=== PATIENT | male | born 1975 ===

== ENCOUNTER 2018-04-25 15:01 | Inpatient (IN) | payer MEDICAID ==
[2018-04-25 15:01] VITALS: BMI 39.1
--- NOTE | 2018-04-25 15:48 | ED PDOC ---
Arrival/HPI - General Chief Complaint: Psychiatric Evaluation Time Seen by Provider: 04/25/18 15:04 Historian: Patient - History of Present Illness Narrative History of Present Illness (Text): 04/25/18 15:25 43 year old male, with past medical history of schizophrenia and bipolar disorder, referred to the Emergency department by Dr. Correa for psychiatric evaluation today. Patient informs feeling depressed in addition to auditory hallucinations and unusual thoughts for past few days. Patient expresses suicidal ideation but denies any homicidal ideation. Patient denies any medical complaints. Patient denies any fever, chills, nausea, vomiting, diarrhea, abdominal pain, chest pain, shortness of breath, neck pain, back pain, headache, dizziness, or any other complaints. Time/Duration: Prior to Arrival Symptom Onset: Gradual Symptom Course: Unchanged Activities at Onset: Light Context: Home Past Medical History - Provider Review Nursing Documentation Reviewed: Yes - Infectious Disease Hx of Infectious Diseases: None - Tetanus Immunization Tetanus Immunization: Unknown - Cardiac Hx Cardiac Disorders: No - Pulmonary Hx Respiratory Disorders: No - Neurological Hx Neurological Disorder: No - HEENT Hx HEENT Disorder: No - Renal Hx Renal Disorder: No - Endocrine/Metabolic Hx Endocrine Disorders: No - Hematological/Oncological Hx Blood Disorders: No - Integumentary Hx Dermatological Disorder: No - Musculoskeletal/Rheumatological Hx Musculoskeletal Disorders: No - Gastrointestinal Hx Gastrointestinal Disorders: No - Genitourinary/Gynecological Hx Sexually Transmitted Diseases: (Patient denied) - Psychiatric Hx Psychophysiologic Disorder: Yes Hx Anxiety: Yes Hx Bipolar Disorder: Yes Hx Depression: Yes Hx Schizophrenia: Yes Hx Substance Use: Yes (COCAINE, CANNABIS; DENIES RECENT USE) - Past Surgical History Past Surgical History: Unable to Obtain - Surgical History Hx Coronary Stent: No - Anesthesia Hx Anesthesia: No - Suicidal Assessment Feels Threatened In Home Enviroment: No Family/Social History - Physician Review Nursing Documentation Reviewed: Yes Family/Social History: No Known Family HX Smoking Status: Former Smoker Hx Alcohol Use: Yes Hx Substance Use: Yes (COCAINE, CANNABIS; DENIES RECENT USE) Hx Substance Use Treatment: Yes Allergies/Home Meds Allergies/Adverse Reactions: Allergies divalproex sodium [From Depakote] Allergy (Verified 04/25/18 15:08) RASH FISH Allergy (Verified 04/25/18 15:08) RASH haloperidol [From Haldol] Allergy (Verified 04/25/18 15:08) RASH haloperidol lactate [From Haldol] Allergy (Verified 04/25/18 15:08) RASH risperidone [From Risperdal] Allergy (Verified 04/25/18 15:08) RASH ziprasidone HCl [From Geodon] Allergy (Verified 04/25/18 15:08) RASH ziprasidone mesylate [From Geodon] Allergy (Verified 04/25/18 15:08) RASH Home Medications: Home Meds Medication Instructions Recorded Confirmed Docusate [Colace] 1 cap PO BID 04/25/18 04/25/18 Famotidine [Pepcid] 20 mg PO DAILY 04/25/18 04/25/18 [place] Carbonate [[place] 300 mg PO TID 04/25/18 04/25/18 Carbonate 300MG] QUEtiapine [SEROquel] 300 mg PO HS 04/25/18 04/25/18 Review of Systems - Physician Review All systems were reviewed & negative as marked: Yes - Review of Systems Constitutional: absent: Fevers Respiratory: absent: SOB Cardiovascular: absent: Chest Pain Gastrointestinal: absent: Abdominal Pain, Diarrhea, Nausea, Vomiting Musculoskeletal: absent: Back Pain, Neck Pain Neurological: absent: Headache, Dizziness Psychiatric: Depression, Suicidal Ideation Physical Exam Vital Signs Reviewed: Yes Vital Signs Temp Pulse Resp BP Pulse Ox 04/25/18 15:10 98.8 F 86 16 114/76 97 Temperature: Afebrile Blood Pressure: Normal Pulse: Regular Respiratory Rate: Normal Appearance: Positive for: Well-Appearing, Non-Toxic, Comfortable Pain Distress: None Mental Status: Positive for: Alert and Oriented X 3 - Systems Exam Head: Present: Atraumatic, Normocephalic Pupils: Present: PERRL Extroacular Muscles: Present: EOMI Conjunctiva: Present: Normal Mouth: Present: Moist Mucous Membranes Neck: Present: Normal Range of Motion Respiratory/Chest: Present: Clear to Auscultation, Good Air Exchange. No: Respiratory Distress, Accessory Muscle Use Cardiovascular: Present: Regular Rate and Rhythm, Normal S1, S2. No: Murmurs Abdomen: No: Tenderness, Distention, Peritoneal Signs Back: Present: Normal Inspection Upper Extremity: Present: Normal Inspection. No: Cyanosis, Edema Lower Extremity: Present: Normal Inspection. No: Edema Neurological: Present: GCS=15, CN II-XII Intact, Speech Normal Skin: Present: Warm, Dry, Normal Color. No: Rashes Psychiatric: Present: Alert, Oriented x 3, Suicidal Ideation Medical Decision Making ED Course and Treatment: 04/25/18 15:25 Impression: 43 year old male presents to the Emergency department for psychiatric evaluation of depression and suicidal ideation. Differential Diagnosis included but are not limited to: Suicidal ideation Plan: -- EKG -- Labs -- Chest X-ray -- Urinalysis -- Reassess and disposition Prior Visits: Notes and results from previous visits were reviewed. Progress Notes: 04/25/18 15:25 EKG: Ordered, reviewed, and independently interpreted the EKG. Rate : 79 BPM Rhythm : NSR Interpretation : No ST-segment elevations or depressions, no T-wave inversions, normal intervals. 04/25/18 15:25 Chest X-ray reviewed by me, shows no acute diseases. 04/25/18 16:17 Patient is medically cleared for possible psychiatric admission. PES paged for evaluation. - RAD Interpretation Radiology Orders: 04/25/18 15:25 CHEST PORTABLE [RAD] Stat - Scribe Statement The provider has reviewed the documentation as recorded by the Scribe Hiwot Obando. Provider Scribe Attestation: All medical record entries made by the Scribe were at my direction and personally dictated by me. I have reviewed the chart and agree that the record accurately reflects my personal performance of the history, physical exam, medical decision making, and the department course for this patient. I have also personally directed, reviewed, and agree with the discharge instructions and disposition. Disposition/Present on Arrival - Present on Arrival Any Indicators Present on Arrival: No History of DVT/PE: No History of Uncontrolled Diabetes: No Urinary Catheter: No History of Decub. Ulcer: No History Surgical Site Infection Following: None - Disposition Have Diagnosis and Disposition been Completed?: Yes Diagnosis: Schizophrenia Disposition: HOSPITALIZED Disposition Time: 07:00 Condition: STABLE Forms: [employer] (Cuban)
[2018-04-25 15:53] LABS: BASO # 0.03 K/mm3 (0.0-2.0); BASO % 0.5 % (0.0-3.0); EOS # 0.2 (0.0-0.7); EOS % 2.4 % (1.5-5.0); GRAN # 2.92 (1.4-6.5); GRAN % 45.9 % (50.0-68.0); HEMOGLOBIN 15.9 g/dL (14.0-18.0); LYMPH # 2.6 (1.2-3.4); LYMPH % 41.3 % (22.0-35.0); MEAN CELL VOLUME 89.6 fl (80.0-105.0); MEAN CORPUSCULAR HEMOGLOBIN 30.6 pg (25.0-35.0); MEAN CORPUSCULAR HGB CONC 34.2 g/dl (31.0-37.0); MEAN PLATELET VOLUME 8.7 fl (7.0-11.0); MONO # 0.6 (0.1-0.6); MONO % 9.9 % (1.0-6.0); RBC 5.19 10^6/uL (3.5-6.1); RED CELL DISTRIBUTION WIDTH 12.7 % (11.5-14.5); WHITE BLOOD COUNT 6.4 10^3/ul (4.5-11.0)
[2018-04-25 15:54] LABS: URINE BILIRUBIN NEGATIVE (NEGATIVE); URINE BLOOD NEGATIVE (NEGATIVE); URINE GLUCOSE (UA) NEGATIVE (NEGATIVE); URINE LEUKOCYTE ESTERASE NEGATIVE Leu/uL (NEGATIVE); URINE PROTEIN NEGATIVE mg/dL (<30 mg/dL); URINE UROBILINOGEN 0.2 E.U./dL (<1 E.U./dL)
[2018-04-25 15:55] LABS: URINE APPEARANCE CLEAR (CLEAR); URINE COLOR YELLOW (YELLOW)
[2018-04-25 16:07] LABS: ACETAMINOPHEN < 10.0 ug/ml (10.0-20.0); SALICYLATE < 1 mg/dL (2.0-20.0)
[2018-04-25 16:09] LABS: ALB/GLOB RATIO 1.1 (1.1-1.8); ALBUMIN 4.3 g/dL (3.0-4.8); ALT/SGPT 28 U/L (7-56); AST/SGOT 21 U/L (17-59); BLOOD UREA NITROGEN 9 mg/dL (7-21); CALCIUM 9.8 mg/dL (8.4-10.5); GFR NON-AFRICAN AMERICAN > 60
--- NOTE | 2018-04-25 16:16 | RAD ---
Date of service: 04/25/2018 HISTORY: pysch COMPARISON: No prior. FINDINGS: LUNGS: No active pulmonary disease. PLEURA: No significant pleural effusion identified, no pneumothorax apparent. CARDIOVASCULAR: Normal. OSSEOUS STRUCTURES: No significant abnormalities. VISUALIZED UPPER ABDOMEN: Normal. OTHER FINDINGS: None. IMPRESSION: No active disease.
[2018-04-25 16:27] LABS: BARBITURATES, UR NEGATIVE (NEGATIVE); BENZODIAZEPINES, UR NEGATIVE (NEGATIVE); OPIATES, UR NEGATIVE (NEGATIVE); PHENCYCLIDINE, UR NEGATIVE (NEGATIVE)
--- NOTE | 2018-04-26 01:30 | PCM.BM ---
<Elmer Gerardo - Last Filed: 04/26/18 01:28> Treatment Plan Problems - Problems identified on initial assessmt Auditory Hallucinations Date Initiated: 04/26/18 Time Initiated: Assessment reference: NA Status: Active Altered Thoughts Process Date Initiated: 04/26/18 Time Initiated: Assessment reference: NA Status: Active Ineffective Coping Date Initiated: 04/26/18 Time Initiated: Assessment reference: NA Status: Active Medication nonadherence Date Initiated: 04/26/18 Time Initiated: Assessment reference: NA Status: Active Treatment assets and liabiliti Patient Assests: adapts well, cooperative, self-reliant, ADL independent, physically healthy, negotiates basic needs, cognitively intact Patient Liabilities: live alone, financial problems, poor support system - Milieu Protocol Maintain good personal hygiene: daily Encourage regular showers, daily Remind patient to perform daily oral care, daily Assist patient to perform ADL's Conduct patient checks and document Observation sheet: Q15 minutes Maintain personal safety: every shift Educate patient to report safety concerns to staff, every shift Monitor environment for contraband/sharps Medication safety: Monitor for expected outcome, potential side effects: every shift, Assess barriers to learning: every shift, Assess readiness for medication education: every shift Discharge/Continuing Care - Education Needs Education Needs: Patient Medication, Patient Diagnosis/Disease Process, Patient Coping Skills, Patient Community resources, Patient Activities of Daily Living, Patient Nutrition, Patient Health Practices/Safety, Patient Personal Hygiene/G rooming, Patient Aftercare Safety Plan - Discharge Discharge Criteria: Tolerates medication w/o severe side effects, Free of Suicidal thoughts, Free of paranoid thoughts, Normal sleep pattern, Ability to care for self, Reduction of target symptoms <Madeline Hernandez - Last Filed: 04/26/18 14:33> - Diagnosis (1) Schizoaffective disorder, bipolar type Status: Acute Interventions: 04/26/18 14:34 Psychoeducation/psychotherapy Psychopharmacology/adjustment of medications as needed/ monitoring possible side effects Evaluate pt on daily basis Compliance with medications and follow up appointments Long acting medication if pt is noncompliant with pill form Suicide and homicide risk assessment and prevention, coping strategies, safety plan Relapse prevention Reduction of symptoms Improve functional status Possible assertive community treatment Cognitive behavioral therapy Family involvement Possible social skill training as outpatient <Elsa Todd - Last Filed: 04/26/18 16:34> Family Contact - Outside Agency [facility] involvment: Information-sharing Agency contact name: Dennise Payan [facility] Agency contact number: [phone]
[2018-04-26 07:26] LABS: GLUCOSE,FASTING 106 mg/dL (65-110); HDL CHOLESTEROL 45 mg/dL (29-60)
[2018-04-26 07:38] LABS: LDL CHOLESTEROL 137 mg/dL (0-129)
--- NOTE | 2018-04-26 14:24 | CARD ---
APPROVED REPORT Date of service: 04/25/2018 EKG Measurement Heart [id number] <Conclusion> Normal sinus rhythm Incomplete right bundle branch block Nonspecific T wave abnormality Abnormal ECG
--- NOTE | 2018-04-26 14:33 | PCM.PSYCH ---
Initial Psychiatric Evaluation - Initial Psychiatric Evaluation Type of Admission: Voluntary Legal Status: Capacity (patient has capacity to sign consent for treatment) Chief Complaint (in patient's own words): "I'm sick and tired of everything,I have no hopes for the future, I do want to repeat myself anymore, only want to do it's going home, I will go to my group h ome then I will sign myself out and nobody will find me ever" Patient's Reaction to Hospitalization: Patient was admitted for evaluation and stabilization of depressive symptoms, psychosis, inability to take care of himself, loss of appetite, suicidal ideation. History of Present Illness and Precipitating Events: Shortly patient is 43-year-old male with reported history of schizoaffective disorder, patient has treatment resistant symptoms, multiple previous psychiatric admissions including [place] as well as [facility], patient seems to be compliant with the medication but still has residual symptoms of psychosis, patient has command type hallucinations, patient also suffered from severe depression, patient was not able to function, patient was not bathing, had low appetite, very apathetic, patient was referred by [facility] for evaluation and stabilization of depressive symptoms, psychotic symptoms, medication management, possible ECT treatment,, patient requires further evaluation and stabilization and medication initiation and titration possible ECT. patient was seen and examined today at the treatment team meeting, patient presented to be irritable, annoyed, agitated, refused to participate in treatment meeting, patient said that "I'm sick and tired of everything, I do want to repeat myself, fully want is to go back home, then I will sign myself out, nobody will find me ever". patient requested to be discharged, signed 48 hour notice, patient was educated about treatment plan, about ECT options, about medication management, patient was not receptive. As per staff patient was agitated, but not aggressive, irritable, annoyed, verbalized that he is hearing voices as well as has suicidal ideation but denied any plan or intent to kill himself, over night complained that he hears multiple voices,required PRN ativan. patient gave permission to speak to Quynh Hurley at [facility], who visited pt today, as per Quynh pt has been laying in bed for the past month and half, confused, having hallucinations, no taking care of his hygiene, reporting suicidal thoughts. Pt has been experiencing loss of appetite, verbalized hopelessness and helplessness and loss interest in life. Staff expressed highest concerns about pt's safety. after Quynh visit pt rescinded 48hr notice, willing to get treatment, willing to stay and complete his tx course. as per report patient was on Seroquel 300 mg at the nighttime, lithium 300 mg 3 times a day, trazodone 50 mg at the nighttime. past psych h/o: >4psychiatric hospitalizations; currently treated with [place], Seroquel PMHx: Back and leg pain Alergies: Fish, Depakote; (unclear if true allergy vs dystonia)-Risperdal, Haldol FHx: Denies family h/o mental illness SHx: Denies drug/etoh/cig; resident of [facility]dc h/o abuse is unknown 04/25/18 15:39 04/25/18 15:39 Lab Results 04/26/18 06:45: TSH 3rd Generation 4.32 04/26/18 06:45: Fasting Glucose 106, Triglycerides 145, Cholesterol 219 H, LDL Cholesterol Direct 137 H, HDL Cholesterol 45 04/26/18 06:45: [place] 0.2 L 04/25/18 15:39: Alcohol, Quantitative < 10 04/25/18 15:39: Salicylates < 1 L, Acetaminophen < 10.0 L 04/25/18 15:39: Urine Opiates Screen Negative, Urine Methadone Screen Negative, Ur Barbiturates Screen Negative, Ur Phencyclidine Scrn Negative, Ur Amphetamines Screen Negative, U Benzodiazepines Scrn Negative, U Oth Cocaine Metabols Negative, U Cannabinoids Screen Negative 04/25/18 15:39: Sodium 143, Potassium 3.9, Chloride 109 H, Carbon Dioxide 25, Anion Gap 12, BUN 9, Creatinine 0.8, Est GFR ( Amer) > 60, Est GFR (Non- Af Amer) > 60, Random Glucose 98, Calcium 9.8, Magnesium 2.2, Total Bilirubin 0.4, AST 21, ALT 28, Alkaline Phosphatase 54, Total Protein 8.1, Albumin 4.3, Globulin 3.8, Albumin/Globulin Ratio 1.1 04/25/18 15:39: Urine Color Yellow, Urine Appearance Clear, Urine pH 6.0, Ur Specific [place] 1.025, Urine Protein Negative, Urine Glucose (UA) Negative, Urine Ketones Negative, Urine Blood Negative, Urine Nitrate Negative, Urine Bilirubin Negative, Urine Urobilinogen 0.2, Ur Leukocyte Esterase Negative 04/25/18 15:39: WBC 6.4, RBC 5.19, Hgb 15.9, Hct 46.5, MCV 89.6, MCH 30.6, MCHC 34.2, RDW 12.7, Plt Count 307, MPV 8.7, Gran % 45.9 L, Lymph % (Auto) 41.3 H, [place] % (Auto) 9.9 H, Eos % (Auto) 2.4, Baso % (Auto) 0.5, Gran # 2.92, Lymph # (Auto) 2.6, [place] # (Auto) 0.6, Eos # (Auto) 0.2, Baso # (Auto) 0.03 Vital Signs Temp Pulse Resp BP Pulse Ox 04/26/18 07:21 98.2 F 92 H 20 116/74 04/25/18 20:30 98.3 F 82 18 131/71 100 04/25/18 20:20 98.3 F 80 16 121/80 99 04/25/18 19:22 98.3 F 82 18 131/71 100 04/25/18 15:55 98.3 F 81 20 112/73 96 04/25/18 15:10 98.8 F 86 16 114/76 97 lithium was less than 2 most likely patient was noncompliant with the medications Current Medications: Active Medications Generic Name Dose Route Start Last Admin Trade Name Freq PRN Reason Stop Dose Admin Docusate Sodium 100 mg 04/26/18 08:00 04/26/18 09:12 Colace PO 100 mg BID PETROS Administration [place] Carbonate 300 mg 04/26/18 08:00 04/26/18 09:12 [place] Carbonate 300mg PO 300 mg TID PETROS Administration Lorazepam 2 mg 04/25/18 21:55 04/26/18 09:12 Ativan PO 2 mg Q6 PRN Administration Agitation/Psychosis Protocol Quetiapine Fumarate 300 mg 04/26/18 22:00 Seroquel PO HS PETROS Protocol Past Psychiatric History - Past Psychiatric History Previous Treatment History: Inpatient Prior Professional Help: see HPI Prior Psychiatric Treatment: see HPI At what hospital: see HPI Duration: see HPI Nature of Treatment: see HPI Explanation of prior treatment: see HPI History of Abuse: see HPI History of ETOH/Drug Use: see HPI History of Family Illness: see HPI Pertinent Medical Hx (Current Medical&Sleep Prob, Allergies): Allergies Allergy/AdvReac Type Severity Reaction Status Date / Time divalproex sodium Allergy RASH Verified 04/25/18 22:09 [From Depakote] FISH Allergy RASH Verified 04/25/18 22:09 haloperidol [From Haldol] Allergy RASH Verified 04/25/18 22:09 haloperidol lactate Allergy RASH Verified 04/25/18 22:09 [From Haldol] risperidone [From Risperdal] Allergy RASH Verified 04/25/18 22:09 ziprasidone HCl [From Geodon] Allergy RASH Verified 04/25/18 22:09 ziprasidone mesylate Allergy RASH Verified 04/25/18 22:09 [From Geodon] Docusate [Colace] 1 cap PO BID 04/25/18 Famotidine [Pepcid] 20 mg PO DAILY 04/25/18 [place] Carbonate [[place] Carbonate 300MG] 300 mg PO TID 04/25/18 QUEtiapine [SEROquel] 300 mg PO HS 04/25/18 Review of Systems - Review of Systems Systems not reviewed;Unavailable: Acuity of Condition - EENT Eyes: As Per HPI Ears: As Per HPI Nose/Mouth/Throat: As Per HPI - Cardiovascular Cardiovascular: As Per HPI - Respiratory Respiratory: As Per HPI - Gastrointestinal Gastrointestinal: As Per HPI - Genitourinary Genitourinary: As Per HPI - Reproductive: Male Reproductive:Male: As Per HPI - Musculoskeletal Musculoskeletal: As Par HPI - Integumentary Integumentary: As Per HPI - Neurological Neurological: As Per HPI - Psychiatric Psychiatric: As Per HPI - Endocrine Endocrine: As Per HPI - Hematologic/Lymphatic Hematologic: As Per HPI Mental Status Examination - Personal Presentation Personal Presentation: Looks stated age - Affect Affect: Constricted, Flat - Motor Activity Motor Activity: Psychomotor Agitation, Other (restlessness) - Reliability in Providing Information Reliability in Providing Information: Poor, due to alteration in thoughts, Poor, due to altered mood, Poor, due to cognitve impairment - Speech Speech: Disorganized - Mood Mood: Depressed, Anxious - Formal Thought Process Formal Thought Process: Hallucinations, Delusions, Paranoia - Hallucinations/Delusions Delusions: Persecution - Obsessions/Compulsions Obsessions: None Compulsions: None - Cognitive Functions Orientation: Person, Place, Situation Sensorium: Alert Attention/Concentration: Easily distracted Estimate of Intelligence: Average Judgement: Intact, as evidence by: Insight regarding need for hospitalization - Risk Risk: Suicidal, Diminished functioning - Strength & Assets Inventory Strength & Assets Inventory: Other (relatively good physical health, support from the [facility], no drug abuse) - Limitations Limitations: Other (tx resistant symptoms) DSM 5 DX - DSM 5 DSM 5 Diagnosis: schizoaffective disorder bipolar type as per history, ost recent episode mixed - Recommended/Plan of Treatment Treatment Recommendations and Plan of Treatment: Milieu/structure/supportive therapy Medical consult appreciated, see medical team note for more detailed info SW consultation for discharge plan and social issues Med management Docusate [Colace] 1 cap PO BID presumed Famotidine [Pepcid] 20 mg PO DAILY resumed [place] Carbonate [[place] Carbonate 300MG] 300 mg PO TID resumed [place] level is less than 0.2, most likely patient was not compliant with the medications, we'll continue with her previous dose QUEtiapine [SEROquel] will be increased to 200 mg at the morning time and 300 mg PO HS Ativan 1 mg 3 times a day will be added for anxiety Collaterals were obtained from the fdc possible ECT treatment, at the same time patient lacks capacity to sign consent as of now because the severity of his symptoms Follow up on labs Will monitor closely Pt was educated about risk/benefits and alternatives of medications, coping strategies (safety plan, suicide prevention), relapse prevention, importance of follow up with psychiatrist and therapist, stay away from drugs/alcohol/smoking Projected ELOS: 10 days Prognosis: guarded Discharge Plan and Discharge Criteria: Pt will be not depressed or manic, will be more hopeful, will be not psychotic or anxious, will be not having thoughts of harming self or others, will be tolerating medications well, will not have major side effects, will be able to function, will not pose threat to self or others. - Smoking Cessation Smoking Cessation Initiated: No Reason for not providing: patient denied smoking
--- NOTE | 2018-04-27 13:45 | PCM.PYCHPN ---
Psychiatric Progress Note - Psychiatric Progress Note Patient seen today, length of contact: 30 minutes Patient Chief Complaint: "I was not feeling so well yesterday, I was not feeling okay, thank you for keeping me, all I can say I hear voices, but I feel more hopeful" Problems Identified/Issues Discussed: Suicide/ homicide prevention, past psychiatric h/o, current psychiatric symptoms, medical problems, risk/benefits and alternatives of medications, medications compliance, coping strategies, substance abuse h/o, relapse prevention, importance of follow up with psychiatrist and therapist, discharge plan Medical Problems: pt c/o back pain, ibuprofen started Diagnostic Results: 04/25/18 15:39 04/25/18 15:39 Lab Results 04/26/18 06:45: RPR Nonreactive 04/26/18 06:45: TSH 3rd Generation 4.32 04/26/18 06:45: Fasting Glucose 106, Triglycerides 145, Cholesterol 219 H, LDL Cholesterol Direct 137 H, HDL Cholesterol 45 04/26/18 06:45: [place] 0.2 L 04/25/18 15:39: Alcohol, Quantitative < 10 04/25/18 15:39: Salicylates < 1 L, Acetaminophen < 10.0 L 04/25/18 15:39: Urine Opiates Screen Negative, Urine Methadone Screen Negative, Ur Barbiturates Screen Negative, Ur Phencyclidine Scrn Negative, Ur Amphetamines Screen Negative, U Benzodiazepines Scrn Negative, U Oth Cocaine Metabols Negative, U Cannabinoids Screen Negative 04/25/18 15:39: Sodium 143, Potassium 3.9, Chloride 109 H, Carbon Dioxide 25, Anion Gap 12, BUN 9, Creatinine 0.8, Est GFR ( Amer) > 60, Est GFR (Non- Af Amer) > 60, Random Glucose 98, Calcium 9.8, Magnesium 2.2, Total Bilirubin 0.4, AST 21, ALT 28, Alkaline Phosphatase 54, Total Protein 8.1, Albumin 4.3, Globulin 3.8, Albumin/Globulin Ratio 1.1 04/25/18 15:39: Urine Color Yellow, Urine Appearance Clear, Urine pH 6.0, Ur Specific [place] 1.025, Urine Protein Negative, Urine Glucose (UA) Negative, Urine Ketones Negative, Urine Blood Negative, Urine Nitrate Negative, Urine Bilirubin Negative, Urine Urobilinogen 0.2, Ur Leukocyte Esterase Negative 04/25/18 15:39: WBC 6.4, RBC 5.19, Hgb 15.9, Hct 46.5, MCV 89.6, MCH 30.6, MCHC 34.2, RDW 12.7, Plt Count 307, MPV 8.7, Gran % 45.9 L, Lymph % (Auto) 41.3 H, [place] % (Auto) 9.9 H, Eos % (Auto) 2.4, Baso % (Auto) 0.5, Gran # 2.92, Lymph # (Auto) 2.6, [place] # (Auto) 0.6, Eos # (Auto) 0.2, Baso # (Auto) 0.03 Vital Signs Temp Pulse Resp BP Pulse Ox 04/27/18 07:19 98 F 90 20 118/74 04/26/18 16:00 103 H 122/75 04/26/18 07:21 98.2 F 92 H 20 116/74 04/25/18 20:30 98.3 F 82 18 131/71 100 04/25/18 20:20 98.3 F 80 16 121/80 99 04/25/18 19:22 98.3 F 82 18 131/71 100 04/25/18 15:55 98.3 F 81 20 112/73 96 04/25/18 15:10 98.8 F 86 16 114/76 97 DSM 5 Symptoms Update: Shortly patient is 43-year-old male with reported history of schizoaffective disorder, patient has treatment resistant symptoms, multiple previous psychiatric admissions including [facility] as well as [facility], patient seems to be compliant with the medication but still has residual symptoms of psychosis, patient has command type hallucinations, patient also suffered from severe depression, patient was not able to function, patient was not bathing, had low appetite, very apathetic, patient was referred by halfway for evaluation and stabilization of depressive symptoms, psychotic symptoms, medication management, possible ECT treatment,, patient requires further evaluation and stabilization and medication initiation and titration possible ECT. patient was seen and examined today in his room, pt is apathetic, internally preoccupied, still did not want talk much. pt was apologetic for his behavior yesterday. treatment plan was discussed in details. pt was opened to ECT treatment, but pt seems to be still disorganized, needs to be stabilized more on meds in order to make decision about ECT treatment. pt's mood still depressed, pt has suicidal ideation, but contracted for safety. As per staff patient is compliant with the medications, no agitation or aggr ession,patient is depressed, self isolating. So far patient tolerates medications well, no jatin effects observed or reported, aims 0, no EPS. Impression: Schizoaffective disorder as per history Rule out schizophrenia treatment resistant Medication Change: Yes (seroquel increaed) Medical Record Reviewed: Yes Consults ordered or reviewed: pt was seen by medical team at ED will consider medical consult for dyslipidemia Mental Status Examination - Cognitive Function Orientation: Person, Place, Situation Memory: Impaired Attention: Poor Concentration: Poor Association: Loose Fund of Knowledge: Poor - Mood Mood: Depressed, Anxious - Affect Affect: Constricted, Flat - Formal Thought Process Formal Thought Process: Hallucinations, Delusions, Paranoia - Suicidal Ideation Suicidal Ideation: Yes Plan: passive wish to be , contracted for safety - Homicidal Ideation Homicidal Ideation: No Goal/Treatment Plan - Goal/Treatment Plan Need for Continued Stay: Remain at risks for inpatient hospitalization, Severe depression anxiety, Discharge may exacerbated symptoms, Severe functional impairment Progress Toward Problem(s) and Goals/Treatment Plan: Milieu/structure/supportive therapy Medical consult appreciated, see medical team note for more detailed info SW consultation for discharge plan and social issues Med management Docusate [Colace] 1 cap PO BID presumed Famotidine [Pepcid] 20 mg PO DAILY resumed [place] Carbonate [[place] Carbonate 300MG] 300 mg PO TID resumed [place] level is less than 0.2, most likely patient was not compliant with the medications, we'll continue with her previous dose QUEtiapine [SEROquel] 200 mg at the morning time and 300 mg PO HS Ativan 1 mg 3 times a day will be added for anxiety Collaterals were obtained from the halfway possible ECT treatment, at the same time patient lacks capacity to sign consent as of now because the severity of his symptoms Follow up on labs Will monitor closely Pt was educated about risk/benefits and alternatives of medications, coping strategies (safety plan, suicide prevention), relapse prevention, importance of follow up with psychiatrist and therapist, stay away from drugs/alcohol/smoking Estimated Date of D/C: 05/03/18
--- NOTE | 2018-04-28 12:41 | PCM.PYCHPN ---
Psychiatric Progress Note - Psychiatric Progress Note Patient seen today, length of contact: 30 minutes Patient Chief Complaint: "I am willing to do anything to start feeling better" Problems Identified/Issues Discussed: Suicide/ homicide prevention, past psychiatric h/o, current psychiatric symptoms, medical problems, risk/benefits and alternatives of medications, medications compliance, coping strategies, substance abuse h/o, relapse prevention, importance of follow up with psychiatrist and therapist, discharge plan Medical Problems: pt c/o back pain, ibuprofen started Diagnostic Results: 04/25/18 15:39 04/25/18 15:39 Lab Results 04/26/18 06:45: RPR Nonreactive 04/26/18 06:45: TSH 3rd Generation 4.32 04/26/18 06:45: Fasting Glucose 106, Triglycerides 145, Cholesterol 219 H, LDL Cholesterol Direct 137 H, HDL Cholesterol 45 04/26/18 06:45: [place] 0.2 L 04/25/18 15:39: Alcohol, Quantitative < 10 04/25/18 15:39: Salicylates < 1 L, Acetaminophen < 10.0 L 04/25/18 15:39: Urine Opiates Screen Negative, Urine Methadone Screen Negative, Ur Barbiturates Screen Negative, Ur Phencyclidine Scrn Negative, Ur Amphetamines Screen Negative, U Benzodiazepines Scrn Negative, U Oth Cocaine Metabols Negative, U Cannabinoids Screen Negative 04/25/18 15:39: Sodium 143, Potassium 3.9, Chloride 109 H, Carbon Dioxide 25, Anion Gap 12, BUN 9, Creatinine 0.8, Est GFR ( Amer) > 60, Est GFR (Non- Af Amer) > 60, Random Glucose 98, Calcium 9.8, Magnesium 2.2, Total Bilirubin 0.4, AST 21, ALT 28, Alkaline Phosphatase 54, Total Protein 8.1, Albumin 4.3, Globulin 3.8, Albumin/Globulin Ratio 1.1 04/25/18 15:39: Urine Color Yellow, Urine Appearance Clear, Urine pH 6.0, Ur Specific [place] 1.025, Urine Protein Negative, Urine Glucose (UA) Negative, Urine Ketones Negative, Urine Blood Negative, Urine Nitrate Negative, Urine Bilirubin Negative, Urine Urobilinogen 0.2, Ur Leukocyte Esterase Negative 04/25/18 15:39: WBC 6.4, RBC 5.19, Hgb 15.9, Hct 46.5, MCV 89.6, MCH 30.6, MCHC 34.2, RDW 12.7, Plt Count 307, MPV 8.7, Gran % 45.9 L, Lymph % (Auto) 41.3 H, [place] % (Auto) 9.9 H, Eos % (Auto) 2.4, Baso % (Auto) 0.5, Gran # 2.92, Lymph # (Auto) 2.6, [place] # (Auto) 0.6, Eos # (Auto) 0.2, Baso # (Auto) 0.03 Vital Signs Temp Pulse Resp BP Pulse Ox 04/27/18 07:19 98 F 90 20 118/74 04/26/18 16:00 103 H 122/75 04/26/18 07:21 98.2 F 92 H 20 116/74 04/25/18 20:30 98.3 F 82 18 131/71 100 04/25/18 20:20 98.3 F 80 16 121/80 99 04/25/18 19:22 98.3 F 82 18 131/71 100 04/25/18 15:55 98.3 F 81 20 112/73 96 04/25/18 15:10 98.8 F 86 16 114/76 97 DSM 5 Symptoms Update: Shortly patient is 43-year-old male with reported history of schizoaffe ctive disorder, patient has treatment resistant symptoms, multiple previous psychiatric admissions including [facility] as well as [facility], patient seems to be compliant with the medication but still has residual symptoms of psychosis, patient has command type hallucinations, patient also suffered from severe depression, patient was not able to function, patient was not bathing, had low appetite, very apathetic, patient was referred by care home for evaluation and stabilization of depressive symptoms, psychotic symptoms, medication management, possible ECT treatment,, patient requires further evaluation and stabilization and medication initiation and titration possible ECT. patient was seen and examined today in his room, pt is apathetic, internally preoccupied, still did not want talk much. as per staff patient is still psychotic, observed talking loudly to himself, guarded. treatment plan was discussed in details. pt was opened to ECT treatment, but pt seems to be still disorganized, needs to be stabilized more on meds in order to make decision about ECT treatment. pt's mood still depressed, pt has suicidal ideation, but contracted for safety. As per staff patient is compliant with the medications, no agitation or aggression,patient is depressed, self isolating. So far patient tolerates medications well, no jatin effects observed or reported, aims 0, no EPS. Impression: Schizoaffective disorder as per history Rule out schizophrenia treatment resistant Medication Change: Yes (seroquel increaed) Medical Record Reviewed: Yes Consults ordered or reviewed: pt was seen by medical team at ED will consider medical consult for dyslipidemia Mental Status Examination - Cognitive Function Orientation: Person, Place, Situation Memory: Impaired Attention: Poor Concentration: Poor Association: Loose Fund of Knowledge: Poor - Mood Mood: Depressed, Anxious - Affect Affect: Constricted, Flat - Formal Thought Process Formal Thought Process: Hallucinations, Delusions, Paranoia - Suicidal Ideation Suicidal Ideation: Yes - Homicidal Ideation Homicidal Ideation: No Goal/Treatment Plan - Goal/Treatment Plan Need for Continued Stay: Remain at risks for inpatient hospitalization, Severe depression anxiety, Discharge may exacerbated symptoms, Severe functional impairment Progress Toward Problem(s) and Goals/Treatment Plan: Milieu/structure/supportive therapy Medical consult appreciated, see medical team note for more detailed info SW consultation for discharge plan and social issues Med management Docusate [Colace] 1 cap PO BID presumed Famotidine [Pepcid] 20 mg PO DAILY resumed [place] Carbonate [[place] Carbonate 300MG] 300 mg PO TID resumed [place] level is less than 0.2, most likely patient was not compliant with the medications, we'll continue with her previous dose QUEtiapine [SEROquel] 300 mg at the morning time and 400 mg PO HS Ativan 1 mg 3 times a day will be added for anxiety Collaterals were obtained from the care home possible ECT treatment, at the same time patient lacks capacity to sign consent as of now because the severity of his symptoms Follow up on labs Will monitor closely Pt was educated about risk/benefits and alternatives of medications, coping strategies (safety plan, suicide prevention), relapse prevention, importance of follow up with psychiatrist and therapist, stay away from drugs/alcohol/smoking Estimated Date of D/C: 05/03/18
--- NOTE | 2018-04-30 02:19 | PN ---
DATE: 04/29/[address] Madeline Hernandez Chart reviewed and case discussed with Nursing. The patient is a 43-year-old male with a prior history of schizoaffective disorder. The patient has had multiple prior psychiatric admissions including in [place] and [facility]. The patient has been having command hallucinations and has also suffered from severe depression such that he was unable to function (performing ADLs). The patient is being considered for possible ECT. The patient does appear to be alert and oriented and seems to be paying better attention to personal attire. His mood and affect remains constricted and he is observed talking to himself at times and admits hearing voices. He is being maintained psychotropically on Ativan p.r.n., lithium 300 mg t.i.d., Prozac 20 mg daily, Seroquel 300 mg in the morning and 400 mg at bedtime. Shane Ramirez MD/ PhD
--- NOTE | 2018-04-30 15:57 | PCM.PYCHPN ---
Psychiatric Progress Note - Psychiatric Progress Note Patient seen today, length of contact: 30 minutes Patient Chief Complaint: "I am willing to do anything to start feeling better, voices are little better, I still want to have ECT" Problems Identified/Issues Discussed: Suicide/ homicide prevention, past psychiatric h/o, current psychiatric symptoms, medical problems, risk/benefits and alternatives of medications, medications compliance, coping strategies, substance abuse h/o, relapse prevention, importance of follow up with psychiatrist and therapist, discharge plan Medical Problems: pt c/o back pain, ibuprofen started Diagnostic Results: 04/25/18 15:39 04/25/18 15:39 Lab Results 04/26/18 06:45: RPR Nonreactive 04/26/18 06:45: TSH 3rd Generation 4.32 04/26/18 06:45: Fasting Glucose 106, Triglycerides 145, Cholesterol 219 H, LDL Cholesterol Direct 137 H, HDL Cholesterol 45 04/26/18 06:45: [place] 0.2 L 04/25/18 15:39: Alcohol, Quantitative < 10 04/25/18 15:39: Salicylates < 1 L, Acetaminophen < 10.0 L 04/25/18 15:39: Urine Opiates Screen Negative, Urine Methadone Screen Negative, Ur Barbiturates Screen Negative, Ur Phencyclidine Scrn Negative, Ur Amphetamines Screen Negative, U Benzodiazepines Scrn Negative, U Oth Cocaine Metabols Negative, U Cannabinoids Screen Negative 04/25/18 15:39: Sodium 143, Potassium 3.9, Chloride 109 H, Carbon Dioxide 25, Anion Gap 12, BUN 9, Creatinine 0.8, Est GFR ( Amer) > 60, Est GFR (Non- Af Amer) > 60, Random Glucose 98, Calcium 9.8, Magnesium 2.2, Total Bilirubin 0.4, AST 21, ALT 28, Alkaline Phosphatase 54, Total Protein 8.1, Albumin 4.3, Globulin 3.8, Albumin/Globulin Ratio 1.1 04/25/18 15:39: Urine Color Yellow, Urine Appearance Clear, Urine pH 6.0, Ur Specific [place] 1.025, Urine Protein Negative, Urine Glucose (UA) Negative, Urine Ketones Negative, Urine Blood Negative, Urine Nitrate Negative, Urine Bilirubin Negative, Urine Urobilinogen 0.2, Ur Leukocyte Esterase Negative 04/25/18 15:39: WBC 6.4, RBC 5.19, Hgb 15.9, Hct 46.5, MCV 89.6, MCH 30.6, MCHC 34.2, RDW 12.7, Plt Count 307, MPV 8.7, Gran % 45.9 L, Lymph % (Auto) 41.3 H, [place] % (Auto) 9.9 H, Eos % (Auto) 2.4, Baso % (Auto) 0.5, Gran # 2.92, Lymph # (Auto) 2.6, [place] # (Auto) 0.6, Eos # (Auto) 0.2, Baso # (Auto) 0.03 Vital Signs Temp Pulse Resp BP Pulse Ox 04/27/18 07:19 98 F 90 20 118/74 04/26/18 16:00 103 H 122/75 04/26/18 07:21 98.2 F 92 H 20 116/74 04/25/18 20:30 98.3 F 82 18 131/71 100 04/25/18 20:20 98.3 F 80 16 121/80 99 04/25/18 19:22 98.3 F 82 18 131/71 100 04/25/18 15:55 98.3 F 81 20 112/73 96 04/25/18 15:10 98.8 F 86 16 114/76 97 Temp Pulse Resp BP Pulse Ox 97.7 F 85 16 104/66 100 04/30/18 07:00 04/30/18 07:00 04/30/18 07:00 04/30/18 07:00 04/25/18 20:30 DSM 5 Symptoms Update: Shortly patient is 43-year-old male with reported history of schiz oaffective disorder, patient has treatment resistant symptoms, multiple previous psychiatric admissions including [place] as well as [facility], patient seems to be compliant with the medication but still has residual symptoms of psychosis, patient has command type hallucinations, patient also suffered from severe depression, patient was not able to function, patient was not bathing, had low appetite, very apathetic, patient was referred by detention for evaluation and stabilization of depressive symptoms, psychotic symptoms, medication management, possible ECT treatment,, patient requires further evaluation and stabilization and medication initiation and titration possible ECT. patient was seen and examined today in his room, pt is apathetic, internally preoccupied, still did not want talk much, pt said that voices are "little better", pt c/o apathy and depression. as per staff patient is still psychotic, observed talking loudly to himself, guarded. treatment plan was discussed in details, pt willing to have ECT tx. pt's mood still depressed, pt has suicidal ideation, but contracted for safety. As per staff patient is compliant with the medications, no agitation or ag gression,patient is depressed, self isolating. So far patient tolerates medications well, no jatin effects observed or reported, aims 0, no EPS. Impression: Schizoaffective disorder as per history Rule out schizophrenia treatment resistant Medication Change: Yes (lithium decrease) Medical Record Reviewed: Yes Consults ordered or reviewed: pt was seen by medical team at ED will consider medical consult for dyslipidemia Mental Status Examination - Cognitive Function Orientation: Person, Place, Situation Memory: Impaired Attention: Poor Concentration: Poor Association: Loose Fund of Knowledge: Poor - Mood Mood: Depressed, Anxious - Affect Affect: Constricted, Flat - Formal Thought Process Formal Thought Process: Hallucinations, Delusions, Paranoia - Suicidal Ideation Suicidal Ideation: No - Homicidal Ideation Homicidal Ideation: No Goal/Treatment Plan - Goal/Treatment Plan Need for Continued Stay: Remain at risks for inpatient hospitalization, Severe depression anxiety, Discharge may exacerbated symptoms, Severe functional impairment Progress Toward Problem(s) and Goals/Treatment Plan: Milieu/structure/supportive therapy Medical consult appreciated, see medical team note for more detailed info SW consultation for discharge plan and social issues Med management Docusate [Colace] 1 cap PO BID presumed Famotidine [Pepcid] 20 mg PO DAILY resumed [place] Carbonate [[place] Carbonate 300MG] 300 mg PO bid (decreased in order to avoid post ECT delirium) [place] level is less than 0.2, most likely patient was not compliant with the medications, we'll continue with her previous dose QUEtiapine [SEROquel] 400 mg at the morning time and 400 mg PO HS Ativan 1 mg 3 times a day will be added for anxiety Collaterals were obtained from the detention possible ECT treatment will call cardiology/internal medicine Follow up on labs Will monitor closely Pt was educated about risk/benefits and alternatives of medications, coping strategies (safety plan, suicide prevention), relapse prevention, importance of follow up with psychiatrist and therapist, stay away from drugs/alcohol/smoking Estimated Date of D/C: 05/03/18
--- NOTE | 2018-04-30 19:52 | CP.PCM.CON ---
<Nelson Rogers - Last Filed: 04/30/18 19:41> History of Present Illness - History of Present Illness History of Present Illness: 43M w/ PMH of Cocaine, cannabis, EtOH abuse, schizophrenia, and bipolar disorder [place] [facility] for depression, suicidal ideation, and auditory hallucination. [facility] complained of L ear and Jaw pain. Patient reports the pain comes about w/ movement and at rest. Denies any inciitng event. Denies any reports of Fevers, chills, abd pain, n/v/d/c, and chest pain. Also denies any sore throat, runny nose, or cough. PMH as above PSH none reported on admission Social Hx as above PMD: None Review of Systems - Review of Systems All systems: reviewed and no additional remarkable complaints except Review of Systems: As per HPI Past Patient History - Infectious Disease Hx of Infectious Diseases: None - Tetanus Immunizations Tetanus Immunization: Unknown - Past Medical History & Family History Past Medical History?: Yes - Past Social History Smoking Status: Former Smoker - CARDIAC Hx Cardiac Disorders: No - PULMONARY Hx Respiratory Disorders: No - NEUROLOGICAL Hx Neurological Disorder: No - HEENT Hx HEENT Problems: No - RENAL Hx Chronic Kidney Disease: No - ENDOCRINE/METABOLIC Hx Endocrine Disorders: No - HEMATOLOGICAL/ONCOLOGICAL Hx Blood Disorders: No - INTEGUMENTARY Hx Dermatological Problems: No - MUSCULOSKELETAL/RHEUMATOLOGICAL Hx Musculoskeletal Disorders: No - GASTROINTESTINAL Hx Gastrointestinal Disorders: No - GENITOURINARY/GYNECOLOGICAL Hx Sexually Transmitted Disorders: (Patient denied) - PSYCHIATRIC Hx Schizophrenia: Yes Hx Substance Use: Yes - SURGICAL HISTORY Hx Coronary Stent: No - ANESTHESIA Hx Anesthesia: No Meds Allergies/Adverse Reactions: Allergies Allergy/AdvReac Type Severity Reaction Status Date / Time divalproex sodium Allergy RASH Verified 04/25/18 22:09 [From Depakote] FISH Allergy RASH Verified 04/25/18 22:09 haloperidol [From Haldol] Allergy RASH Verified 04/25/18 22:09 haloperidol lactate Allergy RASH Verified 04/25/18 22:09 [From Haldol] risperidone [From Risperdal] Allergy RASH Verified 04/25/18 22:09 ziprasidone HCl [From Geodon] Allergy RASH Verified 04/25/18 22:09 ziprasidone mesylate Allergy RASH Verified 04/25/18 22:09 [From Geodon] - Medications Medications: Current Medications Carbamide Peroxide (Debrox Ear Drops) 0 ml BID [facility] Last Admin: 04/30/18 17:31 Dose: 5 drop Chlorpromazine (Thorazine) 50 mg PO Q6H PRN; Protocol PRN Reason: Agitation Last Admin: 04/29/18 13:42 Dose: 50 mg Chlorpromazine (Thorazine) 50 mg IM Q6H PRN; Protocol PRN Reason: Agitation Last Admin: 04/26/18 14:34 Dose: 50 mg Docusate Sodium (Colace) 100 mg PO BID [facility] Last Admin: 04/30/18 17:30 Dose: 100 mg Fluoxetine HCl (Prozac) 20 mg PO DAILY [facility] Last Admin: 04/30/18 10:01 Dose: 20 mg Ibuprofen (Motrin Tab) 600 mg PO Q6H PRN PRN Reason: pain >6/10, fever Last Admin: 04/29/18 21:25 Dose: 600 mg Elaine Carbonate (Elaine Carbonate 300mg) 300 mg PO BID [facility] Last Admin: 04/30/18 17:30 Dose: 300 mg Lorazepam (Ativan) 2 mg PO Q6 PRN; Protocol PRN Reason: Agitation/Psychosis Last Admin: 04/29/18 21:27 Dose: 2 mg Lorazepam (Ativan) 2 mg IM Q6H PRN PRN Reason: ANX Last Admin: 04/26/18 14:25 Dose: 2 mg Lorazepam (Ativan) 1 mg PO TID PETROS; Protocol Last Admin: 04/30/18 17:30 Dose: 1 mg Quetiapine Fumarate (Seroquel) 400 mg PO HS PETROS; Protocol Last Admin: 04/29/18 21:27 Dose: 400 mg Quetiapine Fumarate (Seroquel) 400 mg PO DAILY [facility]; Protocol Physical Exam - Constitutional Appears: Well, Non-toxic, No Acute Distress - Head Exam Head Exam: ATRAUMATIC, NORMOCEPHALIC - Eye Exam Eye Exam: EOMI, PERRL - ENT Exam ENT Exam: Mucous Membranes Moist Additional comments: BL cerumen impaction No erythema of pinna of L ear No palpable cervical or auricular lymphnodes No erythema or exudate within oropharynx Some clicking/popping w/ slow jaw opening - Respiratory Exam Respiratory Exam: Clear to Auscultation Bilateral, NORMAL BREATHING PATTERN. absent: Rales, Rhonchi - Cardiovascular Exam Cardiovascular Exam: RRR, +S1, +S2. absent: Systolic Murmur - GI/Abdominal Exam GI & Abdominal Exam: Normal Bowel Sounds, Soft. absent: Tenderness - Extremities Exam Extremities exam: Positive for: pedal edema, pedal pulses present (2+ DP/PT BL ) - Neurological Exam Neurological exam: Alert - Skin Skin Exam: Dry, Intact, Normal Color, Warm Results - Vital Signs Recent Vital Signs: Last Vital Signs Temp 97.7 F 04/30/18 07:00 Pulse 97 H 04/30/18 16:00 Resp 16 04/30/18 07:00 BP 119/74 04/30/18 16:00 Pulse Ox 100 04/25/18 20:30 - Labs Result Diagrams: 04/25/18 15:39 04/25/18 15:39 Assessment & Plan - Assessment and Plan (Free Text) Assessment: 43M w/ PMH polysubstance abuse, bipolar, schizoaffective disorder, adm to [facility] for suicidal ideation/ auditory hallucination. Medicine team consulted for complaints of L ear/ jaw pain. 1) L ear/ jaw pain No pain on otoscopic exam or w/ manipulation of pinna No erythema or discharge appreciated from ear BL ear impacted w/ cerumen -Debrox TID in BL ears We will reassess after Debrox to ensure there is no inflammation of the tympanic membrane -There may be some component of TMJ dysfunction; Patient should see dentist to r/o tmj dysfunction or bruxism 2) Dyslipidemia Cholesterol panel is mildly elevated Please maintain a strict exercise and diet regimen Reassess cholesterol panel within 6mo 3) Hx polysubstance abuse, bipolar, schizoaffective disorder Management as per psychiatry team Thank you for this consult, we will continue to follow at this time. Patient was seen, discussed, and examined at bedside in psych unit w/ attending physician Dr. Ken Rogers DO PGY1 - Internal Medicine Electrocardiograph Technician - Pager [phone] - Date & Time Date: 04/30/18 Time: 20:28 <Anahy Rogers R - Last Filed: 05/06/18 10:51> Meds - Medications Medications: Current Medications Atorvastatin Calcium (Lipitor) 10 mg PO DIN PETROS Last Admin: 05/05/18 17:05 Dose: 10 mg Chlorpromazine (Thorazine) 50 mg PO Q6H PRN; Protocol PRN Reason: Agitation Last Admin: 05/02/18 21:15 Dose: 50 mg Chlorpromazine (Thorazine) 50 mg IM Q6H PRN; Protocol PRN Reason: Agitation Last Admin: 04/30/18 20:35 Dose: 50 mg Ciprofloxacin/Dexamethasone (Ciprodex Otic) 4 drop BID PETROS Stop: 05/06/18 23:59 Last Admin: 05/06/18 09:53 Dose: Not Given Docusate Sodium (Colace) 100 mg PO BID PETROS Last Admin: 05/06/18 09:52 Dose: Not Given Fluoxetine HCl (Prozac) 20 mg PO DAILY PETROS Last Admin: 05/06/18 09:53 Dose: Not Given Ibuprofen (Motrin Tab) 600 mg PO Q6H PRN PRN Reason: pain >6/10, fever Last Admin: 05/05/18 22:03 Dose: 600 mg Quetiapine Fumarate (Seroquel) 400 mg PO HS PETROS; Protocol Last Admin: 05/05/18 21:50 Dose: 400 mg Quetiapine Fumarate (Seroquel) 400 mg PO DAILY PETROS; Protocol Last Admin: 05/06/18 09:53 Dose: Not Given Results - Vital Signs Recent Vital Signs: Last Vital Signs Temp 97.7 F 05/06/18 06:46 Pulse 80 05/06/18 06:46 Resp 20 05/06/18 06:46 BP 114/79 05/06/18 06:46 Pulse Ox 100 04/25/18 20:30 - Labs Result Diagrams: 04/25/18 15:39 04/25/18 15:39 Attending/Attestation - Attestation I have personally seen and examined this patient.: Yes I have fully participated in the care of the patient.: Yes I have reviewed all pertinent clinical information: Yes Notes (Text): Patient seen and examined by me with resident at 3PM on 04/30/18 with resident. Case including HPI, physical exam, and assessment and plan discussed with resident. Agree with above with following additions/corrections. Patient is a 43 year old male with past medical history significant for drug abuse (cocaine and marijuana), ETOH abuse, schizophrenia, and bipolar disorder that was admitted to the behavioral health unit for depression, suicidal ideation, and auditory hallucination. Medical team is consulted for left ear pain. Patient states that he has been having left ear pain for several days. Pain is on the outer ear lobe part and area of the left TMJ. Patient complains of soreness at TMJ area. Pain is worse with chewing and is constant. No drainage from the ear. No associated fevers or chills. No chest pain or shortness of breath. No headaches or dizziness. No nausea, vomiting, or abdominal pain. No dysuria. No diarrhea or constipation. Patient complains of chronic low back pain. 12 point review of systems reviewed by me. Please see above HPI. All other systems negative. Family history. Reviewed and noncontributory. Medications reviewed by me. Physical exam: Gen: Awake and alert lying in bed in no acute distress HEENT: Normocephalic, atraumatic. Bilateral ears with cerumen impaction. Extraocular muscles intact, pupils equal reactive. No scleral icterus. No pharyngeal erythema or exudate appreciated. Oropharynx is pink and moist. Neck is supple. Hearing grossly intact. Ears and nose externally unremarkable. Left TMJ area with tenderness with palpation. Cardiovascular: Normal rhythm. Normal S1, S2. No murmurs, rubs, or gallops appreciated Pulmonary: Normal respiratory effort. No rhonchi, rales, or wheezing appreciated. Gastrointestinal: Soft, nontender. Nondistended. Positive bowel sounds all 4 quadrants, no guarding. Musculoskeletal: Moves all extremities. No calf tenderness. No edema appreciated Central nervous system: AAO x 3. CN2-12 grossly intact Dermatologic: Skin warm and dry. Assessment and plan: Patient is a 43 year old male with past medical history significant for drug abuse (cocaine and marijuana), ETOH abuse, schizophrenia, and bipolar disorder that was admitted to the behavioral health unit for depression, suicidal ideation, and auditory hallucination. Medical team is consulted for left ear pain. 1. Left ear pain. May be secondary to TMJ dysfunction. Patient advised to follow up with a dentist upon discharge. Unable to examine tympanic membranes secondary to cerumen impaction. Patient started on debrox ear drops. 2. Dyslipidemia. LDL mildly elevated. Patient advised to diet and exercise and have repeat blood work done in 3-6 months. 3. Bipolar, schizophrenia, polysubstance abuse, Depression. Care as per primary team Case discussed in detail with the patient regarding current diagnosis and treatment plan. All questions answered. Thank you for allowing us to participate in the care of your patient. We will follow with you.
[2018-05-01] MEDS ORDERED: Ciprofloxacin/Dexamethasone OTIC SUSP AU SCH (08:00)
--- NOTE | 2018-05-01 16:27 | CP.PCM.PCO ---
Additional Comments - Additional Comments Additional Comments: EKG, Chest xray, and labs reviewed. Patient will need cardiac clearance prior to ECT. Patient otherwise medically optimized.
--- NOTE | 2018-05-01 16:43 | CARD ---
APPROVED REPORT Date of service: 05/01/2018 EXAM: Two-dimensional and M-mode echocardiogram with Doppler and color Doppler. INDICATION Abnormal EKG/Arrhythmia 2D DIMENSIONS Left Atrium (2D)3.3 (1.6-4.0cm)IVSd1.0 (0.7-1.1cm) LVDd4.2 (3.9-5.9cm)PWd1.1 (0.7-1.1cm) LVDs2.8 (2.5-4.0cm)FS (%) 34.4 % LVEF (%)63.8 (>50%) M-Mode DIMENSIONS Aortic Root3.20 (2.2-3.7cm)Aortic Cusp Exc.1.80 (1.5-2.0cm) Aortic Valve AoV Peak Qafqdvbh083.0cm/Gerardo Peak GR.15mmHgLVOT Peak Luleutdd583.0cm/s LVOT VTI27.20cm Mitral Valve MV E Fsodoicn19.2cm/sMV A Lwgpthei84.5cm/sE/A ratio0.9 TDI Lateral E' Peak V8.87cm/sMedial E' Peak V8.19cm/sE/Lateral E'7.8 E/Medial E'8.4 Pulmonary Valve PV Peak Lpllieet547.0cm/sPV Peak Grad.6mmHg Tricuspid Valve TR Peak Dtiddcxx646dg/sRAP [id number] Peak Gr.12mmHg [id number] LEFT VENTRICLE The left ventricle is normal size. There is normal left ventricular wall thickness. The left ventricular function is normal. The left ventricular ejection fraction is within the normal range. There is normal LV segmental wall motion. Transmitral Doppler flow pattern is Grade I-abnormal relaxation pattern. RIGHT VENTRICLE The right ventricle is normal size. There is normal right ventricular wall thickness. The right ventricular systolic function is normal. ATRIA The left atrium size is normal. The right atrium size is normal. AORTIC VALVE The aortic valve is not well visualized. No aortic regurgitation is present. There is no aortic valvular stenosis. MITRAL VALVE The mitral valve is normal in structure. There is no mitral valve regurgitation noted. There is no mitral valve stenosis. TRICUSPID VALVE The tricuspid valve is normal in structure. There is no tricuspid valve regurgitation noted. PULMONIC VALVE The pulmonary valve is normal in structure. There is no pulmonic valvular regurgitation. GREAT VESSELS The aortic root is normal in size. The IVC is normal in size and collapses >50% with inspiration. PERICARDIAL EFFUSION There is no pericardial effusion. <Conclusion> The left ventricle is normal size. There is normal left ventricular wall thickness. The left ventricular function is normal. The left ventricular ejection fraction is within the normal range. There is normal LV segmental wall motion. Transmitral Doppler flow pattern is Grade I-abnormal relaxation pattern.
--- NOTE | 2018-05-01 16:45 | CP.PCM.PCO ---
Physician Communication Note - Physician Communication Note Physician Communication Note: OK with ECt [facility]iac[facility]
--- NOTE | 2018-05-01 17:12 | PCM.PYCHPN ---
Psychiatric Progress Note - Psychiatric Progress Note Patient seen today, length of contact: 30 minutes Patient Chief Complaint: "I am willing to do anything to start feeling better, voices are little better, I still want to have ECT" Problems Identified/Issues Discussed: Suicide/ homicide prevention, past psychiatric h/o, current psychiatric symptoms, medical problems, risk/benefits and alternatives of medications, medications compliance, coping strategies, substance abuse h/o, relapse prevention, importance of follow up with psychiatrist and therapist, discharge plan Medical Problems: pt c/o back pain, ibuprofen started Diagnostic Results: 04/25/18 15:39 04/25/18 15:39 Lab Results 04/26/18 06:45: RPR Nonreactive 04/26/18 06:45: TSH 3rd Generation 4.32 04/26/18 06:45: Fasting Glucose 106, Triglycerides 145, Cholesterol 219 H, LDL Cholesterol Direct 137 H, HDL Cholesterol 45 04/26/18 06:45: Pennock 0.2 L 04/25/18 15:39: Alcohol, Quantitative < 10 04/25/18 15:39: Salicylates < 1 L, Acetaminophen < 10.0 L 04/25/18 15:39: Urine Opiates Screen Negative, Urine Methadone Screen Negative, Ur Barbiturates Screen Negative, Ur Phencyclidine Scrn Negative, Ur Amphetamines Screen Negative, U Benzodiazepines Scrn Negative, U Oth Cocaine Metabols Negative, U Cannabinoids Screen Negative 04/25/18 15:39: Sodium 143, Potassium 3.9, Chloride 109 H, Carbon Dioxide 25, Anion Gap 12, BUN 9, Creatinine 0.8, Est GFR ( Amer) > 60, Est GFR (Non- Af Amer) > 60, Random Glucose 98, Calcium 9.8, Magnesium 2.2, Total Bilirubin 0.4, AST 21, ALT 28, Alkaline Phosphatase 54, Total Protein 8.1, Albumin 4.3, Globulin 3.8, Albumin/Globulin Ratio 1.1 04/25/18 15:39: Urine Color Yellow, Urine Appearance Clear, Urine pH 6.0, Ur Specific [place] 1.025, Urine Protein Negative, Urine Glucose (UA) Negative, Urine Ketones Negative, Urine Blood Negative, Urine Nitrate Negative, Urine Bilirubin Negative, Urine Urobilinogen 0.2, Ur Leukocyte Esterase Negative 04/25/18 15:39: WBC 6.4, RBC 5.19, Hgb 15.9, Hct 46.5, MCV 89.6, MCH 30.6, MCHC 34.2, RDW 12.7, Plt Count 307, MPV 8.7, Gran % 45.9 L, Lymph % (Auto) 41.3 H, [place] % (Auto) 9.9 H, Eos % (Auto) 2.4, Baso % (Auto) 0.5, Gran # 2.92, Lymph # (Auto) 2.6, [place] # (Auto) 0.6, Eos # (Auto) 0.2, Baso # (Auto) 0.03 Vital Signs Temp Pulse Resp BP Pulse Ox 04/27/18 07:19 98 F 90 20 118/74 04/26/18 16:00 103 H 122/75 04/26/18 07:21 98.2 F 92 H 20 116/74 04/25/18 20:30 98.3 F 82 18 131/71 100 04/25/18 20:20 98.3 F 80 16 121/80 99 04/25/18 19:22 98.3 F 82 18 131/71 100 04/25/18 15:55 98.3 F 81 20 112/73 96 04/25/18 15:10 98.8 F 86 16 114/76 97 Temp Pulse Resp BP Pulse Ox 97.7 F 85 16 104/66 100 04/30/18 07:00 04/30/18 07:00 04/30/18 07:00 04/30/18 07:00 04/25/18 20:30 DSM 5 Symptoms Update: Shortly patient is 43-year-old male with reported history of schiz oaffective disorder, patient has treatment resistant symptoms, multiple previous psychiatric admissions including [place] as well as [facility], patient seems to be compliant with the medication but still has residual symptoms of psychosis, patient has command type hallucinations, patient also suffered from severe depression, patient was not able to function, patient was not bathing, had low appetite, very apathetic, patient was referred by [place] [facility] for evaluation and stabilization of depressive symptoms, psychotic symptoms, medication management, possible ECT treatment,, patient requires further evaluation and stabilization and medication initiation and titration possible ECT. patient was seen and examined today in his room, pt is apathetic, internally preoccupied, still did not want talk much, pt said that voices are "little better", pt c/o apathy and depression. as per staff patient is still psychotic, observed talking loudly to himself, guarded. treatment plan was discussed in details, pt willing to have ECT tx, as per advanced directives pt did not want to have ECT, but now pt "I will try anything to start feeling better", pt said he has no POA and he is the one who makes medical decisions for himself. medical team/cardiology team involved for ECT clearance. pt's mood still depressed, pt has suicidal ideation, but contracted for safety. As per staff patient is compliant with the medications, no agitation or aggression,patient is depressed, self isolating. So far patient tolerates medications well, no jatin effects observed or reported, aims 0, no EPS. Impression: Schizoaffective disorder as per history Rule out schizophrenia treatment resistant Medication Change: Yes (lithium decrease) Medical Record Reviewed: Yes Mental Status Examination - Cognitive Function Orientation: Person, Place, Situation Memory: Impaired Attention: Poor Concentration: Poor Association: Loose Fund of Knowledge: Poor - Mood Mood: Depressed, Anxious - Affect Affect: Constricted, Flat - Formal Thought Process Formal Thought Process: Hallucinations, Delusions, Paranoia - Suicidal Ideation Suicidal Ideation: No - Homicidal Ideation Homicidal Ideation: No Goal/Treatment Plan - Goal/Treatment Plan Need for Continued Stay: Remain at risks for inpatient hospitalization, Severe depression anxiety, Discharge may exacerbated symptoms, Severe functional impairment Progress Toward Problem(s) and Goals/Treatment Plan: Milieu/structure/supportive therapy Medical consult appreciated, see medical team note for more detailed info SW consultation for discharge plan and social issues Med management Docusate [Colace] 1 cap PO BID presumed Famotidine [Pepcid] 20 mg PO DAILY resumed Penn[place] Carbonate [Pennock Carbonate 300MG] 300 mg PO bid (decreased in order to avoid post ECT delirium) Pennock level is less than 0.2, most likely patient was not compliant with the medications, we'll continue with her previous dose QUEtiapine [SEROquel] 400 mg at the morning time and 400 mg PO HS Ativan 1 mg 3 times a day will be added for anxiety Collaterals were obtained from the [place] [facility] possible ECT treatment will call cardiology/internal medicine Follow up on labs Will monitor closely Pt was educated about risk/benefits and alternatives of medications, coping strategies (safety plan, suicide prevention), relapse prevention, importance of follow up with psychiatrist and therapist, stay away from drugs/alcohol/smoking Estimated Date of D/C: 05/10/18
--- NOTE | 2018-05-01 20:01 | CP.PCM.PN ---
Addendum entered and electronically signed by Nelson Rogers DO 05/01/18 20:12: We will be signing off at this time, please reconsult as necessary. Original Note: <Nelson Rogers - Last Filed: 05/01/18 19:56> Subjective - Date & Time of Evaluation Date of Evaluation: 05/01/18 Time of Evaluation: 13:00 - Subjective Subjective: Nelson Rogers DO PGY1 - Internal Medicine Visual Journalist - Hospital Progress Note Patient seen and examined at bedside this afternoon. Patient reports his L ear pain is improving and jaw pain has remained the same. Does not complain of Headache, dizziness, SOB, Cough, CP, palpitations, abd pain, n/v/d/c, urinary discomfort Objective - Vital Signs/Intake and Output Vital Signs (last 24 hours): Temp Pulse Resp BP Pulse Ox 97.8 F 90 20 116/73 100 05/01/18 07:13 05/01/18 15:00 05/01/18 07:13 05/01/18 15:00 04/25/18 20:30 - Medications Medications: Current Medications Atorvastatin Calcium (Lipitor) 10 mg PO DIN [facility] Last Admin: 05/01/18 17:57 Dose: 10 mg Carbamide Peroxide (Debrox Ear Drops) 0 ml AU TID [facility] Last Admin: 05/01/18 17:53 Dose: 1 unit Chlorpromazine (Thorazine) 50 mg PO Q6H PRN; Protocol PRN Reason: Agitation Last Admin: 04/29/18 13:42 Dose: 50 mg Chlorpromazine (Thorazine) 50 mg IM Q6H PRN; Protocol PRN Reason: Agitation Last Admin: 04/30/18 20:35 Dose: 50 mg Docusate Sodium (Colace) 100 mg PO BID [facility] Last Admin: 05/01/18 17:57 Dose: 100 mg Fluoxetine HCl (Prozac) 20 mg PO DAILY [facility] Last Admin: 05/01/18 08:53 Dose: 20 mg Ibuprofen (Motrin Tab) 600 mg PO Q6H PRN PRN Reason: pain >6/10, fever Last Admin: 04/29/18 21:25 Dose: 600 mg [place] Carbonate ([place] Carbonate 300mg) 300 mg PO DAILY [facility] Lorazepam (Ativan) 2 mg PO Q6 PRN; Protocol PRN Reason: Agitation/Psychosis Last Admin: 04/30/18 20:36 Dose: 2 mg Lorazepam (Ativan) 2 mg IM Q6H PRN PRN Reason: ANX Last Admin: 04/26/18 14:25 Dose: 2 mg Lorazepam (Ativan) 1 mg PO TID PETROS; Protocol Last Admin: 05/01/18 17:57 Dose: 1 mg Quetiapine Fumarate (Seroquel) 400 mg PO HS PETROS; Protocol Last Admin: 04/30/18 23:28 Dose: 400 mg Quetiapine Fumarate (Seroquel) 400 mg PO DAILY PETROS; Protocol Last Admin: 05/01/18 08:47 Dose: 400 mg - Labs Labs: 04/25/18 15:39 04/25/18 15:39 Physical Exam - Constitutional Appears: Well, Non-toxic, No Acute Distress - Head Exam Head Exam: ATRAUMATIC, NORMOCEPHALIC - Eye Exam Eye Exam: EOMI, PERRL - ENT Exam ENT Exam: Mucous Membranes Moist Additional comments: BL cerumen impaction improving Some erythema surrounding pinna of L ear today Tympanic membrane of L ear w/o signs of exudate, erythema, or discharge No palpable cervical or auricular lymphnodes No erythema or exudate within oropharynx Some clicking/popping w/ slow jaw opening - Respiratory Exam Respiratory Exam: Clear to Auscultation Bilateral, NORMAL BREATHING PATTERN. absent: Rales, Rhonchi - Cardiovascular Exam Cardiovascular Exam: RRR, +S1, +S2. absent: Systolic Murmur - GI/Abdominal Exam GI & Abdominal Exam: Normal Bowel Sounds, Soft. absent: Tenderness - Extremities Exam Extremities exam: Positive for: pedal edema, pedal pulses present (2+ DP/PT BL ) - Neurological Exam Neurological exam: Alert - Skin Skin Exam: Dry, Intact, Normal Color, Warm Assessment and Plan - Assessment and Plan (Free Text) Assessment: 43M w/ PMH polysubstance abuse, bipolar, schizoaffective disorder, adm to [facility] for suicidal ideation/ auditory hallucination. Medicine team consulted for complaints of L ear/ jaw pain. 1) L ear/ jaw pain No pain on otoscopic exam or w/ manipulation of pinna Some erythema or discharge appreciated from ear BL ear impacted w/ cerumen improved w/ debrox TID BL ears Will c/w debrox x3 days total Will start ciprodex x5 days total No inner ear infection appreciated There may be some component of TMJ dysfunction; Patient should see dentist to r/o tmj dysfunction or bruxism 2) Dyslipidemia Cholesterol panel is mildly elevated Please maintain a strict exercise and diet regimen Reassess cholesterol panel within 6mo 3) Hx polysubstance abuse, bipolar, schizoaffective disorder Management as per psychiatry team Plans for ECT as per psych team; please see attending physician addendum below for medical clearance. Thank you for this consult, the patient reported improvement of his ear pain w/ debrox and ciprodex. We will continue with debrox for 3 days total and ciprodex for 5 days total at this time. Patient was seen, discussed, and examined at bedside in psych unit w/ attending physician Dr. Ken Rogers DO PGY1 - Internal Medicine Visual Journalist - Pager [phone] <Anahy Rogers R - Last Filed: 05/06/18 10:55> Objective - Vital Signs/Intake and Output Vital Signs (last 24 hours): Temp Pulse Resp BP Pulse Ox 97.7 F 80 20 114/79 100 05/06/18 06:46 05/06/18 06:46 05/06/18 06:46 05/06/18 06:46 04/25/18 20:30 - Medications Medications: Current Medications Atorvastatin Calcium (Lipitor) 10 mg PO DIN [facility] Last Admin: 05/05/18 17:05 Dose: 10 mg Chlorpromazine (Thorazine) 50 mg PO Q6H PRN; Protocol PRN Reason: Agitation Last Admin: 05/02/18 21:15 Dose: 50 mg Chlorpromazine (Thorazine) 50 mg IM Q6H PRN; Protocol PRN Reason: Agitation Last Admin: 04/30/18 20:35 Dose: 50 mg Ciprofloxacin/Dexamethasone (Ciprodex Otic) 4 drop BID [facility] Stop: 05/06/18 23:59 Last Admin: 05/06/18 09:53 Dose: Not Given Docusate Sodium (Colace) 100 mg PO BID [facility] Last Admin: 05/06/18 09:52 Dose: Not Given Fluoxetine HCl (Prozac) 20 mg PO DAILY [facility] Last Admin: 05/06/18 09:53 Dose: Not Given Ibuprofen (Motrin Tab) 600 mg PO Q6H PRN PRN Reason: pain >6/10, fever Last Admin: 05/05/18 22:03 Dose: 600 mg Quetiapine Fumarate (Seroquel) 400 mg PO HS PETROS; Protocol Last Admin: 05/05/18 21:50 Dose: 400 mg Quetiapine Fumarate (Seroquel) 400 mg PO DAILY PETROS; Protocol Last Admin: 05/06/18 09:53 Dose: Not Given - Labs Labs: 04/25/18 15:39 04/25/18 15:39 Attending/Attestation - Attestation I have personally seen and examined this patient.: Yes I have fully participated in the care of the patient.: Yes I have reviewed all pertinent clinical information, including history, physical exam and plan: Yes Notes (Text): Patient seen and examined by me with resident at 2PM on 05/01/18 with resident. Case including HPI, physical exam, and assessment and plan discussed with resident. Agree with above with following additions/corrections. Patient is a 43 year old male with past medical history significant for drug abuse (cocaine and marijuana), ETOH abuse, schizophrenia, and bipolar disorder that was admitted to the behavioral health unit for depression, suicidal ideation, and auditory hallucination. Medical team is consulted for left ear pain. Patient states left ear pain is improved today. Still with some pain at TMJ site on left. No associated fevers or chills. No chest pain or shortness of breath. No headaches or dizziness. No nausea, vomiting, or abdominal pain. No dysuria. No diarrhea or constipation. Continues to complain of chronic low back pain but ibuprofen is helping. Physical exam: Gen: Awake and alert lying in bed in no acute distress HEENT: Normocephalic, atraumatic. Bilateral ears with cerumen. Left tympanic membrane with mild dullness. Extraocular muscles intact, pupils equal reactive. No scleral icterus. No pharyngeal erythema or exudate appreciated. Oropharynx is pink and moist. Neck is supple. Left TMJ area with tenderness with palpation. Cardiovascular: Normal rhythm. Normal S1, S2. No murmurs, rubs, or gallops appreciated Pulmonary: Normal respiratory effort. No rhonchi, rales, or wheezing appreciated. Gastrointestinal: Soft, nontender. Nondistended. Positive bowel sounds all 4 quadrants, no guarding. Musculoskeletal: Moves all extremities. No calf tenderness. No edema appreciated Central nervous system: AAO x 3. CN2-12 grossly intact Dermatologic: Skin warm and dry. Assessment and plan: Patient is a 43 year old male with past medical history significant for drug abuse (cocaine and marijuana), ETOH abuse, schizophrenia, and bipolar disorder that was admitted to the behavioral health unit for depression, suicidal ideation, and auditory hallucination. Medical team is consulted for left ear pain. 1. Left ear pain. May be secondary to TMJ dysfunction. Mild left ear infection. Will start on ciprodex. Patient advised to follow up with a dentist upon discharge. 2. Dyslipidemia. LDL mildly elevated. Patient advised to diet and exercise and have repeat blood work done in 3-6 months. 3. Bipolar, schizophrenia, polysubstance abuse, Depression. Care as per primary team Case discussed in detail with the patient regarding current diagnosis and treatment plan. All questions answered. Thank you for allowing us to participate in the care of your patient. Patient is doing better. We will sign off. Please re-consult if needed.
[2018-05-01] MEDS: Ciprofloxacin/Dexamethasone OTIC SUSP AS SCH (21:39)
--- NOTE | 2018-05-02 00:21 | CON ---
DATE: 05/01/2018 REASON FOR CONSULTATION: Clear the patient for ECT therapy. HISTORY OF PRESENT ILLNESS: The patient is 43-year-old male who has history of schizophrenia with significant auditory hallucinations. He has also bipolar disorder, who was initially referred by Dr. Correa to the emergency room for psychiatric evaluation and is being considered for ECT therapy. Patient denies any prior cardiac history. Denies any chest pain, shortness of breath, dizziness, or palpitation. The patient's EKG was with sinus rhythm, incomplete right bundle branch block and nonspecific Q wave changes, which from the practical point is considered a normal sinus rhythm and this is considered borderline EKG similar to an earlier one done in January of this year and not significantly different from an EKG done in January of 2014. SOCIAL HISTORY: The patient is nonsmoker, according to him. MEDICATIONS: Ativan 2 mg p.o. every 6 hours p.r.n. for agitation and psychosis, Colace 100 mg twice a day, lithium carbonate 300 mg p.o. twice a day, Motrin 600 mg p.o. every 6 hours p.r.n., Prozac 20 mg once a day, Seroquel 400 mg at bedtime, Thorazine 50 mg p.o. every 6 hours p.r.n. PHYSICAL EXAMINATION: GENERAL: Patient is a middle aged male who does not appear to be in any distress. VITAL SIGNS: Blood pressure 115/52, heart rate 89, temperature 97.8, respirations 20. HEENT: Normocephalic. NECK: No JVD. CHEST: Clear. HEART: S1 and S2, regular. ABDOMEN: Soft. EXTREMITIES: No edema. LABORATORY DATA: Toxicology screen was negative in February and April this year. SMA-7 on 04/25/2018, sodium 143, potassium 3.9, chloride 109, CO2 of 25, glucose 98, BUN 9, creatinine 0.8. Total cholesterol 219 and LDL cholesterol is 137, both are elevated. Hemoglobin and hematocrit 15.9 and 46.5, white count 6.4, platelet count 307,000. Admitting chest x-ray, no active disease. ASSESSMENT: 1. Schizophrenia with significant auditory hallucination. 2. Hyperlipidemia. 3. Borderline EKG with evidence of incomplete right bundle-branch block. RECOMMENDATIONS: Continue current Thorazine, Prozac, [place], p.r.n. Motrin, p.r.n. Ativan. Start Lipitor 10 mg orally once a day, obtain an echocardiographic study. Higinio Chaudhari MD
[2018-05-02] MEDS: Ciprofloxacin/Dexamethasone OTIC SUSP AS SCH ×2 (10:02→16:30)
--- NOTE | 2018-05-02 14:53 | PCM.PYCHPN ---
Psychiatric Progress Note - Psychiatric Progress Note Patient seen today, length of contact: 30 minutes Patient Chief Complaint: "I am willing to do anything to start feeling better, voices are little better, I still want to have ECT" Problems Identified/Issues Discussed: Suicide/ homicide prevention, past psychiatric h/o, current psychiatric symptoms, medical problems, risk/benefits and alternatives of medications, medications compliance, coping strategies, substance abuse h/o, relapse prevention, importance of follow up with psychiatrist and therapist, discharge plan Medical Problems: pt c/o back pain, ibuprofen started Diagnostic Results: 04/25/18 15:39 04/25/18 15:39 Lab Results 04/26/18 06:45: RPR Nonreactive 04/26/18 06:45: TSH 3rd Generation 4.32 04/26/18 06:45: Fasting Glucose 106, Triglycerides 145, Cholesterol 219 H, LDL Cholesterol Direct 137 H, HDL Cholesterol 45 04/26/18 06:45: Echo 0.2 L 04/25/18 15:39: Alcohol, Quantitative < 10 04/25/18 15:39: Salicylates < 1 L, Acetaminophen < 10.0 L 04/25/18 15:39: Urine Opiates Screen Negative, Urine Methadone Screen Negative, Ur Barbiturates Screen Negative, Ur Phencyclidine Scrn Negative, Ur Amphetamines Screen Negative, U Benzodiazepines Scrn Negative, U Oth Cocaine Metabols Negative, U Cannabinoids Screen Negative 04/25/18 15:39: Sodium 143, Potassium 3.9, Chloride 109 H, Carbon Dioxide 25, Anion Gap 12, BUN 9, Creatinine 0.8, Est GFR ( Amer) > 60, Est GFR (Non- Af Amer) > 60, Random Glucose 98, Calcium 9.8, Magnesium 2.2, Total Bilirubin 0.4, AST 21, ALT 28, Alkaline Phosphatase 54, Total Protein 8.1, Albumin 4.3, Globulin 3.8, Albumin/Globulin Ratio 1.1 04/25/18 15:39: Urine Color Yellow, Urine Appearance Clear, Urine pH 6.0, Ur Specific [place] 1.025, Urine Protein Negative, Urine Glucose (UA) Negative, Urine Ketones Negative, Urine Blood Negative, Urine Nitrate Negative, Urine Bilirubin Negative, Urine Urobilinogen 0.2, Ur Leukocyte Esterase Negative 04/25/18 15:39: WBC 6.4, RBC 5.19, Hgb 15.9, Hct 46.5, MCV 89.6, MCH 30.6, MCHC 34.2, RDW 12.7, Plt Count 307, MPV 8.7, Gran % 45.9 L, Lymph % (Auto) 41.3 H, [place] % (Auto) 9.9 H, Eos % (Auto) 2.4, Baso % (Auto) 0.5, Gran # 2.92, Lymph # (Auto) 2.6, [place] # (Auto) 0.6, Eos # (Auto) 0.2, Baso # (Auto) 0.03 Vital Signs Temp Pulse Resp BP Pulse Ox 04/27/18 07:19 98 F 90 20 118/74 04/26/18 16:00 103 H 122/75 04/26/18 07:21 98.2 F 92 H 20 116/74 04/25/18 20:30 98.3 F 82 18 131/71 100 04/25/18 20:20 98.3 F 80 16 121/80 99 04/25/18 19:22 98.3 F 82 18 131/71 100 04/25/18 15:55 98.3 F 81 20 112/73 96 04/25/18 15:10 98.8 F 86 16 114/76 97 Temp Pulse Resp BP Pulse Ox 97.7 F 85 16 104/66 100 04/30/18 07:00 04/30/18 07:00 04/30/18 07:00 04/30/18 07:00 04/25/18 20:30 DSM 5 Symptoms Update: Shortly patient is 43-year-old male with reported history of schizo affective disorder, patient has treatment resistant symptoms, multiple previous psychiatric admissions including [facility] as well as [facility], patient seems to be compliant with the medication but still has residual symptoms of psychosis, patient has command type hallucinations, patient also suffered from severe depression, patient was not able to function, patient was not bathing, had low appetite, very apathetic, patient was referred by residential for evaluation and stabilization of depressive symptoms, psychotic symptoms, medication management, possible ECT treatment,, patient requires further evaluation and stabilization and medication initiation and titration possible ECT. patient was seen and examined today in his room, pt is apathetic, internally preoccupied, still did not want talk much, pt said that voices are "little better", pt c/o apathy and depression. discussed about plan with pt, pt is weaned off lithium, to avoid post ECT delirium. as per staff patient is still psychotic, observed talking loudly to himself, guarded. treatment plan was discussed in details, pt willing to have ECT tx, as per advanced directives pt did not want to have ECT, but now pt "I will try anything to start feeling better", pt said he has no POA and he is the one who makes medical decisions for himself. medical team/cardiology team cleared pt for ECT treatment. pt's mood still depressed, pt has suicidal ideation, but contracted for safety. As per staff patient is compliant with the medications, no agitation or aggression,patient is depressed, self isolating. So far patient tolerates medications well, no jatin effects observed or reported, aims 0, no EPS. Impression: Schizoaffective disorder as per history Rule out schizophrenia treatment resistant Medication Change: Yes (lithium d/c) Medical Record Reviewed: Yes Mental Status Examination - Cognitive Function Orientation: Person, Place, Situation Memory: Impaired Attention: Poor Concentration: Poor Association: Loose Fund of Knowledge: Poor - Mood Mood: Depressed, Anxious - Affect Affect: Constricted, Flat - Formal Thought Process Formal Thought Process: Hallucinations, Delusions, Paranoia - Suicidal Ideation Suicidal Ideation: No - Homicidal Ideation Homicidal Ideation: No Goal/Treatment Plan - Goal/Treatment Plan Need for Continued Stay: Remain at risks for inpatient hospitalization, Severe depression anxiety, Discharge may exacerbated symptoms, Severe functional impairment Progress Toward Problem(s) and Goals/Treatment Plan: Milieu/structure/supportive therapy Medical consult appreciated, see medical team note for more detailed info SW consultation for discharge plan and social issues Med management Docusate [Colace] 1 cap PO BID presumed Famotidine [Pepcid] 20 mg PO DAILY resumed Echo d/c in order to avoid post ECT delirium QUEtiapine [SEROquel] 400 mg at the morning time and 400 mg PO HS Ativan 1 mg 3 times a day will be decreased Collaterals were obtained from the residential possible ECT treatment cardiology/internal medicine cleared pt for ECT Follow up on labs Will monitor closely Pt was educated about risk/benefits and alternatives of medications, coping strategies (safety plan, suicide prevention), relapse prevention, importance of follow up with psychiatrist and therapist, stay away from drugs/alcohol/smoking Estimated Date of D/C: 05/10/18
[2018-05-03] MEDS: Ciprofloxacin/Dexamethasone OTIC SUSP AS SCH ×2 (07:56→17:31)
--- NOTE | 2018-05-03 13:39 | PCM.BM ---
<Nika Louis Y - Last Filed: 05/03/18 13:39> Treatment Plan Problems - Problems identified on initial assessmt Auditory Hallucinations Date Initiated: 04/26/18 Time Initiated: Assessment reference: NA Status: Active Altered Thoughts Process Date Initiated: 04/26/18 Time Initiated: Assessment reference: NA Status: Active Ineffective Coping Date Initiated: 04/26/18 Time Initiated: Assessment reference: NA Status: Active Medication nonadherence Date Initiated: 04/26/18 Time Initiated: Assessment reference: NA Status: Active Treatment assets and liabiliti Patient Assests: adapts well, cooperative, self-reliant, ADL independent, physically healthy, negotiates basic needs, cognitively intact Patient Liabilities: live alone, financial problems, poor support system - Milieu Protocol Maintain good personal hygiene: daily Encourage regular showers, daily Remind patient to perform daily oral care, daily Assist patient to perform ADL's Conduct patient checks and document Observation sheet: Q15 minutes Maintain personal safety: every shift Educate patient to report safety concerns to staff, every shift Monitor environment for contraband/sharps Medication safety: Monitor for expected outcome, potential side effects: every shift, Assess barriers to learning: every shift, Assess readiness for medication education: every shift Milieu Narrative: Milieu/structure/supportive therapy Medical consult appreciated, see medical team note for more detailed info SW consultation for discharge plan and social issues Med management Docusate [Colace] 1 cap PO BID presumed Famotidine [Pepcid] 20 mg PO DAILY resumed [place] d/c in order to avoid post ECT delirium QUEtiapine [SEROquel] 400 mg at the morning time and 400 mg PO HS Ativan 1 mg 3 times a day will be decreased [facility]als [facility] the jail possible ECT treatment cardiology/internal medicine cleared pt for ECT Follow up on labs Will monitor closely Pt was educated about risk/benefits and alternatives of medications, coping strategies (safety plan, suicide prevention), relapse prevention, importance of follow up with psychiatrist and therapist, stay away from drugs/alcohol/smoking Family Contact Family involvement: Famliy/SO not involved - Outside Agency [facility] involvment: Information-sharing Agency contact name: [facility] Agency contact number: [phone] Discharge/Continuing Care - Education Needs Education Needs: Patient Medication, Patient Diagnosis/Disease Process, Patient Coping Skills, Patient Community resources, Patient Activities of Daily Living, Patient Nutrition, Patient Health Practices/Safety, Patient Personal Hygiene/Grooming, Patient Aftercare Safety Plan - Discharge Discharge Criteria: Tolerates medication w/o severe side effects, Free of Suicidal thoughts, Free of paranoid thoughts, Normal sleep pattern, Ability to care for self, Reduction of target symptoms - Treatment Team Participation Patient/Family/SO Statement: Milieu/structure/supportive therapy Medical consult appreciated, see medical team note for more detailed info SW consultation for discharge plan and social issues Med management Docusate [Colace] 1 cap PO BID presumed Famotidine [Pepcid] 20 mg PO DAILY resumed [place] d/c in order to avoid post ECT delirium QUEtiapine [SEROquel] 400 mg at the morning time and 400 mg PO HS Ativan 1 mg 3 times a day will be decreased Collaterals were obtained from the jail possible ECT treatment cardiology/internal medicine cleared pt for ECT Follow up on labs Will monitor closely Pt was educated about risk/benefits and alternatives of medications, coping strategies (safety plan, suicide prevention), relapse prevention, importance of follow up with psychiatrist and therapist, stay away from drugs/alcohol/smoking Treatment Plan Review - Problem Auditory Hallucinations Time Initiated: 01:28 Altered Thoughts Process Time Initiated: : Ineffective Coping Time Initiated: 01:29 Medication nonadherence Time Initiated: 01:29 <Madeline Hernandez - Last Filed: 05/03/18 14:57> - Diagnosis (1) Schizoaffective disorder, bipolar type Status: Acute Interventions: 05/03/18 14:58 pt is not interested to go to groups, self isolating willing to have ECT scheduling on Sunday05/06/18 <Elsa Todd - Last Filed: 05/03/18 16:25>
--- NOTE | 2018-05-03 15:02 | PCM.PYCHPN ---
Psychiatric Progress Note - Psychiatric Progress Note Patient seen today, length of contact: 30 minutes Patient Chief Complaint: "I am willing to do anything to start feeling better, voices are little better, I still want to have ECT" Problems Identified/Issues Discussed: Suicide/ homicide prevention, past psychiatric h/o, current psychiatric symptoms, medical problems, risk/benefits and alternatives of medications, medications compliance, coping strategies, substance abuse h/o, relapse prevention, importance of follow up with psychiatrist and therapist, discharge plan Medical Problems: pt c/o back pain, ibuprofen started Diagnostic Results: 04/25/18 15:39 04/25/18 15:39 Lab Results 04/26/18 06:45: RPR Nonreactive 04/26/18 06:45: TSH 3rd Generation 4.32 04/26/18 06:45: Fasting Glucose 106, Triglycerides 145, Cholesterol 219 H, LDL Cholesterol Direct 137 H, HDL Cholesterol 45 04/26/18 06:45: [place] 0.2 L 04/25/18 15:39: Alcohol, Quantitative < 10 04/25/18 15:39: Salicylates < 1 L, Acetaminophen < 10.0 L 04/25/18 15:39: Urine Opiates Screen Negative, Urine Methadone Screen Negative, Ur Barbiturates Screen Negative, Ur Phencyclidine Scrn Negative, Ur Amphetamines Screen Negative, U Benzodiazepines Scrn Negative, U Oth Cocaine Metabols Negative, U Cannabinoids Screen Negative 04/25/18 15:39: Sodium 143, Potassium 3.9, Chloride 109 H, Carbon Dioxide 25, Anion Gap 12, BUN 9, Creatinine 0.8, Est GFR ( Amer) > 60, Est GFR (Non- Af Amer) > 60, Random Glucose 98, Calcium 9.8, Magnesium 2.2, Total Bilirubin 0.4, AST 21, ALT 28, Alkaline Phosphatase 54, Total Protein 8.1, Albumin 4.3, Globulin 3.8, Albumin/Globulin Ratio 1.1 04/25/18 15:39: Urine Color Yellow, Urine Appearance Clear, Urine pH 6.0, Ur Specific [place] 1.025, Urine Protein Negative, Urine Glucose (UA) Negative, Urine Ketones Negative, Urine Blood Negative, Urine Nitrate Negative, Urine Bilirubin Negative, Urine Urobilinogen 0.2, Ur Leukocyte Esterase Negative 04/25/18 15:39: WBC 6.4, RBC 5.19, Hgb 15.9, Hct 46.5, MCV 89.6, MCH 30.6, MCHC 34.2, RDW 12.7, Plt Count 307, MPV 8.7, Gran % 45.9 L, Lymph % (Auto) 41.3 H, [place] % (Auto) 9.9 H, Eos % (Auto) 2.4, Baso % (Auto) 0.5, Gran # 2.92, Lymph # (Auto) 2.6, [place] # (Auto) 0.6, Eos # (Auto) 0.2, Baso # (Auto) 0.03 Vital Signs Temp Pulse Resp BP Pulse Ox 04/27/18 07:19 98 F 90 20 118/74 04/26/18 16:00 103 H 122/75 04/26/18 07:21 98.2 F 92 H 20 116/74 04/25/18 20:30 98.3 F 82 18 131/71 100 04/25/18 20:20 98.3 F 80 16 121/80 99 04/25/18 19:22 98.3 F 82 18 131/71 100 04/25/18 15:55 98.3 F 81 20 112/73 96 04/25/18 15:10 98.8 F 86 16 114/76 97 Temp Pulse Resp BP Pulse Ox 97.7 F 85 16 104/66 100 04/30/18 07:00 04/30/18 07:00 04/30/18 07:00 04/30/18 07:00 04/25/18 20:30 DSM 5 Symptoms Update: Shortly patient is 43-year-old male with reported history of schiz oaffective disorder, patient has treatment resistant symptoms, multiple previous psychiatric admissions including [place] as well as [facility], patient seems to be compliant with the medication but still has residual symptoms of psychosis, patient has command type hallucinations, patient also suffered from severe depression, patient was not able to function, patient was not bathing, had low appetite, very apathetic, patient was referred by care home for evaluation and stabilization of depressive symptoms, psychotic symptoms, medication management, possible ECT treatment,, patient requires further evaluation and stabilization and medication initiation and titration possible ECT. patient was seen and examined today at the treatment team meeting, pt presented to be depressed, seems did not take shower for a while, did not brush his teeth. wears stained clothing. pt still presented to be depressed, flat affect. as per staff patient is still psychotic, at times talking to himself, guarded. treatment plan was discussed in details, pt willing to have ECT tx. risk/benefits and alternatives of meds discussed with pt. medical team/cardiology team cleared pt for ECT treatment. pt's mood still depressed, pt has suicidal ideation, but contracted for safety. As per staff patient is compliant with the medications, no agitation or aggression,patient is depressed, self isolating. So far patient tolerates medications well, no jatin effects observed or reported, aims 0, no EPS. Impression: Schizoaffective disorder as per history Rule out schizophrenia treatment resistant Medication Change: Yes (lithium d/c) Medical Record Reviewed: Yes Mental Status Examination - Cognitive Function Orientation: Person, Place, Situation Memory: Impaired Attention: Poor Concentration: Poor Association: Loose Fund of Knowledge: Poor - Mood Mood: Depressed, Anxious - Affect Affect: Constricted, Flat - Formal Thought Process Formal Thought Process: Hallucinations, Delusions, Paranoia - Suicidal Ideation Suicidal Ideation: No - Homicidal Ideation Homicidal Ideation: No Goal/Treatment Plan - Goal/Treatment Plan Need for Continued Stay: Remain at risks for inpatient hospitalization, Severe depression anxiety, Discharge may exacerbated symptoms, Severe functional impairment Progress Toward Problem(s) and Goals/Treatment Plan: Milieu/structure/supportive therapy Medical consult appreciated, see medical team note for more detailed info SW consultation for discharge plan and social issues Med management Docusate [Colace] 1 cap PO BID presumed Famotidine [Pepcid] 20 mg PO DAILY resumed [place] d/c in order to avoid post ECT delirium QUEtiapine [SEROquel] 400 mg at the morning time and 400 mg PO HS Ativan 1 mg 3 times a day will be on hold on sunday Collaterals were obtained from the care home possible ECT treatment cardiology/internal medicine cleared pt for ECT Follow up on labs Will monitor closely Pt was educated about risk/benefits and alternatives of medications, coping strategies (safety plan, suicide prevention), relapse prevention, importance of follow up with psychiatrist and therapist, stay away from drugs/alcohol/smoking Estimated Date of D/C: 05/10/18
[2018-05-04] MEDS: Ciprofloxacin/Dexamethasone OTIC SUSP AS SCH ×2 (09:02→16:39)
--- NOTE | 2018-05-04 12:31 | PCM.PYCHPN ---
Psychiatric Progress Note - Psychiatric Progress Note Patient seen today, length of contact: 30 minutes Patient Chief Complaint: "I am willing to do anything to start feeling better, voices are little better, I still want to have ECT" Problems Identified/Issues Discussed: Suicide/ homicide prevention, past psychiatric h/o, current psychiatric symptoms, medical problems, risk/benefits and alternatives of medications, medications compliance, coping strategies, substance abuse h/o, relapse prevention, importance of follow up with psychiatrist and therapist, discharge plan Medical Problems: pt c/o back pain, ibuprofen started Diagnostic Results: 04/25/18 15:39 04/25/18 15:39 Lab Results 04/26/18 06:45: RPR Nonreactive 04/26/18 06:45: TSH 3rd Generation 4.32 04/26/18 06:45: Fasting Glucose 106, Triglycerides 145, Cholesterol 219 H, LDL Cholesterol Direct 137 H, HDL Cholesterol 45 04/26/18 06:45: [place] 0.2 L 04/25/18 15:39: Alcohol, Quantitative < 10 04/25/18 15:39: Salicylates < 1 L, Acetaminophen < 10.0 L 04/25/18 15:39: Urine Opiates Screen Negative, Urine Methadone Screen Negative, Ur Barbiturates Screen Negative, Ur Phencyclidine Scrn Negative, Ur Amphetamines Screen Negative, U Benzodiazepines Scrn Negative, U Oth Cocaine Metabols Negative, U Cannabinoids Screen Negative 04/25/18 15:39: Sodium 143, Potassium 3.9, Chloride 109 H, Carbon Dioxide 25, Anion Gap 12, BUN 9, Creatinine 0.8, Est GFR ( Amer) > 60, Est GFR (Non- Af Amer) > 60, Random Glucose 98, Calcium 9.8, Magnesium 2.2, Total Bilirubin 0.4, AST 21, ALT 28, Alkaline Phosphatase 54, Total Protein 8.1, Albumin 4.3, Globulin 3.8, Albumin/Globulin Ratio 1.1 04/25/18 15:39: Urine Color Yellow, Urine Appearance Clear, Urine pH 6.0, Ur Specific [place] 1.025, Urine Protein Negative, Urine Glucose (UA) Negative, Urine Ketones Negative, Urine Blood Negative, Urine Nitrate Negative, Urine Bilirubin Negative, Urine Urobilinogen 0.2, Ur Leukocyte Esterase Negative 04/25/18 15:39: WBC 6.4, RBC 5.19, Hgb 15.9, Hct 46.5, MCV 89.6, MCH 30.6, MCHC 34.2, RDW 12.7, Plt Count 307, MPV 8.7, Gran % 45.9 L, Lymph % (Auto) 41.3 H, [place] % (Auto) 9.9 H, Eos % (Auto) 2.4, Baso % (Auto) 0.5, Gran # 2.92, Lymph # (Auto) 2.6, [place] # (Auto) 0.6, Eos # (Auto) 0.2, Baso # (Auto) 0.03 Vital Signs Temp Pulse Resp BP Pulse Ox 04/27/18 07:19 98 F 90 20 118/74 04/26/18 16:00 103 H 122/75 04/26/18 07:21 98.2 F 92 H 20 116/74 04/25/18 20:30 98.3 F 82 18 131/71 100 04/25/18 20:20 98.3 F 80 16 121/80 99 04/25/18 19:22 98.3 F 82 18 131/71 100 04/25/18 15:55 98.3 F 81 20 112/73 96 04/25/18 15:10 98.8 F 86 16 114/76 97 Temp Pulse Resp BP Pulse Ox 97.7 F 85 16 104/66 100 04/30/18 07:00 04/30/18 07:00 04/30/18 07:00 04/30/18 07:00 04/25/18 20:30 DSM 5 Symptoms Update: Shortly patient is 43-year-old male with reported history of schizo affective disorder, patient has treatment resistant symptoms, multiple previous psychiatric admissions including [place] as well as [facility], patient seems to be compliant with the medication but still has residual symptoms of psychosis, patient has command type hallucinations, patient also suffered from severe depression, patient was not able to function, patient was not bathing, had low appetite, very apathetic, patient was referred by shelter for evaluation and stabilization of depressive symptoms, psychotic symptoms, medication management, possible ECT treatment,, patient requires further evaluation and stabilization and medication initiation and titration possible ECT. patient was seen and examined today next to the nursing station, pt is psychotic, said he [facility] be [facility] to [facility], no clear explanation why. pt still wants to have ECT, was asking when he will be NPO. pt still has difficulties with ADLs, seems did not take shower for a while, did not brush his teeth. wears stained clothing. pt still presented to be depressed, flat affect. pt's psychiatrist was called 05/03/2018 left a message, awaiting for a call back. As per staff patient is compliant with the medications, no agitation or aggression,patient is depressed, self isolating. So far patient tolerates medications well, no side effects observed or reported, aims 0, no EPS. Impression: Schizoaffective disorder as per history Rule out schizophrenia treatment resistant Medication Change: No Medical Record Reviewed: Yes Consults ordered or reviewed: pt was seen by medical team at ED will consider medical consult for dyslipidemia Mental Status Examination - Cognitive Function Orientation: Person, Place, Situation Memory: Impaired Attention: Poor Concentration: Poor Association: Loose Fund of Knowledge: Poor - Mood Mood: Depressed, Anxious - Affect Affect: Constricted, Flat - Formal Thought Process Formal Thought Process: Hallucinations, Delusions, Paranoia - Suicidal Ideation Suicidal Ideation: No - Homicidal Ideation Homicidal Ideation: No Goal/Treatment Plan - Goal/Treatment Plan Need for Continued Stay: Remain at risks for inpatient hospitalization, Severe depression anxiety, Discharge may exacerbated symptoms, Severe functional impairment Progress Toward Problem(s) and Goals/Treatment Plan: Milieu/structure/supportive therapy Medical consult appreciated, see medical team note for more detailed info SW consultation for discharge plan and social issues Med management ECT 05/06/18, NPO over night Docusate [Colace] 1 cap PO BID presumed Famotidine [Pepcid] 20 mg PO DAILY resumed [place] d/c in order to avoid post ECT delirium QUEtiapine [SEROquel] 400 mg at the morning time and 400 mg PO HS Ativan 1 mg 3 times a day will be on hold on Sunday Collaterals were obtained from the shelter possible ECT treatment cardiology/internal medicine cleared pt for ECT Follow up on labs Will monitor closely Pt was educated about risk/benefits and alternatives of medications, coping strategies (safety plan, suicide prevention), relapse prevention, importance of follow up with psychiatrist and therapist, stay away from drugs/alcohol/smoking Estimated Date of D/C: 05/10/18
[2018-05-05] MEDS: Ciprofloxacin/Dexamethasone OTIC SUSP AS SCH ×2 (08:24→17:08)
--- NOTE | 2018-05-05 10:01 | PCM.PYCHPN ---
Psychiatric Progress Note - Psychiatric Progress Note Patient seen today, length of contact: 30 minutes Patient Chief Complaint: "I am willing to do anything to start feeling better, thank you for your time" Problems Identified/Issues Discussed: Suicide/ homicide prevention, past psychiatric h/o, current psychiatric symptoms, medical problems, risk/benefits and alternatives of medications, medications compliance, coping strategies, substance abuse h/o, relapse prevention, importance of follow up with psychiatrist and therapist, discharge plan Medical Problems: pt c/o back pain, ibuprofen started Diagnostic Results: 04/25/18 15:39 04/25/18 15:39 Lab Results 04/26/18 06:45: RPR Nonreactive 04/26/18 06:45: TSH 3rd Generation 4.32 04/26/18 06:45: Fasting Glucose 106, Triglycerides 145, Cholesterol 219 H, LDL Cholesterol Direct 137 H, HDL Cholesterol 45 04/26/18 06:45: [place] 0.2 L 04/25/18 15:39: Alcohol, Quantitative < 10 04/25/18 15:39: Salicylates < 1 L, Acetaminophen < 10.0 L 04/25/18 15:39: Urine Opiates Screen Negative, Urine Methadone Screen Negative, Ur Barbiturates Screen Negative, Ur Phencyclidine Scrn Negative, Ur Amphetamines Screen Negative, U Benzodiazepines Scrn Negative, U Oth Cocaine Metabols Negative, U Cannabinoids Screen Negative 04/25/18 15:39: Sodium 143, Potassium 3.9, Chloride 109 H, Carbon Dioxide 25, Anion Gap 12, BUN 9, Creatinine 0.8, Est GFR ( Amer) > 60, Est GFR (Non- Af Amer) > 60, Random Glucose 98, Calcium 9.8, Magnesium 2.2, Total Bilirubin 0.4, AST 21, ALT 28, Alkaline Phosphatase 54, Total Protein 8.1, Albumin 4.3, Globulin 3.8, Albumin/Globulin Ratio 1.1 04/25/18 15:39: Urine Color Yellow, Urine Appearance Clear, Urine pH 6.0, Ur Specific [place] 1.025, Urine Protein Negative, Urine Glucose (UA) Negative, Urine Ketones Negative, Urine Blood Negative, Urine Nitrate Negative, Urine Bilirubin Negative, Urine Urobilinogen 0.2, Ur Leukocyte Esterase Negative 04/25/18 15:39: WBC 6.4, RBC 5.19, Hgb 15.9, Hct 46.5, MCV 89.6, MCH 30.6, MCHC 34.2, RDW 12.7, Plt Count 307, MPV 8.7, Gran % 45.9 L, Lymph % (Auto) 41.3 H, [place] % (Auto) 9.9 H, Eos % (Auto) 2.4, Baso % (Auto) 0.5, Gran # 2.92, Lymph # (Auto) 2.6, [place] # (Auto) 0.6, Eos # (Auto) 0.2, Baso # (Auto) 0.03 Vital Signs Temp Pulse Resp BP Pulse Ox 04/27/18 07:19 98 F 90 20 118/74 04/26/18 16:00 103 H 122/75 04/26/18 07:21 98.2 F 92 H 20 116/74 04/25/18 20:30 98.3 F 82 18 131/71 100 04/25/18 20:20 98.3 F 80 16 121/80 99 04/25/18 19:22 98.3 F 82 18 131/71 100 04/25/18 15:55 98.3 F 81 20 112/73 96 04/25/18 15:10 98.8 F 86 16 114/76 97 Temp Pulse Resp BP Pulse Ox 97.7 F 85 16 104/66 100 04/30/18 07:00 04/30/18 07:00 04/30/18 07:00 04/30/18 07:00 04/25/18 20:30 DSM 5 Symptoms Update: Shortly patient is 43-year-old male with reported history of schizoaffective disorder, patient has treatment resistant symptoms, multiple previous psychiatric admissions including [place] as well as [facility], patient seems to be compliant with the medication but still has residual sym ptoms of psychosis, patient has command type hallucinations, patient also suffered from severe depression, patient was not able to function, patient was not bathing, had low appetite, very apathetic, patient was referred by halfway for evaluation and stabilization of depressive symptoms, psychotic symptoms, medication management, possible ECT treatment,, patient requires further evaluation and stabilization and medication initiation and titration possible ECT. patient was seen and examined today next to the nursing station, pt is psychotic, but much calmer. pt was provided with the patient information booklet for ECT. pt will be NPO over night, ativan d/c. pt's psychiatrist was called 05/03/2018 left a message, awaiting for a call back. As per staff patient is compliant with the medications, no agitation or aggression,patient is depressed, self isolating. So far patient tolerates medications well, no side effects observed or reported, aims 0, no EPS. Impression: Schizoaffective disorder as per history Rule out schizophrenia treatment resistant Medication Change: Yes (ativan d/c) Medical Record Reviewed: Yes Mental Status Examination - Cognitive Function Orientation: Person, Place, Situation Memory: Impaired Attention: Poor (some improvement) Concentration: Poor (some improvements) Association: Loose Fund of Knowledge: Poor - Mood Mood: Depressed, Anxious - Affect Affect: Constricted, Flat - Formal Thought Process Formal Thought Process: Hallucinations ("better"), Delusions, Paranoia - Suicidal Ideation Suicidal Ideation: No - Homicidal Ideation Homicidal Ideation: No Goal/Treatment Plan - Goal/Treatment Plan Need for Continued Stay: Remain at risks for inpatient hospitalization, Severe depression anxiety, Discharge may exacerbated symptoms, Severe functional impairment Progress Toward Problem(s) and Goals/Treatment Plan: Milieu/structure/supportive therapy Medical consult appreciated, see medical team note for more detailed info SW consultation for discharge plan and social issues Med management ECT 05/06/18, NPO over night Docusate [Colace] 1 cap PO BID presumed Famotidine [Pepcid] 20 mg PO DAILY resumed [place] d/c in order to avoid post ECT delirium QUEtiapine [SEROquel] 400 mg at the morning time and 400 mg PO HS Ativan 1 mg 3 times a day on hold Collaterals were obtained from the halfway possible ECT treatment cardiology/internal medicine cleared pt for ECT Follow up on labs Will monitor closely Pt was educated about risk/benefits and alternatives of medications, coping strategies (safety plan, suicide prevention), relapse prevention, importance of follow up with psychiatrist and therapist, stay away from drugs/alcohol/smoking Estimated Date of D/C: 05/10/18
[2018-05-06] MEDS: Ciprofloxacin/Dexamethasone OTIC SUSP AS SCH ×2 (09:53→17:51)
[2018-05-06] MEDS ORDERED: Succinylcholine 200 mg/10 ml Inj IV ONE (13:24)
[2018-05-06] MEDS ORDERED: Propofol 10 mg/ml Inj (20 ML) ONE ×2 (13:25→13:42)
[2018-05-06] MEDS ORDERED: HYDROmorphone 1 mg/ml ISec IVP PRN (13:56)
--- NOTE | 2018-05-06 15:38 | PCM.PYCHPN ---
Psychiatric Progress Note - Psychiatric Progress Note Patient seen today, length of contact: 30 minutes Patient Chief Complaint: "I am alright, thank you for your time..." Problems Identified/Issues Discussed: Suicide/ homicide prevention, past psychiatric h/o, current psychiatric symptoms, medical problems, risk/benefits and alternatives of medications, medications compliance, coping strategies, substance abuse h/o, relapse prevention, importance of follow up with psychiatrist and therapist, discharge plan Medical Problems: pt c/o back pain, ibuprofen started Diagnostic Results: 04/25/18 15:39 04/25/18 15:39 Lab Results 04/26/18 06:45: RPR Nonreactive 04/26/18 06:45: TSH 3rd Generation 4.32 04/26/18 06:45: Fasting Glucose 106, Triglycerides 145, Cholesterol 219 H, LDL Cholesterol Direct 137 H, HDL Cholesterol 45 04/26/18 06:45: [place] 0.2 L 04/25/18 15:39: Alcohol, Quantitative < 10 04/25/18 15:39: Salicylates < 1 L, Acetaminophen < 10.0 L 04/25/18 15:39: Urine Opiates Screen Negative, Urine Methadone Screen Negative, Ur Barbiturates Screen Negative, Ur Phencyclidine Scrn Negative, Ur Amphetamines Screen Negative, U Benzodiazepines Scrn Negative, U Oth Cocaine Metabols Negative, U Cannabinoids Screen Negative 04/25/18 15:39: Sodium 143, Potassium 3.9, Chloride 109 H, Carbon Dioxide 25, Anion Gap 12, BUN 9, Creatinine 0.8, Est GFR ( Amer) > 60, Est GFR (Non-Af Amer) > 60, Random Glucose 98, Calcium 9.8, Magnesium 2.2, Total Bilirubin 0.4, AST 21, ALT 28, Alkaline Phosphatase 54, Total Protein 8.1, Albumin 4.3, Globulin 3.8, Albumin/Globulin Ratio 1.1 04/25/18 15:39: Urine Color Yellow, Urine Appearance Clear, Urine pH 6.0, Ur Spe cific [place] 1.025, Urine Protein Negative, Urine Glucose (UA) Negative, Urine Ketones Negative, Urine Blood Negative, Urine Nitrate Negative, Urine Bilirubin Negative, Urine Urobilinogen 0.2, Ur Leukocyte Esterase Negative 04/25/18 15:39: WBC 6.4, RBC 5.19, Hgb 15.9, Hct 46.5, MCV 89.6, MCH 30.6, MCHC 34.2, RDW 12.7, Plt Count 307, MPV 8.7, Gran % 45.9 L, Lymph % (Auto) 41.3 H, [place] % (Auto) 9.9 H, Eos % (Auto) 2.4, Baso % (Auto) 0.5, Gran # 2.92, Lymph # (Auto) 2.6, [place] # (Auto) 0.6, Eos # (Auto) 0.2, Baso # (Auto) 0.03 Vital Signs Temp Pulse Resp BP Pulse Ox 04/27/18 07:19 98 F 90 20 118/74 04/26/18 16:00 103 H 122/75 04/26/18 07:21 98.2 F 92 H 20 116/74 04/25/18 20:30 98.3 F 82 18 131/71 100 04/25/18 20:20 98.3 F 80 16 121/80 99 04/25/18 19:22 98.3 F 82 18 131/71 100 04/25/18 15:55 98.3 F 81 20 112/73 96 04/25/18 15:10 98.8 F 86 16 114/76 97 Temp Pulse Resp BP Pulse Ox 97.7 F 85 16 104/66 100 04/30/18 07:00 04/30/18 07:00 04/30/18 07:00 04/30/18 07:00 04/25/18 20:30 DSM 5 Symptoms Update: Shortly patient is 43-year-old male with reported history of schizoaffective disorder, patient has treatment resistant symptoms, multiple previous psychiatric admissions including [place] as well as [facility], patient seems to be compliant with the medication but still has residual symptoms of psychosis, patient has command type hallucinations, patient also suffered from severe depression, patient was not able to function, patient was not bathing, had low appetite, very apathetic, patient was referred by [facility] for evaluation and stabilization of depressive symptoms, psychotic symptoms, medication management, possible ECT treatment,, patient requires further evaluation and stabilization and medication initiation and titration possible ECT. patient was seen and examined today prior ECT treatment, pt signed consent for ECT, pt was seen by anesthesiologist and singed consent for anesthesia. pt had BL treatment setting: PW 0.3 msec, frequency 30 Hz, 0.6 sec duration, current 800mA pt had 15 sec of seizures unfortunately due to the technical problems, record was not printed out. pt then was transferred to the recovery room. pt was seen in the unit, pt presented well, not confused, pt ate, went to have a nap. pt agreed for another ECT treatment on 05/09/18. pt will be NPO over night, ativan d/c. pt's psychiatrist was called 05/03/2018 left a message, awaiting for a call back. As per staff patient is compliant with the medications, no agitation or aggression,patient is depressed, self isolating. So far patient tolerates medications well, no side effects observed or reported, aims 0, no EPS. Impression: Schizoaffective disorder as per history Rule out schizophrenia treatment resistant Medication Change: Yes (ativan d/c) Medical Record Reviewed: Yes Mental Status Examination - Cognitive Function Orientation: Person, Place, Situation Memory: Impaired Attention: Poor (some improvement) Concentration: Poor (some improvements) Association: Loose Fund of Knowledge: Poor - Mood Mood: Depressed, Anxious - Affect Affect: Constricted, Flat - Formal Thought Process Formal Thought Process: Hallucinations ("better"), Delusions, Paranoia - Suicidal Ideation Suicidal Ideation: No - Homicidal Ideation Homicidal Ideation: No Goal/Treatment Plan - Goal/Treatment Plan Need for Continued Stay: Remain at risks for inpatient hospitalization, Severe depression anxiety, Discharge may exacerbated symptoms, Severe functional impairment Progress Toward Problem(s) and Goals/Treatment Plan: Milieu/structure/supportive therapy Medical consult appreciated, see medical team note for more detailed info SW consultation for discharge plan and social issues Med management ECT 05/06/18 went well #1, most likely pt requires 4-5 treatments #2 ECT will be 05/09/18 Docusate [Colace] 1 cap PO BID Famotidine [Pepcid] 20 mg PO DAILY [place] d/c in order to avoid post ECT delirium QUEtiapine [SEROquel] 400 mg at the morning time and 400 mg PO HS Ativan 1 mg 3 times a day on hold Collaterals were obtained from the [facility] cardiology/internal medicine cleared pt for ECT Follow up on labs Will monitor closely Pt was educated about risk/benefits and alternatives of medications, coping strategies (safety plan, suicide prevention), relapse prevention, importance of follow up with psychiatrist and therapist, stay away from drugs/alcohol/smoking Estimated Date of D/C: 05/17/18
--- NOTE | 2018-05-07 11:34 | PCM.PYCHPN ---
Psychiatric Progress Note - Psychiatric Progress Note Patient seen today, length of contact: 30 minutes Problems Identified/Issues Discussed: I reviewed assessment and recent notes. I met with patient at bedside. He is calm, and cooperative with my questioning. Oriented x3. Affect is depressed and with drawn and patient admits to depression. Tolerated ECT treatment yesterday and he doesn't have any complaints or new concerns. Regarding hallucinations, he denies having any perceptual disturbance at this time though admitted to history of auditory hallucinations. Responses are relevant to questioning and delusions were not elicited. As per staff patient is compliant with the medications, no agitation or aggression. Patient continues to self isolate and stays in his room a lot. Diagnostic Results: Schizoaffective disorder as per history Rule out schizophrenia treatment resistant Medication Change: No ( ) Medical Record Reviewed: Yes Mental Status Examination - Cognitive Function Orientation: Person, Place, Situation Memory: Impaired Attention: Poor (some improvement) Concentration: Poor (some improvements) Association: Loose Fund of Knowledge: Poor - Mood Mood: Depressed, Anxious - Affect Affect: Constricted, Flat - Formal Thought Process Formal Thought Process: Hallucinations ("better"), Delusions, Paranoia - Suicidal Ideation Suicidal Ideation: No - Homicidal Ideation Homicidal Ideation: No Goal/Treatment Plan - Goal/Treatment Plan Need for Continued Stay: Remain at risks for inpatient hospitalization, Severe depression anxiety, Discharge may exacerbated symptoms, Severe functional impairment Progress Toward Problem(s) and Goals/Treatment Plan: * c/w current tx and plan * ECT #2 planned for 05/09/18. * No new lab results thus far * Vitals reviewed and noted below: Selected Entries 05/06/18 05/06/18 05/06/18 14:23 14:46 15:40 Temperature 98.1 F Pulse Rate 79 77 77 Respiratory 12 18 Rate Blood Pressure 130/82 131/86 131/86 Estimated Date of D/C: 05/17/18
--- NOTE | 2018-05-09 00:18 | PN ---
DATE: 05/08/[address] Hernandez. SUBJECTIVE: The patient is a 43-year-old male, who has a diagnosis of schizoaffective disorder, rule out treatment resistant schizophrenia. He appears to be alert, oriented to spheres, with a depressed affect and withdrawn. He had started ECT yesterday. He does appear to be somewhat blunted. I am not sure of his baseline, thus it is hard for me to this to the ECT or as a result of his primary illness. The nursing does find him to be unkempt and depressed with a flat affect. He is being maintained psychotropically on Prozac 20 mg, Seroquel 400 mg a.m. and at bedtime. He is scheduled for his next ECT. Shane Ramirez MD/ PhD
[2018-05-09] MEDS ORDERED: Propofol 10 mg/ml Inj (20 ML) ONE ×2 (09:29→10:14)
[2018-05-09] MEDS ORDERED: Succinylcholine 200 mg/10 ml Inj IV ONE (10:03)
[2018-05-09] MEDS ORDERED: Midazolam 2 MG/2 ML VIAL ONE (10:32)
[2018-05-09] MEDS ORDERED: Lactated Ringer's 1,000 ML IV SCH (11:00)
--- NOTE | 2018-05-09 16:08 | PCM.PYCHPN ---
Psychiatric Progress Note - Psychiatric Progress Note Patient seen today, length of contact: 30 minutes Patient Chief Complaint: "I feel fine" Problems Identified/Issues Discussed: Suicide/ homicide prevention, past psychiatric h/o, current psychiatric symptoms, medical problems, risk/benefits and alternatives of medications, medications compliance, coping strategies, substance abuse h/o, relapse prevention, importance of follow up with psychiatrist and therapist, discharge plan Medical Problems: pt c/o back pain, ibuprofen started Diagnostic Results: 04/25/18 15:39 04/25/18 15:39 Lab Results 04/26/18 06:45: RPR Nonreactive 04/26/18 06:45: TSH 3rd Generation 4.32 04/26/18 06:45: Fasting Glucose 106, Triglycerides 145, Cholesterol 219 H, LDL Cholesterol Direct 137 H, HDL Cholesterol 45 04/26/18 06:45: [place] 0.2 L 04/25/18 15:39: Alcohol, Quantitative < 10 04/25/18 15:39: Salicylates < 1 L, Acetaminophen < 10.0 L 04/25/18 15:39: Urine Opiates Screen Negative, Urine Methadone Screen Negative, Ur Barbiturates Screen Negative, Ur Phencyclidine Scrn Negative, Ur Amphetamines Screen Negative, U Benzodiazepines Scrn Negative, U Oth Cocaine Metabols Negative, U Cannabinoids Screen Negative 04/25/18 15:39: Sodium 143, Potassium 3.9, Chloride 109 H, Carbon Dioxide 25, Anion Gap 12, BUN 9, Creatinine 0.8, Est GFR ( Amer) > 60, Est GFR (Non- Af Amer) > 60, Random Glucose 98, Calcium 9.8, Magnesium 2.2, Total Bilirubin 0.4, AST 21, ALT 28, Alkaline Phosphatase 54, Total Protein 8.1, Albumin 4.3, Globulin 3.8, Albumin/Globulin Ratio 1.1 04/25/18 15:39: Urine Color Yellow, Urine Appearance Clear, Urine pH 6.0, Ur Specific [place] 1.025, Urine Protein Negative, Urine Glucose (UA) Negative, Urine Ketones Negative, Urine Blood Negative, Urine Nitrate Negative, Urine Bilirubin Negative, Urine Urobilinogen 0.2, Ur Leukocyte Esterase Negative 04/25/18 15:39: WBC 6.4, RBC 5.19, Hgb 15.9, Hct 46.5, MCV 89.6, MCH 30.6, MCHC 34.2, RDW 12.7, Plt Count 307, MPV 8.7, Gran % 45.9 L, Lymph % (Auto) 41.3 H, [place] % (Auto) 9.9 H, Eos % (Auto) 2.4, Baso % (Auto) 0.5, Gran # 2.92, Lymph # (Auto) 2.6, [place] # (Auto) 0.6, Eos # (Auto) 0.2, Baso # (Auto) 0.03 Vital Signs Temp Pulse Resp BP Pulse Ox 04/27/18 07:19 98 F 90 20 118/74 04/26/18 16:00 103 H 122/75 04/26/18 07:21 98.2 F 92 H 20 116/74 04/25/18 20:30 98.3 F 82 18 131/71 100 04/25/18 20:20 98.3 F 80 16 121/80 99 04/25/18 19:22 98.3 F 82 18 131/71 100 04/25/18 15:55 98.3 F 81 20 112/73 96 04/25/18 15:10 98.8 F 86 16 114/76 97 Temp Pulse Resp BP Pulse Ox 97.7 F 85 16 104/66 100 04/30/18 07:00 04/30/18 07:00 04/30/18 07:00 04/30/18 07:00 04/25/18 20:30 Temp Pulse Resp BP Pulse Ox 98.3 F 85 16 134/82 100 05/09/18 10:56 05/09/18 10:56 05/09/18 10:56 05/09/18 10:56 05/09/18 10:56 DSM 5 Symptoms Update: Shortly patient is 43-year-old male with reported history of schizoaffective disorder, patient has treatment resistant symptoms, multiple previous psychiatric admissions including [place] as well as [facility], patient seems to be compliant with the medication but still has residual symptoms of psychosis, patient has command type hallucinations, patient also suffered from severe depression, patient was not able to function, patient was not bathing, had low appetite, very apathetic, patient was referred by [place] [facility] for evaluation and stabilization of depressive symptoms, psychotic symptoms, medication management, possible ECT treatment,, patient requires further evaluation and stabilization and medication initiation and titration possible ECT. patient was seen and examined today prior #2 ECT treatment, pt signed consent for ECT, pt was seen by anesthesiologist and singed consent for anesthesia. pt had BL treatment setting: PW 0.5 msec, frequency 20 Hz, 0.5 sec duration, current 800mA pt had no seizure activities. second treatment was given PW 1 msec, frequency 20 Hz, 0.5 sec duration, current 800mA patient had approximately 25cek of seizure activities unfortunately due to the technical problems, record was not printed out or saved in the machine. [employer] was called, machine has breakage in the recording system, it will be replaced by the company. after the ECT treatment pt was transferred to the recovery room. pt was seen in the unit, pt did not remember the procedure as it is. pt ate, went to have a nap. pt agreed for another ECT treatment next week. pt will be NPO over night, ativan d/c. pt's psychiatrist was called 05/03/2018 left a message, awaiting for a call back. As per staff patient is compliant with the medications, no agitation or aggression,patient is depressed, self isolating. So far patient tolerates medications well, no side effects observed or reported, aims 0, no EPS. Impression: Schizoaffective disorder as per history Rule out schizophrenia treatment resistant Medication Change: No ( ) Medical Record Reviewed: Yes Consults ordered or reviewed: pt was seen by medical team at ED will consider medical consult for dyslipidemia Mental Status Examination - Cognitive Function Orientation: Person, Place, Situation Memory: Impaired Attention: Poor (some improvement, pt was more responsive before procedure, affect was more reactive.) Concentration: Poor (some improvements) Association: Loose Fund of Knowledge: Poor - Mood Mood: Depressed ("I am still depressed"), Anxious - Affect Affect: Constricted, Flat - Formal Thought Process Formal Thought Process: Hallucinations ("better"), Delusions, Paranoia - Suicidal Ideation Suicidal Ideation: No - Homicidal Ideation Homicidal Ideation: No Goal/Treatment Plan - Goal/Treatment Plan Need for Continued Stay: Remain at risks for inpatient hospitalization, Severe depression anxiety, Discharge may exacerbated symptoms, Severe functional impairment Progress Toward Problem(s) and Goals/Treatment Plan: Milieu/structure/supportive therapy Medical consult appreciated, see medical team note for more detailed info SW consultation for discharge plan and social issues Med management ECT 05/06/18 went well #1, most likely pt requires 4-5 treatments ECT 05/09/18 #2 went well Docusate [Colace] 1 cap PO BID Famotidine [Pepcid] 20 mg PO DAILY [place] d/c in order to avoid post ECT delirium QUEtiapine [SEROquel] 400 mg at the morning time and 400 mg PO HS Ativan 1 mg 3 times a day on hold Collaterals were obtained from the [place] [facility] cardiology/internal medicine cleared pt for ECT Follow up on labs Will monitor closely Pt was educated about risk/benefits and alternatives of medications, coping strategies (safety plan, suicide prevention), relapse prevention, importance of follow up with psychiatrist and therapist, stay away from drugs/alcohol/smoking Estimated Date of D/C: 05/17/18
--- NOTE | 2018-05-10 13:03 | PCM.BM ---
<Nika Louis Y - Last Filed: 05/10/18 13:03> Treatment Plan Problems - Problems identified on initial assessmt Auditory Hallucinations Date Initiated: 04/26/18 Time Initiated: Assessment reference: NA Status: Active Altered Thoughts Process Date Initiated: 04/26/18 Time Initiated: Assessment reference: NA Status: Active Ineffective Coping Date Initiated: 04/26/18 Time Initiated: Assessment reference: NA Status: Active Medication nonadherence Date Initiated: 04/26/18 Time Initiated: Assessment reference: NA Status: Active Treatment assets and liabiliti Patient Assests: adapts well, cooperative, self-reliant, ADL independent, physically healthy, negotiates basic needs, cognitively intact Patient Liabilities: live alone, financial problems, poor support system - Milieu Protocol Maintain good personal hygiene: daily Encourage regular showers, daily Remind patient to perform daily oral care, daily Assist patient to perform ADL's Conduct patient checks and document Observation sheet: Q15 minutes Maintain personal safety: every shift Educate patient to report safety concerns to staff, every shift Monitor environment for contraband/sharps Medication safety: Monitor for expected outcome, potential side effects: every shift, Assess barriers to learning: every shift, Assess readiness for medication education: every shift Milieu Narrative: Milieu/structure/supportive therapy Medical consult appreciated, see medical team note for more detailed info SW consultation for discharge plan and social issues Med management ECT 05/06/18 went well #1, most likely pt requires 4-5 treatments ECT 05/09/18 #2 went well Docusate [Colace] 1 cap PO BID Famotidine [Pepcid] 20 mg PO DAILY [place] d/c in order to avoid post ECT delirium QUEtiapine [SEROquel] 400 mg at the morning time and 400 mg PO HS Ativan 1 mg 3 times a day on hold Collaterals were obtained from the [facility] cardiology/internal medicine cleared pt for ECT Follow up on labs Will monitor closely Pt was educated about risk/benefits and alternatives of medications, coping strategies (safety plan, suicide prevention), relapse prevention, importance of follow up with psychiatrist and therapist, stay away from drugs/alcohol/smoking Family Contact Family involvement: Famliy/SO not involved - Outside Agency [facility] Care involvment: Information-sharing Agency contact name: Dennise Payan [facility] Agency contact number: [phone] Discharge/Continuing Care - Education Needs Education Needs: Patient Medication, Patient Diagnosis/Disease Process, Patient Coping Skills, Patient Community resources, Patient Activities of Daily Living, Patient Nutrition, Patient Health Practices/Safety, Patient Personal Hygiene/Grooming, Patient Aftercare Safety Plan - Discharge Discharge Criteria: Tolerates medication w/o severe side effects, Free of Suicidal thoughts, Free of paranoid thoughts, Normal sleep pattern, Ability to care for self, Reduction of target symptoms - Treatment Team Participation Patient/Family/SO Statement: Milieu/structure/supportive therapy Medical consult appreciated, see medical team note for more detailed info SW consultation for discharge plan and social issues Med management ECT 05/06/18 went well #1, most likely pt requires 4-5 treatments ECT 05/09/18 #2 went well Docusate [Colace] 1 cap PO BID Famotidine [Pepcid] 20 mg PO DAILY [place] d/c in order to avoid post ECT delirium QUEtiapine [SEROquel] 400 mg at the morning time and 400 mg PO HS Ativan 1 mg 3 times a day on hold Collaterals were obtained from the [facility] cardiology/internal medicine cleared pt for ECT Follow up on labs Will monitor closely Pt was educated about risk/benefits and alternatives of medications, coping strategies (safety plan, suicide prevention), relapse prevention, importance of follow up with psychiatrist and therapist, stay away from drugs/alcohol/smoking Treatment Plan Review - Problem Auditory Hallucinations Time Initiated: 01:28 Altered Thoughts Process Time Initiated: 01:29 Ineffective Coping Time Initiated: 01:29 Medication nonadherence Time Initiated: 01:29 <Madeline Hernandez - Last Filed: 05/10/18 16:09> - Diagnosis (1) Schizoaffective disorder, bipolar type Status: Acute Interventions: 05/10/18 16:09 patient reported no improvements <Elsa Todd - Last Filed: 05/10/18 16:40>
--- NOTE | 2018-05-10 16:12 | PCM.PYCHPN ---
Psychiatric Progress Note - Psychiatric Progress Note Patient seen today, length of contact: 30 minutes Patient Chief Complaint: "I do not feel any better" Problems Identified/Issues Discussed: Suicide/ homicide prevention, past psychiatric h/o, current psychiatric symptoms, medical problems, risk/benefits and alternatives of medications, medications compliance, coping strategies, substance abuse h/o, relapse prevention, importance of follow up with psychiatrist and therapist, discharge plan Medical Problems: pt c/o back pain, ibuprofen started Diagnostic Results: 04/25/18 15:39 04/25/18 15:39 Lab Results 04/26/18 06:45: RPR Nonreactive 04/26/18 06:45: TSH 3rd Generation 4.32 04/26/18 06:45: Fasting Glucose 106, Triglycerides 145, Cholesterol 219 H, LDL Cholesterol Direct 137 H, HDL Cholesterol 45 04/26/18 06:45: [place] 0.2 L 04/25/18 15:39: Alcohol, Quantitative < 10 04/25/18 15:39: Salicylates < 1 L, Acetaminophen < 10.0 L 04/25/18 15:39: Urine Opiates Screen Negative, Urine Methadone Screen Negative, Ur Barbiturates Screen Negative, Ur Phencyclidine Scrn Negative, Ur Amphetamines Screen Negative, U Benzodiazepines Scrn Negative, U Oth Cocaine Metabols Negative, U Cannabinoids Screen Negative 04/25/18 15:39: Sodium 143, Potassium 3.9, Chloride 109 H, Carbon Dioxide 25, Anion Gap 12, BUN 9, Creatinine 0.8, Est GFR ( Amer) > 60, Est GFR (Non- Af Amer) > 60, Random Glucose 98, Calcium 9.8, Magnesium 2.2, Total Bilirubin 0.4, AST 21, ALT 28, Alkaline Phosphatase 54, Total Protein 8.1, Albumin 4.3, Globulin 3.8, Albumin/Globulin Ratio 1.1 04/25/18 15:39: Urine Color Yellow, Urine Appearance Clear, Urine pH 6.0, Ur Specific [place] 1.025, Urine Protein Negative, Urine Glucose (UA) Negative, Urine Ketones Negative, Urine Blood Negative, Urine Nitrate Negative, Urine Bilirubin Negative, Urine Urobilinogen 0.2, Ur Leukocyte Esterase Negative 04/25/18 15:39: WBC 6.4, RBC 5.19, Hgb 15.9, Hct 46.5, MCV 89.6, MCH 30.6, MCHC 34.2, RDW 12.7, Plt Count 307, MPV 8.7, Gran % 45.9 L, Lymph % (Auto) 41.3 H, [place] % (Auto) 9.9 H, Eos % (Auto) 2.4, Baso % (Auto) 0.5, Gran # 2.92, Lymph # (Auto) 2.6, [place] # (Auto) 0.6, Eos # (Auto) 0.2, Baso # (Auto) 0.03 Vital Signs Temp Pulse Resp BP Pulse Ox 04/27/18 07:19 98 F 90 20 118/74 04/26/18 16:00 103 H 122/75 04/26/18 07:21 98.2 F 92 H 20 116/74 04/25/18 20:30 98.3 F 82 18 131/71 100 04/25/18 20:20 98.3 F 80 16 121/80 99 04/25/18 19:22 98.3 F 82 18 131/71 100 04/25/18 15:55 98.3 F 81 20 112/73 96 04/25/18 15:10 98.8 F 86 16 114/76 97 Temp Pulse Resp BP Pulse Ox 97.7 F 85 16 104/66 100 04/30/18 07:00 04/30/18 07:00 04/30/18 07:00 04/30/18 07:00 04/25/18 20:30 Temp Pulse Resp BP Pulse Ox 98.3 F 85 16 134/82 100 05/09/18 10:56 05/09/18 10:56 05/09/18 10:56 05/09/18 10:56 05/09/18 10:56 DSM 5 Symptoms Update: Shortly patient is 43-year-old male with reported history of schizoaffective disorder, patient has treatment resistant symptoms, multiple previous psychiatric admissions including [place] as well as [facility], patient seems to be compliant with the medication but still has residual sym ptoms of psychosis, patient has command type hallucinations, patient also suffered from severe depression, patient was not able to function, patient was not bathing, had low appetite, very apathetic, patient was referred by [facility] for evaluation and stabilization of depressive symptoms, psychotic symptoms, medication management, possible ECT treatment,, patient requires further evaluation and stabilization and medication initiation and titration possible ECT. patient had #2 ECT treatment 05/09/18, tolerated well, no complaints. patient reported no improvement with his symptoms, patient reported that he still feels depressed and more improvement with the voices, but based on observation from the nursing staff patient is not talking to himself loudly but staying in bed most of the day, ut by the evening time patient is more active. Patient reported that last time he was feeling good "was yesterday at the evening". As per staff patient is compliant with the medications, no agitation or aggression,patient is depressed, self isolating. So far patient tolerates medications well, no side effects observed or reported, aims 0, no EPS. Impression: Schizoaffective disorder as per history Rule out schizophrenia treatment resistant Medication Change: Yes (Prozac increased) Medical Record Reviewed: Yes Consults ordered or reviewed: pt was seen by medical team at ED will consider medical consult for dyslipidemia Mental Status Examination - Cognitive Function Orientation: Person, Place, Situation Memory: Impaired Attention: Poor (some improvement, pt was more responsive before procedure, affect was more reactive.) Concentration: Poor (some improvements) Association: Loose Fund of Knowledge: Poor - Mood Mood: Depressed ("I am still depressed"), Anxious - Affect Affect: Constricted, Flat - Formal Thought Process Formal Thought Process: Hallucinations ("better"), Delusions, Paranoia - Suicidal Ideation Suicidal Ideation: No - Homicidal Ideation Homicidal Ideation: No Goal/Treatment Plan - Goal/Treatment Plan Need for Continued Stay: Remain at risks for inpatient hospitalization, Severe depression anxiety, Discharge may exacerbated symptoms, Severe functional impairment Progress Toward Problem(s) and Goals/Treatment Plan: Milieu/structure/supportive therapy Medical consult appreciated, see medical team note for more detailed info SW consultation for discharge plan and social issues Med management ECT 05/06/18 went well #1, most likely pt requires 4-5 treatments ECT 05/09/18 #2 went well Prozac 30 mg was increased today 05/10/2018 Docusate [Colace] 1 cap PO BID Famotidine [Pepcid] 20 mg PO DAILY [place] d/c in order to avoid post ECT delirium QUEtiapine [SEROquel] 400 mg at the morning time and 400 mg PO HS Ativan 1 mg 3 times a day on hold Collaterals were obtained from the [facility] cardiology/internal medicine cleared pt for ECT Follow up on labs Will monitor closely Pt was educated about risk/benefits and alternatives of medications, coping strategies (safety plan, suicide prevention), relapse prevention, importance of follow up with psychiatrist and therapist, stay away from drugs/alcohol/smoking Estimated Date of D/C: 05/17/18
--- NOTE | 2018-05-11 10:03 | PCM.PYCHPN ---
Psychiatric Progress Note - Psychiatric Progress Note Patient seen today, length of contact: 30 minutes Problems Identified/Issues Discussed: I reviewed recent notes and met with patient at bedside. He is calm and cooperative with my questioning. Oriented x3. Affect remains depressed and withdrawn and patient admits to continued depression and s/p 2 EC treatments this week. He doesn't have any new complaints or new concerns and he denies having any active SI. Regarding hallucinations, he denies having any perceptual disturbance (however endorsed having hallucinations to staff yesterday). Responses are relevant to questioning and delusions were not elicited. As per staff patient is compliant with the medications, no agitation or aggression. Diagnostic Results: Schizoaffective disorder as per history Rule out schizophrenia treatment resistant Medication Change: No ( ) Medical Record Reviewed: Yes Mental Status Examination - Cognitive Function Orientation: Person, Place, Situation Memory: Impaired Attention: Poor (some improvement, pt was more responsive before procedure, affect was more reactive.) Concentration: Poor (some improvements) Association: Loose Fund of Knowledge: Poor - Mood Mood: Depressed ("I am still depressed"), Anxious - Affect Affect: Constricted, Flat - Formal Thought Process Formal Thought Process: Hallucinations (denies currently however endorsed to staff yesterday), Delusions, Paranoia - Suicidal Ideation Suicidal Ideation: No - Homicidal Ideation Homicidal Ideation: No Goal/Treatment Plan - Goal/Treatment Plan Need for Continued Stay: Remain at risks for inpatient hospitalization, Severe depression anxiety, Discharge may exacerbated symptoms, Severe functional impairment Progress Toward Problem(s) and Goals/Treatment Plan: * c/w current tx and plan (c/w ECT) * No new lab results thus far * Vitals reviewed and noted below: Selected Entries 05/10/18 05/10/18 05/10/18 07:41 07:45 16:00 Temperature 98.0 F 98.0 F Pulse Rate 77 77 84 Respiratory 20 Rate Blood Pressure 98/60 L 108/64 Estimated Date of D/C: 05/17/18
--- NOTE | 2018-05-12 09:54 | PCM.PYCHPN ---
Psychiatric Progress Note - Psychiatric Progress Note Patient seen today, length of contact: 30 minutes Problems Identified/Issues Discussed: I reviewed recent notes and met with patient at bedside. He is calm and cooperative with my questioning. Oriented x3. Affect remains depressed and withdrawn and patient admits to continued depression s/p 2 EC treatments this week. He doesn't have any new complaints or new concerns and he denies having any active SI. Regarding hallucinations, he denies having any perceptual disturbance (however endorsed having hallucinations to staff on Sunday). Responses are relevant to questioning and delusions were not elicited. Indicates that he slept well last night. 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 There were no episodes of agitation or aggression over the weekend. Diagnostic Results: Schizoaffective disorder as per history Rule out schizophrenia treatment resistant Medication Change: No ( ) Medical Record Reviewed: Yes Mental Status Examination - Cognitive Function Orientation: Person, Place, Situation Memory: Impaired Attention: Poor (some improvement, pt was more responsive before procedure, affect was more reactive.) Concentration: Poor (some improvements) Association: Loose Fund of Knowledge: Poor - Mood Mood: Depressed ("I am still depressed"), Anxious - Affect Affect: Constricted, Flat - Formal Thought Process Formal Thought Process: Hallucinations (denies currently however endorsed to staff yesterday), Delusions, Paranoia - Suicidal Ideation Suicidal Ideation: No - Homicidal Ideation Homicidal Ideation: No Goal/Treatment Plan - Goal/Treatment Plan Need for Continued Stay: Remain at risks for inpatient hospitalization, Severe depression anxiety, Discharge may exacerbated symptoms, Severe functional impairment Progress Toward Problem(s) and Goals/Treatment Plan: * c/w current tx and plan (c/w ECT) * No new lab results thus far * Vitals reviewed and noted below: Selected Entries 05/11/18 05/11/18 06:57 20:31 Temperature 97.8 F Pulse Rate 82 90 Respiratory 20 Rate Blood Pressure 105/62 115/79 Estimated Date of D/C: 05/17/18
--- NOTE | 2018-05-13 14:20 | PCM.PYCHPN ---
Psychiatric Progress Note - Psychiatric Progress Note Patient seen today, length of contact: 30 minutes Patient Chief Complaint: "I feel little better, I am okay" Problems Identified/Issues Discussed: Suicide/ homicide prevention, past psychiatric h/o, current psychiatric sy mptoms, medical problems, risk/benefits and alternatives of medications, medications compliance, coping strategies, substance abuse h/o, relapse prevention, importance of follow up with psychiatrist and therapist, discharge plan Medical Problems: pt c/o back pain, ibuprofen started Diagnostic Results: 04/25/18 15:39 04/25/18 15:39 Lab Results 04/26/18 06:45: RPR Nonreactive 04/26/18 06:45: TSH 3rd Generation 4.32 04/26/18 06:45: Fasting Glucose 106, Triglycerides 145, Cholesterol 219 H, LDL Cholesterol Direct 137 H, HDL Cholesterol 45 04/26/18 06:45: [place] 0.2 L 04/25/18 15:39: Alcohol, Quantitative < 10 04/25/18 15:39: Salicylates < 1 L, Acetaminophen < 10.0 L 04/25/18 15:39: Urine Opiates Screen Negative, Urine Methadone Screen Negative, Ur Barbiturates Screen Negative, Ur Phencyclidine Scrn Negative, Ur Amphetamines Screen Negative, U Benzodiazepines Scrn Negative, U Oth Cocaine Metabols Negative, U Cannabinoids Screen Negative 04/25/18 15:39: Sodium 143, Potassium 3.9, Chloride 109 H, Carbon Dioxide 25, Anion Gap 12, BUN 9, Creatinine 0.8, Est GFR ( Amer) > 60, Est GFR (Non- Af Amer) > 60, Random Glucose 98, Calcium 9.8, Magnesium 2.2, Total Bilirubin 0.4, AST 21, ALT 28, Alkaline Phosphatase 54, Total Protein 8.1, Albumin 4.3, Globulin 3.8, Albumin/Globulin Ratio 1.1 04/25/18 15:39: Urine Color Yellow, Urine Appearance Clear, Urine pH 6.0, Ur Specific [place] 1.025, Urine Protein Negative, Urine Glucose (UA) Negative, Urine Ketones Negative, Urine Blood Negative, Urine Nitrate Negative, Urine Bilirubin Negative, Urine Urobilinogen 0.2, Ur Leukocyte Esterase Negative 04/25/18 15:39: WBC 6.4, RBC 5.19, Hgb 15.9, Hct 46.5, MCV 89.6, MCH 30.6, MCHC 34.2, RDW 12.7, Plt Count 307, MPV 8.7, Gran % 45.9 L, Lymph % (Auto) 41.3 H, [place] % (Auto) 9.9 H, Eos % (Auto) 2.4, Baso % (Auto) 0.5, Gran # 2.92, Lymph # (Auto) 2.6, [place] # (Auto) 0.6, Eos # (Auto) 0.2, Baso # (Auto) 0.03 Vital Signs Temp Pulse Resp BP Pulse Ox 04/27/18 07:19 98 F 90 20 118/74 04/26/18 16:00 103 H 122/75 04/26/18 07:21 98.2 F 92 H 20 116/74 04/25/18 20:30 98.3 F 82 18 131/71 100 04/25/18 20:20 98.3 F 80 16 121/80 99 04/25/18 19:22 98.3 F 82 18 131/71 100 04/25/18 15:55 98.3 F 81 20 112/73 96 04/25/18 15:10 98.8 F 86 16 114/76 97 Temp Pulse Resp BP Pulse Ox 97.7 F 85 16 104/66 100 04/30/18 07:00 04/30/18 07:00 04/30/18 07:00 04/30/18 07:00 04/25/18 20:30 Temp Pulse Resp BP Pulse Ox 98.3 F 85 16 134/82 100 05/09/18 10:56 05/09/18 10:56 05/09/18 10:56 05/09/18 10:56 05/09/18 10:56 DSM 5 Symptoms Update: Shortly patient is 43-year-old male with reported history of schizoaffective disorder, patient has treatment resistant symptoms, multiple previous psychiatric admissions including [place] as well as [facility], patient seems to be compliant with the medication but still has residual symptoms of psychosis, patient has command type hallucinations, patient also suffered from severe depression, patient was not able to function, patient was not bathing, had low appetite, very apathetic, patient was referred by residential for evaluation and stabilization of depressive symptoms, psychotic symptoms, medication management, possible ECT treatment,, patient requires further evaluation and stabilization and medication initiation and titration possible ECT. patient had #2 ECT treatment, most recent 05/09/18, tolerated well, no complaints. over the weekend pt presented little better, affect was brighter, last auditory hallucinations were last Sunday. pt was seen today with medical students and SW. pt presented with some improvements with his symptoms, pt was smiling back to this administrative underwriter, thought process is better organized. 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 There were no episodes of agitation or aggression over the weekend. so far pt tolerates meds/ECT well, still requires further hospitalization and ECT treatment. AIMS 0, no EPS. Diagnostic Results: Schizoaffective disorder as per history Rule out schizophrenia treatment resistant Medication Change: No ( ) Medical Record Reviewed: Yes Consults ordered or reviewed: pt was seen by medical team at ED will consider medical consult for dyslipidemia Mental Status Examination - Cognitive Function Orientation: Person, Place, Situation Memory: Impaired Attention: Poor (some improvements) Concentration: Poor (some improvement) Association: Loose Fund of Knowledge: Poor - Mood Mood: Depressed ("I am still depressed"), Anxious - Affect Affect: Constricted, Flat - Formal Thought Process Formal Thought Process: Hallucinations (denies currently however endorsed to staff 05/10/18), Delusions, Paranoia - Suicidal Ideation Suicidal Ideation: No - Homicidal Ideation Homicidal Ideation: No Goal/Treatment Plan - Goal/Treatment Plan Need for Continued Stay: Remain at risks for inpatient hospitalization, Severe depression anxiety, Discharge may exacerbated symptoms, Severe functional impairment Progress Toward Problem(s) and Goals/Treatment Plan: Milieu/structure/supportive therapy Medical consult appreciated, see medical team note for more detailed info SW consultation for discharge plan and social issues Med management ECT 05/06/18 went well #1, most likely pt requires 4-5 treatments ECT 05/09/18 #2 went well Prozac 40 mg was increased today 05/10/2018 Docusate [Colace] 1 cap PO BID Famotidine [Pepcid] 20 mg PO DAILY [place] d/c in order to avoid post ECT delirium QUEtiapine [SEROquel] 400 mg at the morning time and 400 mg PO HS Ativan d/c Collaterals were obtained from the residential cardiology/internal medicine cleared pt for ECT Follow up on labs Will monitor closely Pt was educated about risk/benefits and alternatives of medications, coping strategies (safety plan, suicide prevention), relapse prevention, importance of follow up with psychiatrist and therapist, stay away from drugs/alcohol/smoking Estimated Date of D/C: 05/21/18
[2018-05-14] MEDS ORDERED: Propofol 10 mg/ml Inj (20 ML) ONE (09:23)
[2018-05-14] MEDS ORDERED: Succinylcholine 200 mg/10 ml Inj IV ONE (09:23)
[2018-05-14] MEDS ORDERED: Lactated Ringer's 1,000 ML IV SCH (10:00)
--- NOTE | 2018-05-14 14:30 | PCM.PYCHPN ---
Psychiatric Progress Note - Psychiatric Progress Note Patient seen today, length of contact: 30 minutes Patient Chief Complaint: "I feel little better, I am okay" Problems Identified/Issues Discussed: Suicide/ homicide prevention, past psychiatric h/o, current psychiatric sy mptoms, medical problems, risk/benefits and alternatives of medications, medications compliance, coping strategies, substance abuse h/o, relapse prevention, importance of follow up with psychiatrist and therapist, discharge plan Medical Problems: pt c/o back pain, ibuprofen started Diagnostic Results: 04/25/18 15:39 04/25/18 15:39 Lab Results 04/26/18 06:45: RPR Nonreactive 04/26/18 06:45: TSH 3rd Generation 4.32 04/26/18 06:45: Fasting Glucose 106, Triglycerides 145, Cholesterol 219 H, LDL Cholesterol Direct 137 H, HDL Cholesterol 45 04/26/18 06:45: [place] 0.2 L 04/25/18 15:39: Alcohol, Quantitative < 10 04/25/18 15:39: Salicylates < 1 L, Acetaminophen < 10.0 L 04/25/18 15:39: Urine Opiates Screen Negative, Urine Methadone Screen Negative, Ur Barbiturates Screen Negative, Ur Phencyclidine Scrn Negative, Ur Amphetamines Screen Negative, U Benzodiazepines Scrn Negative, U Oth Cocaine Metabols Negative, U Cannabinoids Screen Negative 04/25/18 15:39: Sodium 143, Potassium 3.9, Chloride 109 H, Carbon Dioxide 25, Anion Gap 12, BUN 9, Creatinine 0.8, Est GFR ( Amer) > 60, Est GFR (Non- Af Amer) > 60, Random Glucose 98, Calcium 9.8, Magnesium 2.2, Total Bilirubin 0.4, AST 21, ALT 28, Alkaline Phosphatase 54, Total Protein 8.1, Albumin 4.3, Globulin 3.8, Albumin/Globulin Ratio 1.1 04/25/18 15:39: Urine Color Yellow, Urine Appearance Clear, Urine pH 6.0, Ur Specific [place] 1.025, Urine Protein Negative, Urine Glucose (UA) Negative, Urine Ketones Negative, Urine Blood Negative, Urine Nitrate Negative, Urine Bilirubin Negative, Urine Urobilinogen 0.2, Ur Leukocyte Esterase Negative 04/25/18 15:39: WBC 6.4, RBC 5.19, Hgb 15.9, Hct 46.5, MCV 89.6, MCH 30.6, MCHC 34.2, RDW 12.7, Plt Count 307, MPV 8.7, Gran % 45.9 L, Lymph % (Auto) 41.3 H, [place] % (Auto) 9.9 H, Eos % (Auto) 2.4, Baso % (Auto) 0.5, Gran # 2.92, Lymph # (Auto) 2.6, [place] # (Auto) 0.6, Eos # (Auto) 0.2, Baso # (Auto) 0.03 Vital Signs Temp Pulse Resp BP Pulse Ox 04/27/18 07:19 98 F 90 20 118/74 04/26/18 16:00 103 H 122/75 04/26/18 07:21 98.2 F 92 H 20 116/74 04/25/18 20:30 98.3 F 82 18 131/71 100 04/25/18 20:20 98.3 F 80 16 121/80 99 04/25/18 19:22 98.3 F 82 18 131/71 100 04/25/18 15:55 98.3 F 81 20 112/73 96 04/25/18 15:10 98.8 F 86 16 114/76 97 Temp Pulse Resp BP Pulse Ox 97.7 F 85 16 104/66 100 04/30/18 07:00 04/30/18 07:00 04/30/18 07:00 04/30/18 07:00 04/25/18 20:30 Temp Pulse Resp BP Pulse Ox 98.3 F 85 16 134/82 100 05/09/18 10:56 05/09/18 10:56 05/09/18 10:56 05/09/18 10:56 05/09/18 10:56 DSM 5 Symptoms Update: Shortly patient is 43-year-old male with reported history of schizoaffective disorder, patient has treatment resistant symptoms, multiple previous psychiatric admissions including [place] as well as [facility], patient seems to be compliant with the medication but still has residual symptoms of psychosis, patient has command type hallucinations, patient also suffered from severe depression, patient was not able to function, patient was not bathing, had low appetite, very apathetic, patient was referred by [facility] for evaluation and stabilization of depressive symptoms, psychotic symptoms, medication management, possible ECT treatment,, patient requires further evaluation and stabilization and medication initiation and titration possible ECT. pt was seen at the OR holding area, pt was educated about procedure again, pt signed consent for treatment. ECT #3 05/14/18, Charge 115 MC/energy 20.3 J at 220ohms/impedance 1060, pulse width 0.3 msec/frequency 30hz, duration 8.000sec, current 800mA, pt had >44sec of seizure activity on EEG. pt tolerated procedure well, pt c/o headache, toradol was given to the pt, no other side effects, pt then was transferred to the recovery room. pt was seen at the unit, pt pt denied any headaches, pt was alert and oriented, brighter affect, psychosis is much better, pt was not observed talking to self. then pt ate, had good appetite. 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 so far pt tolerates meds/ECT well, still requires further hospitalization and ECT treatment. AIMS 0, no EPS. Diagnostic Results: Schizoaffective disorder as per history Rule out schizophrenia treatment resistant Medication Change: No ( ) Medical Record Reviewed: Yes Mental Status Examination - Cognitive Function Orientation: Person, Place, Situation Memory: Impaired Attention: Poor (some improvements) Concentration: Poor (some improvement) Association: Loose Fund of Knowledge: Poor - Mood Mood: Depressed ("I am still depressed"), Anxious - Affect Affect: Constricted (pt was able to smile ) - Formal Thought Process Formal Thought Process: Hallucinations (denies currently however endorsed to staff 05/10/18), Delusions (improving), Paranoia (improving) - Suicidal Ideation Suicidal Ideation: No - Homicidal Ideation Homicidal Ideation: No Goal/Treatment Plan - Goal/Treatment Plan Need for Continued Stay: Remain at risks for inpatient hospitalization, Severe depression anxiety, Discharge may exacerbated symptoms, Severe functional impairment Progress Toward Problem(s) and Goals/Treatment Plan: Milieu/structure/supportive therapy Medical consult appreciated, see medical team note for more detailed info SW consultation for discharge plan and social issues Med management ECT 05/06/18 went well #1, most likely pt requires 4-5 treatments ECT 05/09/18 #2 went well ECT 05/14/18 #3 tolerated well Prozac 40 mg was increased 05/10/2018 Docusate [Colace] 1 cap PO BID Famotidine [Pepcid] 20 mg PO DAILY QUEtiapine [SEROquel] 400 mg at the morning time and 400 mg PO HS Ativan d/c Collaterals were obtained from the [facility] cardiology/internal medicine cleared pt for ECT Follow up on labs Will monitor closely Pt was educated about risk/benefits and alternatives of medications, coping strategies (safety plan, suicide prevention), relapse prevention, importance of follow up with psychiatrist and therapist, stay away from drugs/alcohol/smoking Estimated Date of D/C: 05/21/18
--- NOTE | 2018-05-15 15:59 | PCM.PYCHPN ---
Psychiatric Progress Note - Psychiatric Progress Note Patient seen today, length of contact: 30 minutes Patient Chief Complaint: "I ffeels okay, voices are better,, still I hear some voices". Problems Identified/Issues Discussed: Suicide/ homicide prevention, past psychiatric h/o, current psychiatric symptoms, medical problems, risk/benefits and alternatives of medications, medications compliance, coping strategies, substance abuse h/o, relapse prevention, importance of follow up with psychiatrist and therapist, discharge plan Medical Problems: pt c/o back pain, ibuprofen started Diagnostic Results: 04/25/18 15:39 04/25/18 15:39 Lab Results 04/26/18 06:45: RPR Nonreactive 04/26/18 06:45: TSH 3rd Generation 4.32 04/26/18 06:45: Fasting Glucose 106, Triglycerides 145, Cholesterol 219 H, LDL Cholesterol Direct 137 H, HDL Cholesterol 45 04/26/18 06:45: [place] 0.2 L 04/25/18 15:39: Alcohol, Quantitative < 10 04/25/18 15:39: Salicylates < 1 L, Acetaminophen < 10.0 L 04/25/18 15:39: Urine Opiates Screen Negative, Urine Methadone Screen Negative, Ur Barbiturates Screen Negative, Ur Phencyclidine Scrn Negative, Ur Amphetamines Screen Negative, U Benzodiazepines Scrn Negative, U Oth Cocaine Metabols Negative, U Cannabinoids Screen Negative 04/25/18 15:39: Sodium 143, Potassium 3.9, Chloride 109 H, Carbon Dioxide 25, Anion Gap 12, BUN 9, Creatinine 0.8, Est GFR ( Amer) > 60, Est GFR (Non- Af Amer) > 60, Random Glucose 98, Calcium 9.8, Magnesium 2.2, Total Bilirubin 0.4, AST 21, ALT 28, Alkaline Phosphatase 54, Total Protein 8.1, Albumin 4.3, Globulin 3.8, Albumin/Globulin Ratio 1.1 04/25/18 15:39: Urine Color Yellow, Urine Appearance Clear, Urine pH 6.0, Ur Specific [place] 1.025, Urine Protein Negative, Urine Glucose (UA) Negative, Urine Ketones Negative, Urine Blood Negative, Urine Nitrate Negative, Urine Bilirubin Negative, Urine Urobilinogen 0.2, Ur Leukocyte Esterase Negative 04/25/18 15:39: WBC 6.4, RBC 5.19, Hgb 15.9, Hct 46.5, MCV 89.6, MCH 30.6, MCHC 34.2, RDW 12.7, Plt Count 307, MPV 8.7, Gran % 45.9 L, Lymph % (Auto) 41.3 H, [place] % (Auto) 9.9 H, Eos % (Auto) 2.4, Baso % (Auto) 0.5, Gran # 2.92, Lymph # (Auto) 2.6, [place] # (Auto) 0.6, Eos # (Auto) 0.2, Baso # (Auto) 0.03 Vital Signs Temp Pulse Resp BP Pulse Ox 04/27/18 07:19 98 F 90 20 118/74 04/26/18 16:00 103 H 122/75 04/26/18 07:21 98.2 F 92 H 20 116/74 04/25/18 20:30 98.3 F 82 18 131/71 100 04/25/18 20:20 98.3 F 80 16 121/80 99 04/25/18 19:22 98.3 F 82 18 131/71 100 04/25/18 15:55 98.3 F 81 20 112/73 96 04/25/18 15:10 98.8 F 86 16 114/76 97 Temp Pulse Resp BP Pulse Ox 97.7 F 85 16 104/66 100 04/30/18 07:00 04/30/18 07:00 04/30/18 07:00 04/30/18 07:00 04/25/18 20:30 Temp Pulse Resp BP Pulse Ox 98.3 F 85 16 134/82 100 05/09/18 10:56 05/09/18 10:56 05/09/18 10:56 05/09/18 10:56 05/09/18 10:56 DSM 5 Symptoms Update: Shortly patient is 43-year-old male with reported history of schizoaffective disorder, patient has treatment resistant symptoms, multiple previous psychiatric admissions including [place] as well as [facility], patient seems to be compliant with the medication but still has residual symptoms of psychosis, patient has command type hallucinations, patient also suffered from severe depression, patient was not able to function, patient was not bathing, had low appetite, very apathetic, patient was referred by care home for evaluation and stabilization of depressive symptoms, psychotic symptoms, medication management, possible ECT treatment,, patient requires further evaluation and stabilization and medication initiation and titration possible ECT. patient presented little better today was observed outside of his room, as per staff patient played cards yesterday, at the morning time patient stayed in bed, overall patient improving slowly. Patient is willing to have ECT tomorrow. ECT #3 05/14/18, Charge 115 MC/energy 20.3 J at 220ohms/impedance 1060, pulse width 0.3 msec/frequency 30hz, duration 8.000sec, current 800mA, pt had >44sec o f seizure activity on EEG. pt tolerated procedure well, pt c/o headache, toradol was given to the pt, no other side effects, pt then was transferred to the recovery room. 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 so far pt tolerates meds/ECT well, still requires further hospitalization and ECT treatment. AIMS 0, no EPS. Diagnostic Results: Schizoaffective disorder as per history Rule out schizophrenia treatment resistant Medication Change: No ( ) Medical Record Reviewed: Yes Mental Status Examination - Cognitive Function Orientation: Person, Place, Situation Memory: Impaired Attention: Poor (some improvements) Concentration: Poor (some improvement) Association: Loose Fund of Knowledge: Poor - Mood Mood: Depressed ("I am still depressed"), Anxious - Affect Affect: Constricted (pt was able to smile ) - Formal Thought Process Formal Thought Process: Hallucinations (denies currently however endorsed to staff 05/10/18), Delusions (improving), Paranoia (improving) - Suicidal Ideation Suicidal Ideation: No - Homicidal Ideation Homicidal Ideation: No Goal/Treatment Plan - Goal/Treatment Plan Need for Continued Stay: Remain at risks for inpatient hospitalization, Severe depression anxiety, Discharge may exacerbated symptoms, Severe functional impairment Progress Toward Problem(s) and Goals/Treatment Plan: Milieu/structure/supportive therapy Medical consult appreciated, see medical team note for more detailed info SW consultation for discharge plan and social issues Med management ECT 05/06/18 went well #1, most likely pt requires 4-5 treatments ECT 05/09/18 #2 went well ECT 05/14/18 #3 tolerated well ECT scheduled for tomorrow 05/16/2018 Prozac 40 mg was increased 05/10/2018 Docusate [Colace] 1 cap PO BID Famotidine [Pepcid] 20 mg PO DAILY QUEtiapine [SEROquel] 400 mg at the morning time and 400 mg PO HS Ativan d/c Collaterals were obtained from the care home cardiology/internal medicine cleared pt for ECT Follow up on labs Will monitor closely Pt was educated about risk/benefits and alternatives of medications, coping strategies (safety plan, suicide prevention), relapse prevention, importance of follow up with psychiatrist and therapist, stay away from drugs/alcohol/smoking Estimated Date of D/C: 05/21/18
[2018-05-16] MEDS ORDERED: Propofol 10 mg/ml Inj (20 ML) ONE (11:25)
[2018-05-16] MEDS ORDERED: Succinylcholine 200 mg/10 ml Inj IV ONE (11:26)
[2018-05-16] MEDS ORDERED: Sodium Chloride 0.9% 1,000 ML IV SCH (11:45)
--- NOTE | 2018-05-16 17:06 | PCM.PYCHPN ---
Psychiatric Progress Note - Psychiatric Progress Note Patient seen today, length of contact: 30 minutes Patient Chief Complaint: "I feel little better, voices are gone..." Problems Identified/Issues Discussed: Suicide/ homicide prevention, past psychiatric h/o, current psychiatric symptoms, medical problems, risk/benefits and alternatives of medications, medications compliance, coping strategies, substance abuse h/o, relapse prevention, importance of follow up with psychiatrist and therapist, discharge plan Medical Problems: pt c/o back pain, ibuprofen started Diagnostic Results: 04/25/18 15:39 04/25/18 15:39 Lab Results 04/26/18 06:45: RPR Nonreactive 04/26/18 06:45: TSH 3rd Generation 4.32 04/26/18 06:45: Fasting Glucose 106, Triglycerides 145, Cholesterol 219 H, LDL Cholesterol Direct 137 H, HDL Cholesterol 45 04/26/18 06:45: [place] 0.2 L 04/25/18 15:39: Alcohol, Quantitative < 10 04/25/18 15:39: Salicylates < 1 L, Acetaminophen < 10.0 L 04/25/18 15:39: Urine Opiates Screen Negative, Urine Methadone Screen Negative, Ur Barbiturates Screen Negative, Ur Phencyclidine Scrn Negative, Ur Amphetamines Screen Negative, U Benzodiazepines Scrn Negative, U Oth Cocaine Metabols Negative, U Cannabinoids Screen Negative 04/25/18 15:39: Sodium 143, Potassium 3.9, Chloride 109 H, Carbon Dioxide 25, Anion Gap 12, BUN 9, Creatinine 0.8, Est GFR ( Amer) > 60, Est GFR (Non- Af Amer) > 60, Random Glucose 98, Calcium 9.8, Magnesium 2.2, Total Bilirubin 0.4, AST 21, ALT 28, Alkaline Phosphatase 54, Total Protein 8.1, Albumin 4.3, Globulin 3.8, Albumin/Globulin Ratio 1.1 04/25/18 15:39: Urine Color Yellow, Urine Appearance Clear, Urine pH 6.0, Ur Specific [place] 1.025, Urine Protein Negative, Urine Glucose (UA) Negative, Urine Ketones Negative, Urine Blood Negative, Urine Nitrate Negative, Urine Bilirubin Negative, Urine Urobilinogen 0.2, Ur Leukocyte Esterase Negative 04/25/18 15:39: WBC 6.4, RBC 5.19, Hgb 15.9, Hct 46.5, MCV 89.6, MCH 30.6, MCHC 34.2, RDW 12.7, Plt Count 307, MPV 8.7, Gran % 45.9 L, Lymph % (Auto) 41.3 H, [place] % (Auto) 9.9 H, Eos % (Auto) 2.4, Baso % (Auto) 0.5, Gran # 2.92, Lymph # (Auto) 2.6, [place] # (Auto) 0.6, Eos # (Auto) 0.2, Baso # (Auto) 0.03 Vital Signs Temp Pulse Resp BP Pulse Ox 04/27/18 07:19 98 F 90 20 118/74 04/26/18 16:00 103 H 122/75 04/26/18 07:21 98.2 F 92 H 20 116/74 04/25/18 20:30 98.3 F 82 18 131/71 100 04/25/18 20:20 98.3 F 80 16 121/80 99 04/25/18 19:22 98.3 F 82 18 131/71 100 04/25/18 15:55 98.3 F 81 20 112/73 96 04/25/18 15:10 98.8 F 86 16 114/76 97 Temp Pulse Resp BP Pulse Ox 97.7 F 85 16 104/66 100 04/30/18 07:00 04/30/18 07:00 04/30/18 07:00 04/30/18 07:00 04/25/18 20:30 Temp Pulse Resp BP Pulse Ox 98.3 F 85 16 134/82 100 05/09/18 10:56 05/09/18 10:56 05/09/18 10:56 05/09/18 10:56 05/09/18 10:56 DSM 5 Symptoms Update: Shortly patient is 43-year-old male with reported history of schizoaffective disorder, patient has treatment resistant symptoms, multiple previous psychiatric admissions including [place] as well as [facility], patient seems to be compliant with the medication but still has residual symptoms of psychosis, patient has command type hallucinations, patient also suffered from severe depression, patient was not able to function, patient was not bathing, had low appetite, very apathetic, patient was referred by care home for evaluation and stabilization of depressive symptoms, psychotic symptoms, medication management, possible ECT treatment,, patient requires further evaluation and stabilization and medication initiation and titration possible ECT. pt was seen in OR, signed consent, pt said that he feels "little better, voices are gone". ECT #4 05/16/18, Charge 115 MC/energy 20.3 J at 220ohms/impedance 1060, pulse width 0.3 msec/frequency 30hz, duration 8.000sec, current 800mA, pt had adequate seizure activity. pt has headaches after the ECT, anestesiologist was advised to give toradol. ECT #3 , Charge 115 MC/energy 20.3 J at 220ohms/impedance 1060, pulse width 0.3 msec/frequency 30hz, duration 8.000sec, current 800mA, pt had >44sec of seizure activity on EEG. pt tolerated procedure well, pt c/o headache, toradol was given to the pt, no other side effects, pt then was transferred to the recovery room. As per staff patient is compliant with the medications and seems a little brighter,though, he still doesn't have much motivation with his grooming started to attend evening groups. so far pt tolerates meds/ECT well, still requires further hospitalization and ECT treatment. AIMS 0, no EPS. Diagnostic Results: Schizoaffective disorder as per history Rule out schizophrenia treatment resistant Medication Change: No ( ) Medical Record Reviewed: Yes Mental Status Examination - Cognitive Function Orientation: Person, Place, Situation Memory: Impaired Attention: Poor (some improvements) Concentration: Poor (some improvement) Association: Loose Fund of Knowledge: Poor - Mood Mood: Depressed ("I am still depressed"), Anxious - Affect Affect: Constricted (pt was able to smile ) - Formal Thought Process Formal Thought Process: Hallucinations (denied ), Delusions (mild), Paranoia (mild) - Suicidal Ideation Suicidal Ideation: No - Homicidal Ideation Homicidal Ideation: No Goal/Treatment Plan - Goal/Treatment Plan Need for Continued Stay: Remain at risks for inpatient hospitalization, Severe depression anxiety, Discharge may exacerbated symptoms, Severe functional impairment Progress Toward Problem(s) and Goals/Treatment Plan: Milieu/structure/supportive therapy Medical consult appreciated, see medical team note for more detailed info SW consultation for discharge plan and social issues Med management ECT 05/06/18 went well #1, most likely pt requires 4-5 treatments ECT 05/09/18 #2 went well ECT 05/14/18 #3 tolerated well ECT 05/16/18 #4 tolerated well Prozac 40 mg was increased 05/10/2018 Docusate [Colace] 1 cap PO BID Famotidine [Pepcid] 20 mg PO DAILY QUEtiapine [SEROquel] 400 mg at the morning time and 400 mg PO HS Ativan d/c Collaterals were obtained from the care home cardiology/internal medicine cleared pt for ECT Follow up on labs Will monitor closely Pt was educated about risk/benefits and alternatives of medications, coping strategies (safety plan, suicide prevention), relapse prevention, importance of follow up with psychiatrist and therapist, stay away from drugs/alcohol/smoking Estimated Date of D/C: 05/21/18
--- NOTE | 2018-05-17 15:43 | PCM.PYCHPN ---
Psychiatric Progress Note - Psychiatric Progress Note Patient seen today, length of contact: 30 minutes Patient Chief Complaint: "I feel little better, voices are gone..." Problems Identified/Issues Discussed: Suicide/ homicide prevention, past psychiatric h/o, current psychiatric symptoms, medical problems, risk/benefits and alternatives of medications, medications compliance, coping strategies, substance abuse h/o, relapse prevention, importance of follow up with psychiatrist and therapist, discharge plan Medical Problems: pt c/o back pain, ibuprofen started Diagnostic Results: 04/25/18 15:39 04/25/18 15:39 Lab Results 04/26/18 06:45: RPR Nonreactive 04/26/18 06:45: TSH 3rd Generation 4.32 04/26/18 06:45: Fasting Glucose 106, Triglycerides 145, Cholesterol 219 H, LDL Cholesterol Direct 137 H, HDL Cholesterol 45 04/26/18 06:45: [place] 0.2 L 04/25/18 15:39: Alcohol, Quantitative < 10 04/25/18 15:39: Salicylates < 1 L, Acetaminophen < 10.0 L 04/25/18 15:39: Urine Opiates Screen Negative, Urine Methadone Screen Negative, Ur Barbiturates Screen Negative, Ur Phencyclidine Scrn Negative, Ur Amphetamines Screen Negative, U Benzodiazepines Scrn Negative, U Oth Cocaine Metabols Negative, U Cannabinoids Screen Negative 04/25/18 15:39: Sodium 143, Potassium 3.9, Chloride 109 H, Carbon Dioxide 25, Anion Gap 12, BUN 9, Creatinine 0.8, Est GFR ( Amer) > 60, Est GFR (Non- Af Amer) > 60, Random Glucose 98, Calcium 9.8, Magnesium 2.2, Total Bilirubin 0.4, AST 21, ALT 28, Alkaline Phosphatase 54, Total Protein 8.1, Albumin 4.3, Globulin 3.8, Albumin/Globulin Ratio 1.1 04/25/18 15:39: Urine Color Yellow, Urine Appearance Clear, Urine pH 6.0, Ur Specific [place] 1.025, Urine Protein Negative, Urine Glucose (UA) Negative, Urine Ketones Negative, Urine Blood Negative, Urine Nitrate Negative, Urine Bilirubin Negative, Urine Urobilinogen 0.2, Ur Leukocyte Esterase Negative 04/25/18 15:39: WBC 6.4, RBC 5.19, Hgb 15.9, Hct 46.5, MCV 89.6, MCH 30.6, MCHC 34.2, RDW 12.7, Plt Count 307, MPV 8.7, Gran % 45.9 L, Lymph % (Auto) 41.3 H, [place] % (Auto) 9.9 H, Eos % (Auto) 2.4, Baso % (Auto) 0.5, Gran # 2.92, Lymph # (Auto) 2.6, [place] # (Auto) 0.6, Eos # (Auto) 0.2, Baso # (Auto) 0.03 Vital Signs Temp Pulse Resp BP Pulse Ox 04/27/18 07:19 98 F 90 20 118/74 04/26/18 16:00 103 H 122/75 04/26/18 07:21 98.2 F 92 H 20 116/74 04/25/18 20:30 98.3 F 82 18 131/71 100 04/25/18 20:20 98.3 F 80 16 121/80 99 04/25/18 19:22 98.3 F 82 18 131/71 100 04/25/18 15:55 98.3 F 81 20 112/73 96 04/25/18 15:10 98.8 F 86 16 114/76 97 Temp Pulse Resp BP Pulse Ox 97.7 F 85 16 104/66 100 04/30/18 07:00 04/30/18 07:00 04/30/18 07:00 04/30/18 07:00 04/25/18 20:30 Temp Pulse Resp BP Pulse Ox 98.3 F 85 16 134/82 100 05/09/18 10:56 05/09/18 10:56 05/09/18 10:56 05/09/18 10:56 05/09/18 10:56 DSM 5 Symptoms Update: Shortly patient is 43-year-old male with reported history of schizoaffective disorder, patient has treatment resistant symptoms, multiple previous psychiatric admissions including [place] as well as [facility], patient seems to be compliant with the medication but still has residual symptoms of psychosis, patient has command type hallucinations, patient also suffered from severe depression, patient was not able to function, patient was not bathing, had low appetite, very apathetic, patient was referred by [facility]-way for evaluation and stabilization of depressive symptoms, psychotic symptoms, medication management, possible ECT treatment,, patient requires further evaluation and stabilization and medication initiation and titration possible ECT. atient was seen in his room, patient was smiling back to this quality analyst/technical writer, patient reported that his symptoms are improving, patient denied hearing voices, transient feeling of depression but with much affective reactivity. ECT #4 05/16/18, Charge 115 MC/energy 20.3 J at 220ohms/impedance 1060, pulse width 0.3 msec/frequency 30hz, duration 8.000sec, current 800mA, pt had adequate seizure activity. pt has headaches after the ECT, anestesiologist was advised to give toradol. ECT #3 05/14/18, Charge 115 MC/energy 20.3 J at 220ohms/impedance 1060, pulse width 0.3 msec/frequency 30hz, duration 8.000sec, current 800mA, pt had >44sec of seizure activity on EEG. pt tolerated procedure well, pt c/o headache, toradol was given to the pt, no other side effects, pt then was transferred to the recovery room. As per staff patient is compliant with the medications and seems a little brighter,though, he still doesn't have much motivation with his grooming started to attend evening groups. so far pt tolerates meds/ECT well, still requires further hospitalization and ECT treatment. AIMS 0, no EPS. Diagnostic Results: Schizoaffective disorder as per history Rule out schizophrenia treatment resistant Medication Change: No ( ) Medical Record Reviewed: Yes Mental Status Examination - Cognitive Function Orientation: Person, Place, Situation Memory: Impaired Attention: Poor (some improvements) Concentration: Poor (some improvement) Association: Loose Fund of Knowledge: Poor - Mood Mood: Depressed ("I am still depressed"), Anxious - Affect Affect: Constricted (pt was able to smile ) - Formal Thought Process Formal Thought Process: Hallucinations (denied ), Delusions (mild), Paranoia (mild) - Suicidal Ideation Suicidal Ideation: No - Homicidal Ideation Homicidal Ideation: No Goal/Treatment Plan - Goal/Treatment Plan Need for Continued Stay: Remain at risks for inpatient hospitalization, Severe depression anxiety, Discharge may exacerbated symptoms, Severe functional impairment Progress Toward Problem(s) and Goals/Treatment Plan: Milieu/structure/supportive therapy Medical consult appreciated, see medical team note for more detailed info SW consultation for discharge plan and social issues Med management cardiology/internal medicine cleared pt for ECT ECT 05/06/18 #1, tolerated well ECT 05/09/18 #2 went well ECT 05/14/18 #3 tolerated well ECT 05/16/18 #4 tolerated well ECT #5 05/21/18 will be scheduled Prozac 40 mg was increased 05/10/2018 Docusate [Colace] 1 cap PO BID Famotidine [Pepcid] 20 mg PO DAILY QUEtiapine [SEROquel] 400 mg at the morning time and 400 mg PO HS Ativan d/c Collaterals were obtained from the half-way Follow up on labs Will monitor closely Pt was educated about risk/benefits and alternatives of medications, coping strategies (safety plan, suicide prevention), relapse prevention, importance of follow up with psychiatrist and therapist, stay away from drugs/alcohol/smoking Estimated Date of D/C: 05/22/18
--- NOTE | 2018-05-18 10:58 | PCM.PYCHPN ---
Psychiatric Progress Note - Psychiatric Progress Note Patient seen today, length of contact: 30 minutes Problems Identified/Issues Discussed: I reviewed recent notes and met with patient at bedside. He is calm and cooperative with my questioning. Oriented x3. He is known to me from prior interviews last weekend and the weekend before. Affect remains constricted but he does seem more reactive and brighter than prior visits. He also tells me that he is feeing better, more hopeful (though he told staff yesterday that he felt the same). Nonetheless he seemed genuine during our encounter. Thus far he is tolerating ECT treatments well and denies any side effects from his medications. Patient is also sleeping well. Responses are relevant to questioning and delusions were not elicited. He denies any further hallucinations and definitely appears less preoccupied. As per staff, patient seems to be improving slowly..Affect appears more animated though he still remains isolative to his room with minimal socialization. As usual, there were no episodes of agitation or aggression over the weekend. Diagnostic Results: Schizoaffective disorder as per history Rule out schizophrenia treatment resistant Medication Change: No ( ) Medical Record Reviewed: Yes Mental Status Examination - Cognitive Function Orientation: Person, Place, Situation Memory: Impaired Attention: Poor (some improvements) Concentration: Poor (some improvement) Association: Loose Fund of Knowledge: Poor - Mood Mood: Depressed ("I am still depressed"), Anxious - Affect Affect: Constricted (pt was able to smile ) - Formal Thought Process Formal Thought Process: Hallucinations (denied ), Delusions (mild), Paranoia (mild) - Suicidal Ideation Suicidal Ideation: No - Homicidal Ideation Homicidal Ideation: No Goal/Treatment Plan - Goal/Treatment Plan Need for Continued Stay: Remain at risks for inpatient hospitalization, Severe depression anxiety, Discharge may exacerbated symptoms, Severe functional impairment Progress Toward Problem(s) and Goals/Treatment Plan: * c/w current treatment and plan (c/w ECT, Treatment #5 scheduled for 05/21/18) * No new weekend lab results thus far * Vitals reviewed and noted below: 05/17/18 05/17/18 07:17 16:43 Temperature 97.9 F Pulse Rate 72 76 Respiratory 18 Rate Blood Pressure 96/64 L 107/78 Estimated Date of D/C: 05/22/18
--- NOTE | 2018-05-19 10:37 | PCM.PYCHPN ---
Psychiatric Progress Note - Psychiatric Progress Note Patient seen today, length of contact: 30 minutes Problems Identified/Issues Discussed: I reviewed recent notes and met with patient at bedside again. He is calm and cooperative with my questioning. Oriented x3. He is known to me from prior interviews last weekend and the weekend before. Affect remains constricted but he does seem more reactive and brighter than prior visits. He also tells me that he is feeing better, more hopeful (though he told staff on Sunday that he was feeling the same). Nonetheless he seemed genuine during our encounters this weekend. Thus far he is tolerating ECT treatments well. He denies any side effects from his medications except for sedation during the day. He is agreeable to reducing seroquel by a small amount to help with this side effect Patient is also sleeping well. Responses are relevant to questioning and delusions were not elicited. He denies any further hallucinations and definitely appears less preoccupied. As per staff, patient seems to be improving slowly..Affect appears more animated though he still remains isolative to his room with minimal socialization. He spends a lot of time in bed. As usual, there were no episodes of agitation or aggression over the weekend. Diagnostic Results: Schizoaffective disorder as per history Rule out schizophrenia treatment resistant Medication Change: Yes (Decreased seroquel to 350/400 on 05/19/18) Medical Record Reviewed: Yes Mental Status Examination - Cognitive Function Orientation: Person, Place, Situation Memory: Impaired Attention: Poor (some improvements) Concentration: Poor (some improvement) Association: Loose Fund of Knowledge: Poor - Mood Mood: Depressed ("I am still depressed"), Anxious - Affect Affect: Constricted (pt was able to smile ) - Formal Thought Process Formal Thought Process: Hallucinations (denied ), Delusions (mild), Paranoia (mild) - Suicidal Ideation Suicidal Ideation: No - Homicidal Ideation Homicidal Ideation: No Goal/Treatment Plan - Goal/Treatment Plan Need for Continued Stay: Remain at risks for inpatient hospitalization, Severe depression anxiety, Discharge may exacerbated symptoms, Severe functional impairment Progress Toward Problem(s) and Goals/Treatment Plan: * c/w current treatment and plan (c/w ECT, Treatment #5 scheduled for 05/21/18) * No new weekend lab results thus far * Vitals reviewed and noted below: Estimated Date of D/C: 05/22/18
--- NOTE | 2018-05-20 16:31 | PCM.PYCHPN ---
Psychiatric Progress Note - Psychiatric Progress Note Patient seen today, length of contact: 30 minutes Patient Chief Complaint: "I feel little better, voices are gone, but they feel very anxious". Problems Identified/Issues Discussed: Suicide/ homicide prevention, past psychiatric h/o, current psychiatric symptoms, medical problems, risk/benefits and alternatives of medications, medications compliance, coping strategies, substance abuse h/o, relapse prevention, importance of follow up with psychiatrist and therapist, discharge plan Medical Problems: pt c/o back pain, ibuprofen started Diagnostic Results: 04/25/18 15:39 04/25/18 15:39 Lab Results 04/26/18 06:45: RPR Nonreactive 04/26/18 06:45: TSH 3rd Generation 4.32 04/26/18 06:45: Fasting Glucose 106, Triglycerides 145, Cholesterol 219 H, LDL Cholesterol Direct 137 H, HDL Cholesterol 45 04/26/18 06:45: [place] 0.2 L 04/25/18 15:39: Alcohol, Quantitative < 10 04/25/18 15:39: Salicylates < 1 L, Acetaminophen < 10.0 L 04/25/18 15:39: Urine Opiates Screen Negative, Urine Methadone Screen Negative, Ur Barbiturates Screen Negative, Ur Phencyclidine Scrn Negative, Ur Amphetamines Screen Negative, U Benzodiazepines Scrn Negative, U Oth Cocaine Metabols Negative, U Cannabinoids Screen Negative 04/25/18 15:39: Sodium 143, Potassium 3.9, Chloride 109 H, Carbon Dioxide 25, Anion Gap 12, BUN 9, Creatinine 0.8, Est GFR ( Amer) > 60, Est GFR (Non- Af Amer) > 60, Random Glucose 98, Calcium 9.8, Magnesium 2.2, Total Bilirubin 0.4, AST 21, ALT 28, Alkaline Phosphatase 54, Total Protein 8.1, Albumin 4.3, Globulin 3.8, Albumin/Globulin Ratio 1.1 04/25/18 15:39: Urine Color Yellow, Urine Appearance Clear, Urine pH 6.0, Ur Specific [place] 1.025, Urine Protein Negative, Urine Glucose (UA) Negative, U rine Ketones Negative, Urine Blood Negative, Urine Nitrate Negative, Urine Bilirubin Negative, Urine Urobilinogen 0.2, Ur Leukocyte Esterase Negative 04/25/18 15:39: WBC 6.4, RBC 5.19, Hgb 15.9, Hct 46.5, MCV 89.6, MCH 30.6, MCHC 34.2, RDW 12.7, Plt Count 307, MPV 8.7, Gran % 45.9 L, Lymph % (Auto) 41.3 H, [place] % (Auto) 9.9 H, Eos % (Auto) 2.4, Baso % (Auto) 0.5, Gran # 2.92, Lymph # (Auto) 2.6, [place] # (Auto) 0.6, Eos # (Auto) 0.2, Baso # (Auto) 0.03 Vital Signs Temp Pulse Resp BP Pulse Ox 04/27/18 07:19 98 F 90 20 118/74 04/26/18 16:00 103 H 122/75 04/26/18 07:21 98.2 F 92 H 20 116/74 04/25/18 20:30 98.3 F 82 18 131/71 100 04/25/18 20:20 98.3 F 80 16 121/80 99 04/25/18 19:22 98.3 F 82 18 131/71 100 04/25/18 15:55 98.3 F 81 20 112/73 96 04/25/18 15:10 98.8 F 86 16 114/76 97 Temp Pulse Resp BP Pulse Ox 97.7 F 85 16 104/66 100 04/30/18 07:00 04/30/18 07:00 04/30/18 07:00 04/30/18 07:00 04/25/18 20:30 Temp Pulse Resp BP Pulse Ox 98.3 F 85 16 134/82 100 05/09/18 10:56 05/09/18 10:56 05/09/18 10:56 05/09/18 10:56 05/09/18 10:56 DSM 5 Symptoms Update: Shortly patient is 43-year-old male with reported history of schizoaffective disorder, patient has treatment resistant symptoms, multiple previous psychiatric admissions including [place] as well as [facility], patient seems to be compliant with the medication but still has residual symptoms of psychosis, patient has command type hallucinations, patient also suffered from severe depression, patient was not able to function, patient was not bathing, had low appetite, very apathetic, [facility] and [facility] of depressive symptoms, psychotic symptoms, medication management, possible ECT treatment,, patient requires further evaluation and stabilization and medication initiation and titration pos sible ECT. patient at the treatment team meeting room, patient was smiling back to this writer editor, patient reported that his symptoms are improving, patient denied hearing voices, Dr. Eric started tapering down Seroquel,, agreed with that, transient feeling of depression but with much affective reactivity. patient complain of anxiety, Neurontin will be started. ECT #4 05/16/18, Charge 115 MC/energy 20.3 J at 220ohms/impedance 1060, pulse width 0.3 msec/frequency 30hz, duration 8.000sec, current 800mA, pt had adequate seizure activity. pt has headaches after the ECT, anestesiologist was advised to give toradol. ECT #3 05/14/18, Charge 115 MC/energy 20.3 J at 220ohms/impedance 1060, pulse width 0.3 msec/frequency 30hz, duration 8.000sec, current 800mA, pt had >44sec of seizure activity on EEG. pt tolerated procedure well, pt c/o headache, toradol was given to the pt, no other side effects, pt then was transferred to the recovery room. As per staff patient is compliant with the medications and seems a little brighter,though, he still doesn't have much motivation with his grooming started to attend evening groups. so far pt tolerates meds/ECT well, still requires further hospitalization and ECT treatment. AIMS 0, no EPS. Diagnostic Results: Schizoaffective disorder as per history Rule out schizophrenia treatment resistant Medication Change: Yes (Decreased seroquel to 350/400 on 05/19/18) Medical Record Reviewed: Yes Mental Status Examination - Cognitive Function Orientation: Person, Place, Situation Memory: Impaired Attention: Poor (some improvements) Concentration: Poor (some improvement) Association: Loose Fund of Knowledge: Poor - Mood Mood: Depressed ("I am still depressed"), Anxious - Affect Affect: Constricted (pt was able to smile ) - Formal Thought Process Formal Thought Process: Hallucinations (denied ), Delusions (mild), Paranoia (mild) - Suicidal Ideation Suicidal Ideation: No - Homicidal Ideation Homicidal Ideation: No Goal/Treatment Plan - Goal/Treatment Plan Need for Continued Stay: Remain at risks for inpatient hospitalization, Severe depression anxiety, Discharge may exacerbated symptoms, Severe functional impairment Progress Toward Problem(s) and Goals/Treatment Plan: Milieu/structure/supportive therapy Medical consult appreciated, see medical team note for more detailed info SW consultation for discharge plan and social issues Med management cardiology/internal medicine cleared pt for ECT ECT 05/06/18 #1, tolerated well ECT 05/09/18 #2 went well ECT 05/14/18 #3 tolerated well ECT 05/16/18 #4 tolerated well ECT #5 05/21/18 will be scheduled Prozac 40 mg daily for depression and anxiety Docusate [Colace] 1 cap PO BID Famotidine [Pepcid] 20 mg PO DAILY QUEtiapine [SEROquel] 200 mg at the morning time and 400 mg PO HS need and 100 mg 3 times a day off label for anxiety Ativan d/c [facility] Follow up on labs Will monitor closely Pt was educated about risk/benefits and alternatives of medications, coping str ategies (safety plan, suicide prevention), relapse prevention, importance of follow up with psychiatrist and therapist, stay away from drugs/alcohol/smoking Estimated Date of D/C: 05/22/18
[2018-05-21] MEDS ORDERED: Midazolam 2 MG/2 ML VIAL ONE (14:36)
[2018-05-21] MEDS ORDERED: Propofol 10 mg/ml Inj (20 ML) ONE (15:04)
[2018-05-21] MEDS ORDERED: Succinylcholine 200 mg/10 ml Inj IV ONE (15:06)
[2018-05-21] MEDS ORDERED: Lactated Ringer's 1,000 ML IV SCH (15:45)
--- NOTE | 2018-05-21 16:23 | PCM.PYCHPN ---
Psychiatric Progress Note - Psychiatric Progress Note Patient seen today, length of contact: 30 minutes Patient Chief Complaint: "I feel better, i talked to my mother yesterday, it was a good conversation" Problems Identified/Issues Discussed: Suicide/ homicide prevention, past psychiatric h/o, current psychiatric symptoms, medical problems, risk/benefits and alternatives of medications, medications compliance, coping strategies, substance abuse h/o, relapse prevention, importance of follow up with psychiatrist and therapist, discharge plan Medical Problems: pt c/o back pain, ibuprofen started Diagnostic Results: 04/25/18 15:39 04/25/18 15:39 Lab Results 04/26/18 06:45: RPR Nonreactive 04/26/18 06:45: TSH 3rd Generation 4.32 04/26/18 06:45: Fasting Glucose 106, Triglycerides 145, Cholesterol 219 H, LDL Cholesterol Direct 137 H, HDL Cholesterol 45 04/26/18 06:45: [place] 0.2 L 04/25/18 15:39: Alcohol, Quantitative < 10 04/25/18 15:39: Salicylates < 1 L, Acetaminophen < 10.0 L 04/25/18 15:39: Urine Opiates Screen Negative, Urine Methadone Screen Negative, Ur Barbiturates Screen Negative, Ur Phencyclidine Scrn Negative, Ur Amphetamines Screen Negative, U Benzodiazepines Scrn Negative, U Oth Cocaine Metabols Negative, U Cannabinoids Screen Negative 04/25/18 15:39: Sodium 143, Potassium 3.9, Chloride 109 H, Carbon Dioxide 25, Anion Gap 12, BUN 9, Creatinine 0.8, Est GFR ( Amer) > 60, Est GFR (Non- Af Amer) > 60, Random Glucose 98, Calcium 9.8, Magnesium 2.2, Total Bilirubin 0.4, AST 21, ALT 28, Alkaline Phosphatase 54, Total Protein 8.1, Albumin 4.3, Globulin 3.8, Albumin/Globulin Ratio 1.1 04/25/18 15:39: Urine Color Yellow, Urine Appearance Clear, Urine pH 6.0, Ur Specific [place] 1.025, Urine Protein Negative, Urine Glucose (UA) Negative, Urine Ketones Negative, Urine Blood Negative, Urine Nitrate Negative, Urine Bilirubin Negative, Urine Urobilinogen 0.2, Ur Leukocyte Esterase Negative 04/25/18 15:39: WBC 6.4, RBC 5.19, Hgb 15.9, Hct 46.5, MCV 89.6, MCH 30.6, MCHC 34.2, RDW 12.7, Plt Count 307, MPV 8.7, Gran % 45.9 L, Lymph % (Auto) 41.3 H, [place] % (Auto) 9.9 H, Eos % (Auto) 2.4, Baso % (Auto) 0.5, Gran # 2.92, Lymph # (Auto) 2.6, [place] # (Auto) 0.6, Eos # (Auto) 0.2, Baso # (Auto) 0.03 Vital Signs Temp Pulse Resp BP Pulse Ox 04/27/18 07:19 98 F 90 20 118/74 04/26/18 16:00 103 H 122/75 04/26/18 07:21 98.2 F 92 H 20 116/74 04/25/18 20:30 98.3 F 82 18 131/71 100 04/25/18 20:20 98.3 F 80 16 121/80 99 04/25/18 19:22 98.3 F 82 18 131/71 100 04/25/18 15:55 98.3 F 81 20 112/73 96 04/25/18 15:10 98.8 F 86 16 114/76 97 Temp Pulse Resp BP Pulse Ox 97.7 F 85 16 104/66 100 04/30/18 07:00 04/30/18 07:00 04/30/18 07:00 04/30/18 07:00 04/25/18 20:30 Temp Pulse Resp BP Pulse Ox 98.3 F 85 16 134/82 100 05/09/18 10:56 05/09/18 10:56 05/09/18 10:56 05/09/18 10:56 05/09/18 10:56 DSM 5 Symptoms Update: Shortly patient is 43-year-old male with reported history of schizoaffective disorder, patient has treatment resistant symptoms, multiple previous psychiatric admissions including [place] as well as [facility], patient seems to be compliant with the medication but still has residual symptoms of psychosis, patient has command type hallucinations, patient also suffered from severe depression, patient was not able to function, patient was not bathing, had low appetite, very apathetic, [facility] for [facility] and stabilization of depressive symptoms, psychotic symptoms, medication management, possible ECT treatment,, patient requires further evaluation and stabilization and medication initiation and titration possible ECT. patient was seen prior to ECT, pt signed consent for ECT treatment, willing to c omplete his course of ECT. pt reported that he feels better, reported his depression is "getting better", "voices are gone". pt reported that he spoke to his mother yesterday and "it was a good conv ersation". prior to ECT pt staid that he feels depressed, it seems pt does not know how to express himself well, most likely pt was anxious prior the procedure. ECT #4 05/21/18, Charge 115 MC/energy 20.3 J at 220ohms/impedance 1060, pulse width 0.3 msec/frequency 30hz, duration 8.000sec, current 800mA, pt had adequate seizure activity, had motor seizures for about 25ceck, tolerated well, no hea dache today. ECT #4 05/16/18, Charge 115 MC/energy 20.3 J at 220ohms/impedance 1060, pulse width 0.3 msec/frequency 30hz, duration 8.000sec, current 800mA, pt had adequate seizure activity. pt has headaches after the ECT, anestesiologist was advised to give toradol. ECT #3 05/14/18, Charge 115 MC/energy 20.3 J at 220ohms/impedance 1060, pulse width 0.3 msec/frequency 30hz, duration 8.000sec, current 800mA, pt had >44sec of seizure activity on EEG. pt tolerated procedure well, pt c/o headache, toradol was given to the pt, no other side effects, pt then was transferred to the recovery room. As per staff patient is compliant with the medications and seems a little brighter, visible in the unit. so far pt tolerates meds/ECT well, still requires further hospitalization and ECT treatment. AIMS 0, no EPS. [facility] pt. Diagnostic Results: Schizoaffective disorder as per history Rule out schizophrenia treatment resistant Medication Change: Yes (Decreased seroquel to 200/400 on 05/20/18) Medical Record Reviewed: Yes Mental Status Examination - Cognitive Function Orientation: Person, Place, Situation Memory: Impaired Attention: Poor (some improvements) Concentration: Poor (some improvement) Association: Loose Fund of Knowledge: Poor - Mood Mood: Depressed ("I am little better"), Anxious - Affect Affect: Constricted (pt was able to smile ) - Formal Thought Process Formal Thought Process: Hallucinations (denied ), Delusions (mild), Paranoia (mild) - Suicidal Ideation Suicidal Ideation: No - Homicidal Ideation Homicidal Ideation: No Goal/Treatment Plan - Goal/Treatment Plan Need for Continued Stay: Remain at risks for inpatient hospitalization, Severe depression anxiety, Discharge may exacerbated symptoms, Severe functional impairment Progress Toward Problem(s) and Goals/Treatment Plan: Milieu/structure/supportive therapy Medical consult appreciated, see medical team note for more detailed info SW consultation for discharge plan and social issues Med management cardiology/internal medicine cleared pt for ECT ECT 05/06/18 #1, tolerated well ECT 05/09/18 #2 went well ECT 05/14/18 #3 tolerated well ECT 05/16/18 #4 tolerated well ECT #5 05/21/18 tolerated well Prozac 40 mg daily for depression and anxiety Docusate [Colace] 1 cap PO BID Famotidine [Pepcid] 20 mg PO DAILY QUEtiapine [SEROquel] 200 mg at the morning time and 400 mg PO HS need and 100 mg 3 times a day off label for anxiety Ativan d/c [facility] Follow up on labs Will monitor closely Pt was educated about risk/benefits and alternatives of medications, coping strategies (safety plan, suicide prevention), relapse prevention, importance of follow up with psychiatrist and therapist, stay away from drugs/alcohol/smoking Estimated Date of D/C: 05/24/18
--- NOTE | 2018-05-22 14:00 | PCM.PYCHPN ---
Psychiatric Progress Note - Psychiatric Progress Note Patient seen today, length of contact: 30 minutes Patient Chief Complaint: "I started to hear voices again, but my depression is better" Problems Identified/Issues Discussed: Suicide/ homicide prevention, past psychiatric h/o, current psychiatric symptoms, medical problems, risk/benefits and alternatives of medications, medications compliance, coping strategies, substance abuse h/o, relapse prevention, importance of follow up with psychiatrist and therapist, discharge plan Medical Problems: pt c/o back pain, ibuprofen started Diagnostic Results: 04/25/18 15:39 04/25/18 15:39 Lab Results 04/26/18 06:45: RPR Nonreactive 04/26/18 06:45: TSH 3rd Generation 4.32 04/26/18 06:45: Fasting Glucose 106, Triglycerides 145, Cholesterol 219 H, LDL Cholesterol Direct 137 H, HDL Cholesterol 45 04/26/18 06:45: [place] 0.2 L 04/25/18 15:39: Alcohol, Quantitative < 10 04/25/18 15:39: Salicylates < 1 L, Acetaminophen < 10.0 L 04/25/18 15:39: Urine Opiates Screen Negative, Urine Methadone Screen Negative, Ur Barbiturates Screen Negative, Ur Phencyclidine Scrn Negative, Ur Amphetamines Screen Negative, U Benzodiazepines Scrn Negative, U Oth Cocaine Metabols Negative, U Cannabinoids Screen Negative 04/25/18 15:39: Sodium 143, Potassium 3.9, Chloride 109 H, Carbon Dioxide 25, Anion Gap 12, BUN 9, Creatinine 0.8, Est GFR ( Amer) > 60, Est GFR (Non- Af Amer) > 60, Random Glucose 98, Calcium 9.8, Magnesium 2.2, Total Bilirubin 0.4, AST 21, ALT 28, Alkaline Phosphatase 54, Total Protein 8.1, Albumin 4.3, Globulin 3.8, Albumin/Globulin Ratio 1.1 04/25/18 15:39: Urine Color Yellow, Urine Appearance Clear, Urine pH 6.0, Ur Specific [place] 1.025, Urine Protein Negative, Urine Glucose (UA) Negative, Urine Ketones Negative, Urine Blood Negative, Urine Nitrate Negative, Urine Bilirubin Negative, Urine Urobilinogen 0.2, Ur Leukocyte Esterase Negative 04/25/18 15:39: WBC 6.4, RBC 5.19, Hgb 15.9, Hct 46.5, MCV 89.6, MCH 30.6, MCHC 34.2, RDW 12.7, Plt Count 307, MPV 8.7, Gran % 45.9 L, Lymph % (Auto) 41.3 H, [place] % (Auto) 9.9 H, Eos % (Auto) 2.4, Baso % (Auto) 0.5, Gran # 2.92, Lymph # (Auto) 2.6, [place] # (Auto) 0.6, Eos # (Auto) 0.2, Baso # (Auto) 0.03 Vital Signs Temp Pulse Resp BP Pulse Ox 04/27/18 07:19 98 F 90 20 118/74 04/26/18 16:00 103 H 122/75 04/26/18 07:21 98.2 F 92 H 20 116/74 04/25/18 20:30 98.3 F 82 18 131/71 100 04/25/18 20:20 98.3 F 80 16 121/80 99 04/25/18 19:22 98.3 F 82 18 131/71 100 04/25/18 15:55 98.3 F 81 20 112/73 96 04/25/18 15:10 98.8 F 86 16 114/76 97 Temp Pulse Resp BP Pulse Ox 97.7 F 85 16 104/66 100 04/30/18 07:00 04/30/18 07:00 04/30/18 07:00 04/30/18 07:00 04/25/18 20:30 Temp Pulse Resp BP Pulse Ox 98.3 F 85 16 134/82 100 05/09/18 10:56 05/09/18 10:56 05/09/18 10:56 05/09/18 10:56 05/09/18 10:56 DSM 5 Symptoms Update: Shortly patient is 43-year-old male with reported history of schizoaffective disorder, patient has treatment resistant symptoms, multiple previous psychiatric admissions including [place] as well as [facility], patient seems to be compliant with the medication but still has residual symptoms of psychosis, patient has command type hallucinations, patient also suffered from severe depression, patient was not able to function, patient was not bathing, had low appetite, very apathetic, patient was [facility] for evaluation and stabilization of depressive symptoms, psychotic symptoms, medication management, possible ECT treatment,, patient requires further evaluation and stabilization and medication initiation and titration possible ECT. patient was seen today in his room pt said he started to hear voices again, this narrative writer started to taper down the seroquel, it seems pt needs to continue seroquel 400mg po bid, stat dose of 200mg given. ECT #4 05/21/18, Charge 115 MC/energy 20.3 J at 220ohms/impedance 1060, pulse width 0.3 msec/frequency 30hz, duration 8.000sec, current 800mA, pt had adequate seizure activity, had motor seizures for about 25ceck, tolerated well, no headache today. ECT #4 05/16/18, Charge 115 MC/energy 20.3 J at 220ohms/impedance 1060, pulse width 0.3 msec/frequency 30hz, duration 8.000sec, current 800mA, pt had adequate seizure activity. pt has headaches after the ECT, anestesiologist was advised to give toradol. ECT #3 05/14/18, Charge 115 MC/energy 20.3 J at 220ohms/impedance 1060, pulse width 0.3 msec/frequency 30hz, duration 8.000sec, current 800mA, pt had >44sec of seizure activity on EEG. pt tolerated procedure well, pt c/o headache, toradol was given to the pt, no other side effects, pt then was transferred to the recovery room. As per staff patient is compliant with the medications and seems a little brighter, visible in the unit. so far pt tolerates meds/ECT well, still requires further hospitalization and ECT treatment. AIMS 0, no EPS. 05/22/18 from the [place] [facility] will visit pt. Diagnostic Results: Schizoaffective disorder as per history Rule out schizophrenia treatment resistant Medication Change: Yes (Decreased seroquel to 200/400 on 05/20/18) Medical Record Reviewed: Yes Mental Status Examination - Cognitive Function Orientation: Person, Place, Situation Memory: Impaired Attention: Poor (some improvements) Concentration: Poor (some improvement) Association: Loose Fund of Knowledge: Poor - Mood Mood: Depressed ("I am little better"), Anxious - Affect Affect: Constricted (pt was able to smile ) - Formal Thought Process Formal Thought Process: Hallucinations ("I started to hear voices again...") - Suicidal Ideation Suicidal Ideation: No - Homicidal Ideation Homicidal Ideation: No Goal/Treatment Plan - Goal/Treatment Plan Need for Continued Stay: Remain at risks for inpatient hospitalization, Severe depression anxiety, Discharge may exacerbated symptoms, Severe functional impairment Progress Toward Problem(s) and Goals/Treatment Plan: Milieu/structure/supportive therapy Medical consult appreciated, see medical team note for more detailed info SW consultation for discharge plan and social issues Med management cardiology/internal medicine cleared pt for ECT ECT 05/06/18 #1, tolerated well ECT 05/09/18 #2 went well ECT 05/14/18 #3 tolerated well ECT 05/16/18 #4 tolerated well ECT #5 05/21/18 tolerated well ECT #6 05/23/18 Prozac 40 mg daily for depression and anxiety Docusate [Colace] 1 cap PO BID Famotidine [Pepcid] 20 mg PO DAILY QUEtiapine [SEROquel] 400 mg at the morning time and 400 mg PO HS need and 100 mg 3 times a day off label for anxiety Ativan d/c Collaterals were obtained from the [place] [facility] Follow up on labs Will monitor closely Pt was educated about risk/benefits and alternatives of medications, coping strategies (safety plan, suicide prevention), relapse prevention, importance of follow up with psychiatrist and therapist, stay away from drugs/alcohol/smoking Estimated Date of D/C: 05/24/18
[2018-05-23] MEDS ORDERED: Propofol 10 mg/ml Inj (20 ML) ONE (10:24)
[2018-05-23] MEDS ORDERED: Succinylcholine 200 mg/10 ml Inj IV ONE (10:24)
[2018-05-23] MEDS ORDERED: Sodium Chloride 0.9% 1,000 ML IV SCH (11:00)
--- NOTE | 2018-05-23 14:21 | PCM.PYCHPN ---
Psychiatric Progress Note - Psychiatric Progress Note Patient seen today, length of contact: 30 minutes Patient Chief Complaint: "I am okay, I feel little better" Problems Identified/Issues Discussed: Suicide/ homicide prevention, past psychiatric h/o, current psychiatric sy mptoms, medical problems, risk/benefits and alternatives of medications, medications compliance, coping strategies, substance abuse h/o, relapse prevention, importance of follow up with psychiatrist and therapist, discharge plan Medical Problems: pt c/o back pain, ibuprofen started Diagnostic Results: 04/25/18 15:39 04/25/18 15:39 Lab Results 04/26/18 06:45: RPR Nonreactive 04/26/18 06:45: TSH 3rd Generation 4.32 04/26/18 06:45: Fasting Glucose 106, Triglycerides 145, Cholesterol 219 H, LDL Cholesterol Direct 137 H, HDL Cholesterol 45 04/26/18 06:45: [place] 0.2 L 04/25/18 15:39: Alcohol, Quantitative < 10 04/25/18 15:39: Salicylates < 1 L, Acetaminophen < 10.0 L 04/25/18 15:39: Urine Opiates Screen Negative, Urine Methadone Screen Negative, Ur Barbiturates Screen Negative, Ur Phencyclidine Scrn Negative, Ur Amphetamines Screen Negative, U Benzodiazepines Scrn Negative, U Oth Cocaine Metabols Negative, U Cannabinoids Screen Negative 04/25/18 15:39: Sodium 143, Potassium 3.9, Chloride 109 H, Carbon Dioxide 25, Anion Gap 12, BUN 9, Creatinine 0.8, Est GFR ( Amer) > 60, Est GFR (Non- Af Amer) > 60, Random Glucose 98, Calcium 9.8, Magnesium 2.2, Total Bilirubin 0.4, AST 21, ALT 28, Alkaline Phosphatase 54, Total Protein 8.1, Albumin 4.3, Globulin 3.8, Albumin/Globulin Ratio 1.1 04/25/18 15:39: Urine Color Yellow, Urine Appearance Clear, Urine pH 6.0, Ur Specific [place] 1.025, Urine Protein Negative, Urine Glucose (UA) Negative, Urine Ketones Negative, Urine Blood Negative, Urine Nitrate Negative, Urine Bilirubin Negative, Urine Urobilinogen 0.2, Ur Leukocyte Esterase Negative 04/25/18 15:39: WBC 6.4, RBC 5.19, Hgb 15.9, Hct 46.5, MCV 89.6, MCH 30.6, MCHC 34.2, RDW 12.7, Plt Count 307, MPV 8.7, Gran % 45.9 L, Lymph % (Auto) 41.3 H, [place] % (Auto) 9.9 H, Eos % (Auto) 2.4, Baso % (Auto) 0.5, Gran # 2.92, Lymph # (Auto) 2.6, [place] # (Auto) 0.6, Eos # (Auto) 0.2, Baso # (Auto) 0.03 Vital Signs Temp Pulse Resp BP Pulse Ox 04/27/18 07:19 98 F 90 20 118/74 04/26/18 16:00 103 H 122/75 04/26/18 07:21 98.2 F 92 H 20 116/74 04/25/18 20:30 98.3 F 82 18 131/71 100 04/25/18 20:20 98.3 F 80 16 121/80 99 04/25/18 19:22 98.3 F 82 18 131/71 100 04/25/18 15:55 98.3 F 81 20 112/73 96 04/25/18 15:10 98.8 F 86 16 114/76 97 Temp Pulse Resp BP Pulse Ox 97.7 F 85 16 104/66 100 04/30/18 07:00 04/30/18 07:00 04/30/18 07:00 04/30/18 07:00 04/25/18 20:30 Temp Pulse Resp BP Pulse Ox 98.3 F 85 16 134/82 100 05/09/18 10:56 05/09/18 10:56 05/09/18 10:56 05/09/18 10:56 05/09/18 10:56 Temp Pulse Resp BP Pulse Ox 98.2 F 80 18 129/78 96 05/23/18 11:40 05/23/18 11:40 05/23/18 11:40 05/23/18 11:40 05/23/18 11:40 DSM 5 Symptoms Update: Shortly patient is 43-year-old male with reported history of schizoaffective disorder, patient has treatment resistant symptoms, multiple previous psychiatric admissions including [place] as well as [facility], patient seems to be compliant with the medication but still has residual symptoms of psychosis, patient has command type hallucinations, patient also suffered from severe depression, patient was not able to function, patient was not bathing, had low appetite, very apathetic, patient was referred by detention for evaluation and stabilization of depressive symptoms, psychotic symptoms, medication management, possible ECT treatment,, patient requires further evaluation and stabilization and medication initiation and titration possible ECT. patient was seen today in his room pt said he feels better, yesterday this global technical writer increased dose of seroquel to 400mg po bid, pt reported voices are much better "I don't hear them today", pt's affect is brighter. pt was visited by case workers, Quynh Hurley and Dioni from [facility] 05/22/18, meeting took place 05/22/18, as per pt reported that he feels hopeless and depressed and "he reported that he feels safe in the hospital". as per pt does not look ready for discharge. pt was seen then in OR, pt signed consent for treatment, willing to get ECT treatment today. ECT #6 05/21/18, Charge 115 MC/energy 20.3 J at 220ohms/impedance 1060, pulse width 0.3 msec/frequency 30hz, duration 8.000sec, current 800mA, pt had adequate seizure activity for about 40 ceck, tolerated well, pt c/o headache, toradol was given. ECT #5 05/21/18, Charge 115 MC/energy 20.3 J at 220ohms/impedance 1060, pulse width 0.3 msec/frequency 30hz, duration 8.000sec, current 800mA, pt had adequate seizure activity, had motor seizures for about 25ceck, tolerated well, no headache today. ECT #4 05/16/18, Charge 115 MC/energy 20.3 J at 220ohms/impedance 1060, pulse width 0.3 msec/frequency 30hz, duration 8.000sec, current 800mA, pt had adequate seizure activity. pt has headaches after the ECT, anestesiologist was advised to give toradol. ECT #3 05/14/18, Charge 115 MC/energy 20.3 J at 220ohms/impedance 1060, pulse width 0.3 msec/frequency 30hz, duration 8.000sec, current 800mA, pt had >44sec of seizure activity on EEG. pt tolerated procedure well, pt c/o headache, toradol was given to the pt, no other side effects, pt then was transferred to the recovery room. as per staff report pt was visible in the unit after ECT treatment, pt ate, did not expressed any concerns. so far pt tolerates meds/ECT well, still requires further hospitalization and ECT treatment. AIMS 0, no EPS. Diagnostic Results: Schizoaffective disorder as per history Rule out schizophrenia treatment resistant Medication Change: Yes (seroquel increased, prozac increased) Medical Record Reviewed: Yes Consults ordered or reviewed: pt was seen by medical team at ED will consider medical consult for dyslipidemia Mental Status Examination - Cognitive Function Orientation: Person, Place, Situation Memory: Impaired Attention: Poor (some improvements) Concentration: Poor (some improvement) Association: Loose Fund of Knowledge: Poor - Mood Mood: Depressed ("I am little better"), Anxious - Affect Affect: Constricted (pt was able to smile ) - Formal Thought Process Formal Thought Process: Hallucinations ("I don't hear voices today") - Suicidal Ideation Suicidal Ideation: No - Homicidal Ideation Homicidal Ideation: No Goal/Treatment Plan - Goal/Treatment Plan Need for Continued Stay: Remain at risks for inpatient hospitalization, Severe depression anxiety, Discharge may exacerbated symptoms, Severe functional impairment Progress Toward Problem(s) and Goals/Treatment Plan: Milieu/structure/supportive therapy Medical consult appreciated, see medical team note for more detailed info SW consultation for discharge plan and social issues Med management cardiology/internal medicine cleared pt for ECT ECT 05/06/18 #1, tolerated well ECT 05/09/18 #2 went well ECT 05/14/18 #3 tolerated well ECT 05/16/18 #4 tolerated well ECT #5 05/21/18 tolerated well ECT #6 05/23/18, tolerated well Prozac 50 mg daily for depression and anxiety Docusate [Colace] 1 cap PO BID Famotidine [Pepcid] 20 mg PO DAILY QUEtiapine [SEROquel] 400 mg at the morning time and 400 mg PO HS need and 100 mg 3 times a day off label for anxiety Ativan d/c Collaterals were obtained from the detention Follow up on labs Will monitor closely Pt was educated about risk/benefits and alternatives of medications, coping strategies (safety plan, suicide prevention), relapse prevention, importance of follow up with psychiatrist and therapist, stay away from drugs/alcohol/smoking Estimated Date of D/C: 05/27/18
--- NOTE | 2018-05-24 13:52 | PCM.PYCHPN ---
Psychiatric Progress Note - Psychiatric Progress Note Patient seen today, length of contact: 30 minutes Patient Chief Complaint: "I am feeling fine today" Problems Identified/Issues Discussed: Suicide/ homicide prevention, past psychiatric h/o, current psychiatric symptoms, medical problems, risk/benefits and alternatives of medications, medications compliance, coping strategies, substance abuse h/o, relapse prevention, importance of follow up with psychiatrist and therapist, discharge plan Medical Problems: pt c/o back pain, ibuprofen started Diagnostic Results: 04/25/18 15:39 04/25/18 15:39 Lab Results 04/26/18 06:45: RPR Nonreactive 04/26/18 06:45: TSH 3rd Generation 4.32 04/26/18 06:45: Fasting Glucose 106, Triglycerides 145, Cholesterol 219 H, LDL Cholesterol Direct 137 H, HDL Cholesterol 45 04/26/18 06:45: [place] 0.2 L 04/25/18 15:39: Alcohol, Quantitative < 10 04/25/18 15:39: Salicylates < 1 L, Acetaminophen < 10.0 L 04/25/18 15:39: Urine Opiates Screen Negative, Urine Methadone Screen Negative, Ur Barbiturates Screen Negative, Ur Phencyclidine Scrn Negative, Ur Amphetamines Screen Negative, U Benzodiazepines Scrn Negative, U Oth Cocaine Metabols Negative, U Cannabinoids Screen Negative 04/25/18 15:39: Sodium 143, Potassium 3.9, Chloride 109 H, Carbon Dioxide 25, Anion Gap 12, BUN 9, Creatinine 0.8, Est GFR ( Amer) > 60, Est GFR (Non- Af Amer) > 60, Random Glucose 98, Calcium 9.8, Magnesium 2.2, Total Bilirubin 0.4, AST 21, ALT 28, Alkaline Phosphatase 54, Total Protein 8.1, Albumin 4.3, Globulin 3.8, Albumin/Globulin Ratio 1.1 04/25/18 15:39: Urine Color Yellow, Urine Appearance Clear, Urine pH 6.0, Ur Specific [place] 1.025, Urine Protein Negative, Urine Glucose (UA) Negative, Urine Ketones Negative, Urine Blood Negative, Urine Nitrate Negative, Urine Bilirubin Negative, Urine Urobilinogen 0.2, Ur Leukocyte Esterase Negative 04/25/18 15:39: WBC 6.4, RBC 5.19, Hgb 15.9, Hct 46.5, MCV 89.6, MCH 30.6, MCHC 34.2, RDW 12.7, Plt Count 307, MPV 8.7, Gran % 45.9 L, Lymph % (Auto) 41.3 H, [place] % (Auto) 9.9 H, Eos % (Auto) 2.4, Baso % (Auto) 0.5, Gran # 2.92, Lymph # (Auto) 2.6, [place] # (Auto) 0.6, Eos # (Auto) 0.2, Baso # (Auto) 0.03 Vital Signs Temp Pulse Resp BP Pulse Ox 04/27/18 07:19 98 F 90 20 118/74 04/26/18 16:00 103 H 122/75 04/26/18 07:21 98.2 F 92 H 20 116/74 04/25/18 20:30 98.3 F 82 18 131/71 100 04/25/18 20:20 98.3 F 80 16 121/80 99 04/25/18 19:22 98.3 F 82 18 131/71 100 04/25/18 15:55 98.3 F 81 20 112/73 96 04/25/18 15:10 98.8 F 86 16 114/76 97 Temp Pulse Resp BP Pulse Ox 97.7 F 85 16 104/66 100 04/30/18 07:00 04/30/18 07:00 04/30/18 07:00 04/30/18 07:00 04/25/18 20:30 Temp Pulse Resp BP Pulse Ox 98.3 F 85 16 134/82 100 05/09/18 10:56 05/09/18 10:56 05/09/18 10:56 05/09/18 10:56 05/09/18 10:56 Temp Pulse Resp BP Pulse Ox 98.2 F 80 18 129/78 96 05/23/18 11:40 05/23/18 11:40 05/23/18 11:40 05/23/18 11:40 05/23/18 11:40 Temp Pulse Resp BP Pulse Ox 98.2 F 76 20 99/59 L 96 05/24/18 07:13 05/24/18 07:13 05/24/18 07:13 05/24/18 07:13 05/23/18 11:40 DSM 5 Symptoms Update: Shortly patient is 43-year-old male with reported history of schizoaffective disorder, patient has treatment resistant symptoms, multiple previous psychiatric admissions including [place] as well as [facility] patient seems to be compliant with the medication but still has residual s ymptoms of psychosis, patient has command type hallucinations, patient also suffered from severe depression, patient was not able to function, patient was not bathing, had low appetite, very apathetic, patient was referred by [facility] for evaluation and stabilization of depressive symptoms, psychotic symptoms, medication management, possible ECT treatment,, patient requires further evaluation and stabilization and medication initiation and titration possible ECT. patient was seen today today next to the nursing station, patient presented with poor personal hygiene, staff was advised to encourage patient to take shower, later on patient took shower with strong core judgment from the staff. Patient reported that he feels little better, patient reported that he does not hear voices but still hasdepressive symptoms. 05/22/18 pt was visited by case workers, Quynh Hurley and Dioni from [facility], meeting took place 05/22/18, as per pt reported that he feels hopeless and depressed and "he reported that he feels safe in the hospital". as per pt does not look ready for discharge. pt was seen then in OR, pt signed consent for treatment, willing to get ECT treatment today. ECT #6 05/21/18, Charge 115 MC/energy 20.3 J at 220ohms/impedance 1060, pulse wi dth 0.3 msec/frequency 30hz, duration 8.000sec, current 800mA, pt had adequate seizure activity for about 40 ceck, tolerated well, pt c/o headache, toradol was given. ECT #5 05/21/18, Charge 115 MC/energy 20.3 J at 220ohms/impedance 1060, pulse width 0.3 msec/frequency 30hz, duration 8.000sec, current 800mA, pt had adequate seizure activity, had motor seizures for about 25ceck, tolerated well, no headache today. ECT #4 05/16/18, Charge 115 MC/energy 20.3 J at 220ohms/impedance 1060, pulse width 0.3 msec/frequency 30hz, duration 8.000sec, current 800mA, pt had adequate seizure activity. pt has headaches after the ECT, anestesiologist was advised to give toradol. ECT #3 05/14/18, Charge 115 MC/energy 20.3 J at 220ohms/impedance 1060, pulse width 0.3 msec/frequency 30hz, duration 8.000sec, current 800mA, pt had >44sec of seizure activity on EEG. pt tolerated procedure well, pt c/o headache, toradol was given to the pt, no other side effects, pt then was transferred to the recovery room. as per staff later on patient ate pizza, was socializing with people, which TV. so far pt tolerates meds/ECT well, still requires further hospitalization and ECT treatment. AIMS 0, no EPS. Diagnostic Results: Schizoaffective disorder as per history Rule out schizophrenia treatment resistant Medication Change: Yes (prozac increased) Medical Record Reviewed: Yes Consults ordered or reviewed: pt was seen by medical team at ED will consider medical consult for dyslipidemia Mental Status Examination - Cognitive Function Orientation: Person, Place, Situation Memory: Impaired Attention: Poor (some improvements) Concentration: Poor (some improvement) Association: Loose Fund of Knowledge: Poor - Mood Mood: Depressed ("I am little better"), Anxious - Affect Affect: Constricted (pt was able to smile ) - Formal Thought Process Formal Thought Process: Hallucinations ("I don't hear voices today") - Suicidal Ideation Suicidal Ideation: No - Homicidal Ideation Homicidal Ideation: No Goal/Treatment Plan - Goal/Treatment Plan Need for Continued Stay: Remain at risks for inpatient hospitalization, Severe depression anxiety, Discharge may exacerbated symptoms, Severe functional impairment Progress Toward Problem(s) and Goals/Treatment Plan: Milieu/structure/supportive therapy Medical consult appreciated, see medical team note for more detailed info SW consultation for discharge plan and social issues Med management cardiology/internal medicine cleared pt for ECT ECT 05/06/18 #1, tolerated well ECT 05/09/18 #2 went well ECT 05/14/18 #3 tolerated well ECT 05/16/18 #4 tolerated well ECT #5 05/21/18 tolerated well ECT #6 05/23/18, tolerated well Prozac 60 mg daily for depression and anxiety Docusate [Colace] 1 cap PO BID Famotidine [Pepcid] 20 mg PO DAILY QUEtiapine [SEROquel] 400 mg at the morning time and 400 mg PO HS neurontin 100 mg 3 times a day off label for anxiety Ativan d/c Collaterals were obtained from the [facility] meeting took place 05/22/18 Follow up on labs Will monitor closely Pt was educated about risk/benefits and alternatives of medications, coping strategies (safety plan, suicide prevention), relapse prevention, importance of follow up with psychiatrist and therapist, stay away from drugs/alcohol/smoking Estimated Date of D/C: 05/27/18
--- NOTE | 2018-05-25 10:00 | PCM.PYCHPN ---
Psychiatric Progress Note - Psychiatric Progress Note Patient seen today, length of contact: 30 minutes Problems Identified/Issues Discussed: I reviewed recent notes and met with patient at bedside again. He is calm and cooperative with my questioning. Oriented x3. He is known to me from prior interviews during the last 3 weekends. His affect remains constricted and there appears to be minimal improvement over the week since our last visit (though affect, reactivity and focus do seem improved since he first presented to the unit). His motivation appears low. Thus far he is tolerating ECT treatments well. He also denies any side effects from his medications today. Patient is also sleeping well. Responses are relevant to questioning and delusions were not elicited. He denies any further hallucinations and definitely appears less preoccupied though still quiet and reserved. He still keeps to himself most of the time. As usual, there were no episodes of agitation or aggression over the weekend. Diagnostic Results: Schizoaffective disorder as per history Rule out schizophrenia treatment resistant Medication Change: Yes (prozac increased) Medical Record Reviewed: Yes Mental Status Examination - Cognitive Function Orientation: Person, Place, Situation Memory: Impaired Attention: Poor (some improvements) Concentration: Poor (some improvement) Association: Loose Fund of Knowledge: Poor - Mood Mood: Depressed ("I am little better"), Anxious - Affect Affect: Constricted (pt was able to smile ) - Formal Thought Process Formal Thought Process: Hallucinations (denies today) - Suicidal Ideation Suicidal Ideation: No - Homicidal Ideation Homicidal Ideation: No Goal/Treatment Plan - Goal/Treatment Plan Need for Continued Stay: Remain at risks for inpatient hospitalization, Severe depression anxiety, Discharge may exacerbated symptoms, Severe functional impairment Progress Toward Problem(s) and Goals/Treatment Plan: * c/w current tx and plan (patient is s/p 6 ECT treatments) * No new weekend lab results noted thus far * Vitals reviewed and noted below: Selected Entries 05/18/18 05/24/18 05/24/18 07:19 07:13 16:25 Temperature 98.1 F 98.2 F Pulse Rate 73 76 106 H Respiratory 16 20 Rate Blood Pressure 94/61 L 99/59 L 117/81 Estimated Date of D/C: 05/27/18
--- NOTE | 2018-05-26 10:06 | PCM.PYCHPN ---
Psychiatric Progress Note - Psychiatric Progress Note Patient seen today, length of contact: 30 minutes Problems Identified/Issues Discussed: I reviewed recent notes and met with patient at bedside again. He is calm and cooperative with my questioning. Oriented x3. He is known to me from prior interviews during the last 3 weekends. His affect remains constricted and there appears to be minimal improvement over the week since our last visit (though affect, reactivity and focus do seem improved since he first presented to our unit). His motivation appears low. Thus far he is tolerating ECT treatments well. He also denies any side effects from his medications today. Patient is also sleeping well. Responses are relevant to questioning and delusions were not elicited. He denies any further hallucinations and definitely appears less preoccupied though still quiet and reserved. He still keeps to himself most of the time. As usual, there were no episodes of agitation or aggression over the weekend. Diagnostic Results: Schizoaffective disorder as per history Rule out schizophrenia treatment resistant Medication Change: No ( ) Medical Record Reviewed: Yes Mental Status Examination - Cognitive Function Orientation: Person, Place, Situation Memory: Impaired Attention: Poor (some improvements) Concentration: Poor (some improvement) Association: Loose Fund of Knowledge: Poor - Mood Mood: Depressed ("I am little better"), Anxious - Affect Affect: Constricted (pt was able to smile ) - Formal Thought Process Formal Thought Process: Hallucinations (denies today) - Suicidal Ideation Suicidal Ideation: No - Homicidal Ideation Homicidal Ideation: No Goal/Treatment Plan - Goal/Treatment Plan Need for Continued Stay: Remain at risks for inpatient hospitalization, Severe depression anxiety, Discharge may exacerbated symptoms, Severe functional impairment Progress Toward Problem(s) and Goals/Treatment Plan: * c/w current tx and plan (patient is s/p 6 ECT treatments) * No new weekend lab results noted thus far * Vitals reviewed and noted below: Selected Entries 05/25/18 05/25/18 07:33 15:51 Temperature 97.5 F L Pulse Rate 76 90 Respiratory 20 Rate Blood Pressure 113/71 119/79 Estimated Date of D/C: 05/27/18
[2018-05-27] MEDS ORDERED: Propofol 10 mg/ml Inj (20 ML) ONE (13:28)
[2018-05-27] MEDS ORDERED: Succinylcholine 200 mg/10 ml Inj IV ONE (13:28)
[2018-05-27] MEDS ORDERED: Lactated Ringer's 1,000 ML IV SCH (14:15)
--- NOTE | 2018-05-27 17:37 | PCM.PYCHPN ---
Psychiatric Progress Note - Psychiatric Progress Note Patient seen today, length of contact: 30 minutes Patient Chief Complaint: "I am feeling better" Problems Identified/Issues Discussed: Suicide/ homicide prevention, past psychiatric h/o, current psychiatric symptoms, medical problems, risk/benefits and alternatives of medications, medications compliance, coping strategies, substance abuse h/o, relapse prevention, importance of follow up with psychiatrist and therapist, discharge plan Medical Problems: pt c/o back pain, ibuprofen started Diagnostic Results: 04/25/18 15:39 04/25/18 15:39 Lab Results 04/26/18 06:45: RPR Nonreactive 04/26/18 06:45: TSH 3rd Generation 4.32 04/26/18 06:45: Fasting Glucose 106, Triglycerides 145, Cholesterol 219 H, LDL Cholesterol Direct 137 H, HDL Cholesterol 45 04/26/18 06:45: [place] 0.2 L 04/25/18 15:39: Alcohol, Quantitative < 10 04/25/18 15:39: Salicylates < 1 L, Acetaminophen < 10.0 L 04/25/18 15:39: Urine Opiates Screen Negative, Urine Methadone Screen Negative, Ur Barbiturates Screen Negative, Ur Phencyclidine Scrn Negative, Ur Amphetamines Screen Negative, U Benzodiazepines Scrn Negative, U Oth Cocaine Metabols Negative, U Cannabinoids Screen Negative 04/25/18 15:39: Sodium 143, Potassium 3.9, Chloride 109 H, Carbon Dioxide 25, Anion Gap 12, BUN 9, Creatinine 0.8, Est GFR ( Amer) > 60, Est GFR (Non- Af Amer) > 60, Random Glucose 98, Calcium 9.8, Magnesium 2.2, Total Bilirubin 0.4, AST 21, ALT 28, Alkaline Phosphatase 54, Total Protein 8.1, Albumin 4.3, Globulin 3.8, Albumin/Globulin Ratio 1.1 04/25/18 15:39: Urine Color Yellow, Urine Appearance Clear, Urine pH 6.0, Ur Specific [place] 1.025, Urine Protein Negative, Urine Glucose (UA) Negative, Urine Ketones Negative, Urine Blood Negative, Urine Nitrate Negative, Urine Bilirubin Negative, Urine Urobilinogen 0.2, Ur Leukocyte Esterase Negative 04/25/18 15:39: WBC 6.4, RBC 5.19, Hgb 15.9, Hct 46.5, MCV 89.6, MCH 30.6, MCHC 34.2, RDW 12.7, Plt Count 307, MPV 8.7, Gran % 45.9 L, Lymph % (Auto) 41.3 H, [place] % (Auto) 9.9 H, Eos % (Auto) 2.4, Baso % (Auto) 0.5, Gran # 2.92, Lymph # (Auto) 2.6, [place] # (Auto) 0.6, Eos # (Auto) 0.2, Baso # (Auto) 0.03 Vital Signs Temp Pulse Resp BP Pulse Ox 04/27/18 07:19 98 F 90 20 118/74 04/26/18 16:00 103 H 122/75 04/26/18 07:21 98.2 F 92 H 20 116/74 04/25/18 20:30 98.3 F 82 18 131/71 100 04/25/18 20:20 98.3 F 80 16 121/80 99 04/25/18 19:22 98.3 F 82 18 131/71 100 04/25/18 15:55 98.3 F 81 20 112/73 96 04/25/18 15:10 98.8 F 86 16 114/76 97 Temp Pulse Resp BP Pulse Ox 97.7 F 85 16 104/66 100 04/30/18 07:00 04/30/18 07:00 04/30/18 07:00 04/30/18 07:00 04/25/18 20:30 Temp Pulse Resp BP Pulse Ox 98.3 F 85 16 134/82 100 05/09/18 10:56 05/09/18 10:56 05/09/18 10:56 05/09/18 10:56 05/09/18 10:56 Temp Pulse Resp BP Pulse Ox 98.2 F 80 18 129/78 96 05/23/18 11:40 05/23/18 11:40 05/23/18 11:40 05/23/18 11:40 05/23/18 11:40 Temp Pulse Resp BP Pulse Ox 98.2 F 76 20 99/59 L 96 05/24/18 07:13 05/24/18 07:13 05/24/18 07:13 05/24/18 07:13 05/23/18 11:40 DSM 5 Symptoms Update: Shortly patient is 43-year-old male with reported history of schizoaffective disorder, patient has treatment resistant symptoms, multiple previous psychiatric admissions including [place] as well as [facility], patient seems to be compliant with the medication but still has residual sympt oms of psychosis, patient has command type hallucinations, patient also suffered from severe depression, patient was not able to function, patient was not bathing, had low appetite, very apathetic, patient was referred by fdc for evaluation and stabilization of depressive symptoms, psychotic symptoms, medication management, possible ECT treatment,, patient requires further evaluation and stabilization and medication initiation and titration possible ECT. patient was seen today at the treatment team meeting, presented much better, affect was brighter, over the weekend pt was more visible in the unit, mother visited pt over the weekend. Patient reported that he feels "better", patient reported that he does not hear voices "my mood is better". 05/27/18 pt was visited by case workers, Quynh Hurley from [facility], meeting took place 05/22/18, as well as today. as per pt presented "very well". pt was seen then in OR, pt signed consent for treatment, willing to get ECT treatment today. ECT #7 05/27/18, Charge 115 MC/energy 20.3 J at 220ohms/impedance 1060, pulse width 0.3 msec/frequency 30hz, duration 8.000sec, current 800mA, pt had adequate seizure activity for about 30 naomi, tolerated well, pt c/o headache, toradol was given. ECT #6 05/21/18, Charge 115 MC/energy 20.3 J at 220ohms/impedance 1060, pulse width 0.3 msec/frequency 30hz, duration 8.000sec, current 800mA, pt had adequate seizure activity for about 40 ceck, tolerated well, pt c/o headache, toradol was given. ECT #5 05/21/18, Charge 115 MC/energy 20.3 J at 220ohms/impedance 1060, pulse width 0.3 msec/frequency 30hz, duration 8.000sec, current 800mA, pt had adequate seizure activity, had motor seizures for about 25ceck, tolerated well, no headache today. ECT #4 05/16/18, Charge 115 MC/energy 20.3 J at 220ohms/impedance 1060, pulse width 0.3 msec/frequency 30hz, duration 8.000sec, current 800mA, pt had adequate seizure activity. pt has headaches after the ECT, anestesiologist was advised to give toradol. ECT #3 05/14/18, Charge 115 MC/energy 20.3 J at 220ohms/impedance 1060, pulse width 0.3 msec/frequency 30hz, duration 8.000sec, current 800mA, pt had >44sec of seizure activity on EEG. pt tolerated procedure well, pt c/o headache, toradol was given to the pt, no other side effects, pt then was transferred to the recovery room. as per staff over the weekend patient ate pizza, was socializing with people, which TV. so far pt tolerates meds/ECT well, still requires further hospitalization and ECT treatment. AIMS 0, no EPS. Diagnostic Results: Schizoaffective disorder as per history Rule out schizophrenia treatment resistant Medication Change: No ( ) Medical Record Reviewed: Yes Mental Status Examination - Cognitive Function Orientation: Person, Place, Situation Memory: Impaired Attention: Poor (some improvements) Concentration: Poor (some improvement) Association: Loose Fund of Knowledge: Poor - Mood Mood: Depressed ("I am little better"), Anxious - Affect Affect: Constricted (pt was able to smile ) - Formal Thought Process Formal Thought Process: Hallucinations (denies today) - Suicidal Ideation Suicidal Ideation: No - Homicidal Ideation Homicidal Ideation: No Goal/Treatment Plan - Goal/Treatment Plan Need for Continued Stay: Remain at risks for inpatient hospitalization, Severe depression anxiety, Discharge may exacerbated symptoms, Severe functional impairment Progress Toward Problem(s) and Goals/Treatment Plan: Milieu/structure/supportive therapy Medical consult appreciated, see medical team note for more detailed info SW consultation for discharge plan and social issues Med management cardiology/internal medicine cleared pt for ECT ECT 05/06/18 #1, tolerated well ECT 05/09/18 #2 went well ECT 05/14/18 #3 tolerated well ECT 05/16/18 #4 tolerated well ECT #5 05/21/18 tolerated well ECT #6 05/23/18, tolerated well ECT #7 05/27/18 tolerated well Prozac 60 mg daily for depression and anxiety Docusate [Colace] 1 cap PO BID Famotidine [Pepcid] 20 mg PO DAILY QUEtiapine [SEROquel] 400 mg at the morning time and 400 mg PO HS neurontin 100 mg 3 times a day off label for anxiety Ativan d/c Collaterals were obtained from the fdc fdc meeting took place 05/22/18 Follow up on labs Will monitor closely Pt was educated about risk/benefits and alternatives of medications, coping strategies (safety plan, suicide prevention), relapse prevention, importance of follow up with psychiatrist and therapist, stay away from drugs/alcohol/smoking Estimated Date of D/C: 05/30/18
--- NOTE | 2018-05-28 08:35 | PCM.BM ---
<Nika Louis Y - Last Filed: 05/28/18 08:35> Treatment Plan Problems - Problems identified on initial assessmt Auditory Hallucinations Date Initiated: 04/26/18 Time Initiated: Assessment reference: NA Status: Active Medication nonadherence Date Initiated: 04/26/18 Time Initiated: Assessment reference: NA Status: Active Altered Thoughts Process Date Initiated: 04/26/18 Time Initiated: Assessment reference: NA Status: Active Ineffective Coping Date Initiated: 04/26/18 Time Initiated: Assessment reference: NA Status: Active Treatment assets and liabiliti Patient Assests: adapts well, cooperative, self-reliant, ADL independent, physically healthy, negotiates basic needs, cognitively intact Patient Liabilities: live alone, financial problems, poor support system - Milieu Protocol Maintain good personal hygiene: daily Encourage regular showers, daily Remind patient to perform daily oral care, daily Assist patient to perform ADL's Conduct patient checks and document Observation sheet: Q15 minutes Maintain personal safety: every shift Educate patient to report safety concerns to staff, every shift Monitor environment for contraband/sharps Medication safety: Monitor for expected outcome, potential side effects: every shift, Assess barriers to learning: every shift, Assess readiness for medication education: every shift Milieu Narrative: Milieu/structure/supportive therapy Medical consult appreciated, see medical team note for more detailed info SW consultation for discharge plan and social issues Med management cardiology/internal medicine cleared pt for ECT ECT 05/06/18 #1, tolerated well ECT 05/09/18 #2 went well ECT 05/14/18 #3 tolerated well ECT 05/16/18 #4 tolerated well ECT #5 05/21/18 tolerated well ECT #6 05/23/18, tolerated well ECT #7 05/27/18 tolerated well Prozac 60 mg daily for depression and anxiety Docusate [Colace] 1 cap PO BID Famotidine [Pepcid] 20 mg PO DAILY QUEtiapine [SEROquel] 400 mg at the morning time and 400 mg PO HS neurontin 100 mg 3 times a day off label for anxiety Ativan d/c Collaterals were obtained from the nursing home nursing home meeting took place 05/22/18 Follow up on labs Will monitor closely Pt was educated about risk/benefits and alternatives of medications, coping strategies (safety plan, suicide prevention), relapse prevention, importance of follow up with psychiatrist and therapist, stay away from drugs/alcohol/smoking Family Contact Family involvement: Famliy/SO not involved - Outside Agency [facility] Care involvment: Information-sharing Agency contact name: [facility] nursing home Agency contact number: [phone] Discharge/Continuing Care - Education Needs Education Needs: Patient Medication, Patient Diagnosis/Disease Process, Patient Coping Skills, Patient Community resources, Patient Activities of Daily Living, Patient Nutrition, Patient Health Practices/Safety, Patient Personal Hygiene/Grooming, Patient Aftercare Safety Plan - Discharge Discharge Criteria: Tolerates medication w/o severe side effects, Free of Suicidal thoughts, Free of paranoid thoughts, Normal sleep pattern, Ability to care for self, Reduction of target symptoms - Treatment Team Participation Patient/Family/SO Statement: Milieu/structure/supportive therapy Medical consult appreciated, see medical team note for more detailed info SW consultation for discharge plan and social issues Med management cardiology/internal medicine cleared pt for ECT ECT 05/06/18 #1, tolerated well ECT 05/09/18 #2 went well ECT 05/14/18 #3 tolerated well ECT 05/16/18 #4 tolerated well ECT #5 05/21/18 tolerated well ECT #6 05/23/18, tolerated well ECT #7 05/27/18 tolerated well Prozac 60 mg daily for depression and anxiety Docusate [Colace] 1 cap PO BID Famotidine [Pepcid] 20 mg PO DAILY QUEtiapine [SEROquel] 400 mg at the morning time and 400 mg PO HS neurontin 100 mg 3 times a day off label for anxiety Ativan d/c Collaterals were obtained from the nursing home nursing home meeting took place 05/22/18 Follow up on labs Will monitor closely Pt was educated about risk/benefits and alternatives of medications, coping strategies (safety plan, suicide prevention), relapse prevention, importance of follow up with psychiatrist and therapist, stay away from drugs/alcohol/smoking Treatment Plan Review - Problem Auditory Hallucinations Time Initiated: 01:28 Medication nonadherence Time Initiated: :29 Altered Thoughts Process Time Initiated: :29 Ineffective Coping Time Initiated: :29 <Riana Davis - Last Filed: 05/28/18 15:27> Treatment Plan Problems - Problems identified on initial assessmt Auditory Hallucinations Date resolved: 05/27/18 Medication nonadherence Date resolved: 05/27/18 <Madeline Hernandez - Last Filed: 05/28/18 15:32> - Diagnosis (1) Schizoaffective disorder, bipolar type Status: Acute Interventions: 05/28/18 15:31 much improved ECT tolerated well denied psychotic symptoms Denied being depressed denied thoughts of harming self or others Possible discharge tomorrow 05/28/18 15:32
--- NOTE | 2018-05-28 15:36 | PCM.PYCHPN ---
Psychiatric Progress Note - Psychiatric Progress Note Patient seen today, length of contact: 30 minutes Patient Chief Complaint: "I am feeling better" Problems Identified/Issues Discussed: Suicide/ homicide prevention, past psychiatric h/o, current psychiatric symptoms, medical problems, risk/benefits and alternatives of medications, medications compliance, coping strategies, substance abuse h/o, relapse prevention, importance of follow up with psychiatrist and therapist, discharge plan Medical Problems: pt c/o back pain, ibuprofen started Diagnostic Results: 04/25/18 15:39 04/25/18 15:39 Lab Results 04/26/18 06:45: RPR Nonreactive 04/26/18 06:45: TSH 3rd Generation 4.32 04/26/18 06:45: Fasting Glucose 106, Triglycerides 145, Cholesterol 219 H, LDL Cholesterol Direct 137 H, HDL Cholesterol 45 04/26/18 06:45: [place] 0.2 L 04/25/18 15:39: Alcohol, Quantitative < 10 04/25/18 15:39: Salicylates < 1 L, Acetaminophen < 10.0 L 04/25/18 15:39: Urine Opiates Screen Negative, Urine Methadone Screen Negative, Ur Barbiturates Screen Negative, Ur Phencyclidine Scrn Negative, Ur Amphetamines Screen Negative, U Benzodiazepines Scrn Negative, U Oth Cocaine Metabols Negative, U Cannabinoids Screen Negative 04/25/18 15:39: Sodium 143, Potassium 3.9, Chloride 109 H, Carbon Dioxide 25, Anion Gap 12, BUN 9, Creatinine 0.8, Est GFR ( Amer) > 60, Est GFR (Non- Af Amer) > 60, Random Glucose 98, Calcium 9.8, Magnesium 2.2, Total Bilirubin 0.4, AST 21, ALT 28, Alkaline Phosphatase 54, Total Protein 8.1, Albumin 4.3, Globulin 3.8, Albumin/Globulin Ratio 1.1 04/25/18 15:39: Urine Color Yellow, Urine Appearance Clear, Urine pH 6.0, Ur Specific [place] 1.025, Urine Protein Negative, Urine Glucose (UA) Negative, Urine Ketones Negative, Urine Blood Negative, Urine Nitrate Negative, Urine Bilirubin Negative, Urine Urobilinogen 0.2, Ur Leukocyte Esterase Negative 04/25/18 15:39: WBC 6.4, RBC 5.19, Hgb 15.9, Hct 46.5, MCV 89.6, MCH 30.6, MCHC 34.2, RDW 12.7, Plt Count 307, MPV 8.7, Gran % 45.9 L, Lymph % (Auto) 41.3 H, [place] % (Auto) 9.9 H, Eos % (Auto) 2.4, Baso % (Auto) 0.5, Gran # 2.92, Lymph # (Auto) 2.6, [place] # (Auto) 0.6, Eos # (Auto) 0.2, Baso # (Auto) 0.03 Vital Signs Temp Pulse Resp BP Pulse Ox 04/27/18 07:19 98 F 90 20 118/74 04/26/18 16:00 103 H 122/75 04/26/18 07:21 98.2 F 92 H 20 116/74 04/25/18 20:30 98.3 F 82 18 131/71 100 04/25/18 20:20 98.3 F 80 16 121/80 99 04/25/18 19:22 98.3 F 82 18 131/71 100 04/25/18 15:55 98.3 F 81 20 112/73 96 04/25/18 15:10 98.8 F 86 16 114/76 97 Temp Pulse Resp BP Pulse Ox 97.7 F 85 16 104/66 100 04/30/18 07:00 04/30/18 07:00 04/30/18 07:00 04/30/18 07:00 04/25/18 20:30 Temp Pulse Resp BP Pulse Ox 98.3 F 85 16 134/82 100 05/09/18 10:56 05/09/18 10:56 05/09/18 10:56 05/09/18 10:56 05/09/18 10:56 Temp Pulse Resp BP Pulse Ox 98.2 F 80 18 129/78 96 05/23/18 11:40 05/23/18 11:40 05/23/18 11:40 05/23/18 11:40 05/23/18 11:40 Temp Pulse Resp BP Pulse Ox 98.2 F 76 20 99/59 L 96 05/24/18 07:13 05/24/18 07:13 05/24/18 07:13 05/24/18 07:13 05/23/18 11:40 DSM 5 Symptoms Update: Shortly patient is 43-year-old male with reported history of schizoaffective disorder, patient has treatment resistant symptoms, multiple previous psychiatric admissions including [place] as well as [facility], patient seems to be compliant with the medication but still has residual sympt oms of psychosis, patient has command type hallucinations, patient also suffered from severe depression, patient was not able to function, patient was not bathing, had low appetite, very apathetic, patient was referred by longterm for evaluation and stabilization of depressive symptoms, psychotic symptoms, medication management, possible ECT treatment,, patient requires further evaluation and stabilization and medication initiation and titration possible ECT. patient was seen today at the treatment team meeting room, presented much better, affect was brighter, pt is more visible in the unit, mother visited pt over the weekend, pt said that he feels "much better", pt denied any psychotic symptoms, pt reported that he is looking forward for ECT for tomorrow. pt preliminary d/c 05/29/18. 05/27/18 pt was visited by case workers, Quynh Hurley from [facility], meeting took place 05/22/18, as well as today. as per pt presented "very well". pt was seen then in OR, pt signed consent for treatment, willing to get ECT treatment today. ECT #7 05/27/18, Charge 115 MC/energy 20.3 J at 220ohms/impedance 1060, pulse width 0.3 msec/frequency 30hz, duration 8.000sec, current 800mA, pt had adequate seizure activity for about 30 naomi, tolerated well, pt c/o headache, toradol was given. ECT #6 05/21/18, Charge 115 MC/energy 20.3 J at 220ohms/impedance 1060, pulse width 0.3 msec/frequency 30hz, duration 8.000sec, current 800mA, pt had adequate seizure activity for about 40 ceck, tolerated well, pt c/o headache, toradol was given. ECT #5 05/21/18, Charge 115 MC/energy 20.3 J at 220ohms/impedance 1060, pulse width 0.3 msec/frequency 30hz, duration 8.000sec, current 800mA, pt had adequate seizure activity, had motor seizures for about 25ceck, tolerated well, no head ache today. ECT #4 05/16/18, Charge 115 MC/energy 20.3 J at 220ohms/impedance 1060, pulse width 0.3 msec/frequency 30hz, duration 8.000sec, current 800mA, pt had adequate seizure activity. pt has headaches after the ECT, anestesiologist was advised to give toradol. ECT #3 05/14/18, Charge 115 MC/energy 20.3 J at 220ohms/impedance 1060, pulse width 0.3 msec/frequency 30hz, duration 8.000sec, current 800mA, pt had >44sec of seizure activity on EEG. pt tolerated procedure well, pt c/o headache, toradol was given to the pt, no other side effects, pt then was transferred to the recovery room. as per staff over the weekend patient ate pizza, was socializing with people, which TV. so far pt tolerates meds/ECT well, still requires further hospitalization and ECT treatment. AIMS 0, no EPS. Diagnostic Results: Schizoaffective disorder as per history Rule out schizophrenia treatment resistant Medication Change: No ( ) Medical Record Reviewed: Yes Mental Status Examination - Cognitive Function Orientation: Person, Place, Situation Memory: Impaired Attention: Poor (some improvements) Concentration: Poor (some improvement) Association: Loose Fund of Knowledge: Poor - Mood Mood: Depressed ("I am better"), Anxious - Affect Affect: Constricted (hhe is more reactive and mood congruent) - Speech Speech: Appropriate - Formal Thought Process Formal Thought Process: No Impairment - Suicidal Ideation Suicidal Ideation: No - Homicidal Ideation Homicidal Ideation: No Goal/Treatment Plan - Goal/Treatment Plan Need for Continued Stay: Remain at risks for inpatient hospitalization, Severe depression anxiety, Discharge may exacerbated symptoms, Severe functional impairment Progress Toward Problem(s) and Goals/Treatment Plan: Milieu/structure/supportive therapy Medical consult appreciated, see medical team note for more detailed info SW consultation for discharge plan and social issues Med management cardiology/internal medicine cleared pt for ECT ECT 05/06/18 #1, tolerated well ECT 05/09/18 #2 went well ECT 05/14/18 #3 tolerated well ECT 05/16/18 #4 tolerated well ECT #5 05/21/18 tolerated well ECT #6 05/23/18, tolerated well ECT #7 05/27/18 tolerated well ECT #8 scheduled 05/29/2018 Prozac 60 mg daily for depression and anxiety Docusate [Colace] 1 cap PO BID Famotidine [Pepcid] 20 mg PO DAILY QUEtiapine [SEROquel] 400 mg at the morning time and 400 mg PO HS neurontin 100 mg 3 times a day off label for anxiety Ativan d/c Collaterals were obtained from the longterm longterm meeting took place 05/22/18 Follow up on labs Will monitor closely Pt was educated about risk/benefits and alternatives of medications, coping strategies (safety plan, suicide prevention), relapse prevention, importance of follow up with psychiatrist and therapist, stay away from drugs/alcohol/smoking Estimated Date of D/C: 05/30/18
[2018-05-29 10:57] VITALS: RESP 20
[2018-05-29] MEDS ORDERED: Propofol 10 mg/ml Inj (20 ML) ONE (10:59)
[2018-05-29] MEDS ORDERED: Succinylcholine 200 mg/10 ml Inj IV ONE (11:00)
[2018-05-29] MEDS ORDERED: Sodium Chloride 0.9% 1,000 ML IV SCH (11:30)
[2018-05-29 11:59] VITALS: O2SAT 96
[2018-05-29 12:31] VITALS: BP 106/74; PULSE 84; TEMP 97.6
--- NOTE | 2018-05-29 17:27 | PCM.PYCHDC ---
Mental Status Examination - Mental Status Examination Orientation: Person, Place, Situation, Time Memory: Intact Mood: Neutral Affect: Broad (and mood congruent) Speech: Appropriate (there is some poverty of thoughts and speech) Attention: WNL (improved) Concentration: WNL (iimproved) Association: WNL Fund of Knowledge: Poor (baseline) Formal Thought Process: No Impairment Description of patient's judgement and insight: Pt has improved insight into mental and medical illness, pt was compliant with medications and unit rules and regulations, pt was going to groups, was calm, cooperative, socially appropriate, no behavioral incidents, no agitation, no aggression. Psychotic Thoughts and Behaviors: Pt denied v/a/t hallucinations, denied paranoid ideations, pt does not appear to be psychotic, and thought process is goal directed. Suicidal Ideation: No Current Homicidal Ideation?: No Plan: pt adamantly denied thoughts of harming self or others denied intent or plan. Discharge Summary - Discharge Note Reason for Hospitalization: Patient was admitted for evaluation and stabilization of depressive symptoms, psychosis, inability to take care of himself, loss of appetite, suicidal ideation. Psychiatric History (includes Medical, Family, Personal Hx): see HPI Laboratory Data: 04/25/18 15:39 04/25/18 15:39 Lab Results 04/26/18 06:45: RPR Nonreactive 04/26/18 06:45: TSH 3rd Generation 4.32 04/26/18 06:45: Fasting Glucose 106, Triglycerides 145, Cholesterol 219 H, LDL Cholesterol Direct 137 H, HDL Cholesterol 45 04/26/18 06:45: [place] 0.2 L 04/25/18 15:39: Alcohol, Quantitative < 10 04/25/18 15:39: Salicylates < 1 L, Acetaminophen < 10.0 L 04/25/18 15:39: Urine Opiates Screen Negative, Urine Methadone Screen Negative, Ur Barbiturates Screen Negative, Ur Phencyclidine Scrn Negative, Ur Amphetamines Screen Negative, U Benzodiazepines Scrn Negative, U Oth Cocaine Metabols Negative, U Cannabinoids Screen Negative 04/25/18 15:39: Sodium 143, Potassium 3.9, Chloride 109 H, Carbon Dioxide 25, Anion Gap 12, BUN 9, Creatinine 0.8, Est GFR ( Amer) > 60, Est GFR (Non- Af Amer) > 60, Random Glucose 98, Calcium 9.8, Magnesium 2.2, Total Bilirubin 0.4, AST 21, ALT 28, Alkaline Phosphatase 54, Total Protein 8.1, Albumin 4.3, Globulin 3.8, Albumin/Globulin Ratio 1.1 04/25/18 15:39: Urine Color Yellow, Urine Appearance Clear, Urine pH 6.0, Ur Specific Noble 1.025, Urine Protein Negative, Urine Glucose (UA) Negative, Urine Ketones Negative, Urine Blood Negative, Urine Nitrate Negative, Urine Bilirubin Negative, Urine Urobilinogen 0.2, Ur Leukocyte Esterase Negative 04/25/18 15:39: WBC 6.4, RBC 5.19, Hgb 15.9, Hct 46.5, MCV 89.6, MCH 30.6, MCHC 34.2, RDW 12.7, Plt Count 307, MPV 8.7, Gran % 45.9 L, Lymph % (Auto) 41.3 H, Dougherty % (Auto) 9.9 H, Eos % (Auto) 2.4, Baso % (Auto) 0.5, Gran # 2.92, Lymph # (Auto) 2.6, Dougherty # (Auto) 0.6, Eos # (Auto) 0.2, Baso # (Auto) 0.03 Vital Signs Temp Pulse Resp BP Pulse Ox 05/29/18 12:30 97.6 F 84 20 106/74 05/29/18 11:55 98.1 F 91 H 20 142/93 H 96 05/29/18 11:40 98.1 F 96 H 20 136/85 98 05/29/18 11:25 98.1 F 97 H 20 150/86 98 05/29/18 10:52 98.1 F 90 20 120/78 96 05/29/18 09:45 97.6 F 73 18 94/59 L 05/29/18 07:13 97.6 F 73 18 94/59 L 05/28/18 16:00 87 112/73 05/28/18 07:00 97.9 F 79 20 96/62 L 05/27/18 16:12 77 113/76 05/27/18 14:39 97 F L 78 14 110/68 98 05/27/18 14:24 97 F L 76 14 107/66 98 05/27/18 14:09 97 F L 88 14 114/79 97 05/27/18 13:10 98.6 F 77 18 106/59 L 95 05/27/18 07:21 98.5 F 69 18 97/56 L 05/27/18 07:00 98.5 F 69 18 97/56 L 05/26/18 16:22 80 102/69 05/26/18 07:22 98.0 F 79 20 93/65 L 05/25/18 15:51 90 119/79 05/25/18 07:33 97.5 F L 76 20 113/71 05/24/18 16:25 106 H 117/81 05/24/18 07:13 98.2 F 76 20 99/59 L 05/23/18 16:00 86 118/73 05/23/18 11:40 98.2 F 80 18 129/78 96 05/23/18 11:25 98.2 F 79 18 129/83 96 05/23/18 11:10 98.2 F 79 16 121/88 96 05/23/18 10:55 98.2 F 85 18 122/75 96 05/23/18 10:09 98.8 F 80 20 121/73 95 05/23/18 07:33 97.5 F L 73 20 93/58 L 05/23/18 07:32 95.5 F L 73 20 93/58 L 05/22/18 07:29 99.1 F 86 20 109/71 05/21/18 16:00 98.4 F 76 18 109/66 98 05/21/18 15:45 98.4 F 82 18 126/78 98 05/21/18 15:30 98.4 F 82 18 129/73 99 05/21/18 11:19 98.4 F 84 18 111/71 95 05/21/18 07:59 98.4 F 84 20 121/76 05/21/18 07:28 98.4 F 84 20 121/76 05/20/18 15:19 91 H 111/74 05/20/18 07:02 97.6 F 72 20 126/82 05/19/18 07:22 97.9 F 69 20 114/73 05/18/18 07:19 98.1 F 73 16 94/61 L 05/17/18 16:43 76 107/78 05/17/18 07:17 97.9 F 72 18 96/64 L 05/16/18 16:00 85 113/73 05/16/18 13:26 97.2 F L 66 16 106/68 05/16/18 12:56 97.2 F L 68 16 106/64 05/16/18 12:26 97.8 F 76 18 112/66 05/16/18 12:09 98 F 78 12 126/83 98 05/16/18 11:54 98 F 80 12 123/79 97 05/16/18 11:39 98 F 92 H 12 133/86 96 05/16/18 10:40 98.5 F 85 18 107/69 97 05/16/18 08:00 98.0 F 78 20 101/60 05/16/18 07:37 98.0 F 78 20 101/60 05/15/18 16:00 84 100/56 L 05/15/18 07:04 98.1 F 75 20 111/66 05/14/18 16:00 102 H 125/88 05/14/18 11:04 98.1 F 69 17 127/77 05/14/18 10:56 98.1 F 69 17 127/77 05/14/18 10:35 98 F 73 12 120/77 98 05/14/18 10:20 98 F 73 12 120/78 98 05/14/18 10:05 98 F 71 12 119/78 98 05/14/18 09:50 98 F 70 12 98/60 L 98 05/14/18 08:40 98.5 F 75 18 107/58 L 97 05/14/18 08:00 98.5 F 75 18 107/58 L 05/14/18 07:01 97.7 F 71 20 110/67 05/13/18 16:40 96 H 111/75 05/13/18 07:20 97.5 F L 75 14 85/55 L 05/12/18 14:00 84 18 118/76 05/12/18 07:34 97.6 F 71 19 90/55 L 05/11/18 20:31 90 115/79 05/11/18 06:57 97.8 F 82 20 105/62 05/10/18 16:00 84 108/64 05/10/18 07:45 98.0 F 77 05/10/18 07:41 98.0 F 77 20 98/60 L 05/09/18 16:46 76 125/82 05/09/18 10:56 98.3 F 85 16 134/82 100 05/09/18 10:41 98.3 F 87 16 119/68 98 05/09/18 08:47 98.3 F 76 18 119/72 05/09/18 08:25 98.3 F 76 18 119/72 98 05/09/18 07:30 97.5 F L 72 18 96/54 L 05/08/18 07:02 97.0 F L 75 20 111/77 05/07/18 16:00 77 108/69 05/07/18 07:39 97.7 F 70 18 92/60 L 05/06/18 15:40 77 131/86 05/06/18 14:46 77 18 131/86 05/06/18 14:23 98.1 F 79 12 130/82 96 05/06/18 14:08 98.1 F 79 12 131/79 99 05/06/18 13:53 98.1 F 85 12 123/75 99 05/06/18 12:56 98.6 F 84 18 127/85 95 05/06/18 11:01 97.7 F 80 20 114/79 05/06/18 06:46 97.7 F 80 20 114/79 05/05/18 16:00 86 118/74 05/05/18 07:07 97.8 F 86 20 119/78 05/04/18 16:00 92 H 121/76 05/04/18 07:30 97.7 F 84 20 114/82 05/03/18 16:02 90 120/78 05/03/18 07:21 98.0 F 81 20 109/73 05/02/18 16:00 99 H 113/70 05/02/18 07:00 98.1 F 85 20 113/71 05/01/18 15:00 90 116/73 05/01/18 07:13 97.8 F 89 20 115/72 04/30/18 16:00 97 H 119/74 04/30/18 07:00 97.7 F 85 16 104/66 04/29/18 16:00 104 H 123/77 04/29/18 07:19 98.7 F 98 H 16 131/89 04/28/18 07:18 97.8 F 105 H 20 133/91 H 04/27/18 15:00 104 H 125/75 04/27/18 07:19 98 F 90 20 118/74 04/26/18 16:00 103 H 122/75 04/26/18 07:21 98.2 F 92 H 20 116/74 04/25/18 20:30 98.3 F 82 18 131/71 100 04/25/18 20:20 98.3 F 80 16 121/80 99 04/25/18 19:22 98.3 F 82 18 131/71 100 04/25/18 15:55 98.3 F 81 20 112/73 96 04/25/18 15:10 98.8 F 86 16 114/76 97 Consultations:: List each consultation separately and include: 1. Reason for request. 2. Findings. 3. Follow-up Consultations: patient was seen by medical team, was cleared for ECT treatment Summary of Hospital Course include:: 1. Description of specific treatment plan utilized for patients during their course of treatmen. 2. Summarize the time- course for resolution of acute symptoms and/or regressed behaviors. 3. Describe issues identified and worked on during hospitalization. 4. Describe medication utilized. 5. Describe medical problems identified and treated. 6. Reassessment of suicide risk Summary of Hospital Course: Shortly patient is 43-year-old male with reported history of schizoaffective disorder, patient has treatment resistant symptoms, multiple previous psychiatric admissions including [place] as well as [facility], patient seems to be compliant with the medication but still has residual sympt oms of psychosis, patient has command type hallucinations, patient also suffered from severe depression, patient was not able to function, patient was not bathing, had low appetite, very apathetic, patient was referred by long term for evaluation and stabilization of depressive symptoms, psychotic symptoms, medication management, possible ECT treatment,, patient required further evaluation and stabilization and medication initiation and titration possible ECT. at the time of admission patient presented to be irritable, annoyed, agitated, refused to participate in treatment meeting, patient said that "I'm sick and tired of everything, I do want to repeat myself, fully want is to go back home, then I will sign myself out, nobody will find me ever". patient requested to be discharged, signed 48 hour notice, patient was educated about treatment plan, about ECT options, about medication management, patient was not receptive. As per staff patient was agitated, but not aggressive, irritable, annoyed, verbalized that he is hearing voices as well as has suicidal ideation but denied any plan or intent to kill himself, over night complained that he hears multiple voices,required PRN ativan. patient gave permission to speak to Quynh Hurley at [facility], who visited pt today, as per Quynh pt has been laying in bed for the past month and half, confused, having hallucinations, no taking care of his hygiene, reporting suicidal thoughts. Pt has been experiencing loss of appetite, verbalized hopelessness and helplessness and loss interest in life. Staff expressed highest concerns about pt's safety. after Quynh visit pt rescinded 48hr notice, willing to get treatment, willing to stay and complete his tx course. as per report patient was on Seroquel 300 mg at the nighttime, lithium 300 mg 3 times a day, trazodone 50 mg at the nighttime. past psych h/o: >4psychiatric hospitalizations; currently treated with [place], Seroquel PMHx: Back and leg pain Alergies: Fish, Depakote; (unclear if true allergy vs dystonia)-Risperdal, Haldol FHx: Denies family h/o mental illness SHx: Denies drug/etoh/cig; resident of long term h/o abuse is unknown 04/25/18 15:39 04/25/18 15:39 Lab Results 04/26/18 06:45: TSH 3rd Generation 4.32 04/26/18 06:45: Fasting Glucose 106, Triglycerides 145, Cholesterol 219 H, LDL Cholesterol Direct 137 H, HDL Cholesterol 45 04/26/18 06:45: [place] 0.2 L 04/25/18 15:39: Alcohol, Quantitative < 10 04/25/18 15:39: Salicylates < 1 L, Acetaminophen < 10.0 L 04/25/18 15:39: Urine Opiates Screen Negative, Urine Methadone Screen Negative, Ur Barbiturates Screen Negative, Ur Phencyclidine Scrn Negative, Ur Amphetamines Screen Negative, U Benzodiazepines Scrn Negative, U Oth Cocaine Metabols Negative, U Cannabinoids Screen Negative 04/25/18 15:39: Sodium 143, Potassium 3.9, Chloride 109 H, Carbon Dioxide 25, Anion Gap 12, BUN 9, Creatinine 0.8, Est GFR ( Amer) > 60, Est GFR (Non- Af Amer) > 60, Random Glucose 98, Calcium 9.8, Magnesium 2.2, Total Bilirubin 0.4, AST 21, ALT 28, Alkaline Phosphatase 54, Total Protein 8.1, Albumin 4.3, Globulin 3.8, Albumin/Globulin Ratio 1.1 04/25/18 15:39: Urine Color Yellow, Urine Appearance Clear, Urine pH 6.0, Ur Specific Noble 1.025, Urine Protein Negative, Urine Glucose (UA) Negative, Urine Ketones Negative, Urine Blood Negative, Urine Nitrate Negative, Urine Bilirubin Negative, Urine Urobilinogen 0.2, Ur Leukocyte Esterase Negative 04/25/18 15:39: WBC 6.4, RBC 5.19, Hgb 15.9, Hct 46.5, MCV 89.6, MCH 30.6, MCHC 34.2, RDW 12.7, Plt Count 307, MPV 8.7, Gran % 45.9 L, Lymph % (Auto) 41.3 H, Dougherty % (Auto) 9.9 H, Eos % (Auto) 2.4, Baso % (Auto) 0.5, Gran # 2.92, Lymph # (Auto) 2.6, Dougherty # (Auto) 0.6, Eos # (Auto) 0.2, Baso # (Auto) 0.03 Vital Signs Temp Pulse Resp BP Pulse Ox 04/26/18 07:21 98.2 F 92 H 20 116/74 04/25/18 20:30 98.3 F 82 18 131/71 100 04/25/18 20:20 98.3 F 80 16 121/80 99 04/25/18 19:22 98.3 F 82 18 131/71 100 04/25/18 15:55 98.3 F 81 20 112/73 96 04/25/18 15:10 98.8 F 86 16 114/76 97 over the course of this hospitalization patient agreed to have ECT treatment and had 8 sessions: ECT #8 , Charge 115 MC/energy 20.3 J at 220ohms/impedance 1060, pulse width 0.3 msec/frequency 30hz, duration 8.000sec, current 800mA, pt had adequate seizure activity for about 30 naomi, tolerated well, pt c/o headache, toradol was given. ECT #7 05/27/18/, Charge 115 MC/energy 20.3 J at 220ohms/impedance 1060, pulse width 0.3 msec/frequency 30hz, duration 8.000sec, current 800mA, pt had adequate seizure activity for about 30 naomi, tolerated well, pt c/o headache, toradol was given. ECT #6 05/21/18, Charge 115 MC/energy 20.3 J at 220ohms/impedance 1060, pulse width 0.3 msec/frequency 30hz, duration 8.000sec, current 800mA, pt had adequate seizure activity for about 40 ceck, tolerated well, pt c/o headache, toradol was given. ECT #5 05/21/18, Charge 115 MC/energy 20.3 J at 220ohms/impedance 1060, pulse w idth 0.3 msec/frequency 30hz, duration 8.000sec, current 800mA, pt had adequate seizure activity, had motor seizures for about 25ceck, tolerated well, no headache today. ECT #4 05/16/18, Charge 115 MC/energy 20.3 J at 220ohms/impedance 1060, pulse width 0.3 msec/frequency 30hz, duration 8.000sec, current 800mA, pt had adequate seizure activity. pt has headaches after the ECT, anestesiologist was advised to give toradol. ECT #3 05/14/18, Charge 115 MC/energy 20.3 J at 220ohms/impedance 1060, pulse width 0.3 msec/frequency 30hz, duration 8.000sec, current 800mA, pt had >44sec of seizure activity on EEG. pt tolerated procedure well, pt c/o headache, toradol was given to the pt, no other side effects, pt then was transferred to the recovery room. patient was stabilized on the following medications: QUEtiapine [SEROquel] 400 mg at the morning time and 400 mg PO HS neurontin 100 mg 3 times a day off label for anxiety lithium was discontinued Ativan d/c Collaterals were obtained from the long term 05/27/18 pt was visited by case workers, Quynh Hurley from [facility], meeting took place 05/22/18, as well as today. as per Xavi pt presented "very well". please see notes for more detailed information. Overall pt improved significantly, pt's affect became brighter, pt was less depressed, has realistic future oriented plans"I want to go back to my program", psychosis much improved, patient was less anxious, pt was socially appropriate, no behavioral issues, pts insight improved as well and soon pt deemed to be ready for discharge. At the time of the discharge pt denied been depressed, denied thoughts of harming self or others, denied psychotic symptoms, and pt does not appeared to be psychotic, denied been anxious, pt is not in imminent danger to self or others, pt was referred to [facility], information about follow up appointment, time and address provided to the pt, patient required maintenance ECT every 2-3 weeks, long term and was advised to schedule appointment at [facility], PMD as well as specialists (see SW note for more detailed information). In case pt will need to obtain results of studies pending at discharge pt was provided with contact information of Psychiatric Inpatient unit [phone] as well as Medical Record Department [phone]. patient does not using drugs, does not drink alcohol, does not smoke cigarettes pt was provided with prescriptions for all of medications (please see medication reconciliation form) Pt was educated about safety plan in case of worsening of symptoms or in case of suicidal or homicidal ideation call 911 or go to the nearest ER, also was educated to take meds as prescribed and stay away from drugs, pt verbalized understanding. - Diagnosis (1) Schizoaffective disorder, bipolar type Status: Acute - Final Diagnosis (DSM 5) Condition upon Discharge: IMPROVED Disposition: HOME/ ROUTINE Follow-up Treatment Plan: At the time of the discharge pt denied been depressed, denied thoughts of harming self or others, denied psychotic symptoms, and pt does not appeared to be psychotic, denied been anxious, pt is not in imminent danger to self or others, pt was referred to [facility], information about follow up appointment, time and address provided to the pt, patient required maintenance ECT every 2-3 weeks, long term and was advised to schedule appointment at [facility], PMD as well as specialists (see SW note for more detailed information). In case pt will need to obtain results of studies pending at discharge pt was provided with contact information of Psychiatric Inpatient unit [phone] as well as Medical Record Department [phone]. patient does not using drugs, does not drink alcohol, does not smoke cigarettes pt was provided with prescriptions for all of medications (please see medication reconciliation form) Pt was educated about safety plan in case of worsening of symptoms or in case of suicidal or homicidal ideation call 911 or go to the nearest ER, also was educated to take meds as prescribed and stay away from drugs, pt verbalized understanding. Prescriptions/Medication Reconciliation: Docusate [Colace] 100 mg PO BID #14 cap FLUoxetine [Prozac] 60 mg PO DAILY #45 cap Gabapentin [Neurontin] 100 mg PO TID #45 cap Quetiapine Fumarate [Seroquel] 400 mg PO AMHS #30 tablet - Smoking Cessation Smoking Cessation Medication prescribed: No Reason for not providing: denied smoking - Antipsychotic Medications Pt discharged on 2 or more routine antipsychotic medications: No
== END 2018-05-29 17:01 | disposition home or self-care (01) | DRG 750 ==
LOC: ED 15:01 → ERH 19:26 → PSYC 20:29
PROVIDERS: ADMIT Psychiatry & Neurology Psychiatry; ATTEND Psychiatry & Neurology Psychiatry
PROC: GZB4ZZZ Other Electroconvulsive Therapy (ICD-10-PCS; principal; 2018-05-06 12:00)
PROC: GZB4ZZZ Other Electroconvulsive Therapy (ICD-10-PCS; 2018-05-09)
PROC: GZB4ZZZ Other Electroconvulsive Therapy (ICD-10-PCS; 2018-05-14)
PROC: GZB4ZZZ Other Electroconvulsive Therapy (ICD-10-PCS; 2018-05-16)
PROC: GZB4ZZZ Other Electroconvulsive Therapy (ICD-10-PCS; 2018-05-21)
PROC: GZB4ZZZ Other Electroconvulsive Therapy (ICD-10-PCS; 2018-05-23)
PROC: GZB4ZZZ Other Electroconvulsive Therapy (ICD-10-PCS; 2018-05-27)
PROC: GZB4ZZZ Other Electroconvulsive Therapy (ICD-10-PCS; 2018-05-29)
DX: F25.0 Schizoaffective disorder, bipolar type (principal); F32.3 Major depressive disorder, single episode, severe with psychotic features; R56.9 Unspecified convulsions; R45.851 Suicidal ideations; E78.5 Hyperlipidemia, unspecified; F41.9 Anxiety disorder, unspecified; G89.29 Other chronic pain; M54.5 Low back pain; H61.20 Impacted cerumen, unspecified ear; H66.92 Otitis media, unspecified, left ear; I45.10 Unspecified right bundle-branch block; Z79.899 Other long term (current) drug therapy; Z87.891 Personal history of nicotine dependence; Z88.8 Allergy status to other drugs, medicaments and biological substances; Z91.013 Allergy to seafood; F14.11 Cocaine abuse, in remission; F12.11 Cannabis abuse, in remission

== ENCOUNTER 2018-06-11 09:44 | Day surgery (SDC) | payer MEDICAID ==
[2018-06-10 09:00] VITALS: BMI 48.4
[2018-06-11] MEDS ORDERED: Propofol 10 mg/ml Inj (20 ML) ONE (11:44)
[2018-06-11] MEDS ORDERED: Succinylcholine 200 mg/10 ml Inj IV ONE (11:44)
[2018-06-11] MEDS ORDERED: Sodium Chloride 0.9% 1,000 ML IV SCH (12:15)
[2018-06-11 13:17] VITALS: RESP 18; TEMP 98.5; O2SAT 96
[2018-06-11 13:45] VITALS: BP 133/85; PULSE 73
--- NOTE | 2018-06-11 16:54 | CP.PCM.HP ---
History of Present Illness - History of Present Illness History of Present Illness: pt has long history of schizoaffective disorder here pt is for ECT maintenance pt is relatively healthy pt was cleared by medical team pt was seen prior procedure, signed consent risk/benefits and alternatives discussed please see H&P from the last admission to psych unit, reviewed, no changes 04/25/2018 Present on Admission - Present on Admission Any Indicators Present on Admission: No Review of Systems - Review of Systems Systems not reviewed;Unavailable: Acuity of Condition - Constitutional Constitutional: As Per HPI - EENT Eyes: As Per HPI Ears: As Per HPI Nose/Mouth/Throat: As Per HPI - Cardiovascular Cardiovascular: As Per HPI - Respiratory Respiratory: As Per HPI - Gastrointestinal Gastrointestinal: As Per HPI - Genitourinary Genitourinary: As Per HPI - Reproductive: Male Reproductive:Male: As Per HPI - Musculoskeletal Musculoskeletal: As Per HPI - Integumentary Integumentary: As Per HPI - Neurological Neurological: As Per HPI - Psychiatric Psychiatric: As Per HPI - Endocrine Endocrine: As Per HPI - Hematologic/Lymphatic Hematologic: As Per HPI Past Patient History - Infectious Disease Hx of Infectious Diseases: None - Tetanus Immunizations Tetanus Immunization: Unknown - Past Medical History & Family History Past Medical History?: Yes - Past Social History Smoking Status: Former Smoker - CARDIAC Hx Cardiac Disorders: No Hx Pacemaker: No - PULMONARY Hx Respiratory Disorders: No - NEUROLOGICAL Hx Neurological Disorder: No - HEENT Hx HEENT Problems: No - RENAL Hx Chronic Kidney Disease: No - ENDOCRINE/METABOLIC Hx Endocrine Disorders: No - HEMATOLOGICAL/ONCOLOGICAL Hx Blood Transfusions: No Hx Blood Transfusion Reaction: No - INTEGUMENTARY Hx Dermatological Problems: No - MUSCULOSKELETAL/RHEUMATOLOGICAL Hx Musculoskeletal Disorders: No - GASTROINTESTINAL Hx Gastrointestinal Disorders: No - GENITOURINARY/GYNECOLOGICAL Hx Sexually Transmitted Disorders: (Patient denied) - PSYCHIATRIC Hx Emotional Abuse: No Hx Physical Abuse: No Hx Substance Use: Yes - SURGICAL HISTORY Hx Surgeries: Yes - ANESTHESIA Hx Anesthesia Reactions: No Hx Malignant Hyperthermia: No Meds Allergies/Adverse Reactions: Allergies Allergy/AdvReac Type Severity Reaction Status Date / Time divalproex sodium Allergy RASH Verified 04/25/18 22:09 [From Depakote] FISH Allergy RASH Verified 04/25/18 22:09 haloperidol [From Haldol] Allergy RASH Verified 04/25/18 22:09 haloperidol lactate Allergy RASH Verified 04/25/18 22:09 [From Haldol] risperidone [From Risperdal] Allergy RASH Verified 04/25/18 22:09 ziprasidone HCl [From Geodon] Allergy RASH Verified 04/25/18 22:09 ziprasidone mesylate Allergy RASH Verified 04/25/18 22:09 [From Geodon] Physical Exam - Constitutional Appears: Well Results - Vital Signs Recent Vital Signs: Last Vital Signs Temp 99.2 F 06/11/18 10:00 Pulse 89 06/11/18 10:00 Resp 18 06/11/18 10:00 BP 135/84 06/11/18 10:00 Pulse Ox 95 06/11/18 10:00 - EKG Data EKG Interpreted by: Myself Rate: Normal - EKG Data When Compared to Previous EKG: No Significant Change Assessment & Plan - Assessment and Plan (Free Text) Assessment: h/o treatment resistant 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
--- NOTE | 2018-06-11 17:03 | PCM.ECT ---
Electroconvulsive Therapy Note - Procedure: ECT Court Ordered: No Current treatment number: 9 (bilateral) - Assessment/Plan Assessment: succinylcholine and propofol, anesthesiologist was advised to give toradol after procedure for Headaches. ECT risk/benefits and alternatives discussed with pt discussed with pt's caser up Brooke Costa, as per caser up pt was doing well, but for the past two days pt was more irritable, refused to take meds for a few times. no agitation, no aggression. pt reported that he feels fine denied any side effects from meds denied SI/HI denied psychosis appetite and sleep are fine pt tolerated procedure well went back home accompanied by caser up Medication Plan: succinylcholine - Treatment Parameters Setting: Bilateral Charge amp (in %): 115 Pulse width (in msec): 3 (0.3) Frequency (in Hz): 30 Peripheral seizure duration (in sec): 20
== END 2018-06-11 14:10 | disposition home or self-care (01) ==
LOC: SDS 09:44
PROVIDERS: ATTEND Psychiatry & Neurology Psychiatry
DX: F25.9 Schizoaffective disorder, unspecified (principal); Z87.891 Personal history of nicotine dependence; Z88.8 Allergy status to other drugs, medicaments and biological substances; Z91.013 Allergy to seafood

== ENCOUNTER 2018-06-19 16:41 | Inpatient (IN) | payer MEDICAID ==
[2018-06-19 16:46] VITALS: BMI 29.7
--- NOTE | 2018-06-19 18:08 | RAD ---
Date of service: 06/19/2018 HISTORY: PES eval COMPARISON: 04/25/2018 FINDINGS: LUNGS: No active pulmonary disease. PLEURA: No significant pleural effusion identified, no pneumothorax apparent. CARDIOVASCULAR: No atherosclerotic calcification present Cardiomegaly. No evidence of acute, significant cardiovascular disease. OSSEOUS STRUCTURES: No significant abnormalities. VISUALIZED UPPER ABDOMEN: Normal. OTHER FINDINGS: None. IMPRESSION: No active disease. No significant interval change compared to the prior examination(s).
[2018-06-19 18:15] LABS: BASO # 0.02 K/mm3 (0.0-2.0); BASO % 0.3 % (0.0-3.0); EOS # 0.1 (0.0-0.7); EOS % 1.7 % (1.5-5.0); GRAN # 2.87 (1.4-6.5); GRAN % 48.4 % (50.0-68.0); HEMOGLOBIN 14.9 g/dL (14.0-18.0); LYMPH # 2.6 (1.2-3.4); LYMPH % 43.4 % (22.0-35.0); MEAN CELL VOLUME 90.1 fl (80.0-105.0); MEAN CORPUSCULAR HEMOGLOBIN 30.2 pg (25.0-35.0); MEAN CORPUSCULAR HGB CONC 33.5 g/dl (31.0-37.0); MEAN PLATELET VOLUME 8.6 fl (7.0-11.0); MONO # 0.4 (0.1-0.6); MONO % 6.2 % (1.0-6.0); RBC 4.94 10^6/uL (3.5-6.1); RED CELL DISTRIBUTION WIDTH 13.4 % (11.5-14.5); WHITE BLOOD COUNT 5.9 10^3/uL (4.5-11.0)
[2018-06-19 18:16] LABS: PH,URINE 6.5 (4.7-8.0); URINE BILIRUBIN NEGATIVE (NEGATIVE); URINE BLOOD NEGATIVE (NEGATIVE); URINE GLUCOSE (UA) NEGATIVE (NEGATIVE); URINE LEUKOCYTE ESTERASE NEGATIVE Leu/uL (NEGATIVE); URINE PROTEIN NEGATIVE mg/dL (<30 mg/dL); URINE UROBILINOGEN 0.2 E.U./dL (<1 E.U./dL)
[2018-06-19 18:17] LABS: URINE APPEARANCE CLEAR (CLEAR); URINE COLOR YELLOW (YELLOW)
[2018-06-19 18:27] LABS: ALB/GLOB RATIO 1.1 (1.1-1.8); ALBUMIN 4.3 g/dL (3.0-4.8); ALT/SGPT 28 U/L (7-56); AST/SGOT 35 U/L (17-59); BLOOD UREA NITROGEN 12 mg/dL (7-21); CALCIUM 9.4 mg/dL (8.4-10.5); GFR NON-AFRICAN AMERICAN > 60
[2018-06-19 18:29] LABS: ACETAMINOPHEN < 10.0 ug/ml (10.0-20.0); SALICYLATE < 1 mg/dL (2.0-20.0)
--- NOTE | 2018-06-19 18:33 | CARD ---
APPROVED REPORT Date of service: 06/19/2018 EKG Measurement Heart [id number] <Conclusion> Normal sinus rhythm Incomplete right bundle branch block Borderline ECG
[2018-06-19 18:37] LABS: BARBITURATES, UR NEGATIVE (NEGATIVE); BENZODIAZEPINES, UR NEGATIVE (NEGATIVE); OPIATES, UR NEGATIVE (NEGATIVE); PHENCYCLIDINE, UR NEGATIVE (NEGATIVE)
--- NOTE | 2018-06-19 18:53 | ED PDOC ---
Arrival/HPI - General Historian: Patient, Other (jail) - History of Present Illness Narrative History of Present Illness (Text): 06/19/18 18:50 43yr old male with hx of schizophrenia presents today sent in from jail for aggressive behavior. pt does not want to give any information in the ER. pt states that " some invisible lady called the police". pt denies any complaints. When asked questions he states " dont you have something better to do" and ignores the question. <Berkley Walker - Last Filed: 06/19/18 19:05> <Samir Rico - Last Filed: 06/19/18 19:41> - General Chief Complaint: Psychiatric Evaluation Time Seen by Provider: 06/19/18 16:42 Past Medical History - Provider Review Nursing Documentation Reviewed: Yes - Travel History Have you recently traveled outside [place] w/in the past 3 mons?: No - Infectious Disease Hx of Infectious Diseases: None - Tetanus Immunization Tetanus Immunization: Unknown - Cardiac Hx Cardiac Disorders: No Hx Pacemaker: No - Pulmonary Hx Respiratory Disorders: No - Neurological Hx Neurological Disorder: No - HEENT Hx HEENT Disorder: No - Renal Hx Renal Disorder: No - Endocrine/Metabolic Hx Endocrine Disorders: No - Hematological/Oncological Hx Blood Transfusions: No Hx Blood Transfusion Reaction: No - Integumentary Hx Dermatological Disorder: No - Musculoskeletal/Rheumatological Hx Musculoskeletal Disorders: No - Gastrointestinal Hx Gastrointestinal Disorders: No - Genitourinary/Gynecological Hx Sexually Transmitted Diseases: (Patient denied) - Psychiatric Hx Emotional Abuse: No Hx Physical Abuse: No Hx Substance Use: Yes - Past Surgical History Past Surgical History: Unable to Obtain - Surgical History Hx Coronary Stent: No - Anesthesia Hx Anesthesia Reactions: No Hx Malignant Hyperthermia: No - Suicidal Assessment Feels Threatened In Home Enviroment: No <Berkley Walker - Last Filed: 06/19/18 19:05> Family/Social History - Physician Review Nursing Documentation Reviewed: Yes Family/Social History: Unknown Family HX Smoking Status: Former Smoker Hx Alcohol Use: Yes Hx Substance Use: Yes Hx Substance Use Treatment: Yes <Berkley Walker - Last Filed: 06/19/18 19:05> Allergies/Home Meds <Berkley Walker - Last Filed: 06/19/18 19:05> <Samir Rico - Last Filed: 06/19/18 19:41> Allergies/Adverse Reactions: Allergies divalproex sodium [From Depakote] Allergy (Verified 06/19/18 17:22) RASH FISH Allergy (Verified 06/19/18 17:22) RASH haloperidol [From Haldol] Allergy (Verified 06/19/18 17:22) RASH haloperidol lactate [From Haldol] Allergy (Verified 06/19/18 17:22) RASH risperidone [From Risperdal] Allergy (Verified 06/19/18 17:22) RASH ziprasidone HCl [From Geodon] Allergy (Verified 06/19/18 17:22) RASH ziprasidone mesylate [From Geodon] Allergy (Verified 06/19/18 17:22) RASH Home Medications: Home Meds Medication Instructions Recorded Confirmed Omeprazole 20 mg PO DAILY 06/11/18 06/19/18 Cyclobenzaprine [Flexeril] 10 mg PO Q8 06/19/18 06/19/18 Review of Systems - Review of Systems Systems not reviewed;Unavailable: Uncooperative Respiratory: absent: SOB Cardiovascular: absent: Chest Pain Gastrointestinal: absent: Abdominal Pain Genitourinary Male: absent: Dysuria Musculoskeletal: absent: Arthralgias Skin: absent: Rash Psychiatric: Depression, Suicidal Ideation. absent: Anxiety <Berkley Walker - Last Filed: 06/19/18 19:05> Physical Exam Vital Signs Reviewed: Yes Vital Signs Temp Pulse Resp BP Pulse Ox 06/19/18 16:56 98.2 F 95 H 16 131/77 96 Temperature: Afebrile Blood Pressure: Normal Pulse: Regular Respiratory Rate: Normal Appearance: Positive for: Well-Appearing, Non-Toxic, Comfortable Pain Distress: None Mental Status: Positive for: Alert and Oriented X 3 - Systems Exam Head: Present: Atraumatic Mouth: Present: Moist Mucous Membranes Respiratory/Chest: Present: Clear to Auscultation, Good Air Exchange. No: Respiratory Distress, Accessory Muscle Use Cardiovascular: Present: Regular Rate and Rhythm, Normal S1, S2. No: Murmurs Abdomen: No: Tenderness, Distention, Peritoneal Signs, Rebound, Guarding Back: Present: Normal Inspection Upper Extremity: Present: Normal ROM Lower Extremity: Present: Normal ROM Neurological: Present: Speech Normal Skin: Present: Warm, Dry, Normal Color. No: Rashes Psychiatric: Present: Alert, Agitated, Depressed Mood, Suicidal Ideation <Berkley Walker Dann - Last Filed: 06/19/18 19:05> Vital Signs Temp Pulse Resp BP Pulse Ox 06/19/18 16:56 98.2 F 95 H 16 131/77 96 <Samir Rico - Last Filed: 06/19/18 19:41> Medical Decision Making ED Course and Treatment: 06/19/18 18:55 Patient is nontoxic well-appearing in no distress vital signs are stable. CBC WNL CMP WNL Tylenol WNL Salicylate WNL Alcohol level WNL Urine drug screen wnl UA; wnl cxr: wnl ekg NSR at 96b/m no st elevations, incomplete RBBB. pt is medically cleared for PES evaluation 06/19/18 19:05 case signed out to dr. rico pending PES evaluation and disposition. - Lab Interpretations Lab Results: 06/19/18 17:50 06/19/18 17:50 Lab Results 06/19/18 18:00: Urine Opiates Screen Negative, Urine Methadone Screen Negative, Ur Barbiturates Screen Negative, Ur Phencyclidine Scrn Negative, Ur Amphetamines Screen Negative, U Benzodiazepines Scrn Negative, U Oth Cocaine Metabols Neg ative, U Cannabinoids Screen Negative 06/19/18 18:00: Urine Color Yellow, Urine Appearance Clear, Urine pH 6.5, Ur Specific [place] 1.025, Urine Protein Negative, Urine Glucose (UA) Negative, Urine Ketones Negative, Urine Blood Negative, Urine Nitrate Negative, Urine Bilirubin Negative, Urine Urobilinogen 0.2, Ur Leukocyte Esterase Negative 06/19/18 17:50: Alcohol, Quantitative < 10 06/19/18 17:50: Salicylates < 1 L, Acetaminophen < 10.0 L 06/19/18 17:50: Sodium 141, Potassium 4.1, Chloride 106, Carbon Dioxide 26, Anion Gap 13, BUN 12, Creatinine 0.7 L, Est GFR ( Amer) > 60, Est GFR (Non-Af Amer) > 60, Random Glucose 110, Calcium 9.4, Total Bilirubin 0.4, AST 35, ALT 28, Alkaline Phosphatase 73, Total Protein 8.0, Albumin 4.3, Globulin 3.8, Albumin/Globulin Ratio 1.1 06/19/18 17:50: WBC 5.9, RBC 4.94, Hgb 14.9, Hct 44.5, MCV 90.1, MCH 30.2, MCHC 33.5, RDW 13.4, Plt Count 352, MPV 8.6, Gran % 48.4 L, Lymph % (Auto) 43.4 H, [place] % (Auto) 6.2 H, Eos % (Auto) 1.7, Baso % (Auto) 0.3, Gran # 2.87, Lymph # (Auto) 2.6, [place] # (Auto) 0.4, Eos # (Auto) 0.1, Baso # (Auto) 0.02 - RAD Interpretation Radiology Orders: 06/19/18 17:12 CHEST PORTABLE [RAD] Stat <Berkley Walker - Last Filed: 06/19/18 19:05> ED Course and Treatment: 06/19/18 19:40 Patient has been seen by PES. Patient to be admitted to psychiatry under Dr. Hernandez. - Lab Interpretations Lab Results: 06/19/18 17:50 06/19/18 17:50 Lab Results 06/19/18 18:00: Urine Opiates Screen Negative, Urine Methadone Screen Negative, Ur Barbiturates Screen Negative, Ur Phencyclidine Scrn Negative, Ur Amphetamines Screen Negative, U Benzodiazepines Scrn Negative, U Oth Cocaine Metabols Negative, U Cannabinoids Screen Negative 06/19/18 18:00: Urine Color Yellow, Urine Appearance Clear, Urine pH 6.5, Ur Specific [place] 1.025, Urine Protein Negative, Urine Glucose (UA) Negative, Urine Ketones Negative, Urine Blood Negative, Urine Nitrate Negative, Urine Bilirubin Negative, Urine Urobilinogen 0.2, Ur Leukocyte Esterase Negative 06/19/18 17:50: [place] < 0.2 L 06/19/18 17:50: Alcohol, Quantitative < 10 06/19/18 17:50: Salicylates < 1 L, Acetaminophen < 10.0 L 06/19/18 17:50: Sodium 141, Potassium 4.1, Chloride 106, Carbon Dioxide 26, Anion Gap 13, BUN 12, Creatinine 0.7 L, Est GFR ( Amer) > 60, Est GFR (Non-Af Amer) > 60, Random Glucose 110, Calcium 9.4, Total Bilirubin 0.4, AST 35, ALT 28, Alkaline Phosphatase 73, Total Protein 8.0, Albumin 4.3, Globulin 3.8, Albumin/Globulin Ratio 1.1 06/19/18 17:50: WBC 5.9, RBC 4.94, Hgb 14.9, Hct 44.5, MCV 90.1, MCH 30.2, MCHC 33.5, RDW 13.4, Plt Count 352, MPV 8.6, Gran % 48.4 L, Lymph % (Auto) 43.4 H, M [place] % (Auto) 6.2 H, Eos % (Auto) 1.7, Baso % (Auto) 0.3, Gran # 2.87, Lymph # (Auto) 2.6, [place] # (Auto) 0.4, Eos # (Auto) 0.1, Baso # (Auto) 0.02 - RAD Interpretation Radiology Orders: 06/19/18 17:12 CHEST PORTABLE [RAD] Stat <Samir Rico - Last Filed: 06/19/18 19:41> - PA / NOISE TESTER / Resident Statement DENTON has reviewed & agrees with the documentation as recorded. DENTON has examined the patient and agrees with the treatment plan. <Samir Rico - Last Filed: 06/19/18 19:41> Disposition/Present on Arrival - Present on Arrival Any Indicators Present on Arrival: No History of DVT/PE: No History of Uncontrolled Diabetes: No Urinary Catheter: No History of Decub. Ulcer: No History Surgical Site Infection Following: None - Disposition Have Diagnosis and Disposition been Completed?: Yes Disposition Time: 18:57 <Berkley Walker - Last Filed: 06/19/18 19:05> - Present on Arrival Any Indicators Present on Arrival: No History of DVT/PE: No History of Uncontrolled Diabetes: No Urinary Catheter: No History of Decub. Ulcer: No History Surgical Site Infection Following: None - Disposition Have Diagnosis and Disposition been Completed?: Yes Disposition Time: 19:39 Patient Plan: Admission <Samir Rico - Last Filed: 06/19/18 19:41> - Disposition Diagnosis: Schizoaffective disorder, bipolar type Disposition: HOSPITALIZED Patient Problems: Current Active Problems Problem Status Onset Schizoaffective disorder, bipolar type Acute Schizophrenia Chronic Condition: STABLE Forms: [employer] (Faroese)
[2018-06-19] MEDS ORDERED: Magnesium Hydroxide Susp 30 ml UD PO PRN (22:04)
[2018-06-19] MEDS ORDERED: Alum-Mag Hydrox-Simethicone Susp (30 mL) PO PRN (22:04)
--- NOTE | 2018-06-20 06:52 | PCM.BM ---
<Ritchie Concepcion O - Last Filed: 06/20/18 06:49> Treatment Plan Problems - Problems identified on initial assessmt Agitated/aggressive behavior Date Initiated: 06/19/18 Time Initiated: 22:45 Assessment reference: NA Status: Active Priority: 1 Violence Date Initiated: 06/19/18 Time Initiated: 22:45 Assessment reference: NA Status: Active Impulse control Date Initiated: 06/19/18 Time Initiated: 22:45 Assessment reference: NA Status: Active Medication nonadherence Date Initiated: 06/19/18 Time Initiated: 22:50 Assessment reference: NA Status: Active Treatment assets and liabiliti Patient Assests: adapts well, self-reliant, ADL independent, physically healthy, negotiates basic needs, cognitively intact Patient Liabilities: poor support system - Milieu Protocol Maintain good personal hygiene: daily Encourage regular showers, daily Remind patient to perform daily oral care Conduct patient checks and document Observation sheet: Q15 minutes Maintain personal safety: daily Educate patient to report safety concerns to staff, every shift Monitor environment for contraband/sharps Medication safety: Monitor for expected outcome, potential side effects: daily, Assess barriers to learning: daily, Assess readiness for medication education: daily Family Contact Family involvement: Patient does not wish Family/SO involvement - Goals for Treatment Patient goals for treatment: I dont want to talk at this moment Discharge/Continuing Care - Education Needs Education Needs: Patient Medication, Patient Anger Management skills, Patient Activities of Daily Living - Discharge Discharge Criteria: Normal sleep pattern <Madeline Hernandez A - Last Filed: 06/20/18 13:42> - Diagnosis (1) Schizoaffective disorder, bipolar type Status: Acute Interventions: 06/20/18 13:42 Psychoeducation/psychotherapy Psychopharmacology/adjustment of medications as needed/ monitoring possible side effects Evaluate pt on daily basis Compliance with medications and follow up appointments Long acting medication if pt is noncompliant with pill form Suicide and homicide risk assessment and prevention, coping strategies, safety plan Relapse prevention Reduction of symptoms Improve functional status Possible assertive community treatment Cognitive behavioral therapy Family involvement Possible social skill training as outpatient ECT <Nika Louis Y - Last Filed: 06/21/18 16:09> Family Contact - Outside Agency [facility] involvment: Following patient during stay, Information-sharing Agency contact name: [facility]
--- NOTE | 2018-06-20 07:11 | CP.PCM.CON ---
<Maryjo Vidal - Last Filed: 06/20/18 16:33> History of Present Illness - History of Present Illness History of Present Illness: Resident Consult Note for Hospitalist Service Patient is a 43 year old male with past medical history of hypertension, hyperlipidemia, asthma, polysubstance abuse admitted to the behavioral health unit for management of schizoaffective disorder. Hospitalist service was consulted for medical evaluation. Patient states he feels fine and denies any symptoms. He denies fevers, chills, headache, dizziness, chest pain, shortness of breath, abdominal pain, diarrhea, constipation, dysuria. Patient states he has been previously diagnosed with hypertension and asthma in the past but has not taken medications for them for over 5 years. PMH: hypertension, hyperlipidemia, COPD, asthma PSH: ECT SHx: denies alcohol and tobacco product use. Admits to history of cocaine, marijuana use. FHx: none Allergies: fish, depakote, risperdal, haldol 12 point ROS was negative except as stated in HPI Review of Systems - Review of Systems All systems: reviewed and no additional remarkable complaints except (as stated in HPI) Past Patient History - Infectious Disease Hx of Infectious Diseases: None - Tetanus Immunizations Tetanus Immunization: Unknown - Past Medical History & Family History Past Medical History?: Yes - Past Social History Smoking Status: Former Smoker - CARDIAC Hx Cardiac Disorders: No Hx Hypertension: No - PULMONARY Hx Tuberculosis: No - NEUROLOGICAL HX Cerebrovascular Accident: No Hx Seizures: No - HEENT Hx HEENT Problems: No - RENAL Hx Chronic Kidney Disease: No - ENDOCRINE/METABOLIC Hx Endocrine Disorders: No - HEMATOLOGICAL/ONCOLOGICAL Hx Cancer: No Hx Human Immunodeficiency Virus (HIV): No - INTEGUMENTARY Hx Dermatological Problems: No - MUSCULOSKELETAL/RHEUMATOLOGICAL Hx Musculoskeletal Disorders: No - GASTROINTESTINAL Hx Gastrointestinal Disorders: No - GENITOURINARY/GYNECOLOGICAL Hx Sexually Transmitted Disorders: No (Patient denied) - PSYCHIATRIC Hx Depression: Yes Hx Substance Use: No - SURGICAL HISTORY Hx Coronary Stent: No - ANESTHESIA Hx Anesthesia Reactions: No Hx Malignant Hyperthermia: No Meds Allergies/Adverse Reactions: Allergies Allergy/AdvReac Type Severity Reaction Status Date / Time divalproex sodium Allergy RASH Verified 06/21/18 04:44 [From Depakote] FISH Allergy RASH Verified 06/21/18 04:44 haloperidol [From Haldol] Allergy RASH Verified 06/21/18 04:44 haloperidol lactate Allergy RASH Verified 06/21/18 04:44 [From Haldol] risperidone [From Risperdal] Allergy RASH Verified 06/21/18 04:44 ziprasidone HCl [From Geodon] Allergy RASH Verified 06/21/18 04:44 ziprasidone mesylate Allergy RASH Verified 06/21/18 04:44 [From Geodon] - Medications Medications: Current Medications Acetaminophen (Tylenol 325mg Tab) 325 mg PO Q6H PRN PRN Reason: Pain, Mild (1-3) Al Hydrox/Mg Hydrox/Simethicone (Maalox Plus 30 Ml) 30 ml PO DAILY PRN PRN Reason: Dyspepsia Docusate Sodium (Colace) 100 mg PO BID PETROS Fluoxetine HCl (Prozac) 60 mg PO DAILY PETROS Gabapentin (Neurontin) 100 mg PO TID PETROS; Protocol Magnesium Hydroxide (Milk Of Magnesia) 30 ml PO DAILY PRN PRN Reason: Constipation Quetiapine Fumarate (Seroquel) 400 mg PO AMHS PETROS; Protocol Physical Exam - Constitutional Appears: Non-toxic, No Acute Distress - Head Exam Head Exam: ATRAUMATIC, NORMOCEPHALIC - Eye Exam Eye Exam: EOMI, Normal appearance, PERRL - ENT Exam ENT Exam: Mucous Membranes Moist, Normal Exam - Neck Exam Neck exam: Positive for: Normal Inspection. Negative for: Lymphadenopathy, Tenderness, Thyromegaly - Respiratory Exam Respiratory Exam: Clear to Auscultation Bilateral, NORMAL BREATHING PATTERN. absent: Accessory Muscle Use, Chest Wall Tenderness, Decreased Breath Sounds, Rales, Rhonchi, Wheezes, Respiratory Distress, Stridor - Cardiovascular Exam Cardiovascular Exam: RRR, +S1, +S2. absent: Systolic Murmur - GI/Abdominal Exam GI & Abdominal Exam: Normal Bowel Sounds, Soft. absent: Distended, Firm, Guar ding, Rebound, Rigid, Tenderness - Extremities Exam Extremities exam: Positive for: normal capillary refill, normal inspection, pedal pulses present. Negative for: calf tenderness, pedal edema - Back Exam Back exam: NORMAL INSPECTION - Neurological Exam Neurological exam: Alert, CN II-XII Intact, Oriented x3 - Psychiatric Exam Psychiatric exam: Flat Affect - Skin Skin Exam: Dry, Intact, Normal Color Results - Vital Signs Recent Vital Signs: Last Vital Signs Temp 98.2 F 06/19/18 16:56 Pulse 90 06/19/18 21:00 Resp 18 06/19/18 21:00 BP 124/68 06/19/18 21:00 Pulse Ox 100 06/19/18 21:00 - Labs Result Diagrams: 06/19/18 17:50 06/19/18 17:50 Labs: Laboratory Results - last 24 hr 06/19/18 06/19/18 06/19/18 17:50 17:50 17:50 WBC 5.9 RBC 4.94 Hgb 14.9 Hct 44.5 MCV 90.1 MCH 30.2 MCHC 33.5 RDW 13.4 Plt Count 352 MPV 8.6 Gran % 48.4 L Lymph % (Auto) 43.4 H [place] % (Auto) 6.2 H Eos % (Auto) 1.7 Baso % (Auto) 0.3 Gran # 2.87 Lymph # (Auto) 2.6 [place] # (Auto) 0.4 Eos # (Auto) 0.1 Baso # (Auto) 0.02 Sodium 141 Potassium 4.1 Chloride 106 Carbon Dioxide 26 Anion Gap 13 BUN 12 Creatinine 0.7 L Est GFR ( Amer) > 60 Est GFR (Non-Af Amer) > 60 Random Glucose 110 Calcium 9.4 Total Bilirubin 0.4 AST 35 ALT 28 Alkaline Phosphatase 73 Total Protein 8.0 Albumin 4.3 Globulin 3.8 Albumin/Globulin Ratio 1.1 Urine Color Urine Appearance Urine pH Ur Specific [place] Urine Protein Urine Glucose (UA) Urine Ketones Urine Blood Urine Nitrate Urine Bilirubin Urine Urobilinogen Ur Leukocyte Esterase Salicylates < 1 L Urine Opiates Screen Urine Methadone Screen Acetaminophen < 10.0 L Ur Barbiturates Screen Ur Phencyclidine Scrn Ur Amphetamines Screen U Benzodiazepines Scrn [place] U Oth Cocaine Metabols U Cannabinoids Screen Alcohol, Quantitative 06/19/18 06/19/18 06/19/18 17:50 17:50 18:00 WBC RBC Hgb Hct MCV MCH MCHC RDW Plt Count MPV Gran % Lymph % (Auto) [place] % (Auto) Eos % (Auto) Baso % (Auto) Gran # Lymph # (Auto) [place] # (Auto) Eos # (Auto) Baso # (Auto) Sodium Potassium Chloride Carbon Dioxide Anion Gap BUN Creatinine Est GFR ( Amer) Est GFR (Non-Af Amer) Random Glucose Calcium Total Bilirubin AST ALT Alkaline Phosphatase Total Protein Albumin Globulin Albumin/Globulin Ratio Urine Color Yellow Urine Appearance Clear Urine pH 6.5 Ur Specific [place] 1.025 Urine Protein Negative Urine Glucose (UA) Negative Urine Ketones Negative Urine Blood Negative Urine Nitrate Negative Urine Bilirubin Negative Urine Urobilinogen 0.2 Ur Leukocyte Esterase Negative Salicylates Urine Opiates Screen Urine Methadone Screen Acetaminophen Ur Barbiturates Screen Ur Phencyclidine Scrn Ur Amphetamines Screen U Benzodiazepines Scrn [place] < 0.2 L U Oth Cocaine Metabols U Cannabinoids Screen Alcohol, Quantitative < 10 06/19/18 18:00 WBC RBC Hgb Hct MCV MCH MCHC RDW Plt Count MPV Gran % Lymph % (Auto) [place] % (Auto) Eos % (Auto) Baso % (Auto) Gran # Lymph # (Auto) [place] # (Auto) Eos # (Auto) Baso # (Auto) Sodium Potassium Chloride Carbon Dioxide Anion Gap BUN Creatinine Est GFR ( Amer) Est GFR (Non-Af Amer) Random Glucose Calcium Total Bilirubin AST ALT Alkaline Phosphatase Total Protein Albumin Globulin Albumin/Globulin Ratio Urine Color Urine Appearance Urine pH Ur Specific [place] Urine Protein Urine Glucose (UA) Urine Ketones Urine Blood Urine Nitrate Urine Bilirubin Urine Urobilinogen Ur Leukocyte Esterase Salicylates Urine Opiates Screen Negative Urine Methadone Screen Negative Acetaminophen Ur Barbiturates Screen Negative Ur Phencyclidine Scrn Negative Ur Amphetamines Screen Negative U Benzodiazepines Scrn Negative [place] U Oth Cocaine Metabols Negative U Cannabinoids Screen Negative Alcohol, Quantitative Assessment & Plan - Assessment and Plan (Free Text) Assessment: Patient is a 43 year old male with past medical history of hypertension, hyperlipidemia, asthma, polysubstance abuse admitted to the behavioral health unit for management of schizoaffective disorder. Hospitalist service was consulted for medical evaluation. Plan: Hypertension - patient has been normotensive without home medications - continue to monitor Hyperlipidemia - triglycerides, cholesterol, LDL elevated - HDL within normal limits - no statin recommended at this time as per ASCVD recs - encourage heart healthy lifestyle modifications Asthma - mild intermittent - patient denies shortness of breath or nighttime awakenings - albuterol PRN Schizoaffective disorder - continue management per psychiatry team Medicine will sign off at this time. Thank you for this opportunity. Please reconsult as necessary. Case discussed with attending Dr. Vijay Vidal PGY-1 - Date & Time Date: 06/20/18 Time: 07:30 <VijayJhonatanarash - Last Filed: 06/22/18 13:10> Meds - Medications Medications: Current Medications Acetaminophen (Tylenol 325mg Tab) 325 mg PO Q6H PRN PRN Reason: Pain, Mild (1-3) Al Hydrox/Mg Hydrox/Simethicone (Maalox Plus 30 Ml) 30 ml PO DAILY PRN PRN Reason: Dyspepsia Chlorpromazine (Thorazine) 50 mg IM Q6H PRN; Protocol PRN Reason: Agitation Last Admin: 06/21/18 08:46 Dose: 50 mg Chlorpromazine (Thorazine) 50 mg PO Q6H PRN; Protocol PRN Reason: Agitation Chlorpromazine (Thorazine) 50 mg PO BID [facility]; Protocol Last Admin: 06/22/18 09:39 Dose: 50 mg Chlorpromazine (Thorazine) 50 mg PO HS [facility]; Protocol Last Admin: 06/21/18 22:47 Dose: 50 mg Diphenhydramine HCl (Benadryl) 50 mg PO HS [facility] Last Admin: 06/21/18 22:44 Dose: 50 mg Docusate Sodium (Colace) 100 mg PO BID [facility] Last Admin: 06/22/18 09:37 Dose: 100 mg Fentanyl (Fentanyl) 25 mcg IV Q5M PRN PRN Reason: Pain, moderate (4-7) Fluoxetine HCl (Prozac) 40 mg PO DAILY [facility] Last Admin: 06/22/18 09:38 Dose: 40 mg Gabapentin (Neurontin) 300 mg PO TID [facility]; Protocol Last Admin: 06/22/18 12:54 Dose: 300 mg Magnesium Hydroxide (Milk Of Magnesia) 30 ml PO DAILY PRN PRN Reason: Constipation Metoclopramide HCl (Reglan) 10 mg IV ONCE PRN PRN Reason: Nausea/Vomiting Ondansetron HCl (Zofran Inj) 4 mg IVP ONCE PRN PRN Reason: Nausea/Vomiting Quetiapine Fumarate (Seroquel) 400 mg PO AMHS [facility]; Protocol Last Admin: 06/22/18 09:38 Dose: 400 mg Trazodone HCl (Desyrel) 50 mg PO HS [facility] Last Admin: 06/21/18 22:44 Dose: 50 mg Results - Vital Signs Recent Vital Signs: Last Vital Signs Temp 98 F 06/21/18 13:57 Pulse 97 H 06/21/18 16:45 Resp 13 06/21/18 13:57 BP 109/68 06/21/18 16:45 Pulse Ox 98 06/21/18 13:57 - Labs Result Diagrams: 06/19/18 17:50 06/19/18 17:50 Attending/Attestation - Attestation I have personally seen and examined this patient.: Yes I have fully participated in the care of the patient.: Yes I have reviewed all pertinent clinical information: Yes Notes (Text): 06/22/18 13:10 Medical record note made by the resident after discussion with my direction and input after the patient was personally seen and examined by me. I have reviewed the chart and agree that the record accurately reflects by personal performance of the history, physical exam, data review, and medical decision-making, in the course for the patient. I have also personally directed the plan of care. There is no active medical issue at this time.We will sign off. Please call us back if any question.
[2018-06-20] MEDS ORDERED: FLUoxetine Elix 20 MG/5 ML PO SCH (08:00)
[2018-06-20 08:21] LABS: HDL CHOLESTEROL 39 mg/dL (29-60)
[2018-06-20 08:33] LABS: LDL CHOLESTEROL 153 mg/dL (0-129)
--- NOTE | 2018-06-20 13:42 | PCM.PSYCH ---
Initial Psychiatric Evaluation - Initial Psychiatric Evaluation Type of Admission: Voluntary Legal Status: Capacity (ppatient has capacity to sign consent for treatment) Chief Complaint (in patient's own words): "I don't know" Patient's Reaction to Hospitalization: pt was admitted for evaluation of agitation/aggression/disorganized thoughts and behavior History of Present Illness and Precipitating Events: Shortly patient is 43-year-old male with reported history of schizoaffective disorder with treatment resistant symptoms, multiple previous psychiatric admissions including [facility] as well as [facility], pt was discharged from this facility 05/29/18, pt was compliant with the medication, pt got course of ECT treatment last admission, had one ECT as outpatient on 06/11/18, pt was scheduled for ECT on 06/25/18, but pt became agitated yesterday at the [facility], presented to be psychotic, required emergent admission for meds adjustment ECT treatment. pt was seen in his room with medical student, acceptable personal hygiene, but poor ADLs. pt presented to be irritable, annoyed, answered only "I don't know". pt said that he is hearing voices, when was asked what they are saying pt said "I don't know, leave me alone", this hand sign writer offered to continue ECT treatment, pt agreed. refused to cooperate with questions, but gave verbal consent for collaterals from the [facility]dc. Quynh Hurley at [facility] was contacted, as per collaterals, pt was doing well after discharge, was attending his day treatment program, pt also was compliant with medications, no signs of agitation or aggression. After outpatient ECT pt was doing fine for about two days, then started to refuse to do his chores, was not interested to to participate in his regular activities. On 06/19/18 RN asked pt how he is doing and all of a sudden pt started to curse at her asked to leave him alone, used profanity, threatened, then when staff tried to help pt, pt threw a cup to the glass door, pt presented to be psychotic, was responding to internal stimuli. As per staff pt was not agitated or aggressive, but annoyed and irritable. pt took his meds, but refused to eat, this hand sign writer discussed with staff to monitor patient closely. pt was seen by medical team already, input appreciated. past psych h/o: >5psychiatric hospitalizations; no h/o suicidal attempts PMHx: Back and leg pain Alergies: Fish, Depakote; (unclear if true allergy vs dystonia)-Risperdal, Haldol FHx: Denies family h/o mental illness SHx: Denies drug/etoh/cig; resident of fdc h/o abuse is unknown 06/19/18 17:50 06/19/18 17:50 Lab Results 06/20/18 08:00: Hemoglobin A1c 5.8 06/20/18 08:00: Triglycerides 164 H, Cholesterol 237 H, LDL Cholesterol Direct 153 H, HDL Cholesterol 39 06/19/18 18:00: Urine Opiates Screen Negative, Urine Methadone Screen Negative, Ur Barbiturates Screen Negative, Ur Phencyclidine Scrn Negative, Ur Amphetamines Screen Negative, U Benzodiazepines Scrn Negative, U Oth Cocaine Metabols Negative, U Cannabinoids Screen Negative 06/19/18 18:00: Urine Color Yellow, Urine Appearance Clear, Urine pH 6.5, Ur Specific [place] 1.025, Urine Protein Negative, Urine Glucose (UA) Negative, Urine Ketones Negative, Urine Blood Negative, Urine Nitrate Negative, Urine Bilirubin Negative, Urine Urobilinogen 0.2, Ur Leukocyte Esterase Negative 06/19/18 17:50: [place] < 0.2 L 06/19/18 17:50: Alcohol, Quantitative < 10 06/19/18 17:50: Salicylates < 1 L, Acetaminophen < 10.0 L 06/19/18 17:50: Sodium 141, Potassium 4.1, Chloride 106, Carbon Dioxide 26, Anion Gap 13, BUN 12, Creatinine 0.7 L, Est GFR ( Amer) > 60, Est GFR (Non-Af Amer) > 60, Random Glucose 110, Calcium 9.4, Total Bilirubin 0.4, AST 35, ALT 28, Alkaline Phosphatase 73, Total Protein 8.0, Albumin 4.3, Globulin 3.8, Albumin/Globulin Ratio 1.1 06/19/18 17:50: WBC 5.9, RBC 4.94, Hgb 14.9, Hct 44.5, MCV 90.1, MCH 30.2, MCHC 33.5, RDW 13.4, Plt Count 352, MPV 8.6, Gran % 48.4 L, Lymph % (Auto) 43.4 H, [place] % (Auto) 6.2 H, Eos % (Auto) 1.7, Baso % (Auto) 0.3, Gran # 2.87, Lymph # (Auto) 2.6, [place] # (Auto) 0.4, Eos # (Auto) 0.1, Baso # (Auto) 0.02 Vital Signs Temp Pulse Resp BP Pulse Ox 06/20/18 07:22 98.4 F 89 20 115/74 06/19/18 21:00 90 18 124/68 100 06/19/18 16:56 98.2 F 95 H 16 131/77 96 pt was d/c on the following meds: Docusate [Colace] 100 mg PO BID FLUoxetine [Prozac] 60 mg PO DAILY Gabapentin [Neurontin] 100 mg PO TID Quetiapine Fumarate [Seroquel] 400 mg PO AMHS plan: will continue seroquel will decrease prozac, with plan to wean it off gabapentin will increase thorazine 50mg po amhs for psychosis PRN meds thorazine trazodone hs for insomnia and depression The patient failed the outpatient lower level of care: Yes Current Medications: Active Medications Generic Name Dose Route Start Last Admin Trade Name Freq PRN Reason Stop Dose Admin Acetaminophen 325 mg 06/19/18 22:04 Tylenol 325mg Tab PO Q6H PRN Pain, Mild (1-3) Al Hydrox/Mg Hydrox/Simethicone 30 ml 06/19/18 22:04 Maalox Plus 30 Ml PO DAILY PRN Dyspepsia Chlorpromazine 50 mg 06/20/18 08:28 Thorazine IM Q6H PRN Agitation Protocol Chlorpromazine 50 mg 06/20/18 08:28 Thorazine PO Q6H PRN Agitation Protocol Chlorpromazine 50 mg 06/20/18 16:00 Thorazine PO BID PETROS Protocol Chlorpromazine 50 mg 06/20/18 22:00 Thorazine PO HS PETROS Protocol Diphenhydramine HCl 50 mg 06/20/18 22:00 Benadryl PO HS PETROS Docusate Sodium 100 mg 06/20/18 08:00 06/20/18 08:59 Colace PO 100 mg BID PETROS Administration Fluoxetine HCl 40 mg 06/20/18 12:17 Prozac PO DAILY PETROS Gabapentin 300 mg 06/20/18 12:16 Neurontin PO TID PETROS Protocol Magnesium Hydroxide 30 ml 06/19/18 22:04 Milk Of Magnesia PO DAILY PRN Constipation Quetiapine Fumarate 400 mg 06/20/18 10:00 06/20/18 09:52 Seroquel PO 400 mg AMHS PETROS Administration Protocol Present on Admission - Present on Admission Any Indicators Present on Admission: No Review of Systems - Review of Systems Systems not reviewed;Unavailable: Acuity of Condition - Constitutional Constitutional: As Per HPI - EENT Eyes: As Per HPI Ears: As Per HPI Nose/Mouth/Throat: As Per HPI - Cardiovascular Cardiovascular: As Per HPI - Respiratory Respiratory: As Per HPI - Gastrointestinal Gastrointestinal: As Per HPI - Genitourinary Genitourinary: As Per HPI - Reproductive: Male Reproductive:Male: As Per HPI - Musculoskeletal Musculoskeletal: As Per HPI - Integumentary Integumentary: As Per HPI - Neurological Neurological: As Per HPI - Psychiatric Psychiatric: As Per HPI - Endocrine Endocrine: As Per HPI - Hematologic/Lymphatic Hematologic: As Per HPI Past Patient History - Past Psychiatric History Previous Treatment History: Inpatient Prior Professional Help: see HPI Prior Psychiatric Treatment: see HPI At what hospital: see HPI Duration: see HPI Nature of Treatment: see HPI Explanation of prior treatment: see HPI - PSYCHIATRIC Hx Depression: Yes Hx Substance Use: No - Infectious Disease Hx of Infectious Diseases: None - Tetanus Immunizations Tetanus Immunization: Unknown - Past Medical History & Family History Past Medical History?: Yes - CARDIAC Hx Cardiac Disorders: No Hx Hypertension: No - PULMONARY Hx Tuberculosis: No - NEUROLOGICAL HX Cerebrovascular Accident: No Hx Seizures: No - HEENT Hx HEENT Problems: No - RENAL Hx Chronic Kidney Disease: No - ENDOCRINE/METABOLIC Hx Endocrine Disorders: No - HEMATOLOGICAL/ONCOLOGICAL Hx Cancer: No Hx Human Immunodeficiency Virus (HIV): No - INTEGUMENTARY Hx Dermatological Problems: No - MUSCULOSKELETAL/RHEUMATOLOGICAL Hx Musculoskeletal Disorders: No - GASTROINTESTINAL Hx Gastrointestinal Disorders: No - GENITOURINARY/GYNECOLOGICAL Hx Sexually Transmitted Disorders: No (Patient denied) - SURGICAL HISTORY Hx Coronary Stent: No - ANESTHESIA Hx Anesthesia Reactions: No Hx Malignant Hyperthermia: No - Medical/Surgical History Reviewed & confirmed: by ri Meds Allergies/Adverse Reactions: Allergies Allergy/AdvReac Type Severity Reaction Status Date / Time divalproex sodium Allergy RASH Verified 06/19/18 17:22 [From Depakote] FISH Allergy RASH Verified 06/19/18 17:22 haloperidol [From Haldol] Allergy RASH Verified 06/19/18 17:22 haloperidol lactate Allergy RASH Verified 06/19/18 17:22 [From Haldol] risperidone [From Risperdal] Allergy RASH Verified 06/19/18 17:22 ziprasidone HCl [From Geodon] Allergy RASH Verified 06/19/18 17:22 ziprasidone mesylate Allergy RASH Verified 06/19/18 17:22 [From Geodon] Mental Status Examination - Personal Presentation Personal Presentation: Looks stated age - Affect Affect: Constricted (irritable and annoyed), Flat - Motor Activity Motor Activity: Calm - Reliability in Providing Information Reliability in Providing Information: Poor, due to alteration in thoughts, Poor, due to altered mood, Poor, due to cognitve impairment - Speech Speech: Disorganized - Mood Mood: Depressed - Formal Thought Process Formal Thought Process: Hallucinations, Delusions, Paranoia, Loosening of associations - Hallucinations/Delusions Delusions: Persecution - Obsessions/Compulsions Obsessions: None Compulsions: None - Cognitive Functions Orientation: Person, Place, Situation Sensorium: Alert Abstract Thinking: [place] Estimate of Intelligence: Below average Judgement: Intact, as evidence by: Insight regarding need for hospitalization - Risk Risk: Self-mutilation, Diminished functioning, Other (aggressive behavior) - Strength & Assets Inventory Strength & Assets Inventory: Cooperative, Other (pt has good support in the community) - Limitations Limitations: Other (treatment resistant symptoms) Psychiatric Physical Exam - Physical Exam Reviewed and confirmed: Emergency Department Physical Exam Results - Vital Signs Recent Vital Signs: Last Vital Signs Temp 98.4 F 06/20/18 07:22 Pulse 89 06/20/18 07:22 Resp 20 06/20/18 07:22 BP 115/74 06/20/18 07:22 Pulse Ox 100 06/19/18 21:00 - Labs Result Diagrams: 06/19/18 17:50 06/19/18 17:50 Labs: Laboratory Results - last 24 hr 06/19/18 06/19/18 06/19/18 17:50 17:50 17:50 WBC 5.9 RBC 4.94 Hgb 14.9 Hct 44.5 MCV 90.1 MCH 30.2 MCHC 33.5 RDW 13.4 Plt Count 352 MPV 8.6 Gran % 48.4 L Lymph % (Auto) 43.4 H [place] % (Auto) 6.2 H Eos % (Auto) 1.7 Baso % (Auto) 0.3 Gran # 2.87 Lymph # (Auto) 2.6 [place] # (Auto) 0.4 Eos # (Auto) 0.1 Baso # (Auto) 0.02 Sodium 141 Potassium 4.1 Chloride 106 Carbon Dioxide 26 Anion Gap 13 BUN 12 Creatinine 0.7 L Est GFR ( Amer) > 60 Est GFR (Non-Af Amer) > 60 Random Glucose 110 Calcium 9.4 Total Bilirubin 0.4 AST 35 ALT 28 Alkaline Phosphatase 73 Total Protein 8.0 Albumin 4.3 Globulin 3.8 Albumin/Globulin Ratio 1.1 Triglycerides Cholesterol LDL Cholesterol Direct HDL Cholesterol Urine Color Urine Appearance Urine pH Ur Specific [place] Urine Protein Urine Glucose (UA) Urine Ketones Urine Blood Urine Nitrate Urine Bilirubin Urine Urobilinogen Ur Leukocyte Esterase Salicylates < 1 L Urine Opiates Screen Urine Methadone Screen Acetaminophen < 10.0 L Ur Barbiturates Screen Ur Phencyclidine Scrn Ur Amphetamines Screen U Benzodiazepines Scrn [place] U Oth Cocaine Metabols U Cannabinoids Screen Alcohol, Quantitative 06/19/18 06/19/18 06/19/18 17:50 17:50 18:00 WBC RBC Hgb Hct MCV MCH MCHC RDW Plt Count MPV Gran % Lymph % (Auto) [place] % (Auto) Eos % (Auto) Baso % (Auto) Gran # Lymph # (Auto) [place] # (Auto) Eos # (Auto) Baso # (Auto) Sodium Potassium Chloride Carbon Dioxide Anion Gap BUN Creatinine Est GFR ( Amer) Est GFR (Non-Af Amer) Random Glucose Calcium Total Bilirubin AST ALT Alkaline Phosphatase Total Protein Albumin Globulin Albumin/Globulin Ratio Triglycerides Cholesterol LDL Cholesterol Direct HDL Cholesterol Urine Color Yellow Urine Appearance Clear Urine pH 6.5 Ur Specific [place] 1.025 Urine Protein Negative Urine Glucose (UA) Negative Urine Ketones Negative Urine Blood Negative Urine Nitrate Negative Urine Bilirubin Negative Urine Urobilinogen 0.2 Ur Leukocyte Esterase Negative Salicylates Urine Opiates Screen Urine Methadone Screen Acetaminophen Ur Barbiturates Screen Ur Phencyclidine Scrn Ur Amphetamines Screen U Benzodiazepines Scrn [place] < 0.2 L U Oth Cocaine Metabols U Cannabinoids Screen Alcohol, Quantitative < 10 06/19/18 06/20/18 18:00 08:00 WBC RBC Hgb Hct MCV MCH MCHC RDW Plt Count MPV Gran % Lymph % (Auto) [place] % (Auto) Eos % (Auto) Baso % (Auto) Gran # Lymph # (Auto) [place] # (Auto) Eos # (Auto) Baso # (Auto) Sodium Potassium Chloride Carbon Dioxide Anion Gap BUN Creatinine Est GFR ( Amer) Est GFR (Non-Af Amer) Random Glucose Calcium Total Bilirubin AST ALT Alkaline Phosphatase Total Protein Albumin Globulin Albumin/Globulin Ratio Triglycerides 164 H Cholesterol 237 H LDL Cholesterol Direct 153 H HDL Cholesterol 39 Urine Color Urine Appearance Urine pH Ur Specific [place] Urine Protein Urine Glucose (UA) Urine Ketones Urine Blood Urine Nitrate Urine Bilirubin Urine Urobilinogen Ur Leukocyte Esterase Salicylates Urine Opiates Screen Negative Urine Methadone Screen Negative Acetaminophen Ur Barbiturates Screen Negative Ur Phencyclidine Scrn Negative Ur Amphetamines Screen Negative U Benzodiazepines Scrn Negative [place] U Oth Cocaine Metabols Negative U Cannabinoids Screen Negative Alcohol, Quantitative - EKG Data EKG Interpreted by: ER Physician DSM Plan - DSM 5 DSM 5 Diagnosis: schizoaffective disorder, bipolar type - Recommended/Plan of Treatment Treatment Recommendations and Plan of Treatment: Milieu/structure/supportive therapy Medical consult appreciated SW consultation for discharge plan and social issues pt was d/c from [facility] psych unit on 05/29/18on the following meds: Docusate [Colace] 100 mg PO BID FLUoxetine [Prozac] 60 mg PO DAILY Gabapentin [Neurontin] 100 mg PO TID Quetiapine Fumarate [Seroquel] 400 mg PO AMHS plan: will continue seroquel will decrease prozac, with plan to wean it off gabapentin will increase to 300mg po tid thorazine 50mg po amhs for psychosis PRN meds thorazine trazodone hs for insomnia and depression ECT tomorrow 06/20/18 if cleared by medical team Family involvement Follow up on labs Will monitor closely Pt was educated about risk/benefits and alternatives of medications, coping strategies (safety plan, suicide prevention), relapse prevention, importance of follow up with psychiatrist and therapist, stay away from drugs/alcohol/smoking Projected ELOS: 7days Prognosis: guarded Discharge Plan and Discharge Criteria: Pt will be not depressed or manic, will be more hopeful, will be not psychotic or anxious, will be not having thoughts of harming self or others, will be tolerating medications well, will not have major side effects, will be able to function, will not pose threat to self or others. - Tobacco Cessation Tobacco Use Status for the last 30 days: Non User Tobacco Use Treatment Practical Counseling Provided: No Reason for not providing: pt does not smoke Tobacco Use Treatment FDA-Approved Cessation Medication Provided: No - Alcohol or Substance Abuse Does the patient have an Alcohol or Substance Abuse Disorder: No Initial Psych Certification - Initial Certification I certify that the inpatient psychiatric facility admission was medically necessary for either: Treatment which could reasonbly be expected to improve pt's condition, Diagnostic study I estimate of hospitalization is necessary for proper treatment of the patient: 7 Unit of Time: Days My plans for post-hospital care for this patient are: day treatment program ECT maintenance
[2018-06-21] MEDS ORDERED: Propofol 10 mg/ml Inj (20 ML) ONE (13:05)
--- NOTE | 2018-06-21 15:31 | PCM.PYCHPN ---
Psychiatric Progress Note - Psychiatric Progress Note Patient seen today, length of contact: 25 min Patient Chief Complaint: "I heard voices" Problems Identified/Issues Discussed: Suicide/ homicide prevention, past psychiatric h/o, current psychiatric symptoms, medical problems, risk/benefits and alternatives of medications, medications compliance, coping strategies, substance abuse h/o, relapse prevention, importance of follow up with psychiatrist and therapist, discharge plan. Medical Problems: 06/19/18 17:50 06/19/18 17:50 Lab Results 06/20/18 08:00: Hemoglobin A1c 5.8 06/20/18 08:00: Triglycerides 164 H, Cholesterol 237 H, LDL Cholesterol Direct 153 H, HDL Cholesterol 39 06/19/18 18:00: Urine Opiates Screen Negative, Urine Methadone Screen Negative, Ur Barbiturates Screen Negative, Ur Phencyclidine Scrn Negative, Ur Amphetamines Screen Negative, U Benzodiazepines Scrn Negative, U Oth Cocaine Metabols Negative, U Cannabinoids Screen Negative 06/19/18 18:00: Urine Color Yellow, Urine Appearance Clear, Urine pH 6.5, Ur Specific [place] 1.025, Urine Protein Negative, Urine Glucose (UA) Negative, [place] Ketones Negative, Urine Blood Negative, Urine Nitrate Negative, Urine Bilirubin Negative, Urine Urobilinogen 0.2, Ur Leukocyte Esterase Negative 06/19/18 17:50: [place] < 0.2 L 06/19/18 17:50: Alcohol, Quantitative < 10 06/19/18 17:50: Salicylates < 1 L, Acetaminophen < 10.0 L 06/19/18 17:50: Sodium 141, Potassium 4.1, Chloride 106, Carbon Dioxide 26, Anion Gap 13, BUN 12, Creatinine 0.7 L, Est GFR ( Amer) > 60, Est GFR (Non-Af Amer) > 60, Random Glucose 110, Calcium 9.4, Total Bilirubin 0.4, AST 35, ALT 28, Alkaline Phosphatase 73, Total Protein 8.0, Albumin 4.3, Globulin 3.8, Albumin/Globulin Ratio 1.1 06/19/18 17:50: WBC 5.9, RBC 4.94, Hgb 14.9, Hct 44.5, MCV 90.1, MCH 30.2, MCHC 33.5, RDW 13.4, Plt Count 352, MPV 8.6, Gran % 48.4 L, Lymph % (Auto) 43.4 H, [place] % (Auto) 6.2 H, Eos % (Auto) 1.7, Baso % (Auto) 0.3, Gran # 2.87, Lymph # (Auto) 2.6, [place] # (Auto) 0.4, Eos # (Auto) 0.1, Baso # (Auto) 0.02 Vital Signs Temp Pulse Resp BP Pulse Ox 06/21/18 13:57 98 F 85 13 116/75 98 06/21/18 13:42 98 F 91 H 19 124/77 94 L 06/21/18 12:14 99.3 F 95 H 18 109/75 95 06/21/18 12:08 98.5 F 94 H 20 118/78 06/21/18 07:26 98.5 F 94 H 20 118/78 06/20/18 15:00 90 120/88 06/20/18 07:22 98.4 F 89 20 115/74 06/19/18 21:00 90 18 124/68 100 06/19/18 16:56 98.2 F 95 H 16 131/77 96 Diagnostic Results: 06/19/18 17:50 06/19/18 17:50 Lab Results 06/20/18 08:00: Hemoglobin A1c 5.8 06/20/18 08:00: Triglycerides 164 H, Cholesterol 237 H, LDL Cholesterol Direct 153 H, HDL Cholesterol 39 06/19/18 18:00: Urine Opiates Screen Negative, Urine Methadone Screen Negative, Ur Barbiturates Screen Negative, Ur Phencyclidine Scrn Negative, Ur Amphetamines Screen Negative, U Benzodiazepines Scrn Negative, U Oth Cocaine Metabols Negative, U Cannabinoids Screen Negative 06/19/18 18:00: Urine Color Yellow, Urine Appearance Clear, Urine pH 6.5, Ur Specific [place] 1.025, Urine Protein Negative, Urine Glucose (UA) Negative, Urine Ketones Negative, Urine Blood Negative, Urine Nitrate Negative, Urine Bilirubin Negative, Urine Urobilinogen 0.2, Ur Leukocyte Esterase Negative 06/19/18 17:50: [place] < 0.2 L 06/19/18 17:50: Alcohol, Quantitative < 10 06/19/18 17:50: Salicylates < 1 L, Acetaminophen < 10.0 L 06/19/18 17:50: Sodium 141, Potassium 4.1, Chloride 106, Carbon Dioxide 26, Anion Gap 13, BUN 12, Creatinine 0.7 L, Est GFR ( Amer) > 60, Est GFR (Non-Af Amer) > 60, Random Glucose 110, Calcium 9.4, Total Bilirubin 0.4, AST 35, ALT 28, Alkaline Phosphatase 73, Total Protein 8.0, Albumin 4.3, Globulin 3.8, Albumin/Globulin Ratio 1.1 06/19/18 17:50: WBC 5.9, RBC 4.94, Hgb 14.9, Hct 44.5, MCV 90.1, MCH 30.2, MCHC 33.5, RDW 13.4, Plt Count 352, MPV 8.6, Gran % 48.4 L, Lymph % (Auto) 43.4 H, [place] % (Auto) 6.2 H, Eos % (Auto) 1.7, Baso % (Auto) 0.3, Gran # 2.87, Lymph # (Auto) 2.6, [place] # (Auto) 0.4, Eos # (Auto) 0.1, Baso # (Auto) 0.02 Vital Signs Temp Pulse Resp BP Pulse Ox 06/21/18 13:57 98 F 85 13 116/75 98 06/21/18 13:42 98 F 91 H 19 124/77 94 L 06/21/18 12:14 99.3 F 95 H 18 109/75 95 06/21/18 12:08 98.5 F 94 H 20 118/78 06/21/18 07:26 98.5 F 94 H 20 118/78 06/20/18 15:00 90 120/88 06/20/18 07:22 98.4 F 89 20 115/74 06/19/18 21:00 90 18 124/68 100 06/19/18 16:56 98.2 F 95 H 16 131/77 96 DSM 5 Symptoms Update: Shortly patient is 43-year-old male with reported history of schizoaffective disorder with treatment resistant symptoms, multiple previous psychiatric admissions including [facility] as well as , pt was discharged from this facility 05/29/18, pt was compliant with the medication, pt got course of ECT treatment last admission, had one ECT as outpatient on 05/24 , pt was scheduled for ECT on 06/25/18, but pt became agitated yesterday at the detention, presented to be psychotic, required emergent admission for meds adjustment ECT treatment. pt was seen in his room with medical student, acceptable personal hygiene, but poor ADLs. pt was seen at the morning at the treatment team meeting, pt presented to be irritable, but did not act out, pt said "I feel very agitated", pt is scheduled for ECT today, NPO, pt agreed to have shot of Thorazine 50mg IM, tolerated well. pt reported to hear voices, said that that when he threw cup in the detention he was hearing voices. pt was educated in case of any distress, ask for help, pt agreed, contracted for safety. later on pt was seen in ECT, pt got ECT treatment pt signed consent for treatment course #3, treatment 10 charge 320mC, Energy 56.3 J at 220 ohms, impedance 530 ohms, pulse width 1,00 ms ec, frequency 25H, Duration 8.000sec, current 800mA pt got 15-18seck of seizure, tolerated well, got toradol for headaches. As per staff pt was not agitated or aggressive, yesterday was refusing to eat, today ate after procedure. so far pt tolerates medications well, no side effects observed or reported, AIMS 0, no EPS. Impression: schizoaffective disorder, bipolar type, treatment resistant Medication Change: Yes (thorazine 50bid and hs) Medical Record Reviewed: Yes Consults ordered or reviewed: medical consult appreciated Mental Status Examination - Cognitive Function Orientation: Person, Place, Situation Memory: Intact Attention: Poor Concentration: Poor Association: Loose Fund of Knowledge: Poor - Mood Mood: Depressed - Affect Affect: Constricted (irritable and annoyed), Flat - Formal Thought Process Formal Thought Process: Hallucinations, Delusions, Paranoia, Loosening of associations - Suicidal Ideation Suicidal Ideation: No - Homicidal Ideation Homicidal Ideation: No Goal/Treatment Plan - Goal/Treatment Plan Need for Continued Stay: Remain at risks for inpatient hospitalization, Severe depression anxiety, Discharge may exacerbated symptoms, Severe functional impairment Progress Toward Problem(s) and Goals/Treatment Plan: Milieu/structure/supportive therapy Medical consult appreciated SW consultation for discharge plan and social issues pt was d/c from [facility] psych unit on 05/29/18on the following meds: Docusate [Colace] 100 mg PO BID FLUoxetine [Prozac] 60 mg PO DAILY Gabapentin [Neurontin] 100 mg PO TID Quetiapine Fumarate [Seroquel] 400 mg PO AMHS plan: will continue seroquel 400 mg PO AMHS decrease prozac 40mg daily, with plan to wean it off gabapentin will increase to 300mg po tid thorazine 50mg po bid and hs for psychosis PRN meds thorazine trazodone hs for insomnia and depression ECT 06/20/18, pt was cleared by medical team Family involvement Follow up on labs Will monitor closely Pt was educated about risk/benefits and alternatives of medications, coping strategies (safety plan, suicide prevention), relapse prevention, importance of follow up with psychiatrist and therapist, stay away from drugs/alcohol/smoking Estimated Date of D/C: 07/01/18
[2018-06-21] MEDS: FLUoxetine Elix 20 MG/5 ML PO SCH (17:46)
[2018-06-22] MEDS: FLUoxetine Elix 20 MG/5 ML PO SCH (09:38)
--- NOTE | 2018-06-22 10:14 | PCM.PYCHPN ---
Psychiatric Progress Note - Psychiatric Progress Note Patient seen today, length of contact: 25 min Problems Identified/Issues Discussed: I reviewed recent notes and met with patient at bedside. He is calm and cooperative with my questioning. Oriented x3. He is known to me from interviews during his prior admission to his unit. Affect remains constricted but he does seem more reactive, related and animated than his prior admission. Staff noted that he was attentive in group but not actively participating. He still doesn't socialize. Patient was also irritable and agitated yesterday, requiring thorazine IM prn. Patient's responses are brief and relevant to questioning and delusions were not elicited. He denies any hallucinations this morning but has endorsed them during this admission. Thus far he is tolerating ECT treatments well. He denies any side effects from his medications. Patient is sleeping well and there were no behavioral issues overnight. Diagnostic Results: schizoaffective disorder, bipolar type Medication Change: No ( ) Medical Record Reviewed: Yes Mental Status Examination - Cognitive Function Orientation: Person, Place, Situation Memory: Intact Attention: Poor Concentration: Poor Association: Loose Fund of Knowledge: Poor - Mood Mood: Depressed - Affect Affect: Constricted (irritable and annoyed), Flat - Formal Thought Process Formal Thought Process: Hallucinations, Delusions, Paranoia, Loosening of associations - Suicidal Ideation Suicidal Ideation: No - Homicidal Ideation Homicidal Ideation: No Goal/Treatment Plan - Goal/Treatment Plan Need for Continued Stay: Remain at risks for inpatient hospitalization, Severe depression anxiety, Discharge may exacerbated symptoms, Severe functional impairment Progress Toward Problem(s) and Goals/Treatment Plan: * c/w current tx and plan (ECT treatment) * c/w tapering Prozac * No new weekend lab results thus far * Vitals reviewed and noted below: Selected Entries 06/21/18 06/21/18 13:57 16:45 Temperature 98 F Pulse Rate 85 97 H Respiratory 13 Rate Blood Pressure 116/75 109/68 O2 Sat by Pulse 98 Oximetry Estimated Date of D/C: 07/01/18
[2018-06-23] MEDS: FLUoxetine Elix 20 MG/5 ML PO SCH (08:55)
--- NOTE | 2018-06-23 10:20 | PCM.PYCHPN ---
Psychiatric Progress Note - Psychiatric Progress Note Patient seen today, length of contact: 25 min Problems Identified/Issues Discussed: I reviewed recent notes and met with patient at bedside. He is calm and cooperative with my questioning. Oriented x3. Affect remains constricted but he does seem more spontaneous and animated than his prior admission. Focus, awareness and overall relatedness are definitely getting better (though still impaired). Patient's responses are brief and relevant to questioning and delusions were not elicited. He denies any hallucinations this morning but indicates that he experienced some last night. He finds them distressing. Thus far he is tolerating ECT treatments well. He denies any side effects from his medications. Staff note that patient is spending less time in his room and attending more groups. He is still quiet without much socialization. Patient was irritable and agitated on Sunday, requiring thorazine IM prn. There have been no recurrence of such behavioral issues over the weekend thus far. Diagnostic Results: schizoaffective disorder, bipolar type Medication Change: Yes (prozac decreased to 10 mg po daily) Medical Record Reviewed: Yes Mental Status Examination - Cognitive Function Orientation: Person, Place, Situation Memory: Intact Attention: Poor Concentration: Poor Association: Loose Fund of Knowledge: Poor - Mood Mood: Depressed - Affect Affect: Constricted ( ), Flat - Speech Speech: Appropriate - Formal Thought Process Formal Thought Process: Hallucinations (+AH Sunday), Delusions, Paranoia, Loosening of associations - Suicidal Ideation Suicidal Ideation: No - Homicidal Ideation Homicidal Ideation: No Goal/Treatment Plan - Goal/Treatment Plan Need for Continued Stay: Remain at risks for inpatient hospitalization, Severe depression anxiety, Discharge may exacerbated symptoms, Severe functional impairment Progress Toward Problem(s) and Goals/Treatment Plan: * c/w current tx and plan (ECT treatment) * c/w tapering Prozac, dose changed to 10 mg po daily on 06/23/18 * No new weekend lab results thus far * Vitals reviewed and noted below: Selected Entries 06/21/18 06/21/18 06/22/18 13:57 16:45 16:04 Temperature 98 F Pulse Rate 85 97 H 101 H Respiratory 13 Rate Blood Pressure 116/75 109/68 124/76 O2 Sat by Pulse 98 Oximetry Estimated Date of D/C: 07/01/18
[2018-06-24] MEDS ORDERED: Lactated Ringer's 1,000 ML IV SCH (12:45)
[2018-06-24] MEDS ORDERED: Propofol 10 mg/ml Inj (20 ML) ONE (12:55)
[2018-06-24] MEDS ORDERED: Labetalol 5mg/ml (4ml) ONE (12:55)
--- NOTE | 2018-06-24 16:07 | PCM.PYCHPN ---
Psychiatric Progress Note - Psychiatric Progress Note Patient seen today, length of contact: 30min Patient Chief Complaint: "I am alright" Problems Identified/Issues Discussed: Suicide/ homicide prevention, past psychiatric h/o, current psychiatric symptoms, medical problems, risk/benefits and alternatives of medications, medications compliance, coping strategies, substance abuse h/o, relapse prevention, importance of follow up with psychiatrist and therapist, discharge plan. Medical Problems: 06/19/18 17:50 06/19/18 17:50 Lab Results 06/20/18 08:00: Hemoglobin A1c 5.8 06/20/18 08:00: Triglycerides 164 H, Cholesterol 237 H, LDL Cholesterol Direct 153 H, HDL Cholesterol 39 06/19/18 18:00: Urine Opiates Screen Negative, Urine Methadone Screen Negative, Ur Barbiturates Screen Negative, Ur Phencyclidine Scrn Negative, Ur Amphetamines Screen Negative, U Benzodiazepines Scrn Negative, U Oth Cocaine Metabols Negative, U Cannabinoids Screen Negative 06/19/18 18:00: Urine Color Yellow, Urine Appearance Clear, Urine pH 6.5, Ur Specific [place] 1.025, Urine Protein Negative, Urine Glucose (UA) Negative, Urine Ketones Negative, Urine Blood Negative, Urine Nitrate Negative, Urine Bilirubin Negative, Urine Urobilinogen 0.2, Ur Leukocyte Esterase Negative 06/19/18 17:50: [place] < 0.2 L 06/19/18 17:50: Alcohol, Quantitative < 10 06/19/18 17:50: Salicylates < 1 L, Acetaminophen < 10.0 L 06/19/18 17:50: Sodium 141, Potassium 4.1, Chloride 106, Carbon Dioxide 26, Anion Gap 13, BUN 12, Creatinine 0.7 L, Est GFR ( Amer) > 60, Est GFR (Non-Af Amer) > 60, Random Glucose 110, Calcium 9.4, Total Bilirubin 0.4, AST 35, ALT 28, Alkaline Phosphatase 73, Total Protein 8.0, Albumin 4.3, Globulin 3.8, Albumin/Globulin Ratio 1.1 06/19/18 17:50: WBC 5.9, RBC 4.94, Hgb 14.9, Hct 44.5, MCV 90.1, MCH 30.2, MCHC 33.5, RDW 13.4, Plt Count 352, MPV 8.6, Gran % 48.4 L, Lymph % (Auto) 43.4 H, [place] % (Auto) 6.2 H, Eos % (Auto) 1.7, Baso % (Auto) 0.3, Gran # 2.87, Lymph # (Auto) 2.6, [place] # (Auto) 0.4, Eos # (Auto) 0.1, Baso # (Auto) 0.02 Vital Signs Temp Pulse Resp BP Pulse Ox 06/21/18 13:57 98 F 85 13 116/75 98 06/21/18 13:42 98 F 91 H 19 124/77 94 L 06/21/18 12:14 99.3 F 95 H 18 109/75 95 06/21/18 12:08 98.5 F 94 H 20 118/78 06/21/18 07:26 98.5 F 94 H 20 118/78 06/20/18 15:00 90 120/88 06/20/18 07:22 98.4 F 89 20 115/74 06/19/18 21:00 90 18 124/68 100 06/19/18 16:56 98.2 F 95 H 16 131/77 96 Diagnostic Results: 06/19/18 17:50 06/19/18 17:50 Lab Results 06/20/18 08:00: Hemoglobin A1c 5.8 06/20/18 08:00: Triglycerides 164 H, Cholesterol 237 H, LDL Cholesterol Direct 153 H, HDL Cholesterol 39 06/19/18 18:00: Urine Opiates Screen Negative, Urine Methadone Screen Negative, Ur Barbiturates Screen Negative, Ur Phencyclidine Scrn Negative, Ur Amphetamines Screen Negative, U Benzodiazepines Scrn Negative, U Oth Cocaine Metabols Negative, U Cannabinoids Screen Negative 06/19/18 18:00: Urine Color Yellow, Urine Appearance Clear, Urine pH 6.5, Ur Specific [place] 1.025, Urine Protein Negative, Urine Glucose (UA) Negative, Urine Ketones Negative, Urine Blood Negative, Urine Nitrate Negative, Urine Bilirubin Negative, Urine Urobilinogen 0.2, Ur Leukocyte Esterase Negative 06/19/18 17:50: [place] < 0.2 L 06/19/18 17:50: Alcohol, Quantitative < 10 06/19/18 17:50: Salicylates < 1 L, Acetaminophen < 10.0 L 06/19/18 17:50: Sodium 141, Potassium 4.1, Chloride 106, Carbon Dioxide 26, Anion Gap 13, BUN 12, Creatinine 0.7 L, Est GFR ( Amer) > 60, Est GFR (Non-Af Amer) > 60, Random Glucose 110, Calcium 9.4, Total Bilirubin 0.4, AST 35, ALT 28, Alkaline Phosphatase 73, Total Protein 8.0, Albumin 4.3, Globulin 3.8, Albumin/Globulin Ratio 1.1 06/19/18 17:50: WBC 5.9, RBC 4.94, Hgb 14.9, Hct 44.5, MCV 90.1, MCH 30.2, MCHC 33.5, RDW 13.4, Plt Count 352, MPV 8.6, Gran % 48.4 L, Lymph % (Auto) 43.4 H, [place] % (Auto) 6.2 H, Eos % (Auto) 1.7, Baso % (Auto) 0.3, Gran # 2.87, Lymph # (Auto) 2.6, [place] # (Auto) 0.4, Eos # (Auto) 0.1, Baso # (Auto) 0.02 Vital Signs Temp Pulse Resp BP Pulse Ox 06/21/18 13:57 98 F 85 13 116/75 98 06/21/18 13:42 98 F 91 H 19 124/77 94 L 06/21/18 12:14 99.3 F 95 H 18 109/75 95 06/21/18 12:08 98.5 F 94 H 20 118/78 06/21/18 07:26 98.5 F 94 H 20 118/78 06/20/18 15:00 90 120/88 06/20/18 07:22 98.4 F 89 20 115/74 06/19/18 21:00 90 18 124/68 100 06/19/18 16:56 98.2 F 95 H 16 131/77 96 DSM 5 Symptoms Update: Shortly patient is 43-year-old male with reported history of schizoaffective disorder with treatment resistant symptoms, multiple previous psychiatric admissions including [facility] as well as [facility], pt was discharged from this facility 05/29/18, pt was compliant with the medication, pt got course of ECT treatment last admission, had one ECT as outpatient on 8, pt was scheduled for ECT on 06/25/18, but pt became agitated yesterday at the [facility], presented to be psychotic, required emergent admission for meds adjustment ECT treatment. pt was seen at OR waiting area today, pt is scheduled for ECT. pt signed consent for treatment course #3, treatment 11 still on titration schedule charge 172mC, energy 27.9J at 470 ohms, imped 210, pulse width 0.3msec, frequency 45hz, duration 8.000sec, current 800mA pt got 15-18seck of seizure, tolerated well, got toradol for headaches. as per weekend report, patient does seem more spontaneous and animated than his prior admission, focus, awareness and overall relatedness are definitely getting better, but still impaired. last time pt c/o voices was more than 24 hrs ago. Staff note that patient is spending less time in his room and attending more groups. He is still quiet without much socialization. No behavioral issues over the weekend. so far pt tolerates medications well, no side effects observed or reported, AIMS 0, no EPS. Impression: schizoaffective disorder, bipolar type, treatment resistant Medication Change: No ( ) Medical Record Reviewed: Yes Consults ordered or reviewed: medical consult appreciated Mental Status Examination - Cognitive Function Orientation: Person, Place, Situation Memory: Intact Attention: Poor (some improvement) Concentration: Poor (some improvement) Association: Loose (some improvement) Fund of Knowledge: Poor - Mood Mood: Depressed - Affect Affect: Constricted (irritable and annoyed), Flat - Speech Speech: Appropriate - Formal Thought Process Formal Thought Process: Hallucinations, Delusions, Paranoia, Loosening of associations - Suicidal Ideation Suicidal Ideation: No - Homicidal Ideation Homicidal Ideation: No Goal/Treatment Plan - Goal/Treatment Plan Need for Continued Stay: Remain at risks for inpatient hospitalization, Severe depression anxiety, Discharge may exacerbated symptoms, Severe functional impairment Progress Toward Problem(s) and Goals/Treatment Plan: Milieu/structure/supportive therapy Medical consult appreciated consultation for discharge plan and social issues seroquel 400 mg PO AMHS prozac d/c gabapentin 300mg po tid thorazine 50mg po bid and hs for psychosis PRN meds thorazine trazodone hs for insomnia and depression ECT 06/20/18, 06/24/18, pt was cleared by medical team Family involvement Follow up on labs Will monitor closely Pt was educated about risk/benefits and alternatives of medications, coping strategies (safety plan, suicide prevention), relapse prevention, importance of follow up with psychiatrist and therapist, stay away from drugs/alcohol/smoking Estimated Date of D/C: 07/01/18
[2018-06-25] MEDS ORDERED: Midazolam 2 MG/2 ML VIAL ONE (11:28)
[2018-06-25] MEDS ORDERED: Rocuronium 10 mg/ml (5 ml) ONE (11:31)
[2018-06-25] MEDS ORDERED: Phenylephrine 10 mg/ml Inj ONE (11:55)
[2018-06-25] MEDS ORDERED: Glycopyrrolate 0.2 mg/ml (2ml vial) ONE (12:53)
--- NOTE | 2018-06-25 15:35 | PCM.PYCHPN ---
Psychiatric Progress Note - Psychiatric Progress Note Patient seen today, length of contact: 30min Patient Chief Complaint: "I am hearing voices" Problems Identified/Issues Discussed: Suicide/ homicide prevention, past psychiatric h/o, current psychiatric symptoms, medical problems, risk/benefits and alternatives of medications, medications compliance, coping strategies, substance abuse h/o, relapse prevention, importance of follow up with psychiatrist and therapist, discharge plan. Medical Problems: 06/19/18 17:50 06/19/18 17:50 Lab Results 06/20/18 08:00: Hemoglobin A1c 5.8 06/20/18 08:00: Triglycerides 164 H, Cholesterol 237 H, LDL Cholesterol Direct 153 H, HDL Cholesterol 39 06/19/18 18:00: Urine Opiates Screen Negative, Urine Methadone Screen Negative, Ur Barbiturates Screen Negative, Ur Phencyclidine Scrn Negative, Ur Amphetamines Screen Negative, U Benzodiazepines Scrn Negative, U Oth Cocaine Metabols Negative, U Cannabinoids Screen Negative 06/19/18 18:00: Urine Color Yellow, Urine Appearance Clear, Urine pH 6.5, Ur Specific [place] 1.025, Urine Protein Negative, Urine Glucose (UA) Negative, Urine Ketones Negative, Urine Blood Negative, Urine Nitrate Negative, Urine Bilirubin Negative, Urine Urobilinogen 0.2, Ur Leukocyte Esterase Negative 06/19/18 17:50: [place] < 0.2 L 06/19/18 17:50: Alcohol, Quantitative < 10 06/19/18 17:50: Salicylates < 1 L, Acetaminophen < 10.0 L 06/19/18 17:50: Sodium 141, Potassium 4.1, Chloride 106, Carbon Dioxide 26, Anion Gap 13, BUN 12, Creatinine 0.7 L, Est GFR ( Amer) > 60, Est GFR (Non-Af Amer) > 60, Random Glucose 110, Calcium 9.4, Total Bilirubin 0.4, AST 35, ALT 28, Alkaline Phosphatase 73, Total Protein 8.0, Albumin 4.3, Globulin 3.8, Albumin/Globulin Ratio 1.1 06/19/18 17:50: WBC 5.9, RBC 4.94, Hgb 14.9, Hct 44.5, MCV 90.1, MCH 30.2, MCHC 33.5, RDW 13.4, Plt Count 352, MPV 8.6, Gran % 48.4 L, Lymph % (Auto) 43.4 H, [place] % (Auto) 6.2 H, Eos % (Auto) 1.7, Baso % (Auto) 0.3, Gran # 2.87, Lymph # (Auto) 2.6, [place] # (Auto) 0.4, Eos # (Auto) 0.1, Baso # (Auto) 0.02 Vital Signs Temp Pulse Resp BP Pulse Ox 06/21/18 13:57 98 F 85 13 116/75 98 06/21/18 13:42 98 F 91 H 19 124/77 94 L 06/21/18 12:14 99.3 F 95 H 18 109/75 95 06/21/18 12:08 98.5 F 94 H 20 118/78 06/21/18 07:26 98.5 F 94 H 20 118/78 06/20/18 15:00 90 120/88 06/20/18 07:22 98.4 F 89 20 115/74 06/19/18 21:00 90 18 124/68 100 06/19/18 16:56 98.2 F 95 H 16 131/77 96 Diagnostic Results: 06/19/18 17:50 06/19/18 17:50 Lab Results 06/20/18 08:00: Hemoglobin A1c 5.8 06/20/18 08:00: Triglycerides 164 H, Cholesterol 237 H, LDL Cholesterol Direct 153 H, HDL Cholesterol 39 06/19/18 18:00: Urine Opiates Screen Negative, Urine Methadone Screen Negative, Ur Barbiturates Screen Negative, Ur Phencyclidine Scrn Negative, Ur Amphetamines Screen Negative, U Benzodiazepines Scrn Negative, U Oth Cocaine Metabols Negative, U Cannabinoids Screen Negative 06/19/18 18:00: Urine Color Yellow, Urine Appearance Clear, Urine pH 6.5, Ur Sp ecific [place] 1.025, Urine Protein Negative, Urine Glucose (UA) Negative, Urine Ketones Negative, Urine Blood Negative, Urine Nitrate Negative, Urine Bilirubin Negative, Urine Urobilinogen 0.2, Ur Leukocyte Esterase Negative 06/19/18 17:50: [place] < 0.2 L 06/19/18 17:50: Alcohol, Quantitative < 10 06/19/18 17:50: Salicylates < 1 L, Acetaminophen < 10.0 L 06/19/18 17:50: Sodium 141, Potassium 4.1, Chloride 106, Carbon Dioxide 26, Anion Gap 13, BUN 12, Creatinine 0.7 L, Est GFR ( Amer) > 60, Est GFR (Non-Af Amer) > 60, Random Glucose 110, Calcium 9.4, Total Bilirubin 0.4, AST 35, ALT 28, Alkaline Phosphatase 73, Total Protein 8.0, Albumin 4.3, Globulin 3.8, Albumin/Globulin Ratio 1.1 06/19/18 17:50: WBC 5.9, RBC 4.94, Hgb 14.9, Hct 44.5, MCV 90.1, MCH 30.2, MCHC 33.5, RDW 13.4, Plt Count 352, MPV 8.6, Gran % 48.4 L, Lymph % (Auto) 43.4 H, [place] % (Auto) 6.2 H, Eos % (Auto) 1.7, Baso % (Auto) 0.3, Gran # 2.87, Lymph # (Auto) 2.6, [place] # (Auto) 0.4, Eos # (Auto) 0.1, Baso # (Auto) 0.02 Vital Signs Temp Pulse Resp BP Pulse Ox 06/21/18 13:57 98 F 85 13 116/75 98 06/21/18 13:42 98 F 91 H 19 124/77 94 L 06/21/18 12:14 99.3 F 95 H 18 109/75 95 06/21/18 12:08 98.5 F 94 H 20 118/78 06/21/18 07:26 98.5 F 94 H 20 118/78 06/20/18 15:00 90 120/88 06/20/18 07:22 98.4 F 89 20 115/74 06/19/18 21:00 90 18 124/68 100 06/19/18 16:56 98.2 F 95 H 16 131/77 96 DSM 5 Symptoms Update: Shortly patient is 43-year-old male with reported history of schizo affective disorder with treatment resistant symptoms, multiple previous psychiatric admissions including [place] as well as [facility], pt was discharged from this facility 05/29/18, pt was compliant with the medication, pt got course of ECT treatment last admission, had one ECT as outpatient on 06/11/18, pt was scheduled for ECT on 06/25/18, but pt became agitated yesterday at the [facility], presented to be psychotic, required emergent admission for meds adjustment ECT treatment. 06/24/18 pt got ECT. treatment 11 still on titration schedule charge 172mC, energy 27.9J at 470 ohms, imped 210, pulse width 0.3msec, frequency 45hz, duration 8.000sec, current 800mA pt got 15-18seck of seizure, tolerated well, got toradol for headaches. pt was seen in his room, pt c/o visual hallucinations "two days ago", pt reported that he was "fighting in my mind with my bank officer", as per h/o pt does not have legal h/o. pt reported "voices are bothering me", pt reported that voices are not command type, pt said "I am avoiding to listen to them", earlier pt reported to students that voices are telling him to "masturbate and walk naked in the room", pt denied any urge or tendency of doing it. pt is not taking showers, not brushing his teeth. Staff note that patient is spending less time in his room and attending more groups. He is still quiet without much socialization, but still sick. so far pt tolerates medications well, no side effects observed or reported, AIMS 0, no EPS. Impression: schizoaffective disorder, bipolar type, treatment resistant Medication Change: Yes (thorazine increased) Medical Record Reviewed: Yes Consults ordered or reviewed: medical consult appreciated Mental Status Examination - Cognitive Function Orientation: Person, Place, Situation Memory: Intact Attention: Poor (some improvement) Concentration: Poor (some improvement) Association: Loose (some improvement) Fund of Knowledge: Poor - Mood Mood: Depressed - Affect Affect: Constricted (irritable and annoyed), Flat - Speech Speech: Appropriate - Formal Thought Process Formal Thought Process: Hallucinations, Delusions, Paranoia, Loosening of associations - Suicidal Ideation Suicidal Ideation: No - Homicidal Ideation Homicidal Ideation: No Goal/Treatment Plan - Goal/Treatment Plan Need for Continued Stay: Remain at risks for inpatient hospitalization, Severe depression anxiety, Discharge may exacerbated symptoms, Severe functional impairment Progress Toward Problem(s) and Goals/Treatment Plan: Milieu/structure/supportive therapy Medical consult appreciated consultation for discharge plan and social issues seroquel 400 mg PO AMHS prozac d/c gabapentin 300mg po tid thorazine 50mg po bid and 100mg hs for psychosis PRN meds thorazine trazodone hs for insomnia and depression ECT 06/20/18, 06/24/18, pt was cleared by medical team ECT 06/27/18 Family involvement Follow up on labs Will monitor closely Pt was educated about risk/benefits and alternatives of medications, coping strategies (safety plan, suicide prevention), relapse prevention, importance of follow up with psychiatrist and therapist, stay away from drugs/alcohol/smoking Estimated Date of D/C: 07/01/18
[2018-06-25] MEDS: Benzocaine 20% Cream(7 gm) MT PRN (16:49)
[2018-06-26] MEDS: Benzocaine 20% Cream(7 gm) MT PRN ×2 (09:38→14:00)
--- NOTE | 2018-06-26 15:44 | PCM.PYCHPN ---
Psychiatric Progress Note - Psychiatric Progress Note Patient seen today, length of contact: 30min Patient Chief Complaint: "i have voices in my head" Problems Identified/Issues Discussed: Suicide/ homicide prevention, past psychiatric h/o, current psychiatric symptoms, medical problems, risk/benefits and alternatives of medications, medications compliance, coping strategies, substance abuse h/o, relapse prevention, importance of follow up with psychiatrist and therapist, discharge plan. Medical Problems: 06/19/18 17:50 06/19/18 17:50 Lab Results 06/20/18 08:00: Hemoglobin A1c 5.8 06/20/18 08:00: Triglycerides 164 H, Cholesterol 237 H, LDL Cholesterol Direct 153 H, HDL Cholesterol 39 06/19/18 18:00: Urine Opiates Screen Negative, Urine Methadone Screen Negative, Ur Barbiturates Screen Negative, Ur Phencyclidine Scrn Negative, Ur Amphetamines Screen Negative, U Benzodiazepines Scrn Negative, U Oth Cocaine Metabols Negative, U Cannabinoids Screen Negative 06/19/18 18:00: Urine Color Yellow, Urine Appearance Clear, Urine pH 6.5, Ur Specific [place] 1.025, Urine Protein Negative, Urine Glucose (UA) Negative, Urine Ketones Negative, Urine Blood Negative, Urine Nitrate Negative, Urine Bilirubin Negative, Urine Urobilinogen 0.2, Ur Leukocyte Esterase Negative 06/19/18 17:50: [place] < 0.2 L 06/19/18 17:50: Alcohol, Quantitative < 10 06/19/18 17:50: Salicylates < 1 L, Acetaminophen < 10.0 L 06/19/18 17:50: Sodium 141, Potassium 4.1, Chloride 106, Carbon Dioxide 26, Anion Gap 13, BUN 12, Creatinine 0.7 L, Est GFR ( Amer) > 60, Est GFR (Non-Af Amer) > 60, Random Glucose 110, Calcium 9.4, Total Bilirubin 0.4, AST 35, ALT 28, Alkaline Phosphatase 73, Total Protein 8.0, Albumin 4.3, Globulin 3 .8, Albumin/Globulin Ratio 1.1 06/19/18 17:50: WBC 5.9, RBC 4.94, Hgb 14.9, Hct 44.5, MCV 90.1, MCH 30.2, MCHC 33.5, RDW 13.4, Plt Count 352, MPV 8.6, Gran % 48.4 L, Lymph % (Auto) 43.4 H, [place] % (Auto) 6.2 H, Eos % (Auto) 1.7, Baso % (Auto) 0.3, Gran # 2.87, Lymph # (Auto) 2.6, [place] # (Auto) 0.4, Eos # (Auto) 0.1, Baso # (Auto) 0.02 Vital Signs Temp Pulse Resp BP Pulse Ox 06/21/18 13:57 98 F 85 13 116/75 98 06/21/18 13:42 98 F 91 H 19 124/77 94 L 06/21/18 12:14 99.3 F 95 H 18 109/75 95 06/21/18 12:08 98.5 F 94 H 20 118/78 06/21/18 07:26 98.5 F 94 H 20 118/78 06/20/18 15:00 90 120/88 06/20/18 07:22 98.4 F 89 20 115/74 06/19/18 21:00 90 18 124/68 100 06/19/18 16:56 98.2 F 95 H 16 131/77 96 Diagnostic Results: 06/19/18 17:50 06/19/18 17:50 Lab Results 06/20/18 08:00: Hemoglobin A1c 5.8 06/20/18 08:00: Triglycerides 164 H, Cholesterol 237 H, LDL Cholesterol Direct 153 H, HDL Cholesterol 39 06/19/18 18:00: Urine Opiates Screen Negative, Urine Methadone Screen Negative, Ur Barbiturates Screen Negative, Ur Phencyclidine Scrn Negative, Ur Amphetamines Screen Negative, U Benzodiazepines Scrn Negative, U Oth Cocaine Metabols Negative, U Cannabinoids Screen Negative 06/19/18 18:00: Urine Color Yellow, Urine Appearance Clear, Urine pH 6.5, Ur Specific [place] 1.025, Urine Protein Negative, Urine Glucose (UA) Negative, Urine Ketones Negative, Urine Blood Negative, Urine Nitrate Negative, Urine Bilirubin Negative, Urine Urobilinogen 0.2, Ur Leukocyte Esterase Negative 06/19/18 17:50: [place] < 0.2 L 06/19/18 17:50: Alcohol, Quantitative < 10 06/19/18 17:50: Salicylates < 1 L, Acetaminophen < 10.0 L 06/19/18 17:50: Sodium 141, Potassium 4.1, Chloride 106, Carbon Dioxide 26, Anion Gap 13, BUN 12, Creatinine 0.7 L, Est GFR ( Amer) > 60, Est GFR (Non-Af Amer) > 60, Random Glucose 110, Calcium 9.4, Total Bilirubin 0.4, AST 35, ALT 28, Alkaline Phosphatase 73, Total Protein 8.0, Albumin 4.3, Globulin 3.8, Albumin/Globulin Ratio 1.1 06/19/18 17:50: WBC 5.9, RBC 4.94, Hgb 14.9, Hct 44.5, MCV 90.1, MCH 30.2, MCHC 33.5, RDW 13.4, Plt Count 352, MPV 8.6, Gran % 48.4 L, Lymph % (Auto) 43.4 H, [place] % (Auto) 6.2 H, Eos % (Auto) 1.7, Baso % (Auto) 0.3, Gran # 2.87, Lymph # (Auto) 2.6, Early # (Auto) 0.4, Eos # (Auto) 0.1, Baso # (Auto) 0.02 Vital Signs Temp Pulse Resp BP Pulse Ox 06/21/18 13:57 98 F 85 13 116/75 98 06/21/18 13:42 98 F 91 H 19 124/77 94 L 06/21/18 12:14 99.3 F 95 H 18 109/75 95 06/21/18 12:08 98.5 F 94 H 20 118/78 06/21/18 07:26 98.5 F 94 H 20 118/78 06/20/18 15:00 90 120/88 06/20/18 07:22 98.4 F 89 20 115/74 06/19/18 21:00 90 18 124/68 100 06/19/18 16:56 98.2 F 95 H 16 131/77 96 DSM 5 Symptoms Update: Shortly patient is 43-year-old male with reported history of s chizoaffective disorder with treatment resistant symptoms, multiple previous psychiatric admissions including [place] as well as [facility], pt was discharged from this facility 05/29/18, pt was compliant with the medication, pt got course of ECT treatment last admission, had one ECT as outpatient on 06/11/18, pt was scheduled for ECT on 06/25/18, but pt became agitated yesterday at the detention, presented to be psychotic, required emergent admission for meds adjustment ECT treatment. pt was seen in his room, c/o tooth pain, medical team was called, oragel was ordered pt said that psychosis is better, pt said "voices in my head", pt reported no thoughts of harming self or others. next ECT tomorrow 06/27/18 06/24/18 pt got ECT. treatment 11 still on titration schedule charge 172mC, energy 27.9J at 470 ohms, imped 210, pulse width 0.3msec, frequency 45hz, duration 8.000sec, current 800mA pt got 15-18seck of seizure, tolerated well, got toradol for headaches. pt is not taking showers, not brushing his teeth. Staff note that patient is spending less time in his room and attending more groups. He is still quiet without much socialization, but still sick. so far pt tolerates medications well, no side effects observed or reported, AIMS 0, no EPS. Impression: schizoaffective disorder, bipolar type, treatment resistant Medication Change: Yes (thorazine increased) Medical Record Reviewed: Yes Mental Status Examination - Cognitive Function Orientation: Person, Place, Situation Memory: Intact Attention: Poor (some improvement) Concentration: Poor (some improvement) Association: Loose (some improvement) Fund of Knowledge: Poor - Mood Mood: Depressed - Affect Affect: Constricted (irritable and annoyed), Flat - Speech Speech: Appropriate - Formal Thought Process Formal Thought Process: Hallucinations, Delusions, Paranoia, Loosening of associations - Suicidal Ideation Suicidal Ideation: No - Homicidal Ideation Homicidal Ideation: No Goal/Treatment Plan - Goal/Treatment Plan Need for Continued Stay: Remain at risks for inpatient hospitalization, Severe depression anxiety, Discharge may exacerbated symptoms, Severe functional impairment Progress Toward Problem(s) and Goals/Treatment Plan: Milieu/structure/supportive therapy Medical consult appreciated consultation for discharge plan and social issues seroquel 400 mg PO AMHS prozac d/c gabapentin 300mg po tid thorazine 50mg po bid and 100mg hs for psychosis PRN meds thorazine trazodone hs for insomnia and depression ECT 06/20/18, 06/24/18, pt was cleared by medical team ECT 06/27/18 Family involvement Follow up on labs Will monitor closely Pt was educated about risk/benefits and alternatives of medications, coping str ategies (safety plan, suicide prevention), relapse prevention, importance of follow up with psychiatrist and therapist, stay away from drugs/alcohol/smoking Estimated Date of D/C: 07/01/18
[2018-06-27] MEDS ORDERED: Propofol 10 mg/ml Inj (20 ML) ONE (10:29)
--- NOTE | 2018-06-27 14:23 | PCM.PYCHPN ---
Psychiatric Progress Note - Psychiatric Progress Note Patient seen today, length of contact: 30min Patient Chief Complaint: "i feel suicidal", patient denied any intent or plan to kill himself, contracted for safety Problems Identified/Issues Discussed: Suicide/ homicide prevention, past psychiatric h/o, current psychiatric symptoms, medical problems, risk/benefits and alternatives of medications, medications compliance, coping strategies, substance abuse h/o, relapse p revention, importance of follow up with psychiatrist and therapist, discharge plan. Medical Problems: 06/19/18 17:50 06/19/18 17:50 Lab Results 06/20/18 08:00: Hemoglobin A1c 5.8 06/20/18 08:00: Triglycerides 164 H, Cholesterol 237 H, LDL Cholesterol Direct 153 H, HDL Cholesterol 39 06/19/18 18:00: Urine Opiates Screen Negative, Urine Methadone Screen Negative, Ur Barbiturates Screen Negative, Ur Phencyclidine Scrn Negative, Ur Amphetamines Screen Negative, U Benzodiazepines Scrn Negative, U Oth Cocaine Metabols Negative, U Cannabinoids Screen Negative 06/19/18 18:00: Urine Color Yellow, Urine Appearance Clear, Urine pH 6.5, Ur Specific [place] 1.025, Urine Protein Negative, Urine Glucose (UA) Negative, Urine Ketones Negative, Urine Blood Negative, Urine Nitrate Negative, Urine Bilirubin Negative, Urine Urobilinogen 0.2, Ur Leukocyte Esterase Negative 06/19/18 17:50: [place] < 0.2 L 06/19/18 17:50: Alcohol, Quantitative < 10 06/19/18 17:50: Salicylates < 1 L, Acetaminophen < 10.0 L 06/19/18 17:50: Sodium 141, Potassium 4.1, Chloride 106, Carbon Dioxide 26, Anion Gap 13, BUN 12, Creatinine 0.7 L, Est GFR ( Amer) > 60, Est GFR (Non-Af Amer) > 60, Random Glucose 110, Calcium 9.4, Total Bilirubin 0.4, AST 35, ALT 28, Alkaline Phosphatase 73, Total Protein 8.0, Albumin 4.3, Globulin 3.8, Albumin/Globulin Ratio 1.1 06/19/18 17:50: WBC 5.9, RBC 4.94, Hgb 14.9, Hct 44.5, MCV 90.1, MCH 30.2, MCHC 33.5, RDW 13.4, Plt Count 352, MPV 8.6, Gran % 48.4 L, Lymph % (Auto) 43.4 H, [place] % (Auto) 6.2 H, Eos % (Auto) 1.7, Baso % (Auto) 0.3, Gran # 2.87, Lymph # (Auto) 2.6, [place] # (Auto) 0.4, Eos # (Auto) 0.1, Baso # (Auto) 0.02 Vital Signs Temp Pulse Resp BP Pulse Ox 06/21/18 13:57 98 F 85 13 116/75 98 06/21/18 13:42 98 F 91 H 19 124/77 94 L 06/21/18 12:14 99.3 F 95 H 18 109/75 95 06/21/18 12:08 98.5 F 94 H 20 118/78 06/21/18 07:26 98.5 F 94 H 20 118/78 06/20/18 15:00 90 120/88 06/20/18 07:22 98.4 F 89 20 115/74 06/19/18 21:00 90 18 124/68 100 06/19/18 16:56 98.2 F 95 H 16 131/77 96 Diagnostic Results: 06/19/18 17:50 06/19/18 17:50 Lab Results 06/20/18 08:00: Hemoglobin A1c 5.8 06/20/18 08:00: Triglycerides 164 H, Cholesterol 237 H, LDL Cholesterol Direct 153 H, HDL Cholesterol 39 06/19/18 18:00: Urine Opiates Screen Negative, Urine Methadone Screen Negative, Ur Barbiturates Screen Negative, Ur Phencyclidine Scrn Negative, Ur Amphetamines Screen Negative, U Benzodiazepines Scrn Negative, U Oth Cocaine Metabols Negative, U Cannabinoids Screen Negative 06/19/18 18:00: Urine Color Yellow, Urine Appearance Clear, Urine pH 6.5, Ur Specific [place] 1.025, Urine Protein Negative, Urine Glucose (UA) Negative, Urine Ketones Negative, Urine Blood Negative, Urine Nitrate Negative, Urine Bilirubin Negative, Urine Urobilinogen 0.2, Ur Leukocyte Esterase Negative 06/19/18 17:50: [place] < 0.2 L 06/19/18 17:50: Alcohol, Quantitative < 10 06/19/18 17:50: Salicylates < 1 L, Acetaminophen < 10.0 L 06/19/18 17:50: Sodium 141, Potassium 4.1, Chloride 106, Carbon Dioxide 26, Anion Gap 13, BUN 12, Creatinine 0.7 L, Est GFR ( Amer) > 60, Est GFR (Non-Af Amer) > 60, Random Glucose 110, Calcium 9.4, Total Bilirubin 0.4, AST 35, ALT 28, Alkaline Phosphatase 73, Total Protein 8.0, Albumin 4.3, Globulin 3.8, Albumin/Globulin Ratio 1.1 06/19/18 17:50: WBC 5.9, RBC 4.94, Hgb 14.9, Hct 44.5, MCV 90.1, MCH 30.2, MCHC 33.5, RDW 13.4, Plt Count 352, MPV 8.6, Gran % 48.4 L, Lymph % (Auto) 43.4 H, [place] % (Auto) 6.2 H, Eos % (Auto) 1.7, Baso % (Auto) 0.3, Gran # 2.87, Lymph # (Auto) 2.6, [place] # (Auto) 0.4, Eos # (Auto) 0.1, Baso # (Auto) 0.02 Vital Signs Temp Pulse Resp BP Pulse Ox 06/21/18 13:57 98 F 85 13 116/75 98 06/21/18 13:42 98 F 91 H 19 124/77 94 L 06/21/18 12:14 99.3 F 95 H 18 109/75 95 06/21/18 12:08 98.5 F 94 H 20 118/78 06/21/18 07:26 98.5 F 94 H 20 118/78 06/20/18 15:00 90 120/88 06/20/18 07:22 98.4 F 89 20 115/74 06/19/18 21:00 90 18 124/68 100 06/19/18 16:56 98.2 F 95 H 16 131/77 96 DSM 5 Symptoms Update: Shortly patient is 43-year-old male with reported history of schizoaffective disorder with treatment resistant symptoms, multiple previous psychiatric admissions including [place] as well as [facility], pt was discharged from this facility 05/29/18, pt was compliant with the medication, pt got course of ECT treatment last admission, had one ECT as outpatient on 06/11/18, pt was scheduled for ECT on 06/25/18, but pt became agitated yesterday at the senior care, presented to be psychotic, required emergent admission for meds adjustment ECT treatment. pt was seen in [place] initially pt presented to be confused and this proposal manager writer came back within one hour, pt presented as usual, pt knew where he was, knows the procedure he is getting today, then pt signed consent for ECT treatment, pt had a capacity to do so pt was willing to get ECT and "get better" pt reported to have suicidal ideation, but denied any intent to kill self 06/24/18 pt got ECT. still on titration schedule charge 172mC, energy 27.9J at 470 ohms, imped 210, pulse width 0.3msec, frequency 45hz, duration 8.000sec, current 800mA pt got 15-18seck of seizure, tolerated well, got toradol for headaches. 06/26/18 pt got ECT charge 173mC, energy 30.4J at 2200 ohms, imped 540, pulse width 0.3msec, frequency 45hz, duration 8.000sec, current 800mA pt got 20seck of seizure, tolerated well, got toradol for headaches. pt is not taking showers, not brushing his teeth. Staff note that patient is spending less time in his room and attending more groups. He is still quiet without much socialization, but still sick. so far pt tolerates medications well, no side effects observed or reported, AIMS 0, no EPS. Impression: schizoaffective disorder, bipolar type, treatment resistant Medication Change: Yes (thorazine increased) Medical Record Reviewed: Yes Mental Status Examination - Cognitive Function Orientation: Person, Place, Situation Memory: Intact Attention: Poor (some improvement) Concentration: Poor (some improvement) Association: Loose (some improvement) Fund of Knowledge: Poor - Mood Mood: Depressed - Affect Affect: Constricted (irritable and annoyed), Flat - Speech Speech: Appropriate - Formal Thought Process Formal Thought Process: Hallucinations, Delusions, Paranoia, Loosening of associations - Suicidal Ideation Suicidal Ideation: No - Homicidal Ideation Homicidal Ideation: No Goal/Treatment Plan - Goal/Treatment Plan Need for Continued Stay: Remain at risks for inpatient hospitalization, Severe depression anxiety, Discharge may exacerbated symptoms, Severe functional impairment Progress Toward Problem(s) and Goals/Treatment Plan: Milieu/structure/supportive therapy Medical consult appreciated consultation for discharge plan and social issues seroquel 400 mg PO AMHS for psychosis prozac d/c gabapentin 300mg po tid thorazine 100 mg po bid and 100mg hs for psychosis PRN meds thorazine trazodone hs for insomnia and depression ECT 06/20/18, 06/24/18, pt was cleared by medical team ECT 06/27/18, tolerated well Family involvement Follow up on labs Will monitor closely Pt was educated about risk/benefits and alternatives of medications, coping strategies (safety plan, suicide prevention), relapse prevention, importance of follow up with psychiatrist and therapist, stay away from drugs/alcohol/smoking Estimated Date of D/C: 07/01/18
[2018-06-27] MEDS: Benzocaine 20% Cream(7 gm) MT PRN (18:43)
--- NOTE | 2018-06-28 11:43 | PCM.BM ---
<MikiJeremy - Last Filed: 06/28/18 11:40> Treatment Plan Problems - Problems identified on initial assessmt Agitated/aggressive behavior Date Initiated: 06/19/18 Time Initiated: 22:45 Assessment reference: NA Status: Active Priority: 1 Violence Date Initiated: 06/19/18 Time Initiated: 22:45 Assessment reference: NA Status: Active Impulse control Date Initiated: 06/19/18 Time Initiated: 22:45 Assessment reference: NA Status: Active Medication nonadherence Date Initiated: 06/19/18 Time Initiated: 22:50 Assessment reference: NA Status: Active Treatment assets and liabiliti Patient Assests: adapts well, self-reliant, ADL independent, physically healthy, negotiates basic needs, cognitively intact Patient Liabilities: poor support system - Milieu Protocol Maintain good personal hygiene: daily Encourage regular showers, daily Remind patient to perform daily oral care Conduct patient checks and document Observation sheet: Q15 minutes Maintain personal safety: daily Educate patient to report safety concerns to staff, every shift Monitor environment for contraband/sharps Medication safety: Monitor for expected outcome, potential side effects: daily, Assess barriers to learning: daily, Assess readiness for medication education: daily Milieu Narrative: Milieu/structure/supportive therapy Medical consult appreciated SW consultation for discharge plan and social issues seroquel 400 mg PO AMHS for psychosis prozac d/c gabapentin 300mg po tid thorazine 100 mg po bid and 100mg hs for psychosis PRN meds thorazine trazodone hs for insomnia and depression ECT 06/20/18, 06/24/18, pt was cleared by medical team ECT 06/27/18, tolerated well Family involvement Follow up on labs Will monitor closely Pt was educated about risk/benefits and alternatives of medications, coping strategies (safety plan, suicide prevention), relapse prevention, importance of follow up with psychiatrist and therapist, stay away from drugs/alcohol/smoking Family Contact Family involvement: Famliy/SO not involved - Outside Agency [facility] Care involvment: Following patient during stay, Information-sharing Agency contact name: [facility] - Goals for Treatment Patient goals for treatment: I dont want to talk at this moment Discharge/Continuing Care - Education Needs Education Needs: Patient Medication, Patient Anger Management skills, Patient Activities of Daily Living - Discharge Discharge Criteria: Normal sleep pattern - Treatment Team Participation Patient/Family/SO Statement: Milieu/structure/supportive therapy Medical consult appreciated consultation for discharge plan and social issues seroquel 400 mg PO AMHS for psychosis prozac d/c gabapentin 300mg po tid thorazine 100 mg po bid and 100mg hs for psychosis PRN meds thorazine trazodone hs for insomnia and depression ECT 06/20/18, 06/24/18, pt was cleared by medical team ECT 06/27/18, tolerated well Family involvement Follow up on labs Will monitor closely Pt was educated about risk/benefits and alternatives of medications, coping strategies (safety plan, suicide prevention), relapse prevention, importance of follow up with psychiatrist and therapist, stay away from drugs/alcohol/smoking Treatment Plan Review - Problem Agitated/aggressive behavior Time Initiated: 22:45 Progress toward outcomes: improved Violence Time Initiated: 22:45 Progress toward outcomes: improved Impulse control Time Initiated: 22:45 Medication nonadherence Time Initiated: 22:50 Progress toward outcomes: unchanged <Madeline Hernandez - Last Filed: 06/28/18 17:08> - Diagnosis (1) Schizoaffective disorder, bipolar type Status: Acute Interventions: 06/28/18 17:09 Patient is not consistent with his symptoms, overall improving, much calmer, psychosis is improving, patient still has suicidal ideations which seems to be transient, patient tolerated ECT as well as all medications well, no side effects observed or reported, patient required further ECT treatments as well as maintenance <Nika Louis - Last Filed: 06/28/18 17:15> Family Contact Family involvement: Family/SO is involved Discharge/Continuing Care - Discharge Discharge Criteria: Tolerates medication w/o severe side effects, Free of paranoid thoughts, Free of agitation
--- NOTE | 2018-06-28 17:17 | PCM.PYCHPN ---
Psychiatric Progress Note - Psychiatric Progress Note Patient seen today, length of contact: 30min Patient Chief Complaint: "Thank you all for your help, God bless you" Problems Identified/Issues Discussed: Suicide/ homicide prevention, past psychiatric h/o, current psychiatric symptoms, medical problems, risk/benefits and alternatives of medications, medications compliance, coping strategies, substance abuse h/o, relapse prevention, importance of follow up with psychiatrist and therapist, discharge plan. Medical Problems: 06/19/18 17:50 06/19/18 17:50 Lab Results 06/20/18 08:00: Hemoglobin A1c 5.8 06/20/18 08:00: Triglycerides 164 H, Cholesterol 237 H, LDL Cholesterol Direct 153 H, HDL Cholesterol 39 06/19/18 18:00: Urine Opiates Screen Negative, Urine Methadone Screen Negative, Ur Barbiturates Screen Negative, Ur Phencyclidine Scrn Negative, Ur Amphetamines Screen Negative, U Benzodiazepines Scrn Negative, U Oth Cocaine Metabols Negative, U Cannabinoids Screen Negative 06/19/18 18:00: Urine Color Yellow, Urine Appearance Clear, Urine pH 6.5, Ur Specific [place] 1.025, Urine Protein Negative, Urine Glucose (UA) Negative, Urine Ketones Negative, Urine Blood Negative, Urine Nitrate Negative, Urine Bilirubin Negative, Urine Urobilinogen 0.2, Ur Leukocyte Esterase Negative 06/19/18 17:50: [place] < 0.2 L 06/19/18 17:50: Alcohol, Quantitative < 10 06/19/18 17:50: Salicylates < 1 L, Acetaminophen < 10.0 L 06/19/18 17:50: Sodium 141, Potassium 4.1, Chloride 106, Carbon Dioxide 26, Anion Gap 13, BUN 12, Creatinine 0.7 L, Est GFR ( Amer) > 60, Est GFR (Non-Af Amer) > 60, Random Glucose 110, Calcium 9.4, Total Bilirubin 0.4, AST 35, ALT 28, Alkaline Phosphatase 73, Total Protein 8.0, Albumin 4.3, Globulin 3.8, Albumin/Globulin Ratio 1.1 06/19/18 17:50: WBC 5.9, RBC 4.94, Hgb 14.9, Hct 44.5, MCV 90.1, MCH 30.2, MCHC 33.5, RDW 13.4, Plt Count 352, MPV 8.6, Gran % 48.4 L, Lymph % (Auto) 43.4 H, [place] % (Auto) 6.2 H, Eos % (Auto) 1.7, Baso % (Auto) 0.3, Gran # 2.87, Lymph # (Auto) 2.6, [place] # (Auto) 0.4, Eos # (Auto) 0.1, Baso # (Auto) 0.02 Vital Signs Temp Pulse Resp BP Pulse Ox 06/21/18 13:57 98 F 85 13 116/75 98 06/21/18 13:42 98 F 91 H 19 124/77 94 L 06/21/18 12:14 99.3 F 95 H 18 109/75 95 06/21/18 12:08 98.5 F 94 H 20 118/78 06/21/18 07:26 98.5 F 94 H 20 118/78 06/20/18 15:00 90 120/88 06/20/18 07:22 98.4 F 89 20 115/74 06/19/18 21:00 90 18 124/68 100 06/19/18 16:56 98.2 F 95 H 16 131/77 96 Diagnostic Results: 06/19/18 17:50 06/19/18 17:50 Lab Results 06/20/18 08:00: Hemoglobin A1c 5.8 06/20/18 08:00: Triglycerides 164 H, Cholesterol 237 H, LDL Cholesterol Direct 153 H, HDL Cholesterol 39 06/19/18 18:00: Urine Opiates Screen Negative, Urine Methadone Screen Negative, Ur Barbiturates Screen Negative, Ur Phencyclidine Scrn Negative, Ur Amphetamines Screen Negative, U Benzodiazepines Scrn Negative, U Oth Cocaine Metabols Negative, U Cannabinoids Screen Negative 06/19/18 18:00: Urine Color Yellow, Urine Appearance Clear, Urine pH 6.5, Ur Specific [place] 1.025, Urine Protein Negative, Urine Glucose (UA) Negative, Ur ine Ketones Negative, Urine Blood Negative, Urine Nitrate Negative, Urine Bilirubin Negative, Urine Urobilinogen 0.2, Ur Leukocyte Esterase Negative 06/19/18 17:50: [place] < 0.2 L 06/19/18 17:50: Alcohol, Quantitative < 10 06/19/18 17:50: Salicylates < 1 L, Acetaminophen < 10.0 L 06/19/18 17:50: Sodium 141, Potassium 4.1, Chloride 106, Carbon Dioxide 26, Anion Gap 13, BUN 12, Creatinine 0.7 L, Est GFR ( Amer) > 60, Est GFR (Non-Af Amer) > 60, Random Glucose 110, Calcium 9.4, Total Bilirubin 0.4, AST 35, ALT 28, Alkaline Phosphatase 73, Total Protein 8.0, Albumin 4.3, Globulin 3.8, Albumin/Globulin Ratio 1.1 06/19/18 17:50: WBC 5.9, RBC 4.94, Hgb 14.9, Hct 44.5, MCV 90.1, MCH 30.2, MCHC 33.5, RDW 13.4, Plt Count 352, MPV 8.6, Gran % 48.4 L, Lymph % (Auto) 43.4 H, [place] % (Auto) 6.2 H, Eos % (Auto) 1.7, Baso % (Auto) 0.3, Gran # 2.87, Lymph # (Auto) 2.6, [place] # (Auto) 0.4, Eos # (Auto) 0.1, Baso # (Auto) 0.02 Vital Signs Temp Pulse Resp BP Pulse Ox 06/21/18 13:57 98 F 85 13 116/75 98 06/21/18 13:42 98 F 91 H 19 124/77 94 L 06/21/18 12:14 99.3 F 95 H 18 109/75 95 06/21/18 12:08 98.5 F 94 H 20 118/78 06/21/18 07:26 98.5 F 94 H 20 118/78 06/20/18 15:00 90 120/88 06/20/18 07:22 98.4 F 89 20 115/74 06/19/18 21:00 90 18 124/68 100 06/19/18 16:56 98.2 F 95 H 16 131/77 96 DSM 5 Symptoms Update: Shortly patient is 43-year-old male with reported history of schizoaffective disorder with treatment resistant symptoms, multiple previous psychiatric admissions including [facility] as well as [facility], pt was discharged from this facility 05/29/18, pt was compliant with the medication, pt got course of ECT treatment last admission, had one ECT as outpatient on 06/11/18, pt was scheduled for ECT on 06/25/18, but pt became agitated yesterday at the assisted, presented to be psychotic, required emergent admission for meds adjustment ECT treatment. pt was seen at the treatment team meeting. 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 But affect is more reactive, patient was able to smile, patient denied any aggressive feelings, no agitation, patient is less paranoid, patient is appreciated for staff who is helping him. 06/24/18 pt got ECT. still on titration schedule charge 172mC, energy 27.9J at 470 ohms, imped 210, pulse width 0.3msec, frequency 45hz, duration 8.000sec, current 800mA pt got 15-18seck of seizure, tolerated well, got toradol for headaches. 06/26/18 pt got ECT charge 173mC, energy 30.4J at 2200 ohms, imped 540, pulse width 0.3msec, frequency 45hz, duration 8.000sec, current 800mA pt got 20seck of seizure, tolerated well, got toradol for headaches. Staff note that patient is spending less time in his room and attending more groups. Patient was observed in group today, when asked what this is group about patient had difficulties to remember. so far pt tolerates medications well, no side effects observed or reported, AIMS 0, no EPS. Impression: schizoaffective disorder, bipolar type, treatment resistant Medication Change: Yes ( thorazine was increased on 06/26/18) Medical Record Reviewed: Yes Consults ordered or reviewed: medical consult appreciated Mental Status Examination - Cognitive Function Orientation: Person, Place, Situation Memory: Intact Attention: Poor (some improvement) Concentration: Poor (some improvement) Association: Loose (some improvement) Fund of Knowledge: Poor - Mood Mood: Depressed - Affect Affect: Constricted (irritable and annoyed), Flat - Speech Speech: Appropriate - Formal Thought Process Formal Thought Process: Hallucinations, Delusions, Paranoia, Loosening of associations - Suicidal Ideation Suicidal Ideation: No - Homicidal Ideation Homicidal Ideation: No Goal/Treatment Plan - Goal/Treatment Plan Need for Continued Stay: Remain at risks for inpatient hospitalization, Severe depression anxiety, Discharge may exacerbated symptoms, Severe functional impairment Progress Toward Problem(s) and Goals/Treatment Plan: Milieu/structure/supportive therapy Medical consult appreciated consultation for discharge plan and social issues seroquel 400 mg PO AMHS for psychosis prozac d/c gabapentin 300mg po tid thorazine 100 mg po bid and 100mg hs for psychosis PRN meds thorazine trazodone hs for insomnia and depression ECT 06/20/18 patient tolerated it well ECT 06/24/18, tolerated well ECT 06/27/18, tolerated well ECT scheduled for 07/02/2018 Family involvement Follow up on labs Will monitor closely Pt was educated about risk/benefits and alternatives of medications, coping strategies (safety plan, suicide prevention), relapse prevention, importance of follow up with psychiatrist and therapist, stay away from drugs/alcohol/smoking Estimated Date of D/C: 07/05/18
[2018-06-28] MEDS: Benzocaine/Menthol (Cepacol) Lozenge MT PRN ×2 (17:19→21:37)
--- NOTE | 2018-06-29 12:01 | PCM.PYCHPN ---
Psychiatric Progress Note - Psychiatric Progress Note Patient seen today, length of contact: 30min Problems Identified/Issues Discussed: I reviewed recent notes and met with patient in the hallway. He is calmed, groomed and cooperative. Oriented x3. Affect remains constricted but he does seem more spontaneous and animated than his prior admission. Focus, awareness and overall relatedness are definitely getting better (though still impaired). Patient's responses are brief and relevant to questioning and delusions were not elicited. He denies any hallucinations this morning but indicates that he continues to intermittently experience hearing derogatory voices, mostly at night. He finds them less distressing since admission. Thus far he is tolerating ECT treatments well. He denies any side effects from his medications. Staff note that patient is spending less time in his room and attending more groups. He is still quiet without much socialization. At times very simplistic and inconsistent with his responses though not overtly bizarre. Diagnostic Results: schizoaffective disorder, bipolar type, treatment resistant Medication Change: No ( ) Medical Record Reviewed: Yes Mental Status Examination - Cognitive Function Orientation: Person, Place, Situation Memory: Intact Attention: Poor (some improvement) Concentration: Poor (some improvement) Association: Loose (some improvement) Fund of Knowledge: Poor - Mood Mood: Depressed - Affect Affect: Constricted (irritable and annoyed), Flat - Speech Speech: Appropriate - Formal Thought Process Formal Thought Process: Hallucinations, Delusions, Paranoia, Loosening of associations - Suicidal Ideation Suicidal Ideation: No - Homicidal Ideation Homicidal Ideation: No Goal/Treatment Plan - Goal/Treatment Plan Need for Continued Stay: Remain at risks for inpatient hospitalization, Severe depression anxiety, Discharge may exacerbated symptoms, Severe functional impairment Progress Toward Problem(s) and Goals/Treatment Plan: * c/w current tx and plan, ECT scheduled for 07/02/18 * Vitals reviewed and noted below: Selected Entries 06/27/18 06/27/18 06/27/18 11:35 16:07 18:37 Temperature 98.1 F 97.6 F Pulse Rate 88 101 H Respiratory Rate Blood Pressure 116/72 116/73 06/28/18 07:45 Temperature 98.6 F Pulse Rate 86 Respiratory 20 Rate Blood Pressure 111/73 Estimated Date of D/C: 07/05/18
--- NOTE | 2018-06-30 09:52 | PCM.PYCHPN ---
Psychiatric Progress Note - Psychiatric Progress Note Patient seen today, length of contact: 30min Problems Identified/Issues Discussed: I reviewed recent notes and met with patient at bedside. He is calmed, groomed and cooperative. Oriented x3. Affect remains constricted but he does seem more spontaneous and animated than his prior admission. Focus, awareness and overall relatedness are definitely getting better (though still impaired). Patient's responses are brief and relevant to questioning and delusions were not elicited. He denies any hallucinations this morning but indicates that he continues to intermittently experience hearing derogatory voices, mostly at night. He finds them less distressing since admission. Thus far he is tolerating ECT treatments well. He denies any side effects from his medications. Staff note that patient is spending less time in his room and attending more groups. Still seems passive, at times avoidant. Patient explains that at baseline he is introverted and anxious. He is still quiet without much socialization. At times very simplistic and inconsistent with his responses though not overtly bizarre. Diagnostic Results: schizoaffective disorder, bipolar type, treatment resistant Medication Change: No ( ) Medical Record Reviewed: Yes Mental Status Examination - Cognitive Function Orientation: Person, Place, Situation Memory: Intact Attention: Poor (some improvement) Concentration: Poor (some improvement) Association: Loose (some improvement) Fund of Knowledge: Poor - Mood Mood: Depressed - Affect Affect: Constricted (irritable and annoyed), Flat - Speech Speech: Appropriate - Formal Thought Process Formal Thought Process: Hallucinations, Delusions, Paranoia, Loosening of associations - Suicidal Ideation Suicidal Ideation: No - Homicidal Ideation Homicidal Ideation: No Goal/Treatment Plan - Goal/Treatment Plan Need for Continued Stay: Remain at risks for inpatient hospitalization, Severe depression anxiety, Discharge may exacerbated symptoms, Severe functional impairment Progress Toward Problem(s) and Goals/Treatment Plan: * c/w current tx and plan, ECT scheduled for 07/02/18 * Vitals reviewed and noted below: Selected Entries 06/28/18 06/29/18 07:45 07:32 Temperature 98.6 F 97.8 F Pulse Rate 86 81 Respiratory 20 20 Rate Blood Pressure 111/73 116/80 * No new lab results over the weekend Estimated Date of D/C: 07/05/18
[2018-07-01] MEDS: Benzocaine 20% Cream(7 gm) MT PRN (09:28)
--- NOTE | 2018-07-01 10:56 | PCM.PYCHPN ---
Psychiatric Progress Note - Psychiatric Progress Note Patient seen today, length of contact: 30min Problems Identified/Issues Discussed: I reviewed recent notes and met with patient in the dayroom. He is calmed, groomed and cooperative. Oriented x3. Affect remains constricted but he does seem more spontaneous and animated than his prior admission. Focus, awareness and overall relatedness are definitely getting better (though still impaired). Patient's responses are brief and relevant to questioning and delusions were not elicited. He denies any hallucinations this morning but indicates that he continues to intermittently experience hearing derogatory voices, mostly at night. He finds them less distressing since admission. I agree with nursing, he has not been observed to be responding to internal stimuli on the unit. Thus far he is tolerating ECT treatments well. He denies any side effects from his medications. Staff note that patient is spending less time in his room and attending more groups. Still seems passive but he is more passive than avoidant now. Patient explains that at baseline he is introverted and anxious. He is still quiet without much socialization. At times very simplistic and inconsistent with his responses though not overtly bizarre. There have been no behavioral issues on the unit over the weekend or today thus far. Diagnostic Results: schizoaffective disorder, bipolar type, treatment resistant Medication Change: No ( ) Medical Record Reviewed: Yes Mental Status Examination - Cognitive Function Orientation: Person, Place, Situation Memory: Intact Attention: Poor (some improvement) Concentration: Poor (some improvement) Association: Loose (some improvement) Fund of Knowledge: Poor - Mood Mood: Depressed - Affect Affect: Constricted (irritable and annoyed), Flat - Speech Speech: Appropriate - Formal Thought Process Formal Thought Process: Hallucinations, Delusions, Paranoia, Loosening of associations - Suicidal Ideation Suicidal Ideation: No - Homicidal Ideation Homicidal Ideation: No Goal/Treatment Plan - Goal/Treatment Plan Need for Continued Stay: Remain at risks for inpatient hospitalization, Severe depression anxiety, Discharge may exacerbated symptoms, Severe functional impairment Progress Toward Problem(s) and Goals/Treatment Plan: * c/w current tx and plan, ECT scheduled for 07/02/18 * Vitals reviewed and noted below: Selected Entries 06/29/18 06/30/18 06/30/18 07:32 07:00 17:28 Temperature 97.8 F 97.8 F Pulse Rate 81 84 95 H Respiratory 20 20 Rate Blood Pressure 116/80 136/80 125/83 * No new lab results over the weekend or today thus far. Estimated Date of D/C: 07/05/18
[2018-07-02] MEDS ORDERED: Propofol 10 mg/ml Inj (20 ML) ONE (11:42)
[2018-07-02] MEDS ORDERED: Succinylcholine 200 mg/10 ml Inj IV ONE (11:43)
[2018-07-02] MEDS ORDERED: Lactated Ringer's 1,000 ML IV SCH (12:30)
--- NOTE | 2018-07-02 17:15 | PCM.PYCHPN ---
Psychiatric Progress Note - Psychiatric Progress Note Patient seen today, length of contact: 30min Patient Chief Complaint: "Thank you, you have a nice outfit" Problems Identified/Issues Discussed: Suicide/ homicide prevention, past psychiatric h/o, current psychiatric symp toms, medical problems, risk/benefits and alternatives of medications, medications compliance, coping strategies, substance abuse h/o, relapse prevention, importance of follow up with psychiatrist and therapist, discharge plan. Medical Problems: 06/19/18 17:50 06/19/18 17:50 Lab Results 06/20/18 08:00: Hemoglobin A1c 5.8 06/20/18 08:00: Triglycerides 164 H, Cholesterol 237 H, LDL Cholesterol Direct 153 H, HDL Cholesterol 39 06/19/18 18:00: Urine Opiates Screen Negative, Urine Methadone Screen Negative, Ur Barbiturates Screen Negative, Ur Phencyclidine Scrn Negative, Ur Amphetamines Screen Negative, U Benzodiazepines Scrn Negative, U Oth Cocaine Metabols Negat bernice, U Cannabinoids Screen Negative 06/19/18 18:00: Urine Color Yellow, Urine Appearance Clear, Urine pH 6.5, Ur Specific [place] 1.025, Urine Protein Negative, Urine Glucose (UA) Negative, Urine Ketones Negative, Urine Blood Negative, Urine Nitrate Negative, Urine Bilirubin Negative, Urine Urobilinogen 0.2, Ur Leukocyte Esterase Negative 06/19/18 17:50: [place] < 0.2 L 06/19/18 17:50: Alcohol, Quantitative < 10 06/19/18 17:50: Salicylates < 1 L, Acetaminophen < 10.0 L 06/19/18 17:50: Sodium 141, Potassium 4.1, Chloride 106, Carbon Dioxide 26, Anion Gap 13, BUN 12, Creatinine 0.7 L, Est GFR ( Amer) > 60, Est GFR (Non-Af Amer) > 60, Random Glucose 110, Calcium 9.4, Total Bilirubin 0.4, AST 35, ALT 28, Alkaline Phosphatase 73, Total Protein 8.0, Albumin 4.3, Globulin 3.8, Albumin/Globulin Ratio 1.1 06/19/18 17:50: WBC 5.9, RBC 4.94, Hgb 14.9, Hct 44.5, MCV 90.1, MCH 30.2, MCHC 33.5, RDW 13.4, Plt Count 352, MPV 8.6, Gran % 48.4 L, Lymph % (Auto) 43.4 H, [place] % (Auto) 6.2 H, Eos % (Auto) 1.7, Baso % (Auto) 0.3, Gran # 2.87, Lymph # (Auto) 2.6, [place] # (Auto) 0.4, Eos # (Auto) 0.1, Baso # (Auto) 0.02 Vital Signs Temp Pulse Resp BP Pulse Ox 06/21/18 13:57 98 F 85 13 116/75 98 06/21/18 13:42 98 F 91 H 19 124/77 94 L 06/21/18 12:14 99.3 F 95 H 18 109/75 95 06/21/18 12:08 98.5 F 94 H 20 118/78 06/21/18 07:26 98.5 F 94 H 20 118/78 06/20/18 15:00 90 120/88 06/20/18 07:22 98.4 F 89 20 115/74 06/19/18 21:00 90 18 124/68 100 06/19/18 16:56 98.2 F 95 H 16 131/77 96 Temp Pulse Resp BP Pulse Ox 98.1 F 99 H 18 125/75 98 07/02/18 12:40 07/02/18 12:40 07/02/18 12:40 07/02/18 12:40 07/02/18 12:40 Diagnostic Results: 06/19/18 17:50 06/19/18 17:50 Lab Results 06/20/18 08:00: Hemoglobin A1c 5.8 06/20/18 08:00: Triglycerides 164 H, Cholesterol 237 H, LDL Cholesterol Direct 153 H, HDL Cholesterol 39 06/19/18 18:00: Urine Opiates Screen Negative, Urine Methadone Screen Negative, Ur Barbiturates Screen Negative, Ur Phencyclidine Scrn Negative, Ur Amphetamines Screen Negative, U Benzodiazepines Scrn Negative, U Oth Cocaine Metabols Negative, U Cannabinoids Screen Negative 06/19/18 18:00: Urine Color Yellow, Urine Appearance Clear, Urine pH 6.5, Ur Specific [place] 1.025, Urine Protein Negative, Urine Glucose (UA) Negative, Urine Ketones Negative, Urine Blood Negative, Urine Nitrate Negative, Urine Bilirubin Negative, Urine Urobilinogen 0.2, Ur Leukocyte Esterase Negative 06/19/18 17:50: [place] < 0.2 L 06/19/18 17:50: Alcohol, Quantitative < 10 06/19/18 17:50: Salicylates < 1 L, Acetaminophen < 10.0 L 06/19/18 17:50: Sodium 141, Potassium 4.1, Chloride 106, Carbon Dioxide 26, Anion Gap 13, BUN 12, Creatinine 0.7 L, Est GFR ( Amer) > 60, Est GFR (Non-Af Amer) > 60, Random Glucose 110, Calcium 9.4, Total Bilirubin 0.4, AST 35, ALT 28, Alkaline Phosphatase 73, Total Protein 8.0, Albumin 4.3, Globulin 3.8, Albumin/Globulin Ratio 1.1 06/19/18 17:50: WBC 5.9, RBC 4.94, Hgb 14.9, Hct 44.5, MCV 90.1, MCH 30.2, MCHC 33.5, RDW 13.4, Plt Count 352, MPV 8.6, Gran % 48.4 L, Lymph % (Auto) 43.4 H, [place] % (Auto) 6.2 H, Eos % (Auto) 1.7, Baso % (Auto) 0.3, Gran # 2.87, Lymph # (Auto) 2.6, [place] # (Auto) 0.4, Eos # (Auto) 0.1, Baso # (Auto) 0.02 Vital Signs Temp Pulse Resp BP Pulse Ox 06/21/18 13:57 98 F 85 13 116/75 98 06/21/18 13:42 98 F 91 H 19 124/77 94 L 06/21/18 12:14 99.3 F 95 H 18 109/75 95 06/21/18 12:08 98.5 F 94 H 20 118/78 06/21/18 07:26 98.5 F 94 H 20 118/78 06/20/18 15:00 90 120/88 06/20/18 07:22 98.4 F 89 20 115/74 06/19/18 21:00 90 18 124/68 100 06/19/18 16:56 98.2 F 95 H 16 131/77 96 DSM 5 Symptoms Update: Shortly patient is 43-year-old male with reported history of schizoaffective disorder with treatment resistant symptoms, multiple previous psychiatric admissions including [facility] as well as [facility], pt was discharged from this facility 05/29/18, pt was compliant with the medication, pt got course of ECT treatment last admission, had one ECT as outpatient on 06/11/18, pt was scheduled for ECT on 06/25/18, but pt became agitated yesterday at the [facility], presented to be psychotic, required emergent admission for meds adjustment ECT treatment. pt was seen at the dining area, patient presented to be anxious, she reported to be worried about the ECT procedure but willing to have it, Hygiene is somewhat better, affect is more reactive, mood congruent, patient was trying to present well, was giving this designer/writer complements. As per staff there is no agitation or aggression patient is more visible in the unit at times patient presented to be disorganized but overall much better to co mpare with the previous admission. Later on patient was seen at the OR for a ECT procedure, consent was signed, patient was willing to get procedure, risk/benefits/alternatives discussed with the patient. 06/24/18 pt got ECT. still on titration schedule charge 172mC, energy 27.9J at 470 ohms, imped 210, pulse width 0.3msec, frequency 45hz, duration 8.000sec, current 800mA pt got 15-18seck of seizure, tolerated well, got toradol for headaches. 06/26/18 pt got ECT charge 173mC, energy 30.4J at 2200 ohms, imped 540, pulse width 0.3msec, frequency 45hz, duration 8.000sec, current 800mA pt got 20seck of seizure, tolerated well, got toradol for headaches. 07/02/18 pt was schedule for procedure as per anestesiologist pt was desaturating, required intubation, pt had successfully intubated, pt got ECT procedure, was extubated charge 153mC, energy 23.2 J, stat imped 460, dynamic imped 196, pulse width 0.3msec, frequency 40hz, duration 8.000sec, current 800mA pt got 52seck of seizure, tolerated well. pt was seen after the procedure, pt was in good spirit, was not confused, this designer/writer educated pt about intubation and ECT result. pt was appreciative. Patient was seen later on at the unit, patient ate, complaining of the headache, got Tylenol. so far pt tolerates medications well, no side effects observed or reported, AIMS 0, no EPS. Impression: schizoaffective disorder, bipolar type, treatment resistant Medication Change: No ( ) Medical Record Reviewed: Yes Consults ordered or reviewed: medical consult appreciated Mental Status Examination - Cognitive Function Orientation: Person, Place, Situation Memory: Intact Attention: Poor (some improvement) Concentration: Poor (some improvement) Association: Loose (some improvement) Fund of Knowledge: Poor - Mood Mood: Depressed - Affect Affect: Constricted (irritable and annoyed), Flat - Speech Speech: Appropriate - Formal Thought Process Formal Thought Process: Hallucinations, Delusions, Paranoia, Loosening of associations - Suicidal Ideation Suicidal Ideation: No - Homicidal Ideation Homicidal Ideation: No Goal/Treatment Plan - Goal/Treatment Plan Need for Continued Stay: Remain at risks for inpatient hospitalization, Severe depression anxiety, Discharge may exacerbated symptoms, Severe functional impairment Progress Toward Problem(s) and Goals/Treatment Plan: Milieu/structure/supportive therapy Medical consult appreciated consultation for discharge plan and social issues seroquel 400 mg PO AMHS for psychosis prozac d/c gabapentin 300mg po tid thorazine 100 mg po bid and 100mg hs for psychosis PRN meds thorazine trazodone hs for insomnia and depression ECT 06/20/18 patient tolerated it well ECT 06/24/18, tolerated well ECT 06/27/18, tolerated well ECT 07/02/2018 tolerated well Family involvement Follow up on labs Will monitor closely Pt was educated about risk/benefits and alternatives of medications, coping strategies (safety plan, suicide prevention), relapse prevention, importance of follow up with psychiatrist and therapist, stay away from drugs/alcohol/smoking Estimated Date of D/C: 07/05/18
[2018-07-03] MEDS: Benzocaine 20% Cream(7 gm) MT PRN ×2 (09:15→17:53)
--- NOTE | 2018-07-03 16:20 | PCM.PYCHPN ---
Psychiatric Progress Note - Psychiatric Progress Note Patient seen today, length of contact: 30min Patient Chief Complaint: "Thank you, I am doing fine, my mood is great, depressed, and fine"at times patient presented to be disorganized but seems to be chronic. Problems Identified/Issues Discussed: Suicide/ homicide prevention, past psychiatric h/o, current psychiatric sy mptoms, medical problems, risk/benefits and alternatives of medications, medications compliance, coping strategies, substance abuse h/o, relapse prevention, importance of follow up with psychiatrist and therapist, discharge plan. Medical Problems: 06/19/18 17:50 06/19/18 17:50 Lab Results 06/20/18 08:00: Hemoglobin A1c 5.8 06/20/18 08:00: Triglycerides 164 H, Cholesterol 237 H, LDL Cholesterol Direct 153 H, HDL Cholesterol 39 06/19/18 18:00: Urine Opiates Screen Negative, Urine Methadone Screen Negative, Ur Barbiturates Screen Negative, Ur Phencyclidine Scrn Negative, Ur Amphetamines Screen Negative, U Benzodiazepines Scrn Negative, U Oth Cocaine Metabols Neg ative, U Cannabinoids Screen Negative 06/19/18 18:00: Urine Color Yellow, Urine Appearance Clear, Urine pH 6.5, Ur Specific [place] 1.025, Urine Protein Negative, Urine Glucose (UA) Negative, Urine Ketones Negative, Urine Blood Negative, Urine Nitrate Negative, Urine Bilirubin Negative, Urine Urobilinogen 0.2, Ur Leukocyte Esterase Negative 06/19/18 17:50: [place] < 0.2 L 06/19/18 17:50: Alcohol, Quantitative < 10 06/19/18 17:50: Salicylates < 1 L, Acetaminophen < 10.0 L 06/19/18 17:50: Sodium 141, Potassium 4.1, Chloride 106, Carbon Dioxide 26, Anion Gap 13, BUN 12, Creatinine 0.7 L, Est GFR ( Amer) > 60, Est GFR (Non-Af Amer) > 60, Random Glucose 110, Calcium 9.4, Total Bilirubin 0.4, AST 35, ALT 28, Alkaline Phosphatase 73, Total Protein 8.0, Albumin 4.3, Globulin 3.8, Albumin/Globulin Ratio 1.1 06/19/18 17:50: WBC 5.9, RBC 4.94, Hgb 14.9, Hct 44.5, MCV 90.1, MCH 30.2, MCHC 33.5, RDW 13.4, Plt Count 352, MPV 8.6, Gran % 48.4 L, Lymph % (Auto) 43.4 H, [place] % (Auto) 6.2 H, Eos % (Auto) 1.7, Baso % (Auto) 0.3, Gran # 2.87, Lymph # (Auto) 2.6, [place] # (Auto) 0.4, Eos # (Auto) 0.1, Baso # (Auto) 0.02 Vital Signs Temp Pulse Resp BP Pulse Ox 06/21/18 13:57 98 F 85 13 116/75 98 06/21/18 13:42 98 F 91 H 19 124/77 94 L 06/21/18 12:14 99.3 F 95 H 18 109/75 95 06/21/18 12:08 98.5 F 94 H 20 118/78 06/21/18 07:26 98.5 F 94 H 20 118/78 06/20/18 15:00 90 120/88 06/20/18 07:22 98.4 F 89 20 115/74 06/19/18 21:00 90 18 124/68 100 06/19/18 16:56 98.2 F 95 H 16 131/77 96 Temp Pulse Resp BP Pulse Ox 98.1 F 99 H 18 125/75 98 07/02/18 12:40 07/02/18 12:40 07/02/18 12:40 07/02/18 12:40 07/02/18 12:40 Diagnostic Results: 06/19/18 17:50 06/19/18 17:50 Lab Results 06/20/18 08:00: Hemoglobin A1c 5.8 06/20/18 08:00: Triglycerides 164 H, Cholesterol 237 H, LDL Cholesterol Direct 153 H, HDL Cholesterol 39 06/19/18 18:00: Urine Opiates Screen Negative, Urine Methadone Screen Negative, Ur Barbiturates Screen Negative, Ur Phencyclidine Scrn Negative, Ur Amphetamines Screen Negative, U Benzodiazepines Scrn Negative, U Oth Cocaine Metabols Negative, U Cannabinoids Screen Negative 06/19/18 18:00: Urine Color Yellow, Urine Appearance Clear, Urine pH 6.5, Ur Specific [place] 1.025, Urine Protein Negative, Urine Glucose (UA) Negative, Urine Ketones Negative, Urine Blood Negative, Urine Nitrate Negative, Urine Bilirubin Negative, Urine Urobilinogen 0.2, Ur Leukocyte Esterase Negative 06/19/18 17:50: [place] < 0.2 L 06/19/18 17:50: Alcohol, Quantitative < 10 06/19/18 17:50: Salicylates < 1 L, Acetaminophen < 10.0 L 06/19/18 17:50: Sodium 141, Potassium 4.1, Chloride 106, Carbon Dioxide 26, Anion Gap 13, BUN 12, Creatinine 0.7 L, Est GFR ( Amer) > 60, Est GFR (Non-Af Amer) > 60, Random Glucose 110, Calcium 9.4, Total Bilirubin 0.4, AST 35, ALT 28, Alkaline Phosphatase 73, Total Protein 8.0, Albumin 4.3, Globulin 3.8, Albumin/Globulin Ratio 1.1 06/19/18 17:50: WBC 5.9, RBC 4.94, Hgb 14.9, Hct 44.5, MCV 90.1, MCH 30.2, MCHC 33.5, RDW 13.4, Plt Count 352, MPV 8.6, Gran % 48.4 L, Lymph % (Auto) 43.4 H, [place] % (Auto) 6.2 H, Eos % (Auto) 1.7, Baso % (Auto) 0.3, Gran # 2.87, Lymph # (Auto) 2.6, [place] # (Auto) 0.4, Eos # (Auto) 0.1, Baso # (Auto) 0.02 Vital Signs Temp Pulse Resp BP Pulse Ox 06/21/18 13:57 98 F 85 13 116/75 98 06/21/18 13:42 98 F 91 H 19 124/77 94 L 06/21/18 12:14 99.3 F 95 H 18 109/75 95 06/21/18 12:08 98.5 F 94 H 20 118/78 06/21/18 07:26 98.5 F 94 H 20 118/78 06/20/18 15:00 90 120/88 06/20/18 07:22 98.4 F 89 20 115/74 06/19/18 21:00 90 18 124/68 100 06/19/18 16:56 98.2 F 95 H 16 131/77 96 DSM 5 Symptoms Update: Shortly patient is 43-year-old male with reported history of schizoaffective disorder with treatment resistant symptoms, multiple previous psychiatric admissions including [facility] as well as [facility], pt was discharged from this facility 05/29/18, pt was compliant with the medication, pt got course of ECT treatment last admission, had one ECT as outpatient on 06/11/18, pt was scheduled for ECT on 06/25/18, but pt became agitated yesterday at the detention, presented to be psychotic, required emergent admission for meds adjustment ECT treatment. pt was seen in his room, patient presented with bright affect, denied any discomfort or pain, patient reported that yesterday he had some headaches but not today, patient is looking forward for a ECT treatment tomorrow patient denied hearing voices denied seeing things, denies thoughts of harming himself or others, discharge plan was discussed in details patient will be discharged on Sunday. At times patient's answers are not related to the questions being asked but overall patient presented much better. Discussed with the nursing staff in details, patient is more visible in the unit, bright affect, much better to compare with the last admission. 06/24/18 pt got ECT. still on titration schedule charge 172mC, energy 27.9J at 470 ohms, imped 210, pulse width 0.3msec, frequency 45hz, duration 8.000sec, current 800mA pt got 15-18seck of seizure, tolerated well, got toradol for headaches. 06/26/18 pt got ECT charge 173mC, energy 30.4J at 2200 ohms, imped 540, pulse width 0.3msec, frequency 45hz, duration 8.000sec, current 800mA pt got 20seck of seizure, tolerated well, got toradol for headaches. 07/02/18 pt required to be intubated because pt was desaturating, pt had successfully intubated, pt got ECT procedure, was extubated. charge 153mC, energy 23.2 J, stat imped 460, dynamic imped 196, pulse width 0.3msec, frequency 40hz, duration 8.000sec, current 800mA pt got 52seck of seizure, tolerated well. Patient scheduled for ECT 07/04/2018 Patient was seen later on at the unit, patient ate, complaining of the headache, got Tylenol. so far pt tolerates medications well, no side effects observed or reported, AIMS 0, no EPS. Impression: schizoaffective disorder, bipolar type, treatment resistant Medication Change: No ( ) Medical Record Reviewed: Yes Mental Status Examination - Cognitive Function Orientation: Person, Place, Situation Memory: Intact Attention: Poor (some improvement) Concentration: Poor (some improvement) Association: Loose (some improvement) Fund of Knowledge: Poor - Mood Mood: Depressed - Affect Affect: Constricted (irritable and annoyed), Flat - Speech Speech: Appropriate - Formal Thought Process Formal Thought Process: Hallucinations (Denied date), Delusions (Denied), Paranoia (Does not appear to be paranoid), Loosening of associations (Chronic) - Suicidal Ideation Suicidal Ideation: No - Homicidal Ideation Homicidal Ideation: No Goal/Treatment Plan - Goal/Treatment Plan Need for Continued Stay: Remain at risks for inpatient hospitalization, Severe depression anxiety, Discharge may exacerbated symptoms, Severe functional impairment Progress Toward Problem(s) and Goals/Treatment Plan: Milieu/structure/supportive therapy Medical consult appreciated consultation for discharge plan and social issues seroquel 400 mg PO AMHS for psychosis prozac d/c gabapentin 300mg po tid thorazine 100 mg po bid and 100mg hs for psychosis PRN meds thorazine trazodone hs for insomnia and depression ECT 06/20/18 patient tolerated it well ECT 06/24/18, tolerated well ECT 06/27/18, tolerated well ECT 07/02/2018 tolerated well ECT 07/04/2018 scheduled Family involvement Follow up on labs Will monitor closely Pt was educated about risk/benefits and alternatives of medications, coping strategies (safety plan, suicide prevention), relapse prevention, importance of follow up with psychiatrist and therapist, stay away from drugs/alcohol/smoking Estimated Date of D/C: 07/05/18
[2018-07-04] MEDS ORDERED: Propofol 10 mg/ml Inj (20 ML) ONE (10:21)
[2018-07-04] MEDS ORDERED: Succinylcholine 200 mg/10 ml Inj IV ONE (10:21)
[2018-07-04] MEDS ORDERED: Lactated Ringer's 1,000 ML IV SCH (10:45)
[2018-07-04 11:27] VITALS: O2SAT 99
[2018-07-05] MEDS: Benzocaine/Menthol (Cepacol) Lozenge MT PRN (03:22)
[2018-07-05 07:09] VITALS: BP 112/76; PULSE 75; RESP 20; TEMP 98.8
--- NOTE | 2018-07-05 18:20 | PCM.PYCHDC ---
Mental Status Examination - Mental Status Examination Orientation: Person, Place, Situation Memory: Intact, Confabulations (at times wich seems to be chronic) Mood: Neutral Affect: Broad (mood congruent) Speech: Appropriate Attention: Poor (But much better compared with the time of admission) Concentration: Poor (Much better) Association: Loose (Baseline) Fund of Knowledge: Poor (Baseline) Formal Thought Process: Other (Chronic thought process disorganization) Description of patient's judgement and insight: Pt has improved insight into mental and medical illness, pt was compliant with medications and unit rules and regulations, pt was going to groups, was calm, cooperative, socially appropriate, no behavioral incidents, no agitation, no aggression. Psychotic Thoughts and Behaviors: Pt denied v/a/t hallucinations, denied paranoid ideations, pt does not appear to be psychotic, and thought process is goal directed. Suicidal Ideation: No Current Homicidal Ideation?: No Plan: pt adamantly denied thoughts of harming self or others denied intent or plan. Discharge Summary - Discharge Note Reason for Hospitalization: pt was admitted for evaluation of agitation/aggression/disorganized thoughts and behavior Psychiatric History (includes Medical, Family, Personal Hx): see HPI Laboratory Data: 06/19/18 17:50 06/19/18 17:50 Lab Results 06/20/18 08:00: Hemoglobin A1c 5.8 06/20/18 08:00: Triglycerides 164 H, Cholesterol 237 H, LDL Cholesterol Direct 153 H, HDL Cholesterol 39 06/19/18 18:00: Urine Opiates Screen Negative, Urine Methadone Screen Negative, Ur Barbiturates Screen Negative, Ur Phencyclidine Scrn Negative, Ur Amphetamines Screen Negative, U Benzodiazepines Scrn Negative, U Oth Cocaine Metabols Negative, U Cannabinoids Screen Negative 06/19/18 18:00: Urine Color Yellow, Urine Appearance Clear, Urine pH 6.5, Ur Specific [place] 1.025, Urine Protein Negative, Urine Glucose (UA) Negative, Urine Ketones Negative, Urine Blood Negative, Urine Nitrate Negative, Urine Bilirubin Negative, Urine Urobilinogen 0.2, Ur Leukocyte Esterase Negative 06/19/18 17:50: [place] < 0.2 L 06/19/18 17:50: Alcohol, Quantitative < 10 06/19/18 17:50: Salicylates < 1 L, Acetaminophen < 10.0 L 06/19/18 17:50: Sodium 141, Potassium 4.1, Chloride 106, Carbon Dioxide 26, Anion Gap 13, BUN 12, Creatinine 0.7 L, Est GFR ( Amer) > 60, Est GFR (Non-Af Amer) > 60, Random Glucose 110, Calcium 9.4, Total Bilirubin 0.4, AST 35, ALT 28, Alkaline Phosphatase 73, Total Protein 8.0, Albumin 4.3, Globulin 3.8, Albumin/Globulin Ratio 1.1 06/19/18 17:50: WBC 5.9, RBC 4.94, Hgb 14.9, Hct 44.5, MCV 90.1, MCH 30.2, MCHC 33.5, RDW 13.4, Plt Count 352, MPV 8.6, Gran % 48.4 L, Lymph % (Auto) 43.4 H, [place] % (Auto) 6.2 H, Eos % (Auto) 1.7, Baso % (Auto) 0.3, Gran # 2.87, Lymph # (Auto) 2.6, [place] # (Auto) 0.4, Eos # (Auto) 0.1, Baso # (Auto) 0.02 Vital Signs Temp Pulse Resp BP Pulse Ox 07/05/18 07:08 98.8 F 75 20 112/76 07/04/18 16:00 98 H 107/69 07/04/18 12:09 97.2 F L 07/04/18 11:25 98.4 F 85 18 136/91 H 99 07/04/18 11:10 98.4 F 87 17 136/91 H 97 07/04/18 10:55 98.4 F 88 17 134/94 H 97 07/04/18 10:40 98.4 F 86 16 166/88 H 97 07/04/18 09:00 98.5 F 87 18 130/85 98 07/04/18 07:06 98.6 F 85 20 122/83 07/03/18 17:54 97.2 F L 07/03/18 16:00 88 112/76 07/03/18 07:00 98.4 F 90 20 116/74 07/02/18 16:16 100 H 122/70 07/02/18 12:40 98.1 F 99 H 18 125/75 98 07/02/18 12:25 98.1 F 108 H 18 137/79 98 07/02/18 12:10 98.1 F 107 H 18 139/90 98 07/02/18 11:22 98.1 F 102 H 20 123/74 95 07/02/18 07:11 98.0 F 90 20 122/89 07/01/18 15:00 97.2 F L 89 17 110/70 07/01/18 09:22 97.8 F 07/01/18 07:09 97.7 F 87 20 122/80 06/30/18 17:28 95 H 125/83 06/30/18 07:00 97.8 F 84 20 136/80 06/29/18 07:32 97.8 F 81 20 116/80 06/28/18 07:45 98.6 F 86 20 111/73 06/27/18 18:37 97.6 F 06/27/18 16:07 101 H 116/73 06/27/18 11:35 98.1 F 88 16 116/72 97 06/27/18 11:20 98.1 F 90 16 114/78 97 06/27/18 11:05 98.1 F 91 H 16 116/71 97 06/27/18 10:50 98.1 F 94 H 16 111/74 97 06/27/18 09:27 98 F 94 H 20 113/77 97 06/27/18 07:31 97.5 F L 85 20 121/82 06/26/18 16:13 96 H 120/72 06/26/18 07:14 98.1 F 88 20 112/75 06/25/18 16:39 98 H 134/79 06/25/18 06:48 97.2 F L 84 20 126/86 06/24/18 14:16 98.7 F 91 H 17 112/70 06/24/18 14:10 98.6 F 82 16 124/78 98 06/24/18 13:55 98.6 F 85 16 126/78 98 06/24/18 13:50 98.6 F 85 16 122/70 98 06/24/18 13:35 98.6 F 80 16 121/75 98 06/24/18 13:20 98.6 F 89 16 130/80 98 06/24/18 12:40 98.6 F 72 18 101/73 96 06/24/18 07:33 98.0 F 90 20 113/75 12/02/18 16:41 98 H 129/72 06/23/18 08:30 98 F 90 20 113/75 06/23/18 06:52 97.6 F 89 19 116/70 98 06/22/18 16:04 101 H 124/76 06/21/18 16:45 97 H 109/68 06/21/18 13:57 98 F 85 13 116/75 98 06/21/18 13:42 98 F 91 H 19 124/77 94 L 06/21/18 12:14 99.3 F 95 H 18 109/75 95 06/21/18 12:08 98.5 F 94 H 20 118/78 06/21/18 07:26 98.5 F 94 H 20 118/78 06/20/18 15:00 90 120/88 06/20/18 07:22 98.4 F 89 20 115/74 06/19/18 21:00 90 18 124/68 100 06/19/18 16:56 98.2 F 95 H 16 131/77 96 Consultations:: List each consultation separately and include: 1. Reason for request. 2. Findings. 3. Follow-up Consultations: medical consult appreciated See note for more detailed information Summary of Hospital Course include:: 1. Description of specific treatment plan u tilized for patients during their course of treatmen. 2. Summarize the time- course for resolution of acute symptoms and/or regressed behaviors. 3. Describe issues identified and worked on during hospitalization. 4. Describe medication utilized. 5. Describe medical problems identified and treated. 6. Reassessment of suicide risk Summary of Hospital Course: Shortly patient is 43-year-old male with reported history of schizoaffective disorder with treatment resistant symptoms, multiple previous psychiatric admissions including [place] as well as [facility], [place], pt was discharged from this facility 05/29/18, pt was compliant with the medication, pt got course of ECT treatment last admission, had one ECT as outpatient on 06/11/18, pt was scheduled for ECT on 06/25/18, but pt became agitated yesterday at the skilled nursing, presented to be psychotic, required emergent admission for meds adjustment ECT treatment. Please see admission note for more detailed information 06/19/18 17:50 06/19/18 17:50 Lab Results 06/20/18 08:00: Hemoglobin A1c 5.8 06/20/18 08:00: Triglycerides 164 H, Cholesterol 237 H, LDL Cholesterol Direct 153 H, HDL Cholesterol 39 06/19/18 18:00: Urine Opiates Screen Negative, Urine Methadone Screen Negative, Ur Barbiturates Screen Negative, Ur Phencyclidine Scrn Negative, Ur Amphetamines Screen Negative, U Benzodiazepines Scrn Negative, U Oth Cocaine Metabols Negative, U Cannabinoids Screen Negative 06/19/18 18:00: Urine Color Yellow, Urine Appearance Clear, Urine pH 6.5, Ur Specific [place] 1.025, Urine Protein Negative, Urine Glucose (UA) Negative, Urine Ketones Negative, Urine Blood Negative, Urine Nitrate Negative, Urine Bilirubin Negative, Urine Urobilinogen 0.2, Ur Leukocyte Esterase Negative 06/19/18 17:50: [place] < 0.2 L 06/19/18 17:50: Alcohol, Quantitative < 10 06/19/18 17:50: Salicylates < 1 L, Acetaminophen < 10.0 L 06/19/18 17:50: Sodium 141, Potassium 4.1, Chloride 106, Carbon Dioxide 26, Anion Gap 13, BUN 12, Creatinine 0.7 L, Est GFR ( Amer) > 60, Est GFR (Non-Af Amer) > 60, Random Glucose 110, Calcium 9.4, Total Bilirubin 0.4, AST 35, ALT 28, Alkaline Phosphatase 73, Total Protein 8.0, Albumin 4.3, Globulin 3.8, Albumin/Globulin Ratio 1.1 06/19/18 17:50: WBC 5.9, RBC 4.94, Hgb 14.9, Hct 44.5, MCV 90.1, MCH 30.2, MCHC 33.5, RDW 13.4, Plt Count 352, MPV 8.6, Gran % 48.4 L, Lymph % (Auto) 43.4 H, [place] % (Auto) 6.2 H, Eos % (Auto) 1.7, Baso % (Auto) 0.3, Gran # 2.87, Lymph # (Auto) 2.6, [place] # (Auto) 0.4, Eos # (Auto) 0.1, Baso # (Auto) 0.02 Vital Signs Temp Pulse Resp BP Pulse Ox 06/20/18 07:22 98.4 F 89 20 115/74 06/19/18 21:00 90 18 124/68 100 06/19/18 16:56 98.2 F 95 H 16 131/77 96 Patient was stabilized on the following medications: Will continue seroquel 400 mg twice a day Prozac was weaned off gabapentin was continued Thorazine was increased slowly to 100 mg 3 times a day for psychosis PRN meds thorazine trazodone hs for insomnia and depression Patient also had ECT treatments, tolerated it well. Please see note for more detailed information before patient tolerated medications well no side effects observed or reported, aims 0, no EPS Over the course of this hospitalization pt was attending groups, pt also had medication management, had therapeutic milieu. There was a previous admission patient appeared to be more engaged, affect was more reactive, patient was socializing with others, no agitation or aggression. Overall pt improved significantly, pt's affect became brighter, pt was less depressed, has realistic future oriented plans, patient has chronic symptoms of schizophrenia, but presented much better, patient reached maximum effect from this hospitalization, this fiction and nonfiction writer prose gave a call to a patient's manager rn case Quynh Hurley, discharge plan was discussed in details, patient requires to come back to the hospital for ECT treatment next June. At the time of the discharge pt denied been depressed, denied thoughts of harming self or others, denied psychotic symptoms, and pt does not appeared to be psychotic, denied been anxious, pt is not in imminent danger to self or others, pt was referred to outpatient program [facility]. , information about follow up appointment, time and address provided to the pt, it is patient responsibility to follow up with outpatient clinic, PMD as well as specialists (see SW note for more detailed information). In case pt will need to obtain results of studies pending at discharge pt was provided with contact information of Psychiatric Inpatient unit [phone] as well as Medical Record Department [phone]. Patient is not using drugs, patient is not alcoholic, patient does not smoke pt was provided with prescriptions for all of medications (please see medication reconciliation form) Pt was educated about safety plan in case of worsening of symptoms or in case of suicidal or homicidal ideation call 911 or go to the nearest ER, also was educated to take meds as prescribed and stay away from drugs, pt verbalized understanding. - Diagnosis (1) Schizoaffective disorder, bipolar type Status: Acute (2) Schizoaffective disorder Status: Acute - Final Diagnosis (DSM 5) Condition upon Discharge: IMPROVED Disposition: HOME/ ROUTINE Follow-up Treatment Plan: [facility]. Prescriptions/Medication Reconciliation: Benzocaine 20% [Orajel Pm Maximum Strength] 1 gm MT QID PRN #1 tube PRN Reason: Pain, Mild (1-3) Benztropine [Cogentin] 1 mg PO AMHS #30 tab chlorproMAZINE [chlorpromazine HCl] 100 mg PO TID #45 tab Docusate [Colace] 100 mg PO 1000,1600 #30 cap Gabapentin [Neurontin] 300 mg PO TID #45 cap Quetiapine Fumarate [Seroquel] 400 mg PO AMHS #30 tab traZODone [Desyrel] 50 mg PO HS #14 tab - Smoking Cessation Smoking Cessation Medication prescribed: No Reason for not providing: Patient does not smoke - Antipsychotic Medications Pt discharged on 2 or more routine antipsychotic medications: Yes - Justification for 2 or more meds Failed 3 or more trials of Monotherapy: List medications: will have patient tried multiple psychotropic medications, patient is allergic to haloperidol or Risperdal, at present moment patient required to be on 2 antipsychotic medications, Clozaril will be a last resort
== END 2018-07-05 13:49 | disposition home or self-care (01) | DRG 750 ==
LOC: ED 16:41 → ERH 19:40 → PSYC 21:21
PROVIDERS: ADMIT Psychiatry & Neurology Psychiatry; ATTEND Psychiatry & Neurology Psychiatry
PROC: GZB4ZZZ Other Electroconvulsive Therapy (ICD-10-PCS; principal; 2018-06-21 11:00)
PROC: GZB4ZZZ Other Electroconvulsive Therapy (ICD-10-PCS; 2018-06-24)
PROC: GZB4ZZZ Other Electroconvulsive Therapy (ICD-10-PCS; 2018-06-27)
PROC: GZB4ZZZ Other Electroconvulsive Therapy (ICD-10-PCS; 2018-07-02)
PROC: GZB4ZZZ Other Electroconvulsive Therapy (ICD-10-PCS; 2018-07-04)
DX: F25.0 Schizoaffective disorder, bipolar type (principal); I10 Essential (primary) hypertension; J44.9 Chronic obstructive pulmonary disease, unspecified; E78.5 Hyperlipidemia, unspecified; G47.00 Insomnia, unspecified

== ENCOUNTER 2018-07-12 08:20 | Day surgery (SDC) | payer MEDICAID ==
[2018-07-12] MEDS ORDERED: Etomidate 20 mg/10ml Inj IV ONE (12:39)
[2018-07-12] MEDS ORDERED: Succinylcholine 200 mg/10 ml Inj IV ONE (12:39)
[2018-07-12] MEDS ORDERED: Propofol 10 mg/ml Inj (20 ML) ONE (12:41)
[2018-07-12] MEDS ORDERED: Sodium Chloride 0.9% 1,000 ML IV SCH (13:15)
[2018-07-12 13:48] VITALS: BP 119/75; PULSE 90; RESP 18; TEMP 97; O2SAT 94
--- NOTE | 2018-07-12 16:32 | CP.PCM.HP ---
History of Present Illness - History of Present Illness History of Present Illness: pt has long h/o schizoaffective disorder, treatment resistant pt came for outpatient ECT procedure, accompanied by Residential Counselor Liz Barrios, as per Liz patient was verbalizing suicidal ideation yesterday and that is why patient was sent to [facility] evaluation, but patient was considered to be not committable, was discharged back to the long term. For the past week patient was doing well, but for past 2 days patient was self isolating, no agitation, no aggression, no threats. pt was seen in OR, pt is willing to have ECT consent was signed, patient had capacity to do so Patient is not sure if he had a drink or not, patient was seen by anesthesiologist, was cleared for procedure. pt was educated about risk/benefits and alternatives of the procedure Patient reported that he feels "okay, I have suicidal ideations but I have no plan to kill myself", patient contracted for safety. From this policy writer observation patient presented very well, has very nice haircut, shaved, personal hygiene is much better to compare with the previous admission. for full H&P see admission note dated 06/20/18 06/24/18 ECT. 06/26/18 ECT 07/02/18 ECT ECT 07/04/2018 charge 153mC, energy 23.2 J, stat imped 460, dynamic imped 196, pulse width 0.3msec, frequency 40hz, duration 8.000sec, current 800mA pt got 36seck of adequate seizure, EEG data stim. adequate 84%likely, pt tolerated it well, anasthesiologist was advised to give toradol after the procedure. This policy writer used the same setting for today's ECT procedure 07/12/18: charge 153mC, energy 23.2 J, stat imped 460, dynamic imped 196, pulse width 0.3msec, frequency 40hz, duration 8.000sec, current 800mA pt got 49seck of adequate motor and EEG confirmed seizure, [facility] indicated 36% likelihood of therapeutic seizures, but it is doubtful. Pt tolerated ECT well, anasthesiologist was advised to give toradol after the procedure. Pt's counselor was advised to bring pt back to the hospital in case of worsening of SI or inability to contract for safety. next ECT 07/18/18 Present on Admission - Present on Admission Any Indicators Present on Admission: No Review of Systems - Review of Systems Systems not reviewed;Unavailable: Acuity of Condition - Constitutional Constitutional: As Per HPI - EENT Eyes: As Per HPI Ears: As Per HPI Nose/Mouth/Throat: As Per HPI - Cardiovascular Cardiovascular: As Per HPI - Respiratory Respiratory: As Per HPI - Gastrointestinal Gastrointestinal: As Per HPI - Genitourinary Genitourinary: As Per HPI - Reproductive: Male Reproductive:Male: As Per HPI - Musculoskeletal Musculoskeletal: As Per HPI - Integumentary Integumentary: As Per HPI - Neurological Neurological: As Per HPI - Psychiatric Psychiatric: As Per HPI - Endocrine Endocrine: As Per HPI - Hematologic/Lymphatic Hematologic: As Per HPI Past Patient History - Infectious Disease Hx of Infectious Diseases: None - Tetanus Immunizations Tetanus Immunization: Unknown - Past Medical History & Family History Past Medical History?: Yes - Past Social History Smoking Status: Former Smoker - CARDIAC Hx Pacemaker: No - PULMONARY Hx Tuberculosis: No - NEUROLOGICAL HX Cerebrovascular Accident: No Hx Seizures: No - HEENT Hx HEENT Problems: No - RENAL Hx Chronic Kidney Disease: No - ENDOCRINE/METABOLIC Hx Endocrine Disorders: No - HEMATOLOGICAL/ONCOLOGICAL Hx Blood Transfusions: No - INTEGUMENTARY Hx Dermatological Problems: No - MUSCULOSKELETAL/RHEUMATOLOGICAL Hx Musculoskeletal Disorders: No - GASTROINTESTINAL Hx Gastrointestinal Disorders: No - GENITOURINARY/GYNECOLOGICAL Hx Sexually Transmitted Disorders: No (Patient denied) - PSYCHIATRIC Hx Emotional Abuse: No Hx Physical Abuse: No Hx Substance Use: No - SURGICAL HISTORY Hx Surgeries: Yes - ANESTHESIA Hx Anesthesia Reactions: No Hx Malignant Hyperthermia: No Meds Allergies/Adverse Reactions: Allergies Allergy/AdvReac Type Severity Reaction Status Date / Time divalproex sodium Allergy RASH Verified 06/21/18 04:44 [From Depakote] FISH Allergy RASH Verified 06/21/18 04:44 haloperidol [From Haldol] Allergy RASH Verified 06/21/18 04:44 haloperidol lactate Allergy RASH Verified 06/21/18 04:44 [From Haldol] risperidone [From Risperdal] Allergy RASH Verified 06/21/18 04:44 ziprasidone HCl [From Geodon] Allergy RASH Verified 06/21/18 04:44 ziprasidone mesylate Allergy RASH Verified 06/21/18 04:44 [From Geodon] Physical Exam - Constitutional Appears: Well, Non-toxic Results - Vital Signs Recent Vital Signs: Last Vital Signs Temp 98.6 F 07/12/18 08:50 Pulse 96 H 07/12/18 08:50 Resp 20 07/12/18 08:50 BP 126/77 07/12/18 08:50 Pulse Ox 95 07/12/18 08:50 - EKG Data EKG Interpreted by: ER Physician Assessment & Plan - Assessment and Plan (Free Text) Assessment: Schizoaffective disorder, treatment resistant Plan: Next ECT is July 18 Staff was advised to bring patient back to the hospital only in case of worsening of the symptoms Was advised to continue taking medications Patient contracted for safety Safe to go back to the long term Decision To Admit - Pt Status Changed To: Hospital Disposition Of: Extended Recovery/Post Procedure
== END 2018-07-12 14:20 | disposition home or self-care (01) ==
LOC: SDS 08:20
PROVIDERS: ATTEND Psychiatry & Neurology Psychiatry
DX: F25.9 Schizoaffective disorder, unspecified (principal); Z87.891 Personal history of nicotine dependence
CPT/HCPCS: 90870; J0330; J1885; J2704; J7030; J7120

== ENCOUNTER 2018-07-18 07:27 | Day surgery (SDC) | payer MEDICAID ==
[2018-07-18] MEDS ORDERED: Succinylcholine 200 mg/10 ml Inj IV ONE (10:12)
[2018-07-18] MEDS ORDERED: Propofol 10 mg/ml Inj (20 ML) ONE (10:13)
--- NOTE | 2018-07-18 11:01 | CP.PCM.HP ---
History of Present Illness - History of Present Illness History of Present Illness: pt has long h/o schizoaffective disorder, treatment resistant pt came for outpatient ECT procedure, accompanied by pt's housing case manager Jennie([phone]), as per Jennie patient is doing well, attending DTP, they still working on compliance with body service team member, at times pt could curse at staff, but no agitation/no aggression/pt did not verbalized any thoughts of harming self or others. pt is compliant with meds, over night pt did not eat or drink. pt was seen in OR, pt is willing to have ECT consent was signed, patient had capacity to do so Patient is sure that he did not eat or drink, "I had water at 11pm yesterday". pt was educated about risk/benefits and alternatives of the procedure Patient reported that he feels "okay, I feel alright, i am little worried about ECT", reassurance provided, pt was receptive. pt said that his mother visited him at [place], "she brought me a lot of food and clothes." From this copy writer observation patient presented very well, has very nice haircut, shaved, personal hygiene is much better to compare with the previous admission. for full H&P see admission note dated 06/20/18 06/24/18 ECT. 06/26/18 ECT 07/02/18 ECT ECT 07/04/2018 charge 153mC, energy 23.2 J, stat imped 460, dynamic imped 196, pulse width 0.3msec, frequency 40hz, duration 8.000sec, current 800mA pt got 36seck of adequate seizure, EEG data stim. adequate 84%likely, pt tolerated it well, anasthesiologist was advised to give toradol after the procedure. 07/12/18: charge 153mC, energy 23.2 J, stat imped 460, dynamic imped 196, pulse width 0.3msec, frequency 40hz, duration 8.000sec, current 800mA pt got 49seck of adequate motor and EEG confirmed seizure, [facility] 36% likelihood of therapeutic seizures, but it is doubtful. Pt tolerated ECT well, anasthesiologist was advised to give toradol after the procedure. 07/18/18 this copy writer set the same parameters like last time, charge 153mC, energy 23.2 J, stat imped 460, dynamic imped 196, pulse width 0.3msec, frequency 40hz, duration 8.000sec, current 800mA, pt did not have any seizures. second tx given charge 320mC, energy 56.3 J, at 220 ohms, stat imped 460, pulse width 0.5msec, frequency 50hz, duration 8.000sec, current 800mA pt had about 15sec of seizures, adequacy 22% by MECTA analysis. after that ECT machine did not have power, [facility] was contacted. Pt's counselor was advised to bring pt back to the hospital in case of worsening of SI or inability to contract for safety. next ECT 07/25/18 Present on Admission - Present on Admission Any Indicators Present on Admission: No Review of Systems - Review of Systems Systems not reviewed;Unavailable: Acuity of Condition - Constitutional Constitutional: As Per HPI - EENT Eyes: As Per HPI Ears: As Per HPI Nose/Mouth/Throat: As Per HPI - Cardiovascular Cardiovascular: As Per HPI - Respiratory Respiratory: As Per HPI - Gastrointestinal Gastrointestinal: As Per HPI - Genitourinary Genitourinary: As Per HPI - Reproductive: Male Reproductive:Male: As Per HPI - Musculoskeletal Musculoskeletal: As Per HPI - Integumentary Integumentary: As Per HPI - Neurological Neurological: As Per HPI - Psychiatric Psychiatric: As Per HPI - Endocrine Endocrine: As Per HPI - Hematologic/Lymphatic Hematologic: As Per HPI Past Patient History - Infectious Disease Hx of Infectious Diseases: None - Tetanus Immunizations Tetanus Immunization: Unknown - Past Medical History & Family History Past Medical History?: Yes - Past Social History Smoking Status: Former Smoker - CARDIAC Hx Pacemaker: No - PULMONARY Hx Tuberculosis: No - NEUROLOGICAL Hx Paralysis: No - HEENT Hx HEENT Problems: No - RENAL Hx Chronic Kidney Disease: No - ENDOCRINE/METABOLIC Hx Endocrine Disorders: No - HEMATOLOGICAL/ONCOLOGICAL Hx Blood Transfusions: No - INTEGUMENTARY Hx Dermatological Problems: No - MUSCULOSKELETAL/RHEUMATOLOGICAL Hx Musculoskeletal Disorders: No - GASTROINTESTINAL Hx Gastrointestinal Disorders: No - GENITOURINARY/GYNECOLOGICAL Hx Sexually Transmitted Disorders: No (Patient denied) - PSYCHIATRIC Hx Emotional Abuse: No Hx Physical Abuse: No Hx Substance Use: No - SURGICAL HISTORY Hx Surgeries: Yes - ANESTHESIA Hx Anesthesia Reactions: No Hx Malignant Hyperthermia: No Meds Allergies/Adverse Reactions: Allergies Allergy/AdvReac Type Severity Reaction Status Date / Time divalproex sodium Allergy RASH Verified 06/21/18 04:44 [From Depakote] FISH Allergy RASH Verified 06/21/18 04:44 haloperidol [From Haldol] Allergy RASH Verified 06/21/18 04:44 haloperidol lactate Allergy RASH Verified 06/21/18 04:44 [From Haldol] risperidone [From Risperdal] Allergy RASH Verified 06/21/18 04:44 ziprasidone HCl [From Geodon] Allergy RASH Verified 06/21/18 04:44 ziprasidone mesylate Allergy RASH Verified 06/21/18 04:44 [From Geodon] Physical Exam - Constitutional Appears: Well Results - Vital Signs Recent Vital Signs: Last Vital Signs Temp 98.4 F 07/18/18 07:45 Pulse 92 H 07/18/18 07:45 Resp 18 07/18/18 07:45 BP 114/73 07/18/18 07:45 Pulse Ox 96 07/18/18 07:45 - EKG Data EKG Interpreted by: ER Physician Assessment & Plan - Assessment and Plan (Free Text) Assessment: schizoaffective disorder, bipolar type, treatment resistant Plan: Next ECT is July Staff was advised to bring patient back to the hospital only in case of worsening of the symptoms Was advised to continue taking medications Patient contracted for safety Safe to go back to the residential for now pt requires to have weekly ECT because when this copy writer was trying to give tx every other week, pt was readmitted to the [facility] psych unit. Decision To Admit - Pt Status Changed To: Hospital Disposition Of: Extended Recovery/Post Procedure
[2018-07-18 11:40] VITALS: RESP 18; TEMP 98.7
[2018-07-18 12:10] VITALS: PULSE 94; O2SAT 97
[2018-07-18 12:45] VITALS: BP 106/60
== END 2018-07-18 12:42 | disposition home or self-care (01) ==
LOC: SDS 07:27
PROVIDERS: ATTEND Psychiatry & Neurology Psychiatry
DX: F25.0 Schizoaffective disorder, bipolar type (principal); Z87.891 Personal history of nicotine dependence
CPT/HCPCS: 90870; J0330; J1885; J2001; J2405; J2704; J7120

== ENCOUNTER 2018-07-25 08:30 | Day surgery (SDC) | payer MEDICAID ==
[2018-07-19 10:27] VITALS: BMI 37.5
[2018-07-25] MEDS ORDERED: Succinylcholine 200 mg/10 ml Inj IV ONE (10:38)
[2018-07-25] MEDS ORDERED: Propofol 10 mg/ml Inj (20 ML) ONE ×2 (10:38→11:14)
[2018-07-25] MEDS ORDERED: Sodium Chloride 0.9% 1,000 ML IV SCH (11:30)
--- NOTE | 2018-07-25 12:38 | CP.PCM.HP ---
History of Present Illness - History of Present Illness History of Present Illness: pt has long h/o schizoaffective disorder, treatment resistant pt came for outpatient ECT procedure, accompanied by pt's pillowcase sewer Jennie([phone]), as per Jennie patient is doing well, attending DTP, now pt is more compliant with his daily chores, pt is doing "very well", no agitation, no aggression, pt is compliant with meds and f/u appts. staff confirmed that pt did not eat or drink over night. pt was seen in OR, pt is willing to have ECT consent was signed, patient had capacity to do so Patient is sure that he did not eat or drink, "I had water at 12am yesterday". pt was educated about risk/benefits and alternatives of the procedure Patient reported that he feels "okay, I feel alright, nice to see you". From this senior medical writer observation patient presented very well, has very nice haircut, shaved, personal hygiene is much better to compare with the previous admission. for full H&P see admission note dated 06/20/18 06/24/18 ECT. 06/26/18 ECT 07/02/18 ECT ECT 07/04/2018 charge 153mC, energy 23.2 J, stat imped 460, dynamic imped 196, pulse width 0.3msec, frequency 40hz, duration 8.000sec, current 800mA pt got 36seck of adequate seizure, EEG data stim. adequate 84%likely, pt tolerated it well, anasthesiologist was advised to give toradol after the procedure. 07/12/18: charge 153mC, energy 23.2 J, stat imped 460, dynamic imped 196, pulse width 0.3msec, frequency 40hz, duration 8.000sec, current 800mA pt got 49seck of adequate motor and EEG confirmed seizure, EEG data from [facility] indicated 36% likelihood of therapeutic seizures, but it is doubtful. Pt tolerated ECT well, anasthesiologist was advised to give toradol after the procedure. 07/18/18 this senior medical writer set the same parameters like last time, charge 153mC, energy 23.2 J, stat imped 460, dynamic imped 196, pulse width 0.3msec, frequency 40hz, duration 8.000sec, current 800mA, pt did not have any seizures. second tx given charge 320mC, energy 56.3 J, at 220 ohms, stat imped 460, pulse width 0.5msec, frequency 50hz, duration 8.000sec, current 800mA pt had about 15sec of seizures, adequacy 22% by MECTA analysis. after that ECT machine did not have power, [facility]ado was contacted. ECT 07/25/18 this senior medical writer used the same parameters as last time when pt had adequate seizures: charge 320mC, energy 56.3 J, at 220 ohms, stat imped 460, pulse width 0.5msec, frequency 50hz, duration 8.000sec, current 800mA pt had about 16sec of seizures, adequacy 82% by MECTA analysis. as per anesthesiology, pt is easily desaturates after the procedure, pt woke up, no agitation, no aggression pt will be accompanied by his pillowcase sewer back [facility] the [facility]. pt was advised to come back 08/01/18 for ECT procedure Present on Admission - Present on Admission Any Indicators Present on Admission: No Review of Systems - Review of Systems Systems not reviewed;Unavailable: Acuity of Condition - Constitutional Constitutional: As Per HPI - EENT Eyes: As Per HPI Ears: As Per HPI Nose/Mouth/Throat: As Per HPI - Cardiovascular Cardiovascular: As Per HPI - Respiratory Respiratory: As Per HPI - Gastrointestinal Gastrointestinal: As Per HPI - Genitourinary Genitourinary: As Per HPI - Reproductive: Male Reproductive:Male: As Per HPI - Musculoskeletal Musculoskeletal: As Per HPI - Integumentary Integumentary: As Per HPI - Neurological Neurological: As Per HPI - Psychiatric Psychiatric: As Per HPI - Endocrine Endocrine: As Per HPI - Hematologic/Lymphatic Hematologic: As Per HPI Past Patient History - Infectious Disease Hx of Infectious Diseases: None - Tetanus Immunizations Tetanus Immunization: Unknown - Past Medical History & Family History Past Medical History?: Yes - Past Social History Smoking Status: Former Smoker - CARDIAC Hx Pacemaker: No - PULMONARY Hx Tuberculosis: No - NEUROLOGICAL Hx Paralysis: No - HEENT Hx HEENT Problems: No - RENAL Hx Chronic Kidney Disease: No - ENDOCRINE/METABOLIC Hx Endocrine Disorders: No - HEMATOLOGICAL/ONCOLOGICAL Hx Blood Transfusions: No - INTEGUMENTARY Hx Dermatological Problems: No - MUSCULOSKELETAL/RHEUMATOLOGICAL Hx Musculoskeletal Disorders: No - GASTROINTESTINAL Hx Gastrointestinal Disorders: No - GENITOURINARY/GYNECOLOGICAL Hx Sexually Transmitted Disorders: No (Patient denied) - PSYCHIATRIC Hx Emotional Abuse: No Hx Physical Abuse: No Hx Substance Use: No - SURGICAL HISTORY Hx Surgeries: Yes - ANESTHESIA Hx Anesthesia Reactions: No Hx Malignant Hyperthermia: No Meds Allergies/Adverse Reactions: Allergies Allergy/AdvReac Type Severity Reaction Status Date / Time divalproex sodium Allergy RASH Verified 06/21/18 04:44 [From Depakote] FISH Allergy RASH Verified 06/21/18 04:44 haloperidol [From Haldol] Allergy RASH Verified 06/21/18 04:44 haloperidol lactate Allergy RASH Verified 06/21/18 04:44 [From Haldol] risperidone [From Risperdal] Allergy RASH Verified 06/21/18 04:44 ziprasidone HCl [From Geodon] Allergy RASH Verified 06/21/18 04:44 ziprasidone mesylate Allergy RASH Verified 06/21/18 04:44 [From Geodon] Physical Exam - Constitutional Appears: Well, Non-toxic Results - Vital Signs Recent Vital Signs: Last Vital Signs Temp 98.3 F 07/25/18 09:09 Pulse 96 H 07/25/18 09:09 Resp 20 07/25/18 09:09 BP 123/79 07/25/18 09:09 Pulse Ox 92 L 07/25/18 09:09 - EKG Data EKG Interpreted by: Other (anesthesiologist and myself) EKG shows normal: Sinus rhythm Assessment & Plan - Assessment and Plan (Free Text) Assessment: schizoaffective disorder, treatment resistant Plan: pt will have weekly ECT for 4tx Next ECT is July Staff was advised to bring patient back to the hospital only in case of worsening of the symptoms Was advised to continue taking medications Patient contracted for safety Safe to go back to the jail for now pt requires to have weekly ECT because when this senior medical writer was trying to give tx every other week, pt was readmitted to the [facility] psych unit. - Date & Time Date: 07/25/18 Decision To Admit - Pt Status Changed To: Hospital Disposition Of: Extended Recovery/Post Procedure
[2018-07-25 12:51] VITALS: BP 120/84; RESP 18; TEMP 97.8; O2SAT 94
[2018-07-25 13:18] VITALS: PULSE 85
== END 2018-07-25 13:15 | disposition home or self-care (01) ==
LOC: SDS 08:30
PROVIDERS: ATTEND Psychiatry & Neurology Psychiatry
DX: F25.9 Schizoaffective disorder, unspecified (principal); Z87.891 Personal history of nicotine dependence
CPT/HCPCS: 90870; J0330; J2001; J2704; J7030; J7120

== ENCOUNTER → 2018-08-01 | Day surgery (SDC) | payer MEDICAID ==
[2018-07-19 10:27] VITALS: BMI 37.5
[~2018-08-01] MED LIST: Propofol 10 mg/ml Inj (20 ML) ONE; Sodium Chloride 0.9% 1,000 ML IV SCH; Succinylcholine 200 mg/10 ml Inj IV ONE
[2018-08-01 09:10] LABS: BASO # 0.02 K/mm3 (0.0-2.0); BASO % 0.4 % (0.0-3.0); EOS # 0.1 (0.0-0.7); EOS % 2.4 % (1.5-5.0); GRAN # 2.23 (1.4-6.5); GRAN % 43.9 % (50.0-68.0); HEMOGLOBIN 13.5 g/dL (14.0-18.0); LYMPH # 2.4 (1.2-3.4); LYMPH % 46.4 % (22.0-35.0); MEAN CORPUSCULAR HEMOGLOBIN 30.1 pg (25.0-35.0); MEAN CORPUSCULAR HGB CONC 33.5 g/dl (31.0-37.0); MEAN PLATELET VOLUME 8.4 fl (7.0-11.0); MONO # 0.4 (0.1-0.6); MONO % 6.9 % (1.0-6.0); RBC 4.48 10^6/uL (3.5-6.1); RED CELL DISTRIBUTION WIDTH 14.1 % (11.5-14.5); WHITE BLOOD COUNT 5.1 10^3/uL (4.5-11.0)
[2018-08-01 09:20] LABS: INR 0.98; PARTIAL THROMBOPLASTIN TIME 30.6 Seconds (25.1-36.5); PROTHROMBIN TIME 11.3 SECONDS (9.4-12.5)
[2018-08-01 09:23] LABS: BLOOD UREA NITROGEN 20 mg/dL (7-21); CALCIUM 8.8 mg/dL (8.4-10.5); GFR NON-AFRICAN AMERICAN > 60
[2018-08-01 09:27] LABS: BENZODIAZEPINES, UR NEGATIVE (NEGATIVE)
[2018-08-01 09:28] LABS: BARBITURATES, UR NEGATIVE (NEGATIVE); OPIATES, UR NEGATIVE (NEGATIVE); PHENCYCLIDINE, UR NEGATIVE (NEGATIVE)
--- NOTE | 2018-08-01 11:22 | CP.PCM.HP ---
History of Present Illness - History of Present Illness History of Present Illness: [facility], left a message with request to discuss treatment plan for this pt this story writer called [employer] back 07/31/18 [phone], but [employer] is off, will be back 08/05/18, no option to leave a message because mailbox is full. discussed with counseling case manager today Jennie who accompanied pt today 08/01/18, asked to pass message to MADI to call this story writer back. Original Note: History of Present Illness - History of Present Illness History of Present Illness: pt has long h/o schizoaffective disorder, treatment resistant pt came for outpatient ECT procedure, accompanied by pt's counseling case manager Jennie([phone]), as per Jennie patient is doing well, attending DTP, now pt is more compliant with his daily chores, pt is doing "very well", no agitation, no aggression, pt is compliant with meds and f/u appts. staff confirmed that pt did not eat or drink over night. as per staff pt started to see dentist, next appt on this coming Sunday08/03/18. pt was seen in OR, pt is willing to have ECT consent was signed, patient had capacity to do so Patient confirmed that he did not eat or drink, "I had water at 12am yesterday". pt was educated about risk/benefits and alternatives of the procedure Patient reported that he feels "okay, I feel alright, nice to see you". From this story writer observation patient presented very well, has very nice haircut, shaved, personal hygiene is much better to compare with the previous admission. for full H&P see admission note dated 06/20/18 06/24/18 ECT. 06/26/18 ECT 07/02/18 ECT ECT 07/04/2018 07/12/18 ECT 07/18/18 ECT ECT 07/25/18 this story writer used the same parameters as last time when pt had adequate seizures: charge 320mC, energy 56.3 J, at 220 ohms, stat imped 460, pulse width 0.5msec, frequency 50hz, duration 8.000sec, current 800mA pt had about 16sec of seizures, adequacy 82% by MECTA analysis. ECT 08/01/18 this story writer used the same parameters as last time when pt had adequate seizures: charge 320mC, energy 56.3 J, at 220 ohms, stat imped 460, pulse width 0.5msec, frequency 50hz, duration 8.000sec, current 800mA pt had about 16sec of seizures, adequacy 87% by MECTA analysis. as per anesthesiology, pt is easily desaturates, but today pt was not dessaturating, tolerated procedure very well. after the procedure, pt woke up, no agitation, no aggression pt will be accompanied by his counseling case manager back to the senior care. pt was advised to come back 08/15/18 for ECT procedure Present on Admission - Present on Admission Any Indicators Present on Admission: No Review of Systems - Review of Systems Systems not reviewed;Unavailable: Acuity of Condition - Constitutional Constitutional: As Per HPI - EENT Eyes: As Per HPI Ears: As Per HPI Nose/Mouth/Throat: As Per HPI - Cardiovascular Cardiovascular: As Per HPI - Respiratory Respiratory: As Per HPI - Gastrointestinal Gastrointestinal: As Per HPI - Genitourinary Genitourinary: As Per HPI - Reproductive: Male Reproductive:Male: As Per HPI - Musculoskeletal Musculoskeletal: As Per HPI - Integumentary Integumentary: As Per HPI - Neurological Neurological: As Per HPI - Psychiatric Psychiatric: As Per HPI - Endocrine Endocrine: As Per HPI - Hematologic/Lymphatic Hematologic: As Per HPI Past Patient History - Infectious Disease Hx of Infectious Diseases: None - Tetanus Immunizations Tetanus Immunization: Unknown - Past Medical History & Family History Past Medical History?: Yes - Past Social History Smoking Status: Former Smoker - CARDIAC Hx Pacemaker: No - PULMONARY Hx Tuberculosis: No - NEUROLOGICAL Hx Paralysis: No - HEENT Hx HEENT Problems: No - RENAL Hx Chronic Kidney Disease: No - ENDOCRINE/METABOLIC Hx Endocrine Disorders: No - HEMATOLOGICAL/ONCOLOGICAL Hx Blood Transfusions: No - INTEGUMENTARY Hx Dermatological Problems: No - MUSCULOSKELETAL/RHEUMATOLOGICAL Hx Musculoskeletal Disorders: No - GASTROINTESTINAL Hx Gastrointestinal Disorders: No - GENITOURINARY/GYNECOLOGICAL Hx Sexually Transmitted Disorders: No (Patient denied) - PSYCHIATRIC Hx Emotional Abuse: No Hx Physical Abuse: No Hx Substance Use: No - SURGICAL HISTORY Hx Surgeries: Yes - ANESTHESIA Hx Anesthesia Reactions: No Hx Malignant Hyperthermia: No Meds Allergies/Adverse Reactions: Allergies Allergy/AdvReac Type Severity Reaction Status Date / Time divalproex sodium Allergy RASH Verified 06/21/18 04:44 [From Depakote] FISH Allergy RASH Verified 06/21/18 04:44 haloperidol [From Haldol] Allergy RASH Verified 06/21/18 04:44 haloperidol lactate Allergy RASH Verified 06/21/18 04:44 [From Haldol] risperidone [From Risperdal] Allergy RASH Verified 06/21/18 04:44 ziprasidone HCl [From Geodon] Allergy RASH Verified 06/21/18 04:44 ziprasidone mesylate Allergy RASH Verified 06/21/18 04:44 [From Geodon] Physical Exam - Constitutional Appears: Well, Non-toxic Results - Vital Signs Recent Vital Signs: Last Vital Signs Temp 998.3 F H 08/01/18 08:45 Pulse 88 08/01/18 08:45 Resp 18 08/01/18 08:45 BP 125/72 08/01/18 08:45 Pulse Ox 96 08/01/18 08:45 - Labs Result Diagrams: 08/01/18 09:00 08/01/18 09:00 Labs: Laboratory Results - last 24 hr 08/01/18 08/01/18 08/01/18 08:30 09:00 09:00 WBC 5.1 RBC 4.48 Hgb 13.5 L Hct 40.3 L MCV 90.0 MCH 30.1 MCHC 33.5 RDW 14.1 Plt Count 272 MPV 8.4 Gran % 43.9 L Lymph % (Auto) 46.4 H [place] % (Auto) 6.9 H Eos % (Auto) 2.4 Baso % (Auto) 0.4 Gran # 2.23 Lymph # (Auto) 2.4 [place] # (Auto) 0.4 Eos # (Auto) 0.1 Baso # (Auto) 0.02 PT 11.3 INR 0.98 APTT 30.6 Sodium Potassium Chloride Carbon Dioxide Anion Gap BUN Creatinine Est GFR ( Amer) Est GFR (Non-Af Amer) Random Glucose Calcium Urine Opiates Screen Negative Urine Methadone Screen Negative Ur Barbiturates Screen Negative Ur Phencyclidine Scrn Negative Ur Amphetamines Screen Negative U Benzodiazepines Scrn Negative U Oth Cocaine Metabols Negative U Cannabinoids Screen Negative 08/01/18 09:00 WBC RBC Hgb Hct MCV MCH MCHC RDW Plt Count MPV Gran % Lymph % (Auto) [place] % (Auto) Eos % (Auto) Baso % (Auto) Gran # Lymph # (Auto) [place] # (Auto) Eos # (Auto) Baso # (Auto) PT INR APTT Sodium 139 Potassium 4.5 Chloride 109 H Carbon Dioxide 26 Anion Gap 9 L BUN 20 Creatinine 0.8 Est GFR ( Amer) > 60 Est GFR (Non-Af Amer) > 60 Random Glucose 101 Calcium 8.8 Urine Opiates Screen Urine Methadone Screen Ur Barbiturates Screen Ur Phencyclidine Scrn Ur Amphetamines Screen U Benzodiazepines Scrn U Oth Cocaine Metabols U Cannabinoids Screen Assessment & Plan - Assessment and Plan (Free Text) Assessment: schizoaffective disorder, treatment resistant Plan: pt had weekly ECT for a month now will try to do tx every 2weeks next treatment is 08/15/18 Staff was advised to bring patient back to the hospital only in case of worsening of the symptoms, or schedule early tx in case of worsening of the sy mptoms Was advised to continue taking medications Patient contracted for safety Safe to go back to the senior care Decision To Admit - Pt Status Changed To: Hospital Disposition Of: Extended Recovery/Post Procedure
[2018-08-01 11:41] VITALS: O2SAT 98
[2018-08-01 12:10] VITALS: RESP 20
[2018-08-01 12:22] VITALS: BP 147/67; PULSE 78; TEMP 97.8
--- NOTE | 2018-08-01 20:26 | CARD ---
APPROVED REPORT Date of service: 08/01/2018 EKG Measurement Heart [id number] <Conclusion> Normal sinus rhythm Normal Electrocardiogram
== END | disposition home or self-care (01) ==
LOC: SDS 08:09
PROVIDERS: ATTEND Psychiatry & Neurology Psychiatry
DX: F25.9 Schizoaffective disorder, unspecified (principal); Z87.891 Personal history of nicotine dependence
CPT/HCPCS: 36415; 80048; 80324; 80345; 80346; 80349; 80353; 80358; 80361; 83992; 85025; 85610; 85730; 90870; 93005; J0330; J2704; J7030

== ENCOUNTER 2018-08-15 07:45 | Day surgery (SDC) | payer MEDICAID ==
[2018-07-19 10:27] VITALS: BMI 37.5
[2018-08-15 08:21] VITALS: RESP 18
[2018-08-15] MEDS ORDERED: Succinylcholine 200 mg/10 ml Inj IV ONE (09:44)
[2018-08-15] MEDS ORDERED: Propofol 10 mg/ml Inj (20 ML) ONE (09:44)
[2018-08-15 11:07] VITALS: TEMP 97.8
[2018-08-15 11:28] VITALS: BP 125/75; PULSE 92; O2SAT 96
--- NOTE | 2018-08-15 15:33 | CP.PCM.HP ---
History of Present Illness - History of Present Illness History of Present Illness: pt has long h/o schizoaffective disorder, treatment resistant pt came for outpatient ECT procedure, accompanied by pt's residential Counselor Liz, as per Liz patient is doing well, attending DTP, now pt is more compliant with his daily chores, pt is doing "very well", no agitation, no aggression, pt is compliant with meds and f/u appts. staff confirmed that pt did not eat or drink over night. as per staff pt started to take care of his hygiene, started to brush his teeth. pt was seen in OR, pt is willing to have ECT consent was signed, patient had capacity to do so Patient confirmed that he did not eat or drink, "I took medications at 11:30 pm yesterday". pt was educated about risk/benefits and alternatives of the procedure Patient reported that he feels "okay, I feel alright, nice to see you". From this greeting card writer observation patient presented very well, has very nice haircut, shaved, personal hygiene is much better to compare with the previous admission. for full H&P see admission note dated 06/20/18 06/24/18 ECT. 06/26/18 ECT 07/02/18 ECT ECT 07/04/2018 07/12/18 ECT 07/18/18 ECT ECT 07/25/18 ECT 08/01/18 ECT 08/15/18 this greeting card writer used the same parameters as last time when pt had adequate seizures: charge 320mC, energy 56.3 J, at 220 ohms, stat imped 460, pulse width 0.5msec, frequency 50hz, duration 8.000sec, current 800mA pt had about 31sec of motor seizures, adequacy 84% by MECTA analysis. as per anesthesiology, pt is easily desaturates, but today pt was not dessaturating, tolerated procedure very well. after the procedure, pt woke up, no agitation, no aggression pt will be accompanied by his residential counselor to the long-term. pt was advised to come back 08/29/18 for ECT procedure after 08/29/18 ECT will be monthly. Present on Admission - Present on Admission Any Indicators Present on Admission: No Review of Systems - Constitutional Constitutional: As Per HPI - EENT Eyes: As Per HPI Ears: As Per HPI Nose/Mouth/Throat: As Per HPI - Cardiovascular Cardiovascular: As Per HPI - Respiratory Respiratory: As Per HPI - Gastrointestinal Gastrointestinal: As Per HPI - Genitourinary Genitourinary: As Per HPI - Reproductive: Male Reproductive:Male: As Per HPI - Musculoskeletal Musculoskeletal: As Per HPI - Integumentary Integumentary: As Per HPI - Neurological Neurological: As Per HPI - Psychiatric Psychiatric: As Per HPI - Endocrine Endocrine: As Per HPI - Hematologic/Lymphatic Hematologic: As Per HPI Past Patient History - Infectious Disease Hx of Infectious Diseases: None - Tetanus Immunizations Tetanus Immunization: Unknown - Past Medical History & Family History Past Medical History?: Yes - Past Social History Smoking Status: Former Smoker - CARDIAC Hx Pacemaker: No - PULMONARY Hx Tuberculosis: No - NEUROLOGICAL Hx Paralysis: No - HEENT Hx HEENT Problems: No - RENAL Hx Chronic Kidney Disease: No - ENDOCRINE/METABOLIC Hx Endocrine Disorders: No - HEMATOLOGICAL/ONCOLOGICAL Hx Blood Transfusions: No - INTEGUMENTARY Hx Dermatological Problems: No - MUSCULOSKELETAL/RHEUMATOLOGICAL Hx Musculoskeletal Disorders: No - GASTROINTESTINAL Hx Gastrointestinal Disorders: No - GENITOURINARY/GYNECOLOGICAL Hx Sexually Transmitted Disorders: No (Patient denied) - PSYCHIATRIC Hx Emotional Abuse: No Hx Physical Abuse: No Hx Substance Use: No - SURGICAL HISTORY Hx Surgeries: Yes - ANESTHESIA Hx Anesthesia Reactions: No Hx Malignant Hyperthermia: No Meds Allergies/Adverse Reactions: Allergies Allergy/AdvReac Type Severity Reaction Status Date / Time divalproex sodium Allergy RASH Verified 06/21/18 04:44 [From Depakote] FISH Allergy RASH Verified 06/21/18 04:44 haloperidol [From Haldol] Allergy RASH Verified 06/21/18 04:44 haloperidol lactate Allergy RASH Verified 06/21/18 04:44 [From Haldol] risperidone [From Risperdal] Allergy RASH Verified 06/21/18 04:44 ziprasidone HCl [From Geodon] Allergy RASH Verified 06/21/18 04:44 ziprasidone mesylate Allergy RASH Verified 06/21/18 04:44 [From Geodon] Results - Vital Signs Recent Vital Signs: Last Vital Signs Temp 98.8 F 08/15/18 08:15 Pulse 99 H 08/15/18 08:15 Resp 18 08/15/18 08:15 BP 125/83 08/15/18 08:15 Pulse Ox 18 L 08/15/18 08:15 - EKG Data EKG Interpreted by: Other (anesthesiologist) Assessment & Plan - Assessment and Plan (Free Text) Assessment: treatment resistant schizoaffective disorder Plan: pt had weekly ECT for a month now will try to do tx every 2weeks next treatment is 08/29/18, after this will be monthly Staff was advised to bring patient back to the hospital in case of worsening of the symptoms, or schedule early tx in case of worsening of the symptoms Was advised to continue taking medications Patient contracted for safety Safe to go back to the long-term pt pose no imminent danger to self or others. Decision To Admit - Pt Status Changed To: Hospital Disposition Of: Extended Recovery/Post Procedure
== END 2018-08-15 12:20 | disposition home or self-care (01) ==
LOC: SDS 07:45
PROVIDERS: ATTEND Psychiatry & Neurology Psychiatry
DX: F25.9 Schizoaffective disorder, unspecified (principal); Z87.891 Personal history of nicotine dependence
CPT/HCPCS: 90870; J0330; J1885; J2704

== ENCOUNTER 2018-08-29 07:38 | Day surgery (SDC) | payer MEDICAID ==
[2018-07-19 10:27] VITALS: BMI 37.5
[2018-08-29] MEDS ORDERED: Midazolam 2 MG/2 ML VIAL ONE (10:48)
[2018-08-29] MEDS ORDERED: Propofol 10 mg/ml Inj (20 ML) ONE (10:49)
[2018-08-29] MEDS ORDERED: Ketamine 10 mg/ml Inj (20 ml) ONE (10:50)
[2018-08-29] MEDS ORDERED: Sodium Chloride 0.9% 1,000 ML IV SCH (11:30)
[2018-08-29 11:56] VITALS: RESP 20; TEMP 98.5
--- NOTE | 2018-08-29 12:27 | CP.PCM.HP ---
History of Present Illness - History of Present Illness History of Present Illness: pt has long h/o schizoaffective disorder, treatment resistant pt came for outpatient ECT procedure, accompanied by pt's manager case Jennie([phone]), as per Jennie patient is doing well, attending DTP, now pt is more compliant with his daily chores, pt is doing "very well", no agitation, no aggression, pt is compliant with meds and f/u appts. staff confirmed that pt did not eat or drink over night. now pt gets passes to stay with his mother over weekend. pt was seen in OR, pt is willing to have ECT consent was signed, patient had capacity to do so Patient confirmed that he did not eat or drink. pt was educated about risk/benefits and alternatives of the procedure Patient reported that he feels "okay, I feel alright, nice to see you". From this software writer observation patient presented very well, has very nice haircut, shaved, personal hygiene is much better to compare with the previous admission. for full H&P see admission note dated 06/20/18 06/24/18 ECT. 06/26/18 ECT 07/02/18 ECT ECT 07/04/2018 07/12/18 ECT 07/18/18 ECT ECT 07/25/18 ECT 08/01/18 ECT 08/15/18 ECT 08/29/18 this software writer used the same parameters as last time when pt had adequate seizures: charge 320mC, energy 56.3 J, at 220 ohms, stat imped 3100, pulse width 0.5msec, frequency 50hz, duration 8.000sec, current 800mA pt had about 17sec of motor seizures, adequacy 91% by MECTA analysis. as per anesthesiology, pt is easily desaturates, but today pt was not dessaturating, tolerated procedure very well. we used Ketamine 40mg for anesthesia, Verset 2mg, Propofol 60mg, succinylcholine 100mg, we will continue the same meds for now. after the procedure, pt woke up, no agitation, no aggression pt will be accompanied by his manager case to the alf. pt was advised to come back in one month, will continue ECT monthly Present on Admission - Present on Admission Any Indicators Present on Admission: No Review of Systems - Review of Systems Systems not reviewed;Unavailable: Acuity of Condition - Constitutional Constitutional: As Per HPI - EENT Eyes: As Per HPI Ears: As Per HPI - Cardiovascular Cardiovascular: As Per HPI - Respiratory Respiratory: As Per HPI - Gastrointestinal Gastrointestinal: As Per HPI - Genitourinary Genitourinary: As Per HPI - Reproductive: Male Reproductive:Male: As Per HPI - Musculoskeletal Musculoskeletal: As Per HPI - Integumentary Integumentary: As Per HPI - Neurological Neurological: As Per HPI - Psychiatric Psychiatric: As Per HPI - Endocrine Endocrine: As Per HPI - Hematologic/Lymphatic Hematologic: As Per HPI Past Patient History - Infectious Disease Hx of Infectious Diseases: None - Tetanus Immunizations Tetanus Immunization: Unknown - Past Medical History & Family History Past Medical History?: Yes - Past Social History Smoking Status: Former Smoker - CARDIAC Hx Pacemaker: No - PULMONARY Hx Tuberculosis: No - NEUROLOGICAL Hx Paralysis: No - HEENT Hx HEENT Problems: No - RENAL Hx Chronic Kidney Disease: No - ENDOCRINE/METABOLIC Hx Endocrine Disorders: No - HEMATOLOGICAL/ONCOLOGICAL Hx Blood Transfusions: No - INTEGUMENTARY Hx Dermatological Problems: No - MUSCULOSKELETAL/RHEUMATOLOGICAL Hx Musculoskeletal Disorders: No - GASTROINTESTINAL Hx Gastrointestinal Disorders: No - GENITOURINARY/GYNECOLOGICAL Hx Sexually Transmitted Disorders: No (Patient denied) - PSYCHIATRIC Hx Emotional Abuse: No Hx Physical Abuse: No Hx Substance Use: No - SURGICAL HISTORY Hx Surgeries: Yes - ANESTHESIA Hx Anesthesia Reactions: No Hx Malignant Hyperthermia: No Meds Allergies/Adverse Reactions: Allergies Allergy/AdvReac Type Severity Reaction Status Date / Time divalproex sodium Allergy RASH Verified 06/21/18 04:44 [From Depakote] FISH Allergy RASH Verified 06/21/18 04:44 haloperidol [From Haldol] Allergy RASH Verified 06/21/18 04:44 haloperidol lactate Allergy RASH Verified 06/21/18 04:44 [From Haldol] risperidone [From Risperdal] Allergy RASH Verified 06/21/18 04:44 ziprasidone HCl [From Geodon] Allergy RASH Verified 06/21/18 04:44 ziprasidone mesylate Allergy RASH Verified 06/21/18 04:44 [From Geodon] Physical Exam - Constitutional Appears: Well Results - Vital Signs Recent Vital Signs: Last Vital Signs Temp 99.2 F 08/29/18 08:29 Pulse 92 H 08/29/18 08:29 Resp 20 08/29/18 08:29 BP 125/81 08/29/18 08:29 Pulse Ox 96 08/29/18 08:29 - EKG Data EKG Interpreted by: Other (anesthesiology/myself) EKG shows normal: Sinus rhythm Rate: Normal Assessment & Plan (1) Schizoaffective disorder, bipolar type Status: Chronic Priority: High - Assessment and Plan (Free Text) Plan: pt had weekly ECT for a month, after that tx every 2weeks at present moment pt will have monthly maintenance treatment, next treatment is 09/26/18 Staff was advised to bring patient back to the hospital in case of worsening of the symptoms, or schedule early tx in case of worsening of the symptoms Was advised to continue taking medications Patient contracted for safety Safe to go back to the alf pt pose no imminent danger to self or others. Decision To Admit - Pt Status Changed To: Hospital Disposition Of: Extended Recovery/Post Procedure
[2018-08-29 12:40] VITALS: BP 139/87; PULSE 91; O2SAT 96
== END 2018-08-29 14:00 | disposition home or self-care (01) ==
LOC: SDS 07:38
PROVIDERS: ATTEND Psychiatry & Neurology Psychiatry
DX: F25.0 Schizoaffective disorder, bipolar type (principal); F22 Delusional disorders; Z87.891 Personal history of nicotine dependence
CPT/HCPCS: 90870; J2250; J2704; J7030; J7120

== ENCOUNTER → 2018-09-26 | Day surgery (SDC) | payer MEDICAID ==
[2018-07-19 10:27] VITALS: BMI 37.5
--- NOTE | 2018-09-26 13:06 | CP.PCM.HP ---
History of Present Illness - History of Present Illness History of Present Illness: pt has long h/o schizoaffective disorder, treatment resistant pt came for outpatient ECT procedure, accompanied by pt's residential Counselor Liz, as per Liz patient is doing well, attending DTP, now pt is more compliant with his daily chores, pt is doing "very well", no agitation, no aggression, pt is compliant with meds and f/u appts. staff confirmed that pt did not eat or drink over night. as per staff pt started to take care of his hygiene, started to brush his teeth. pt was seen in OR, pt is willing to have ECT consent was signed, patient had capacity to do so Patient confirmed that he did not eat or drink. pt was educated about risk/benefits and alternatives of the procedure Patient reported that he feels "okay, I feel alright, nice to see you". From this marine underwriter observation patient presented very well, has very nice haircut, shaved, personal hygiene is much better to compare with the previous admission. for full H&P see admission note dated 06/20/18 ECT #30 outpatient 09/26/18 BL this marine underwriter used the same parameters as last time when pt had adequate seizures: pulse width 0.5msec, frequency 50hz, duration 8.000sec, current 800mA pt had about 31sec of motor seizures, adequacy 89% by MECTA analysis. as per anesthesiology, pt is easily desaturates, but today pt was not dessaturating, tolerated procedure very well. we used Ketamine 40mg for anesthesia, Verset 2mg, Propofol 60mg, succinylcholine 100mg, we will continue the same meds for now. after the procedure, pt woke up, no agitation, no aggression pt will be accompanied by his counter caser to the senior care. pt was advised to come back in one month, will continue ECT monthly next treatment 10/24/18 Present on Admission - Present on Admission Any Indicators Present on Admission: No Review of Systems - Constitutional Constitutional: As Per HPI Past Patient History - Infectious Disease Hx of Infectious Diseases: None - Tetanus Immunizations Tetanus Immunization: Unknown - Past Medical History & Family History Past Medical History?: Yes - Past Social History Smoking Status: Former Smoker - CARDIAC Hx Pacemaker: No - PULMONARY Hx Tuberculosis: No - NEUROLOGICAL Hx Paralysis: No - HEENT Hx HEENT Problems: No - RENAL Hx Chronic Kidney Disease: No - ENDOCRINE/METABOLIC Hx Endocrine Disorders: No - HEMATOLOGICAL/ONCOLOGICAL Hx Blood Transfusions: No - INTEGUMENTARY Hx Dermatological Problems: No - MUSCULOSKELETAL/RHEUMATOLOGICAL Hx Musculoskeletal Disorders: No - GASTROINTESTINAL Hx Gastrointestinal Disorders: No - GENITOURINARY/GYNECOLOGICAL Hx Sexually Transmitted Disorders: No (Patient denied) - PSYCHIATRIC Hx Emotional Abuse: No Hx Physical Abuse: No Hx Substance Use: No - SURGICAL HISTORY Hx Surgeries: Yes - ANESTHESIA Hx Anesthesia Reactions: No Hx Malignant Hyperthermia: No Meds Allergies/Adverse Reactions: Allergies Allergy/AdvReac Type Severity Reaction Status Date / Time divalproex sodium Allergy RASH Verified 06/21/18 04:44 [From Depakote] FISH Allergy RASH Verified 06/21/18 04:44 haloperidol [From Haldol] Allergy RASH Verified 06/21/18 04:44 haloperidol lactate Allergy RASH Verified 06/21/18 04:44 [From Haldol] risperidone [From Risperdal] Allergy RASH Verified 06/21/18 04:44 ziprasidone HCl [From Geodon] Allergy RASH Verified 06/21/18 04:44 ziprasidone mesylate Allergy RASH Verified 06/21/18 04:44 [From Geodon] Physical Exam - Constitutional Appears: Well Results - Vital Signs Recent Vital Signs: Last Vital Signs Temp 98.7 F 09/26/18 08:00 Pulse 89 09/26/18 08:00 Resp 18 09/26/18 08:00 BP 150/78 09/26/18 08:00 Pulse Ox 94 L 09/26/18 08:00 - EKG Data EKG Interpreted by: Other (anesthesiologist) Assessment & Plan (1) Schizoaffective disorder Status: Acute - Assessment and Plan (Free Text) Plan: at present moment pt will have monthly maintenance treatment, next treatment is 10/24/18 Staff was advised to bring patient back to the hospital in case of worsening of the symptoms, or schedule early tx in case of worsening of the symptoms Was advised to continue taking medications Patient contracted for safety Safe to go back to the senior care pt pose no imminent danger to self or others. Decision To Admit - Pt Status Changed To: Hospital Disposition Of: Extended Recovery/Post Procedure
[2018-09-26 13:21] VITALS: PULSE 95; RESP 18; TEMP 98.5; O2SAT 96
[2018-09-26 14:01] VITALS: BP 134/77
== END | disposition home or self-care (01) ==
LOC: SDS 07:50
PROVIDERS: ATTEND Psychiatry & Neurology Psychiatry
DX: F25.9 Schizoaffective disorder, unspecified (principal); Z87.891 Personal history of nicotine dependence
CPT/HCPCS: 90870; J0330; J2704; J7030

== ENCOUNTER 2018-10-24 09:19 | Day surgery (SDC) | payer MEDICAID ==
[2018-10-08 12:40] VITALS: BMI 31.3
[2018-10-24 09:48] LABS: BASO # 0.02 K/mm3 (0.0-2.0); BASO % 0.4 % (0.0-3.0); EOS # 0.1 (0.0-0.7); EOS % 1.1 % (1.5-5.0); HEMOGLOBIN 14.8 g/dL (14.0-18.0); LYMPH # 2.4 (1.2-3.4); LYMPH % 45.1 % (22.0-35.0); MEAN CELL VOLUME 89.1 fl (80.0-105.0); MEAN CORPUSCULAR HEMOGLOBIN 29.9 pg (25.0-35.0); MEAN CORPUSCULAR HGB CONC 33.6 g/dl (31.0-37.0); MEAN PLATELET VOLUME 8.5 fl (7.0-11.0); MONO # 0.3 (0.1-0.6); MONO % 6.1 % (1.0-6.0); RBC 4.95 10^6/uL (3.5-6.1); RED CELL DISTRIBUTION WIDTH 12.9 % (11.5-14.5); WHITE BLOOD COUNT 5.4 10^3/uL (4.5-11.0)
[2018-10-24 09:56] LABS: BLOOD UREA NITROGEN 15 mg/dL (7-21); CALCIUM 9.6 mg/dL (8.4-10.5); GFR NON-AFRICAN AMERICAN > 60
[2018-10-24] MEDS ORDERED: Succinylcholine 200 mg/10 ml Inj IV ONE (11:01)
[2018-10-24] MEDS ORDERED: Propofol 10 mg/ml Inj (20 ML) ONE (11:01)
[2018-10-24] MEDS ORDERED: Lidocaine PF 2% (5 ml) Inj (For Cardiac Arrhy) ONE (11:03)
[2018-10-24] MEDS ORDERED: Ketamine 10 mg/ml Inj (20 ml) ONE (11:26)
[2018-10-24] MEDS ORDERED: Midazolam 2 MG/2 ML VIAL ONE (11:30)
--- NOTE | 2018-10-24 11:35 | CP.PCM.HP ---
History of Present Illness - History of Present Illness History of Present Illness: pt has long h/o schizoaffective disorder, treatment resistant pt came for outpatient ECT procedure, accompanied by pt's case investigator Padmini vann([phone]), as per Jennie patient is doing well, attending DTP, now pt is more compliant with his daily chores, pt is doing "very well", no agitation, no aggression, pt is compliant with meds and f/u appts. staff confirmed that pt did not eat or drink over night. as per staff pt started to take care of his hygiene, started to brush his teeth. pt was seen in OR, pt is willing to have ECT consent was signed, patient had capacity to do so Patient confirmed that he did not eat or drink. pt was educated about risk/benefits and alternatives of the procedure Patient reported that he feels "I feel very good, everything is fine". From this public relations writer observation patient presented very well, has very nice haircut, shaved, personal hygiene is much better to compare with the previous admission. for full H&P see admission note dated 06/20/18 ECT (all sessions 40), but outpatient is #30 outpatient BL this public relations writer used the same parameters as last time when pt had adequate seizures: pulse width 0.5msec, frequency 50hz, duration 8.000sec, current 800mA pt had about 15sec of motor seizures, adequacy 86%by MECTA analysis. as per anesthesiology, pt is easily desaturates, but today pt was not dessaturating, tolerated procedure very well. we used Ketamine 40mg for anesthesia, Verset 2mg, Propofol 60mg, succinylcholine 100mg, we will continue the same meds for now. after the procedure, pt woke up, no agitation, no aggression pt will be accompanied by his case investigator to the [facility]. pt was advised to come back in one month, will continue ECT monthly next treatment 11/21/18 Present on Admission - Present on Admission Any Indicators Present on Admission: No Review of Systems - Review of Systems Systems not reviewed;Unavailable: Acuity of Condition - Constitutional Constitutional: As Per HPI - EENT Eyes: As Per HPI Ears: As Per HPI Nose/Mouth/Throat: As Per HPI - Cardiovascular Cardiovascular: As Per HPI - Respiratory Respiratory: As Per HPI - Gastrointestinal Gastrointestinal: As Per HPI - Genitourinary Genitourinary: As Per HPI - Reproductive: Male Reproductive:Male: As Per HPI - Musculoskeletal Musculoskeletal: As Per HPI - Integumentary Integumentary: As Per HPI - Neurological Neurological: As Per HPI - Psychiatric Psychiatric: As Per HPI - Endocrine Endocrine: As Per HPI - Hematologic/Lymphatic Hematologic: As Per HPI Past Patient History - Infectious Disease Hx of Infectious Diseases: None - Tetanus Immunizations Tetanus Immunization: Unknown - Past Medical History & Family History Past Medical History?: Yes - Past Social History Smoking Status: Former Smoker - CARDIAC Hx Pacemaker: No - PULMONARY Hx Tuberculosis: No - NEUROLOGICAL Hx Paralysis: No - HEENT Hx HEENT Problems: No - RENAL Hx Chronic Kidney Disease: No - ENDOCRINE/METABOLIC Hx Endocrine Disorders: No - HEMATOLOGICAL/ONCOLOGICAL Hx Blood Transfusions: No - INTEGUMENTARY Hx Dermatological Problems: No - MUSCULOSKELETAL/RHEUMATOLOGICAL Hx Musculoskeletal Disorders: No - GASTROINTESTINAL Hx Gastrointestinal Disorders: No - GENITOURINARY/GYNECOLOGICAL Hx Sexually Transmitted Disorders: No (Patient denied) - PSYCHIATRIC Hx Emotional Abuse: No Hx Physical Abuse: No Hx Substance Use: No - SURGICAL HISTORY Hx Surgeries: Yes - ANESTHESIA Hx Anesthesia Reactions: No Hx Malignant Hyperthermia: No Meds Allergies/Adverse Reactions: Allergies Allergy/AdvReac Type Severity Reaction Status Date / Time divalproex sodium Allergy RASH Verified 06/21/18 04:44 [From Depakote] FISH Allergy RASH Verified 06/21/18 04:44 haloperidol [From Haldol] Allergy RASH Verified 06/21/18 04:44 haloperidol lactate Allergy RASH Verified 06/21/18 04:44 [From Haldol] risperidone [From Risperdal] Allergy RASH Verified 06/21/18 04:44 ziprasidone HCl [From Geodon] Allergy RASH Verified 06/21/18 04:44 ziprasidone mesylate Allergy RASH Verified 06/21/18 04:44 [From Geodon] Physical Exam - Constitutional Appears: Well, Non-toxic Results - Vital Signs Recent Vital Signs: Last Vital Signs Temp 99.2 F 10/24/18 09:58 Pulse 95 H 10/24/18 09:58 Resp 20 10/24/18 09:58 BP 144/87 10/24/18 09:58 Pulse Ox 99 10/24/18 09:58 - Labs Result Diagrams: 10/24/18 09:40 10/24/18 09:40 Labs: Laboratory Results - last 24 hr 10/24/18 10/24/18 09:40 09:40 WBC 5.4 RBC 4.95 Hgb 14.8 Hct 44.1 MCV 89.1 MCH 29.9 MCHC 33.6 RDW 12.9 Plt Count 276 MPV 8.5 Neut % (Auto) 47.3 L Lymph % (Auto) 45.1 H [place] % (Auto) 6.1 H Eos % (Auto) 1.1 L Baso % (Auto) 0.4 Lymph # (Auto) 2.4 [place] # (Auto) 0.3 Eos # (Auto) 0.1 Baso # (Auto) 0.02 Absolute Neuts (auto) 2.56 Sodium 141 Potassium 4.4 Chloride 107 Carbon Dioxide 26 Anion Gap 12 BUN 15 Creatinine 0.8 Est GFR ( Amer) > 60 Est GFR (Non-Af Amer) > 60 Random Glucose 106 Calcium 9.6 - EKG Data EKG Interpreted by: Myself EKG shows normal: Sinus rhythm Assessment & Plan - Assessment and Plan (Free Text) Assessment: schizoaffective disorder bipolar type, treatment resistant Plan: ECT monthly next is 11/21/18 f/u with psychiatrist continue meds f/u with PMD pt was advised to come to the hospital in case of the worsening of the symptoms or in case of SI/HI Decision To Admit - Pt Status Changed To: Hospital Disposition Of: Extended Recovery/Post Procedure
[2018-10-24 12:40] VITALS: BP 115/75; PULSE 90; RESP 18; TEMP 97.8; O2SAT 99
== END 2018-10-24 13:30 | disposition home or self-care (01) ==
LOC: SDS 09:19
PROVIDERS: ATTEND Psychiatry & Neurology Psychiatry
DX: F25.0 Schizoaffective disorder, bipolar type (principal)
CPT/HCPCS: 36415; 80048; 85025; 90870; J0330; J2250; J2704